=== PATIENT | female | born 1940 | race Caucasian/White ===

== ENCOUNTER → 2017-08-07 16:20 | Outpatient (CLI) | payer MEDICARE, SELFPAY | PROVIDERS: Family Provider Internal Medicine; PCP Internal Medicine; Visit Provider Nurse Practitioner Adult Health | DX: R82.99 Other abnormal findings in urine (principal) | CPT/HCPCS: 87086; 87088; 87186 ==

== ENCOUNTER → 2018-11-05 | Outpatient (CLI) | payer MEDICARE, SELFPAY ==
--- NOTE | 2018-11-05 09:58 | BD_ITS ---
STUDY: DUAL ENERGY X-RAY ABSORPTIOMETRY / DXA REASON FOR EXAM: Female, 78 years old. The patient is postmenopausal. Loss of height. TECHNIQUE: Bone Mineral Density (BMD) measurements of lumbar spine and bilateral hips were obtained. COMPARISON: Comparison is made with prior study dated September 20, 2016. FINDINGS: Lumbar Spine (L1-L4): g/cm2 (0.900) / T-score (-2.3) / Z-score (-0.5) Findings are suggestive of osteopenia with a high fracture risk. Increased thoracic kyphosis with almost complete loss of height of a mid dorsal vertebrae. Left Femur Total: g/cm2 (0.766) / T-score (-1.9) / Z-score (-0.1) Left Femoral Neck: g/cm2 (0.762) / T-score (-2.0) / Z-score (0.0) Right Femur Total: g/cm2 (0.814) / T-score (-1.5) / Z-score (0.3) Right Femoral Neck: g/cm2 (0.814) / T-score (-1.6) / Z-score (0.4) The T-Scores on the most recent prior examination were: Lumbar Spine (L1-L4): There has been worsening of bone density since the previous examination. Left Femur Total: which represents an improvement of 0.1%. Right Femur Total: which represents a worsening of 0.4%. BD/Dexa Bone Density Study IMPRESSION: The patient is considered osteopenic as outlined below according to World [place] Organization (WHO) criteria with a high fracture risk. There has been worsening of bone density since the previous examination. Reference Information: The T-score is the number of standard deviations above or below the standard which is normal for young adults at their peak bone mineral density. The World Health Organization (WHO) interprets the T-scores as follows: Above -1 Normal bone density Between -1 and -2.5 Osteopenia Equal to / or below -2.5 Osteoporosis As a practical clinical guideline, osteopenia may be graded as follows: Mild -1 through -1.5 Moderate -1.6 through -2.0 Severe -2.1 through -2.4 The Z-score is the number of standard deviations above or below age-matched controls. A Z-score of less than -1.5 would be considered abnormal. References: 1. NIH Osteoporosis and Related Bone Diseases http://www.osteo.org 2. International Society for Clinical Densitometry http://www.iscd.org 3. National Osteoporosis Foundation http://www.nof.org Electronically Signed: Erwin Russ, at 15:58 EDT , Service support ,
== END | disposition home or self-care (01) ==
PROVIDERS: Family Provider Internal Medicine; PCP Internal Medicine; Referring Provider Internal Medicine; Visit Provider Internal Medicine
DX: Z78.0 Asymptomatic menopausal state (principal)
CPT/HCPCS: 77080

== ENCOUNTER → 2020-06-28 13:50 | Outpatient (CLI) | payer MEDICARE, SELFPAY ==
--- NOTE | 2020-06-28 13:55 | ECHOD_ITS ---
Reason For Study: SYNCOPE Procedure This was a 2D Doppler, Color Flow transthoracic echocardiogram. The study was technically difficult. Exam performed in department. Left Ventricle Normal LV size. The estimated ejection fraction is 65 %. Unable to assess diastolic dysfunction. No regional wall motion abnormalities noted. Right Ventricle Normal RV size. Normal systolic function. Atria Normal left atrium. Normal right atrium. No doppler evidence for ASD. Mitral Valve There is moderate mitral annular calcification. There is no mitral valve stenosis. Trivial mitral valve insufficiency. Tricuspid Valve There is no tricuspid stenosis. Trivial tricuspid valve insufficiency. Pulmonary artery systolic pressure is 25 mmHg. Aortic Valve Trisinus/trileaflet aortic valve. Aortic sclerosis, no stenosis. There is no aortic stenosis. Mild (1+) aortic valve insufficiency. Pulmonic Valve There is no pulmonic valvular stenosis. No pulmonic valve insufficiency. Great Vessels Normal aortic root. Pericardium/Pleural No pericardial effusion. MMode/2D Measurements & Calculations LVIDd: 3.6 cm IVSd: 0.70 cm Ao root diam: 3.4 cm LVIDs: 2.1 cm LVPWd: 0.70 cm RVDd: 2.9 cm FS: 40.8 % LAV(MOD-bp): 31.4 ml LVAd ap4: 28.1 cm2 SV(MOD-sp4): 48.2 ml LAV(MOD-bp) Indexed: 18.2 ml/m2 EDV(MOD-sp4): 78.9 ml LAV(MOD-sp2): 35.0 ml EDV(sp4-el): 85.9 ml LAV(MOD-sp4): 24.2 ml LVAs ap4: 15.0 cm2 ESV(MOD-sp4): 30.7 ml ESV(sp4-el): 33.4 ml EF(MOD-sp4): 61.1 % EF(sp4-el): 61.2 % SV(sp4-el): 52.5 ml LA A4 area: 10.5 cm2 LA dimension(2D): 2.9 cm Time Measurements MV dec time: 0.32 sec Doppler Measurements & Calculations MV E max yoel: 61.6 cm/sec Lat Peak E' Yoel: 7.9 cm/sec Med Peak E' Yoel: 4.3 cm/sec MV A max yoel: 96.3 cm/sec E/E' lat: 7.8 E/E' med: 14.2 MV E/A: 0.64 Ao V2 max: 150.2 cm/sec AI max yoel: 374.7 cm/sec LV V1 max: 97.9 cm/sec Ao max P.0 mmHg AI max P.2 mmHg LV V1 max P.8 mmHg AI dec slope: 173.5 cm/sec2 AI P1/2t: 632.7 msec PA V2 max: 66.3 cm/sec TR max yoel: 217.4 cm/sec TR max P.9 mmHg Interpretation Summary The estimated ejection fraction is 65 %. Unable to assess diastolic dysfunction. Trivial mitral valve insufficiency. Mild (1+) aortic valve insufficiency. Ordering Physician: Yvette Steel Referring Physician: Yvette Steel Performed By: Carol Benjamin, INDIRA, RVT
--- NOTE | 2020-06-28 13:55 | CDU_ITS ---
Reason For Study: Near Syncope Rt. Velocities/BP Lt. Velocities/BP Prox CCA 96/18 cm/sec. Prox CCA 71/17 cm/sec. Mid CCA 81/15 cm/sec. Mid CCA 79/13 cm/sec. Dist CCA 77/17 cm/sec. Dist CCA 67/17 cm/sec. Prox ICA 53/13 cm/sec. Prox ICA 68/15 cm/sec. Mid ICA 73/17 cm/sec. Mid ICA 66/22 cm/sec. Dist ICA 95/34 cm/sec. Dist ICA 80/27 cm/sec. Rt. ICA/CCA = 1.2. Lt. ICA/CCA = 1.0. Prox ECA 55/9 cm/sec. Prox ECA 72/10 cm/sec. Rt. Vert. 49/15 cm/sec. Lt. Vert. 28/9 cm/sec. Right Extracranial There is heterogeneous, smooth atherosclerotic plaque noted in the right common carotid artery. There is intimal thickening but no significant atherosclerotic plaque noted in the right internal carotid artery. There is intimal thickening but no significant atherosclerotic plaque noted in the right external carotid artery. Antegrade flow is noted in the right vertebral artery. Left Extracranial There is heterogeneous, irregular atherosclerotic plaque noted in the left common carotid artery. There is homogeneous, smooth atherosclerotic plaque noted in the left internal carotid artery. There is heterogeneous, irregular atherosclerotic plaque noted in the left external carotid artery. Antegrade flow is noted in the left vertebral artery. Procedure Carotid Duplex [id number]. Exam performed in department. Interpretation Summary Intimal thickening right proximal internal carotid artery with less than 50% stenosis Less than 50% stenosis right external carotid Minimal irregular plaque at the proximal left internal carotid artery with less than 50% stenosis Less than 50% stenosis left external carotid Patent and antegrade vertebrals bilaterally Ordering Physician: Yvette Steel Referring Physician: Yvette Steel Performed By: Karla Saini, RDCAROLINA, RVT
== END ==
LOC: CT 13:54 → CVS 13:57
PROVIDERS: PCP Internal Medicine; Referring Provider Internal Medicine; Visit Provider Internal Medicine
DX: R55 Syncope and collapse (principal)
CPT/HCPCS: 93306; 93880

== ENCOUNTER → 2020-07-16 06:21 | Outpatient (CLI) | payer MEDICARE, SELFPAY ==
--- NOTE | 2020-07-16 07:38 | TELEMED_ITS ---
[facility] has confirmed receipt of a request for visit. This document confirms receipt of the order initiating the consult. To find the results of the consultation, please view the patient's reports for the scanned Telemed Consult.
== END ==
PROVIDERS: PCP Internal Medicine; Referring Provider Internal Medicine; Visit Provider Internal Medicine
DX: R55 Syncope and collapse (principal)
CPT/HCPCS: 95819

== ENCOUNTER 2020-08-02 11:03 | Observation (INO) | payer MEDICARE, SELFPAY ==
[2020-08-02] VITALS (7 sets, daily range): BP systolic 131–172; BP diastolic 63–92; PULSE 54–83; RESP 12–21; TEMP 36.4–36.7; O2SAT 95–98; BMI 24.1; BMI 23.3
--- NOTE | 2020-08-02 11:17 | EKG12_ITS ---
Test Reason : SYNCOPE Blood Pressure : / mmHG Vent. Rate : 057 BPM Atrial Rate : 057 BPM P-R Int : 210 ms QRS Dur : 076 ms QT Int : 420 ms P-R-T Axes : 075 025 045 degrees QTc Int : 408 ms Sinus bradycardia with 1st degree A-V block with Premature supraventricular complexes Otherwise normal ECG Confirmed by LAYNE QUICK, TYSHAWN ([id number]), visual effects editor ARMANDO DE SOUZA ([id number]) on 08/04/2020 1:27:26 PM Referred By: HALLEY Confirmed By:TYSHAWN TILLMAN MD
--- NOTE | 2020-08-02 11:18 | ED.VISSUMM ---
- ER Visit Summary Date of Service: 08/02/20 Chief Complaint: Syncope History of Present Illness: The patient is a 80 F who presents with a syncopal episode that occurred today. Patient states she was shoveling snow when she felt lightheaded and passed out. Patient states she was only out for approximately 2 to 3 minutes. Patient states she felt lightheaded prior to passing out. Patient states she has a history of syncope. Patient states her primary care physician has worked her up for syncope with no cause. Patient denies any chest pain or palpitations. Patient denies any cough. Patient denies any nausea or vomiting. Physical Examination: Vital signs are stable. Patient is afebrile. Patient is in no acute distress. Oral mucosa is pink and moist. Neck is supple. Trachea is midline. There is no JVD noted. Heart was regular rate and rhythm. Lungs are clear and equal bilaterally. Abdomen is soft. Bowel sounds are normal. There is no tenderness. There is no rebound or guarding noted. Skin is warm dry. Cranial nerves II through XII are intact. There are no focal motor or sensory deficits noted. Extremities are intact. There is no calf tenderness or edema. Test Results: CBC is within normal limits. Comprehensive metabolic profile shows a slightly elevated creatinine of 1.44 and a BUN of 34. Urinalysis shows leukocyte esterase of 500 with 2+ bacteria. There are 0-5 white blood cells. Troponin was normal. Orthostatic vital signs were obtained and were within normal limits. Emergency Department Course and Treatment: Patient was ordered a dose of Cipro here. Patient states she cannot take any antibiotics for urinary tract infections even though she only has penicillins and sulfa listed as allergies. Patient states she is on a natural antibiotic and will take that. Patient states she still feels weak. Patient attempted to ambulate but was unsteady on her feet. Case was discussed with the hospitalist. She will admit the patient to her service. Patient understood and was agreeable with the plan. All questions were answered. Disposition: Admit to hospital Impression: 1. Syncope 2. General weakness 3. Urinary tract infection This note was generated with [employer] dictation software. It may contain incorrect words, spelling, and punctuation that were not noted in review of the chart prior to signing ED Disposition - Plan for ED Patient: Disposition: Acute Care Hospital [facility] Diagnosis: Syncope, General weakness, Urinary tract infection Referrals: Yvette Steel DO [Primary Care Provider] -
[2020-08-02 11:44] LABS: Absolute Lymphocyte Count 1.16 X10^3/uL (0.83-4.51); Absolute Neutrophil Count 4.5 X10^3/uL (2.0-7.7); Basophil# 0.03 X10^3/uL; Basophil% 0.5 % (0-1); Eosinophil# 0.07 X10^3/uL; Eosinophils% 1.1 % (0-5); Hematocrit 36.7 % (37-47); Hemoglobin 12.4 g/dL (12.0-15.0); Lymphocyte # 1.16 X10^3/ul (4.0); Lymphocyte % 18.3 % (19-41); Mean Corp Hgb Conc 33.8 g/dL (32-36); Mean Corpuscular Hgb 30.9 pg (27.0-32.0); Mean Corpuscular Volume 91.5 fL (81-99); Mean Platelet Vol. 9.1 fl (6.2-12.0); Monocyte# 0.61 X10^3/uL; Monocyte% 9.6 % (0-10); NRBC Flagged by Analyzer 0 % (0-5); Neutrophil # 4.46 X10^3/uL (2.7-7.7); Neutrophil % 70.2 % (47-70); Platelet Count 186 K/mm3 (150-450); RBC Distribution Width CV 13.2 % (11.6-14.6); RBC Distribution Width SD 43.5 fl (35.1-43.9); Red Blood Count 4.01 M/mm3 (4.2-5.4); White Blood Count 6.4 K/mm3 (4.4-11.0)
[2020-08-02 12:02] LABS: ALB/GLOB Ratio 1.1 RATIO (0.9-2.4); AST(SGOT) 30 U/L (15-37); Alanine Aminotransfer ALT/SGPT 43 U/L (13-56); Albumin, Serum 3.6 g/dL (3.2-5.0); Alkaline Phosphatase 93 U/L (45-117); Anion Gap 8 (5-15); BUN 34 mg/dL (7-18); BUN/Creat Ratio 23.6 RATIO (10-20); Calcium,Total 9.6 mg/dL (8.5-10.1); Chloride 108 mmol/L (98-107); Creatinine, Serum 1.44 mg/dL (0.55-1.02); EST Glomerular Filtration Rate 37 mL/min (>60); Est Glom Filt Rate - Afr Amer 45 mL/min (>60); Estimated Creatinine Clearance 29.66 ml/min; Globulin 3.3 g/dL (2.2-4.2); Glucose 100 mg/dL (74-106); Potassium 4.9 mmol/L (3.5-5.1); Protein, Total 6.9 g/dL (6.4-8.2); Sodium Level 139 mmol/L (136-145)
[2020-08-02 13:32] LABS: Mucous, Urine 0 SEEN /hpf (<or=2+); Red Blood Cells-Urine 0 SEEN /hpf (0-5)
[2020-08-02 13:43] LABS: Color, Urine Yellow (Yellow); Glucose, Dipstick Normal (Normal); Ketone-Dipstick Negative (Negative); Leukocyte Esterase-Dipstick 500 /ul (Negative); Nitrite-Dipstick Positive (Negative); Occult Blood-Urine 10 /ul (Negative); Protein-Dipstick Negative (Negative); Specific Gravity, Urine 1.005 (1.002-1.030); Urine Bilirubin Dipstick Negative (Negative); Urine Clarity Sl. Cloudy (Clear); Urine Urobilinogen Normal (Normal)
[2020-08-02 13:49] LABS: Bacteria 2+ /hpf (None Seen); Squamous Epithelial Cells - UA 0-5 SEEN /hpf (5-10); White Blood Cells 0-5 SEEN /hpf (0-5)
--- NOTE | 2020-08-02 16:11 | MRI_ITS ---
STUDY: MRI BRAIN WITHOUT CONTRAST REASON FOR EXAM: Female, 80 years old. syncope today, UTI, weakness TECHNIQUE: Standardized multiplanar fat and water weighted pulse sequences were obtained. COMPARISON: CT of the brain 07/23/2016 FINDINGS: Moderate atrophy and periventricular white matter disease without mass effect or restricted diffusion. There is involvement of the corpus callosum raising question of chronic demyelinating disease. Clinical correlation recommended. Focal chronic ischemic changes in the right cerebellar hemisphere Normal bilateral basal ganglia. Normal thalami. There is no extra-axial fluid accumulation. Normal flow voids within the major intracranial circulation suggesting patency by spin echo criteria. Normal sella turcica, pituitary gland, infundibular stalk, optic chiasm and hypothalamus. Normal tectal plate and pineal gland. Normal midbrain, ann and medulla. Normal basal cisterns. Normal bilateral temporal bones. Normal bilateral internal auditory canals. Postsurgical changes of the orbits.. Normal visualized paranasal sinuses. Normal calvarium and skull base. Normal visualized soft tissue structures. Normal visualized upper cervical spine. MRI/Brain without Contrast IMPRESSION: Moderate atrophy and nonspecific periventricular white matter disease without evidence for acute infarct. Focal chronic ischemic changes in the right cerebral hemisphere. Electronically Signed: Hilario Weldon MD at 22:01 EST , Service support ,
--- NOTE | 2020-08-02 16:11 | MRI_ITS ---
STUDY: MRA OF THE HEAD WITHOUT CONTRAST REASON FOR EXAM: Female, 80 years old. syncope today, UTI, weakness TECHNIQUE: 3-D [id number] (TOF) imaging was performed with MIPs. The study was performed unenhanced. COMPARISON: None. FINDINGS: Normal bilateral petrous carotid arteries. Normal right cavernous carotid artery with a normal supraclinoid bifurcation. Normal left cavernous carotid artery with a normal supraclinoid bifurcation. Normal right A1 segments of the anterior cerebral artery. Normal left A1 segments of the anterior cerebral artery. Anterior communicating artery not visualized consistent with normal variant. Normal bilateral A2 segments of the anterior cerebral arteries. Normal right M1 and M2 segments of the middle cerebral arteries, with a normal M1 bifurcation. Normal left M1 and M2 segments of the middle cerebral arteries, with a normal M1 bifurcation. Posterior communicating arteries are not visualized consistent with normal variant Normal bilateral vertebral arteries. Normal basilar artery with a normal basilar bifurcation. The visualized bilateral superior cerebellar (SCA) arteries are normal. Normal bilateral P1, P2 and visualized P3 segments of the posterior cerebral arteries. There is no demonstrated aneurysm of the [place]. There is no major vessel occlusion or hemodynamically significant stenosis. There is no demonstrated abnormality of the visualized brain. MRI/MRA Head ONLY without Contrast IMPRESSION: Normal MRA of the head Electronically Signed: Hilario Weldon MD at 22:21 EST , Service support ,
--- NOTE | 2020-08-02 16:28 | PCM.HP.STD ---
<Brittney Vicente JOURNEYMAN MECHANIC - Last Filed: 08/02/20 16:53> Problem List (1) General weakness Status: Acute (2) Urinary tract infection Status: Acute (3) Hypothyroid Status: Chronic (4) Hypertension Status: Chronic (5) Syncope Status: Acute (6) Uncontrolled hypertension Status: Chronic (7) Gastroenteritis Status: Resolved History of Present Illness Date of Admission: 08/02/20 Chief Complaint: Syncope. The patient is a 80 year old F who presents to the emergency room following syncopal episode. Patient states she had a syncopal episode while shoveling snow today. Patient states her neighbor helped her into the house and she had 2 more episodes of syncope in her home. Patient states she has had syncopal episodes for many years and no cause has been determined. She states her primary care has been doing outpatient testing recently as she is sick of having these episodes. She denies injury during syncopal episodes today. Patient denies dizziness or lightheadedness prior to episodes although states she can feel when she is about to pass out. She reports her most recent episode prior to today was in March however she has had syncope recurrently over the past several years. She denies seizure history. Denies palpitations. States she has had Holter monitor placed for the past month however it fell off during her syncopal episode today. Patient states she has been having urinary frequency. She states she has a history of recurrent UTI and takes a garlic supplementation as a preventative measure. She has a past medical history of hypertension and hypothyroidism. Past Medical History Past Medical History (Chronic Problems): Chronic Problems Hypothyroid (Chronic) Hypertension (Chronic) Uncontrolled hypertension (Chronic) Allergies atorvastatin calcium [From Lipitor] Allergy (Verified 08/02/20 11:05) Chest tightness captopril Allergy (Verified 08/02/20 11:05) Chest tightness lansoprazole [From Prevacid] Allergy (Verified 08/02/20 11:05) Chest tightness Penicillins Allergy (Verified 08/02/20 11:05) Hives procaine HCl [From Novocain] Allergy (Verified 08/02/20 11:05) Other risedronate sodium [From Actonel] Allergy (Verified 08/02/20 11:05) Chest tightness Sulfa (Sulfonamide Antibiotics) Allergy (Verified 08/02/20 11:05) Hives Home Medications: Ambulatory Orders Medication Instructions Recorded Aspirin [Aspirin, Baby] 81 mg PO DAILY@0800 #30 tab.chew 07/25/16 Levothyroxine Sodium [Synthroid] 37.5 mcg PO SA 08/02/20 Levothyroxine Sodium [Synthroid] 75 mcg PO SUMOTUWETHFR 08/02/20 Metoprolol Succinate [Toprol Xl] 25 mg PO DAILY 08/02/20 Surgical History: noncontributory Psychiatric History: No pertinent psych hx 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 Paternal History Items: - - Denies paternal medical history including cardiac history. Review of Systems Constitutional: Denies: Chills, Fever, Weight Change HEENT: Denies: Head Aches, Sinus Congestion, Sinus Drainage Cardiovascular: Reports: Syncope. Denies: Chest Pain, Chest Pressure, Edema, Light Headedness Respiratory: Denies: Cough, Shortness of breath at rest, Sputum production Gastrointestinal: Denies: Abdominal Pain, Nausea, Vomiting Genitourinary: Denies: Dysuria Musculoskeletal: Denies: Joint Pain, Joint Tenderness Skin: Denies: Rash, Wounds Neurological: Denies: Numbness, Tingling, Focal weakness Psychiatric: Denies: Anxiety, Depression, Homicidal Ideations, Suicidal Ideations Hematologic/ Lymphatic: Denies: Easy Bruising, Easy Bleeding VTE Information - Inpt Only VTE Present on Admission: No VTE Mechan Device Prophylaxis: None VTE Pharm Prophylaxis ordered?: Yes Patient Problems: Active and Suspected Problems General weakness (Acute) Urinary tract infection (Acute) Syncope (Acute) - Physical Exam Vitals/I&O's: Vital Signs Temp Pulse Resp BP Pulse Ox 98.1 F 62 21 H 172/92 H 96 08/02/20 15:49 08/02/20 15:49 08/02/20 15:49 08/02/20 15:49 08/02/20 15:49 Oxygen Delivery Method Room Air Weight: 149 lb 11.102 oz Body Mass Index (BMI) 24.1 General: Alert, Oriented x3, Cooperative HEENT: Atraumatic, PERRLA, EOMI, Normocephalic Neck: Supple, No JVD, Negative Carotid Bruits Lungs: Clear to auscultation, Normal air movement Cardiovascular: Regular rate, No murmurs Abdomen: Bowel Sounds Present, Soft, Non Tender, Non-Distended Extremities: No clubbing, No cyanosis, No edema, Capillary Refill Less than 3 Seconds Skin: No rashes, No breakdown Musculoskeletal: No Tenderness to Palpation of Joints or Extremities Neurological: Cranial nerves II-XII grossly intact, Neuro grossly intact Psych/Mental Status: Normal Affect, Appropriate Laboratory Results 08/02/20 11:35: WBC 6.4, RBC 4.01 L, Hgb 12.4, Hct 36.7 L, MCV 91.5, MCH 30.9, MCHC 33.8, RDW Std Deviation 43.5, RDW Coeff of Krystian 13.2, Plt Count 186, MPV 9.1, Immature Gran % (Auto) 0.300, Neut % (Auto) 70.2 H, Lymph % (Auto) 18.3 L, Curry % (Auto) 9.6, Eos % (Auto) 1.1, Baso % (Auto) 0.5, Absolute Neuts (auto) 4.5, Absolute Lymphs (auto) 1.16, Nucleated RBC % 0 08/02/20 11:35: Sodium 139, Potassium 4.9, Chloride 108 H, Carbon Dioxide 23.0, Anion Gap 8, BUN 34 H, Creatinine 1.44 H, Estim Creat Clear Calc 29.66, Est GFR (MDRD) Af Amer 45 L, Est GFR (MDRD) Non-Af 37 L, BUN/Creatinine Ratio 23.6 H, Glucose 100, Calcium 9.6, Total Bilirubin 0.40, AST 30, ALT 43, Alkaline Phosphatase 93, Troponin I < 0.015, Total Protein 6.9, Albumin 3.6, Globulin 3.3, Albumin/Globulin Ratio 1.1 08/02/20 13:20: Urine Color Yellow, Urine Clarity Sl. Cloudy, Urine pH 7.0, Ur Specific [place] 1.005, Urine Protein Negative, Urine Glucose (UA) Normal, Urine Ketones Negative, Urine Occult Blood 10 H, Urine Nitrite Positive H, Urine Bilirubin Negative, Urine Urobilinogen Normal, Ur Leukocyte Esterase 500 H, Urine RBC 0 SEEN, Urine WBC 0-5 SEEN, Ur Squamous Epith Cells 0-5 SEEN, Urine Bacteria 2+, Urine Mucus 0 SEEN Current Medications Acetaminophen (Acetaminophen 325 Mg Tablet) 650 mg PO Q6H PRN PRN PRN Reason: Pain Score 1-10/Temp > 100.7 F Aspirin (Aspirin 81 Mg Tab.Chew) 81 mg PO DAILY@0800 [facility] Heparin Sodium (Porcine) (Heparin Injection (Vial) 5,000 Unit/Ml Vial) 5,000 unit SC Q12 [facility] Sodium Chloride () 1,000 mls @ 75 mls/hr IV .[id number] [facility] Ceftriaxone Sodium 2 gm/ (Sodium Chloride) 50 mls @ 100 mls/hr IV Q24 [facility] Levothyroxine Sodium (Levothyroxine 75 Mcg Tablet) 75 mcg PO DAILY@0600 [facility] Melatonin (Melatonin 3 Mg Tablet) 3 mg PO QHS PRN PRN PRN Reason: INSOMNIA Metoprolol Succinate (Metoprolol(Xl)Succ 25 Mg Tablet) 25 mg PO DAILY [facility] Ondansetron HCl (Ondansetron 4 Mg/2 Ml Vial) 4 mg IV Q8H PRN PRN PRN Reason: NAUSEA/VOMITING Senna/Docusate Sodium (Senna/Docusate Sodium 1 Tablet) 2 tablet PO BID PRN PRN PRN Reason: Constipation Assessment/Plan All Active Problems General weakness (Acute) Urinary tract infection (Acute) Syncope (Acute) Gastroenteritis (Resolved) 1. Recurrent syncope-patient has had extensive outpatient evaluation including echocardiogram, EEG. Echocardiogram demonstrates an EF of 65%, mild aortic valve insufficiency. EEG showed no evidence of seizures or other abnormalities. Carotid duplex with less than 50% stenosis bilaterally. She has also been wearing a Holter monitor for the past month, unclear when this was to come off. Patient will need follow-up on records of this. Monitor telemetry. Obtain MRI of brain, MRA of head and neck. Check orthostatic vitals. PT/OT. 2. Acute cystitis-IV Rocephin pending urine culture. 3. Hypertension-stable, continue metoprolol. 4. Hypothyroidism-continue Synthroid regimen. 5. Chronic kidney disease stage III-appears at baseline, trend BMP. DVT prophylaxis-Heparin subcu This patient was seen by KARLI Grayson under the supervision of Dr. Doherty. <Katia Doherty - Last Filed: 08/02/20 18:20> History of Present Illness I agree with the above and the following is a representation of my independent history and physical exam Ms. Barber is a 80 year old very independent WF with a past medical history of recurrent syncope, hypothyroidism, and hypertension who presented to the emergency department on 08/02/2020 with an episode of syncope that occurred today. The patient states she was shoveling snow at the time when she felt lightheaded and passed out. She reports that she was out for approximately 2 to 3 minutes and she stated that she felt lightheaded prior to passing out. Upon review and discussion with the patient she has a recurrent history of syncope which has been worked up extensively by her primary care physician thus far including an event monitor that she is just finishing up with, an EEG on 07/16/2020 that was normal, an echocardiogram that was done on 07/01/2020 and showed an EF of 65% and mild aortic insufficiency, and carotid Dopplers that showed less than 50% stenosis of bilateral carotid arteries and patent antegrade vertebral arteries. The emergency department physician was getting ready to discharge her home but she felt that she was too weak to go home at this time and required admission. She reported that she is just sick of having these episodes. She also complains of urinary frequency and her UA is consistent with possible UTI. The patient denies any dysuria but does report she has a history of recurrent UTIs with recent urosepsis on admission in [place]. She takes garlic as an herbal antibiotic for preventative measures and is reluctant to take antibiotics otherwise. She sees a publishing systems analyst who told her her body was not using water the way it should and put her on another supplement of which she is not clear. Past Medical History Allergies atorvastatin calcium [From Lipitor] Allergy (Verified 08/02/20 11:05) Chest tightness captopril Allergy (Verified 08/02/20 11:05) Chest tightness lansoprazole [From Prevacid] Allergy (Verified 08/02/20 11:05) Chest tightness Penicillins Allergy (Verified 08/02/20 11:05) Hives procaine HCl [From Novocain] Allergy (Verified 08/02/20 16:28) I get drunk risedronate sodium [From Actonel] Allergy (Verified 08/02/20 11:05) Chest tightness Sulfa (Sulfonamide Antibiotics) Allergy (Verified 08/02/20 11:05) Hives Review of Systems Constitutional: Reports: Weakness, Fatigue. Denies: Anorexia, Chills, Fever, Night Sweats, Malaise, Weight Change Eyes: Denies: Blurred vision, Cataracts, Conjunctivae Inflammation, Double vision, Drainage, Eyelid Inflammation, Pain, Redness, Vision Change HEENT: Denies: Difficulty Hearing, Difficulty Swallowing, Ear Pain, Eye Pain, Hard of Hearing, Head Aches, Nasal bleeding, Nasal Congestion, Post Nasal Drip, Sinus Congestion, Sinus Drainage, Sore Throat, Visual Changes Cardiovascular: Reports: Syncope - This is recurrent in nature over the past several years. Denies: Chest Pain, Claudication, Chest Pressure, Chest Tightness, Edema, Heaviness, Light Headedness, Orthopnea, Palpitations, Paroxysmal Noc. Dyspnea Respiratory: Denies: Cough, Hemoptysis, Pleuritic Pain, Shortness of Breath, Shortness of breath at rest, Shortness of breath upon exertion, Sputum production, Wheezing Gastrointestinal: Denies: Abdominal Pain, Constipation, Diarrhea, Dyspepsia, Hematemesis, Hematochezia, Nausea, Melena, Vomiting Genitourinary: Reports: Frequency. Denies: Dysuria, Hematuria, Hesitancy, Incontinence, Nocturia, Retention, Urgency Musculoskeletal: Denies: Back Pain, Joint Pain, Joint stiffness, Joint swelling, Joint Tenderness, Muscle pain, Neck Pain Skin: Denies: Dryness, Jaundice, Lesions, Pruritis, Rash, Skin Changes, Wounds Neurological: Denies: Balance problems, Blurred vision, Double vision, Slurred speech, Confusion, Difficulty swallowing, Focal weakness, Incoordination, Numbness, Tingling, Tremor, Seizures Psychiatric: Denies: Anxiety, Depression Endocrine: Denies: Change in Body Habitus, Heat/ Cold Intolerance, Polydipsia, Polyuria Hematologic/ Lymphatic: Denies: Adenopathy, Anemia, Easy Bruising, Petechiae, Purpura - Physical Exam Vitals/I&O's: Vital Signs Temp Pulse Resp BP Pulse Ox 97.8 F 60 16 156/63 H 96 08/02/20 16:49 08/02/20 16:49 08/02/20 16:49 08/02/20 16:49 08/02/20 16:49 Oxygen Delivery Method Room Air Weight: 65.453 kg Body Mass Index (BMI) 23.3 General: Alert, Oriented x3, Cooperative, No apparent distress, Well developed, Well nourished, - - Older white female who appears younger than stated age, appears comfortable sitting up in bed HEENT: Atraumatic, PERRLA, EOMI, Normocephalic, EAC Clear Oral: Moist Mucosa, No Gingival or Mucosal Lesions/ Ulcerations, - - Mallampati 2 dentition is fair Neck: Supple, No JVD, Negative Carotid Bruits, Negative Hepatojugular Reflux, No Nodes, No Nuchal Rigidity, Trachea Midline, Thyroid Normal Size and Texture Lungs: Clear to auscultation, Normal air movement, No rhonchi, No wheeze, No rales Cardiovascular: Regular rate, Regular Rhythm, Normal S1, Normal S2, No murmurs, No Ectopic Activity, No rub noted, No Gallop Abdomen: Bowel Sounds Present, Soft, Non Tender, Non-Distended Extremities: No clubbing, No cyanosis, No edema, Capillary Refill Less than 3 Seconds, No Calf Tenderness, Peripheral Pulses Normal Skin: No rashes, No breakdown Musculoskeletal: No Tenderness to Palpation of Joints or Extremities, No Muscle Wasting, Arthritic Changes Lymphatic: No Cervical, Supraclavicular, or Inguinal Adenopathy Neurological: Cranial nerves II-XII grossly intact, Neuro grossly intact, Muscle tone normal, Sensory exam intact to light touch and pain, Coordination normal Psych/Mental Status: Normal Affect, Appropriate Laboratory Results 08/02/20 11:35: WBC 6.4, RBC 4.01 L, Hgb 12.4, Hct 36.7 L, MCV 91.5, MCH 30.9, MCHC 33.8, RDW Std Deviation 43.5, RDW Coeff of Krystian 13.2, Plt Count 186, MPV 9.1, Immature Gran % (Auto) 0.300, Neut % (Auto) 70.2 H, Lymph % (Auto) 18.3 L, Curry % (Auto) 9.6, Eos % (Auto) 1.1, Baso % (Auto) 0.5, Absolute Neuts (auto) 4.5, Absolute Lymphs (auto) 1.16, Nucleated RBC % 0 08/02/20 11:35: Sodium 139, Potassium 4.9, Chloride 108 H, Carbon Dioxide 23.0, Anion Gap 8, BUN 34 H, Creatinine 1.44 H, Estim Creat Clear Calc 29.66, Est GFR (MDRD) Af Amer 45 L, Est GFR (MDRD) Non-Af 37 L, BUN/Creatinine Ratio 23.6 H, Glucose 100, Calcium 9.6, Total Bilirubin 0.40, AST 30, ALT 43, Alkaline Phosphatase 93, Troponin I < 0.015, Total Protein 6.9, Albumin 3.6, Globulin 3.3, Albumin/Globulin Ratio 1.1 08/02/20 13:20: Urine Color Yellow, Urine Clarity Sl. Cloudy, Urine pH 7.0, Ur Specific [place] 1.005, Urine Protein Negative, Urine Glucose (UA) Normal, Urine Ketones Negative, Urine Occult Blood 10 H, Urine Nitrite Positive H, Urine Bilirubin Negative, Urine Urobilinogen Normal, Ur Leukocyte Esterase 500 H, Urine RBC 0 SEEN, Urine WBC 0-5 SEEN, Ur Squamous Epith Cells 0-5 SEEN, Urine Bacteria 2+, Urine Mucus 0 SEEN Current Medications Acetaminophen (Acetaminophen 325 Mg Tablet) 650 mg PO Q6H PRN PRN PRN Reason: Pain Score 1-10/Temp > 100.7 F Aspirin (Aspirin 81 Mg Tab.Chew) 81 mg PO DAILY@0800 [facility] Heparin Sodium (Porcine) (Heparin Injection (Vial) 5,000 Unit/Ml Vial) 5,000 unit SC Q12 [facility] Sodium Chloride () 1,000 mls @ 75 mls/hr IV .[id number] [facility] Ceftriaxone Sodium 2 gm/ (Sodium Chloride) 50 mls @ 100 mls/hr IV Q24 [facility] Levothyroxine Sodium (Levothyroxine 75 Mcg Tablet) 75 mcg PO DAILY@0600 [facility] Melatonin (Melatonin 3 Mg Tablet) 3 mg PO QHS PRN PRN PRN Reason: INSOMNIA Metoprolol Succinate (Metoprolol(Xl)Succ 25 Mg Tablet) 25 mg PO DAILY [facility] Ondansetron HCl (Ondansetron 4 Mg/2 Ml Vial) 4 mg IV Q8H PRN PRN PRN Reason: NAUSEA/VOMITING Senna/Docusate Sodium (Senna/Docusate Sodium 1 Tablet) 2 tablet PO BID PRN PRN PRN Reason: Constipation Sodium Chloride (0.9% Saline Lock 10 Ml Syringe) 10 - 40 ml IV UD PRN PRN Reason: SALINE FLUSH Assessment/Plan ASSESSMENT Recurrent syncope Possible UTI CKD stage III Hypertension Hypothyroidism PLAN -Patient has had an extensive outpatient work-up including recent event monitor for 30 days, echocardiogram, EEG, and carotid duplex all of which lead to no answer for her recurrent syncope episodes -Patient may need a tilt table exam but this could be done as an outpatient -MRI and MRA are pending -Start ceftriaxone and obtain urine culture and treat with antibiotics accordingly if patient will allow -Continue home medications Inpatient E&M: [id number] Init Hosp L3
--- NOTE | 2020-08-02 16:34 | MRI_ITS ---
STUDY: MRA NECK WITHOUT CONTRAST REASON FOR EXAM: Female, 80 years old. syncope today, UTI, weakness TECHNIQUE: Source images were obtained, MIPs were performed. The study was performed unenhanced. COMPARISON: None. FINDINGS: RIGHT CAROTID ARTERIES: Normal right common carotid artery (CCA). Normal right common carotid bulb. Mild plaquing of the origin of the right internal carotid (ICA) artery without a hemodynamically significant stenosis. Normal visualized cervical portion of the right internal carotid artery. Normal origin of the right external carotid artery (ECA). LEFT CAROTID ARTERIES: Normal left common carotid artery (CCA). Normal left common carotid bulb. Normal origin of the left internal carotid (ICA) artery without a hemodynamically significant stenosis. Normal visualized cervical portion of the left internal carotid artery. Normal origin of the left external carotid artery (ECA). VERTEBRAL ARTERIES: Normal antegrade flow within the bilateral vertebral artery without a hemodynamically significant stenosis. MRI/MRA Neck without Contrast IMPRESSION: Mild atherosclerotic disease without evidence for hemodynamically significant stenosis Electronically Signed: Hilario Weldon MD at 22:23 EST , Service support ,
--- NOTE | 2020-08-02 18:45 | NURSING ---
Patient returns from MRI. Per PROCESSING TECH, patient reported increased weakness and requests RN assistance. This RN in to see patient. Patient laying in bed groaning and saying no. Patient will go in and out of following directions. Blood sugar obtained 81. Says she wants to eat. After about 5 minutes, nightshift staff in to see patient. Patient opens eyes and converses with male nurses without difficulty. NIH-0. Vitals obtained. BP 166/[id number]. RN called and spoke with Dr. Doherty, Hospitalist. Updated her on same. Continue current treatment plan. Nightshift RN remained at bedside. Patient following commands and conversing with RN. No distress noted. Assisted up in bed for dinner.
[2020-08-02] MEDS: 0.9% Normal Saline 1,000 ML 75 ML IV (19:15)
[2020-08-02 19:36] LABS: Bedside Glucose 81 mg/dL (70-110)
[2020-08-02] MEDS: MELATONIN 3 MG TABLET PO (22:19)
[2020-08-03] VITALS (10 sets, daily range): BP systolic 119–139; BP diastolic 55–81; PULSE 55–71; RESP 16–18; TEMP 36.4–37; O2SAT 95–98
[2020-08-03 04:56] LABS: Absolute Lymphocyte Count 1.76 X10^3/uL (0.83-4.51); Absolute Neutrophil Count 2.3 X10^3/uL (2.0-7.7); Basophil# 0.04 X10^3/uL; Basophil% 0.8 % (0-1); Eosinophil# 0.12 X10^3/uL; Eosinophils% 2.5 % (0-5); Hematocrit 36.1 % (37-47); Hemoglobin 12.3 g/dL (12.0-15.0); Lymphocyte # 1.76 X10^3/ul (4.0); Lymphocyte % 36.1 % (19-41); Mean Corp Hgb Conc 34.1 g/dL (32-36); Mean Corpuscular Hgb 31.5 pg (27.0-32.0); Mean Corpuscular Volume 92.3 fL (81-99); Mean Platelet Vol. 8.8 fl (6.2-12.0); Monocyte# 0.67 X10^3/uL; Monocyte% 13.7 % (0-10); NRBC Flagged by Analyzer 0 % (0-5); Neutrophil # 2.28 X10^3/uL (2.7-7.7); Neutrophil % 46.7 % (47-70); Platelet Count 171 K/mm3 (150-450); RBC Distribution Width CV 13.4 % (11.6-14.6); RBC Distribution Width SD 44.6 fl (35.1-43.9); Red Blood Count 3.91 M/mm3 (4.2-5.4); White Blood Count 4.9 K/mm3 (4.4-11.0)
[2020-08-03 05:20] LABS: Anion Gap 8 (5-15); BUN 28 mg/dL (7-18); BUN/Creat Ratio 19.3 RATIO (10-20); Calcium,Total 9.5 mg/dL (8.5-10.1); Chloride 111 mmol/L (98-107); Creatinine, Serum 1.45 mg/dL (0.55-1.02); EST Glomerular Filtration Rate 37 mL/min (>60); Est Glom Filt Rate - Afr Amer 45 mL/min (>60); Estimated Creatinine Clearance 29.45 ml/min; Glucose 97 mg/dL (74-106); Phosphorus 3.8 mg/dL (2.5-4.9); Potassium 4.6 mmol/L (3.5-5.1); Sodium Level 140 mmol/L (136-145)
[2020-08-03] MEDS: Levothyroxine 75 MCG Tablet PO (05:46)
[2020-08-03] MEDS: Metoprolol(XL)Succ 25 MG Tablet PO (09:23)
[2020-08-03] MEDS: Aspirin 81 MG TAB.CHEW PO (09:23)
[2020-08-03] MEDS: 0.9% Normal Saline 1,000 ML 75 ML IV (09:23)
--- NOTE | 2020-08-03 11:52 | PCM.DC ---
- Discharge Diagnoses Current Active Problems: Current Active and Chronic Problems Urinary tract infection (Acute) Hypothyroid (Chronic) Hypertension (Chronic) Syncope (Acute) Uncontrolled hypertension (Chronic) You will use the following diet at home:: No restrictions Discharge Activity: Return to Normal Activity Call your doctor if you observe: Shortness of breath, Dizziness, Fainting spells, Chest pain Allergies/Adverse Reactions: Allergies atorvastatin calcium [From Lipitor] Allergy (Verified 08/02/20 11:05) Chest tightness captopril Allergy (Verified 08/02/20 11:05) Chest tightness lansoprazole [From Prevacid] Allergy (Verified 08/02/20 11:05) Chest tightness Penicillins Allergy (Verified 08/02/20 11:05) Hives procaine HCl [From Novocain] Allergy (Verified 08/02/20 16:28) I get drunk risedronate sodium [From Actonel] Allergy (Verified 08/02/20 11:05) Chest tightness Sulfa (Sulfonamide Antibiotics) Allergy (Verified 08/02/20 11:05) Hives Medications to take at Discharge Aspirin [Aspirin, Baby] 81 mg PO DAILY@0800 #30 tab.chew 07/25/16 Levothyroxine Sodium [Synthroid] 37.5 mcg PO SA 08/02/20 Levothyroxine Sodium [Synthroid] 75 mcg PO SUMOTUWETHFR 08/02/20 Metoprolol Succinate [Toprol Xl] 25 mg PO DAILY 08/02/20 Cefadroxil [Duricef] 500 mg PO BID #12 cap 08/03/20 The following prescriptions were given: Cefadroxil [Duricef] 500 mg PO BID #12 cap Transmission Status: [facility] Orders to be completed after discharge: 30-Day Event Recorder [[facility] Location: None Selected Primary Care Physician: Yvette Steel DO [Primary Care Provider] - Please follow up with your Primary Care Physician in: 1 Week Test Results: Test results from this visit will be discussed in further detail at your follow-up appointment, if applicable. Proposed Discharge Date: 08/03/20
--- NOTE | 2020-08-03 12:23 | PCM.DC.SUM ---
<Brittney Vicente POULTRY FIELD SERVICE TECHNICIAN - Last Filed: 08/03/20 12:29> Discharge Date and Diagnosis - Problem List Patient Problems: Active and Suspected Problems General weakness (Acute) Urinary tract infection (Acute) Syncope (Acute) Date of Admission: 08/02/20 Date of Discharge: 08/03/20 - Primary Discharge Diagnosis Acute Problems: Active Problems 1. Recurrent syncope 2. Acute cystitis 3. Hypertension 4. Hypothyroidism 5. Chronic kidney disease stage III - Secondary Discharge Diagnosis Chronic Problems: Chronic Problems Hypothyroid (Chronic) Hypertension (Chronic) Uncontrolled hypertension (Chronic) Hospital Course and Treatment Imaging Results: Diagnostic Data Brain MRI 08/02/20 16:11 IMPRESSION: Moderate atrophy and nonspecific periventricular white matter disease without evidence for acute infarct. Focal chronic ischemic changes in the right cerebral hemisphere. Electronically Signed: Hilario Weldon MD at 22:01 EST , Service support , Head MRA 08/02/20 16:11 IMPRESSION: Normal MRA of the head Electronically Signed: Hilario Weldon MD at 22:21 EST , Service support , Neck MRA 08/02/20 16:34 IMPRESSION: Mild atherosclerotic disease without evidence for hemodynamically significant stenosis Electronically Signed: Hilario Weldon MD at 22:23 EST , Service support , Operations: None Procedures: None Summary of Care Provided: The patient is a 80 year old F admitted 08/02/2020 due to syncope. 1. Recurrent syncope-patient has had extensive outpatient evaluation including echocardiogram, EEG. Echocardiogram 07/01/2020 an EF of 65%, mild aortic valve insufficiency. EEG showed no evidence of seizures or other abnormalities. Carotid duplex with less than 50% stenosis bilaterally. She has also been wearing a Holter monitor for the past month, however she was told it was not functioning properly. Orthostatic vitals negative. MRI of brain without acute process. Neck MRA unremarkable. No concerns during PT evaluation. Plan for discharge home with 30-day event monitor, follow-up with PCP in 1 week. 2. Acute cystitis-IV Rocephin during admission. Urine culture pulmonary growing GNR greater than 100,000 colony count. Prior urine culture grew E. coli. Discharged on Duricef 500 mg twice daily to complete course. 3. Hypertension-stable, continue metoprolol. 4. Hypothyroidism-continue Synthroid regimen. 5. Chronic kidney disease stage III-appears at baseline. General: Alert, Oriented x3, Cooperative HEENT: Atraumatic, PERRLA, EOMI, Normocephalic Neck: Supple, No JVD, Negative Carotid Bruits Lungs: Clear to auscultation, Normal air movement Cardiovascular: Regular rate, No murmurs Abdomen: Bowel Sounds Present, Soft, Non Tender, Non-Distended Extremities: No clubbing, No cyanosis, No edema, Capillary Refill Less than 3 Seconds Skin: No rashes, No breakdown Musculoskeletal: No Tenderness to Palpation of Joints or Extremities Neurological: Cranial nerves II-XII grossly intact, Neuro grossly intact Psych/Mental Status: Normal Affect, Appropriate Patient seen and examined prior to discharge. Physical assessment as noted above. Patient is stable for discharge with follow up recommendations as noted above. This patient was seen by KARLI Grayson under the supervision of Dr. Powers. Patient Problems: Active and Suspected Problems General weakness (Acute) Urinary tract infection (Acute) Syncope (Acute) - Physical Exam Vitals/I&O's: Vital Signs Temp Pulse Resp BP Pulse Ox 97.5 F L 71 16 123/55 H 98 08/03/20 09:20 08/03/20 09:23 08/03/20 09:20 08/03/20 09:23 08/03/20 09:30 Oxygen Delivery Method Room Air Weight: 144 lb 4.8 oz Body Mass Index (BMI) 23.3 Orthostatic Vital Signs Start: 08/02/20 23:25 Freq: q24h Status: Active Protocol: Activity Type Activity Date Activity User E-Sign Co-Sign Detail Recorded Client Recorded Date Recorded By Document 08/03/20 04:43 MY [id number] 08/03/20 04:44 MY 08/03/20 04:43 Orthostatic Vitals Standing -Blood Pressure (90/60-120/80) 139/81 H -Extremity Use Right Arm Sitting -Blood Pressure (90/60-120/80) 138/77 H -Extremity Use Right Arm Lying -Blood Pressure (90/60-120/80) 119/65 -Extremity Use Right Arm Intake and Output for Last 24 Hours 08/01/20 08/02/20 08/03/20 23:59 23:59 23:59 Intake Total 120 / 120 1178.75 / 1178.75 Output Total 0 / 0 Balance 120 / 120 1178.75 / 1178.75 Microbiology Past 72 Hours 08/02/20 13:20 Urine, Clean Catch Urine Culture - Preliminary Gram negative elias 08/02/20 14:30 Urine, Clean Catch Urine Culture - Preliminary Gram negative elias Laboratory Results 08/02/20 13:20: Urine Color Yellow, Urine Clarity Sl. Cloudy, Urine pH 7.0, Ur Specific Hancock 1.005, Urine Protein Negative, Urine Glucose (UA) Normal, Urine Ketones Negative, Urine Occult Blood 10 H, Urine Nitrite Positive H, Urine Bilirubin Negative, Urine Urobilinogen Normal, Ur Leukocyte Esterase 500 H, Urine RBC 0 SEEN, Urine WBC 0-5 SEEN, Ur Squamous Epith Cells 0-5 SEEN, Urine Bacteria 2+, Urine Mucus 0 SEEN 08/02/20 19:03: POC Glucose 81 08/03/20 04:46: WBC 4.9, RBC 3.91 L, Hgb 12.3, Hct 36.1 L, MCV 92.3, MCH 31.5, MCHC 34.1, RDW Std Deviation 44.6 H, RDW Coeff of Krystian 13.4, Plt Count 171, MPV 8.8, Immature Gran % (Auto) 0.200, Neut % (Auto) 46.7 L, Lymph % (Auto) 36.1, [place] % (Auto) 13.7 H, Eos % (Auto) 2.5, Baso % (Auto) 0.8, Absolute Neuts (auto) 2.3, Absolute Lymphs (auto) 1.76, Nucleated RBC % 0 08/03/20 04:46: Sodium 140, Potassium 4.6, Chloride 111 H, Carbon Dioxide 21.0, Anion Gap 8, BUN 28 H, Creatinine 1.45 H, Estim Creat Clear Calc 29.45, Est GFR (MDRD) Af Amer 45 L, Est GFR (MDRD) Non-Af 37 L, BUN/Creatinine Ratio 19.3, Glucose 97, Calcium 9.5, Phosphorus 3.8, Magnesium 2.0, TSH 2.00 Current Medications Acetaminophen (Acetaminophen 325 Mg Tablet) 650 mg PO Q6H PRN PRN PRN Reason: Pain Score 1-10/Temp > 100.7 F Aspirin (Aspirin 81 Mg Tab.Chew) 81 mg PO DAILY@0800 COUNTS INCLUDE 234 BEDS AT THE [facility] Last Admin: 08/03/20 09:23 Dose: 81 mg Documented by: Heparin Sodium (Porcine) (Heparin Injection (Vial) 5,000 Unit/Ml Vial) 5,000 unit SC Q12 COUNTS INCLUDE 234 BEDS AT THE [facility] Last Admin: 08/03/20 09:33 Dose: Not Given Documented by: Sodium Chloride () 1,000 mls @ 75 mls/hr IV .[id number] COUNTS INCLUDE 234 BEDS AT THE [facility] Last Infusion: 08/03/20 10:01 Dose: 75 mls/hr Documented by: Ceftriaxone Sodium 2 gm/ (Sodium Chloride) 50 mls @ 100 mls/hr IV Q24 COUNTS INCLUDE 234 BEDS AT THE [facility] Last Infusion: 08/03/20 10:01 Dose: Infused Documented by: Levothyroxine Sodium (Levothyroxine 75 Mcg Tablet) 75 mcg PO DAILY@0600 COUNTS INCLUDE 234 BEDS AT THE [facility] Last Admin: 08/03/20 05:46 Dose: 75 mcg Documented by: Melatonin (Melatonin 3 Mg Tablet) 3 mg PO QHS PRN PRN PRN Reason: INSOMNIA Last Admin: 08/02/20 22:19 Dose: 3 mg Documented by: Metoprolol Succinate (Metoprolol(Xl)Succ 25 Mg Tablet) 25 mg PO DAILY COUNTS INCLUDE 234 BEDS AT THE [facility] Last Admin: 08/03/20 09:23 Dose: 25 mg Documented by: Ondansetron HCl (Ondansetron 4 Mg/2 Ml Vial) 4 mg IV Q8H PRN PRN PRN Reason: NAUSEA/VOMITING Senna/Docusate Sodium (Senna/Docusate Sodium 1 Tablet) 2 tablet PO BID PRN PRN PRN Reason: Constipation Sodium Chloride (0.9% Saline Lock 10 Ml Syringe) 10 - 40 ml IV UD PRN PRN Reason: SALINE FLUSH Discharge Diet: No Restrictions Discharge Activity: Return to Normal Activity Call your doctor if you observe: Shortness of breath, Dizziness, Fainting spells, Chest pain Home Medications: Medications to take at Discharge Aspirin [Aspirin, Baby] 81 mg PO DAILY@0800 #30 tab.chew 07/25/16 Levothyroxine Sodium [Synthroid] 37.5 mcg PO SA 08/02/20 Levothyroxine Sodium [Synthroid] 75 mcg PO SUMOTUWETHFR 08/02/20 Metoprolol Succinate [Toprol Xl] 25 mg PO DAILY 08/02/20 Cefadroxil [Duricef] 500 mg PO BID #12 cap 08/03/20 Following Prescriptions Were Given to Patient: Cefadroxil [Duricef] 500 mg PO BID #12 cap Transmission Status: Received by [facility] Other Amb Orders: 30-Day Event Recorder [[facility]] Location: None Selected Primary Care Physician: Yvette Steel DO [Primary Care Provider] - Please follow up with your Primary Care Physician in: 1 Week Disposition: Home Minutes spent on discharge:: 35 Patient Condition:: Stable Medical Necessity - Tobacco Use Smoking Status: Never smoker Tobacco Use: Non-smoker Meaningful Use Info Meaningful Use Diagnoses (Choose all that apply): None applicable <Mark Powers F - Last Filed: 08/03/20 15:00> Discharge Date and Diagnosis - Primary Discharge Diagnosis Acute Problems: Active Problems General weakness (Acute) Urinary tract infection (Acute) Syncope (Acute) - Secondary Discharge Diagnosis Chronic Problems: Chronic Problems Hypothyroid (Chronic) Hypertension (Chronic) Uncontrolled hypertension (Chronic) Hospital Course and Treatment Summary of Care Provided: The patient is a 80 year old F [] - Physical Exam Vitals/I&O's: Vital Signs Temp Pulse Resp BP Pulse Ox 97.5 F L 71 16 123/55 H 98 08/03/20 09:20 08/03/20 09:23 08/03/20 09:20 08/03/20 09:23 08/03/20 09:30 Oxygen Delivery Method Room Air Weight: 144 lb 4.8 oz Body Mass Index (BMI) 23.3 Orthostatic Vital Signs Start: 08/02/20 23:25 Freq: q24h Status: Active Protocol: Activity Type Activity Date Activity User E-Sign Co-Sign Detail Recorded Client Recorded Date Recorded By Document 08/03/20 04:43 MY [id number] 08/03/20 04:44 MY 08/03/20 04:43 Orthostatic Vitals Standing -Blood Pressure (90/60-120/80) 139/81 H -Extremity Use Right Arm Sitting -Blood Pressure (90/60-120/80) 138/77 H -Extremity Use Right Arm Lying -Blood Pressure (90/60-120/80) 119/65 -Extremity Use Right Arm Intake and Output for Last 24 Hours 08/01/20 08/02/20 08/03/20 23:59 23:59 23:59 Intake Total 120 / 120 1418.75 / 1418.75 Output Total 0 / 0 Balance 120 / 120 1418.75 / 1418.75 Microbiology Past 72 Hours 08/02/20 13:20 Urine, Clean Catch Urine Culture - Preliminary Gram negative elias 08/02/20 14:30 Urine, Clean Catch Urine Culture - Preliminary Gram negative elias Laboratory Results 08/02/20 19:03: POC Glucose 81 08/03/20 04:46: WBC 4.9, RBC 3.91 L, Hgb 12.3, Hct 36.1 L, MCV 92.3, MCH 31.5, MCHC 34.1, RDW Std Deviation 44.6 H, RDW Coeff of Krystian 13.4, Plt Count 171, MPV 8.8, Immature Gran % (Auto) 0.200, Neut % (Auto) 46.7 L, Lymph % (Auto) 36.1, [place] % (Auto) 13.7 H, Eos % (Auto) 2.5, Baso % (Auto) 0.8, Absolute Neuts (auto) 2.3, Absolute Lymphs (auto) 1.76, Nucleated RBC % 0 08/03/20 04:46: Sodium 140, Potassium 4.6, Chloride 111 H, Carbon Dioxide 21.0, Anion Gap 8, BUN 28 H, Creatinine 1.45 H, Estim Creat Clear Calc 29.45, Est GFR (MDRD) Af Amer 45 L, Est GFR (MDRD) Non-Af 37 L, BUN/Creatinine Ratio 19.3, Glucose 97, Calcium 9.5, Phosphorus 3.8, Magnesium 2.0, TSH 2.00 Current Medications Acetaminophen (Acetaminophen 325 Mg Tablet) 650 mg PO Q6H PRN PRN PRN Reason: Pain Score 1-10/Temp > 100.7 F Aspirin (Aspirin 81 Mg Tab.Chew) 81 mg PO DAILY@0800 COUNTS INCLUDE 234 BEDS AT THE [facility] Last Admin: 08/03/20 09:23 Dose: 81 mg Documented by: Heparin Sodium (Porcine) (Heparin Injection (Vial) 5,000 Unit/Ml Vial) 5,000 unit SC Q12 COUNTS INCLUDE 234 BEDS AT THE [facility] Last Admin: 08/03/20 09:33 Dose: Not Given Documented by: Sodium Chloride () 1,000 mls @ 75 mls/hr IV .[id number] COUNTS INCLUDE 234 BEDS AT THE [facility] Last Infusion: 08/03/20 10:01 Dose: 75 mls/hr Documented by: Ceftriaxone Sodium 2 gm/ (Sodium Chloride) 50 mls @ 100 mls/hr IV Q24 COUNTS INCLUDE 234 BEDS AT THE [facility] Last Infusion: 08/03/20 10:01 Dose: Infused Documented by: Levothyroxine Sodium (Levothyroxine 75 Mcg Tablet) 75 mcg PO DAILY@0600 COUNTS INCLUDE 234 BEDS AT THE [facility] Last Admin: 08/03/20 05:46 Dose: 75 mcg Documented by: Melatonin (Melatonin 3 Mg Tablet) 3 mg PO QHS PRN PRN PRN Reason: INSOMNIA Last Admin: 08/02/20 22:19 Dose: 3 mg Documented by: Metoprolol Succinate (Metoprolol(Xl)Succ 25 Mg Tablet) 25 mg PO DAILY COUNTS INCLUDE 234 BEDS AT THE [facility] Last Admin: 08/03/20 09:23 Dose: 25 mg Documented by: Ondansetron HCl (Ondansetron 4 Mg/2 Ml Vial) 4 mg IV Q8H PRN PRN PRN Reason: NAUSEA/VOMITING Senna/Docusate Sodium (Senna/Docusate Sodium 1 Tablet) 2 tablet PO BID PRN PRN PRN Reason: Constipation Sodium Chloride (0.9% Saline Lock 10 Ml Syringe) 10 - 40 ml IV UD PRN PRN Reason: SALINE FLUSH Addendum: Dr. Powers I personally examined the patient and reviewed the chart. I agree with the above. 80-year-old female presenting from home with recurrent syncope. She says that she faints a lot and she has been having an extensive outpatient work-up by her PCP including an echo on 07/01/2020 with a normal EF, she also had an EEG that was negative for seizures. She had a carotid duplex which was negative for any type of carotid stenosis. While here she had an MRI and an MRA of her head and neck all of which were negative for stroke. She was supposed to be on a Holter monitor however she was told that it was not functioning properly therefore on discharge we will plan to discharge her with a Holter monitor. She was able to ambulate over 150 feet with physical therapy today and therefore she is okay for discharge. She does have a UTI and it is growing a gram-negative elias therefore we will plan to discharge on an antibiotic to complete her course. Will monitor her culture results and if necessary can call in a different antibiotic based on sensitivities. We discussed with her the plan for discharge today and she expressed understanding of the risk and benefits of going home and will go home today with outpatient follow-up. OBSV E&M: [id number] Observation care discharge
--- NOTE | 2020-08-03 13:24 | CASEMGMT ---
Addendum entered by Trinidad Lambert 08/03/20 16:03: Call back from Judi at [facility] and they are unable to accept pt at this time. KathleenPedro Luis KEESHA aware and into room to see who pt's 2nd/3rd choices are for HHC at this time. Israel YANEZ CM Addendum entered by Trinidad Lambert 08/03/20 14:21: EdinKye THAO had been in room to f/u on SNF and pt states she would only go to TCU at this time and TCU has no beds available at this time. This BEAU AYALA and Chantale THAO back to room to speak with pt and pt states will not go to any further SNF at this time because of 'the virus.' Pt states she would like to go home with [facility] at this time. Order for SN, PT/OT placed in [employer] [facility]) and message left for Judi, intake at [facility], in regards to pt at this time. CM to follow. Israel YANEZ CM Original Note: Per RN, pt has concerns with going home at this time. This RN CM to room to discuss with pt at this time and pt is indecisive at this time. Pt states unsure that she can go home safely at this time. Pt states she has sons but they are not close. Pt provided with in-network SNF and HHC list at this time. Pt states that she does not feel that HHC would be enough assistance at this time after this BEAU AYALA explained HHC to pt at this time. CM to follow. Brittney MVA REACTOR OPERATOR and Orquidea YANEZ updated on all, voices understanding. Pt is A/Ox4 at this time. Israel YANEZ CM
--- NOTE | 2020-08-03 14:27 | CASEMGMT ---
SW spoke w/pt about what penitentiary she would like a referral sent, as she had expressed concern to CM about returning home. Pt has list of nursing homes in network w/[employer], with the Medicare star ratings. Pt explained to SW that the only place she will consider going is TCU. Pt states she doesn't want to go to a penitentiary because of COVID. She states she is not afraid to but doesn't want COVID. SW explained some of the other facilities do not have any COVID, SW can call and check to see for certain, as TCU may not have any beds. Pt is still not in agreement with any other facilities but TCU. If TCU cannot take pt, pt states will go home. SW asked about home health. She states they only come once per week and she can ask her neighbor to check on her daily. SW explained home health goes through insurance and would be covered, and she could have home health along with the neighbor checking on her. Pt is not sure. She states she passes out all the time and never knows when it will happen. She states it's been going on for years and nobody knows what causes it. SW asked pt about moving someplace like assisted living where she could have more of an eye on her to keep her safe. Pt states but I am so good! Until I am not. SW explained will call TCU and let her know. SW called TCU, there are no beds available. SW and CM went in together, SW let her know TCU has not beds. Pt is not in agreement to go anyplace else but home. CM spoke w/pt about home care for nursing and therapy, pt is agreeable now to this and chose [facility]. CM will follow up w/referral. FAMILIA Julien
--- NOTE | 2020-08-03 14:44 | PCS.PANDOC ---
PANDEMIC DOCUMENTATION INITIATED: Date: 08/02/2020 Time: [id number]
--- NOTE | 2020-08-03 14:47 | PHA.DC.MC ---
Pharmacy Service has performed discharge medication reconciliation and counseling for this patient. 1. CEFADROXIL 500MG PO BID X 6 DAYS The patient's discharge medication list was reviewed for discrepancies and discrepancies were resolved. Home Medications Aspirin [Aspirin, Baby] 81 mg PO DAILY@0800 #30 tab.chew 07/25/16 Levothyroxine Sodium [Synthroid] 37.5 mcg PO SA 08/02/20 Levothyroxine Sodium [Synthroid] 75 mcg PO SUMOTUWETHFR 08/02/20 Metoprolol Succinate [Toprol Xl] 25 mg PO DAILY 08/02/20 Cefadroxil [Duricef] 500 mg PO BID #12 cap 08/03/20 The patient was counseled on the following discharge medications and changes in medications for homegoing were reviewed. The Reason for Use, instructions for use, and potential side effects were reviewed for all new medications. The patient's questions regarding all of their medications were answered. The patient was able to verbally demonstrate an understanding of their discharge medications.
--- NOTE | 2020-08-03 15:33 | CASEMGMT ---
Per RN [facility] cannot take patient. SW spoke with patient and inquired her next 2 choices off the list of home health agencies she was given. Her next choice was [facility] and the next one is [facility]. KEESHA told her we will work on this and let her know as soon as we know more. KEESHA called [facility] regarding referral. KEESHA also faxed referral ([phone] [phone]). Await their response. Gisela MERCHANT MSW
--- NOTE | 2020-08-03 16:34 | CASEMGMT ---
Call back from [facility] and they states they are unable to accept pt's insurance at this time. Referral faxed to [facility] as this was pt's next choice at this time. Call to [facility] and they are already closed for the day at this time. Message left in regards to referral to call this RN LUCY cameron in the am on whether they can accept pt. Pt updated at this time, voices understanding and is still planned to be discharged home today. Pt states that if [facility] can't take her then [facility], [facility], and [facility] in that order. This RN CM to follow. SStlupe YANEZ CM
--- NOTE | 2020-08-04 09:34 | CASEMGMT ---
Addendum entered by Trinidad Lambert 08/04/20 15:17: Call to [facility] and they state they do not go to pt's area either. There were no other in-network [facility] agencies at this time. Call to pt and she is updated at this time and pt states 'I am actually doing much better than I figured.' Pt aware that she can try and get OP set up if she feels she needs it through her PCP but pt states 'Honestly, I think I am fine.' Pt states she has neighbors help, if needed. Pt voices no further questions/concerns/needs at this time. Israel YANEZ CM Addendum entered by Triniadd Lambert 08/04/20 14:21: Call back to [facility] to see if they received fax and can accept pt at this time. Per Pamela, they cannot accept pt at this time. Referral faxed to [facility] at this time as they are the only in-network [facility] left to try at this time. Call to [facility] to notify of referral and they state they do not service pt area at this time but to try [facility] as they are now affiliated with [facility]. Referral faxed to [facility] at this time. Israel YANEZ CM Addendum entered by Trinidad Lambert 08/04/20 13:43: Call to [facility] and per Sarah, they did not receive referral as their fax machine is down. Referral re-faxed to [facility] at [phone]. CM to follow. Israel YANEZ CM Addendum entered by Trinidad Lambert 08/04/20 13:42: 1300 [facility] and [facility] cannot take pt at this time. Referral faxed to [facility] at this time. Israel RN CM Addendum entered by Trinidad Lambert 08/04/20 11:42: 1117 Call from [facility] to [facility] and Kathryn states they still did not receive faxed referral at this time. New fax number obtained and referral re-faxed at this time. CM to follow. Israel YANEZ CM Original Note: This RN LUCY has not heard from [facility] to [facility] yet at this time so call placed to them and per Kathryn, they never got the fax that was sent last pm but fax confirmation was obtained. Referral re-faxed at this time with confirmation. Israel YANEZ CM
== END 2020-08-03 11:52 | disposition home or self-care (01) ==
LOC: ED 15:12 → PCU 15:25
PROVIDERS: Admitting Provider Internal Medicine; Emergency Provider Emergency Medicine; PCP Internal Medicine; Visit Provider Family Medicine
DX: R55 Syncope and collapse (principal); N30.00 Acute cystitis without hematuria; I12.9 Hypertensive chronic kidney disease with stage 1 through stage 4 chronic kidney disease, or unspecified chronic kidney disease; E03.9 Hypothyroidism, unspecified; N18.30 Chronic kidney disease, stage 3 unspecified; Z79.899 Other long term (current) drug therapy; Z79.82 Long term (current) use of aspirin; I49.1 Atrial premature depolarization; I44.0 Atrioventricular block, first degree
CPT/HCPCS: 36415; 70544; 70547; 70551; 80048; 80053; 81001; 82962; 83735; 84100; 84443; 84484; 85025; 87077; 87086; 87088; 87186; 93005; 96361; 96365; 97162; 97166; 99218; 99285; J7030; A4216; G0378; J0696

== ENCOUNTER → 2020-08-30 08:50 | Outpatient (CLI) | payer MEDICARE, SELFPAY ==
[2020-08-02 16:31] VITALS: BMI 23.3
[2020-08-30 10:07] LABS: Glucose GTT- Fasting 88 mg/dL (74-106)
[2020-08-30 11:07] LABS: Glucose GTT-30 minutes 133 mg/dL (110-170)
[2020-08-30 11:09] LABS: Glucose GTT- 1 Hour 143 mg/dL (120-170)
[2020-08-30 12:44] LABS: Glucose GTT- 2 Hour 128 mg/dL (70-120)
[2020-08-30 13:12] LABS: Glucose GTT- 3 Hour 118 mg/dL (74-106)
[2020-08-30 13:55] LABS: Glucose GTT- 4 Hour 79 mg/dL (74-106)
== END ==
PROVIDERS: PCP Internal Medicine; Visit Provider Internal Medicine
DX: R55 Syncope and collapse (principal)
CPT/HCPCS: 36415; 82951; 82952

== ENCOUNTER → 2020-09-07 08:25 | Outpatient (CLI) | payer MEDICARE, SELFPAY ==
[2020-08-02 16:31] VITALS: BMI 23.3
--- NOTE | 2020-09-07 13:57 | TILTTABLE_ITS ---
- Staff Staff: Jory Martinez - Summary Pre Test Resting HR: 54 - Alert and oriented: Warm and dry Pre Test Resting BP: 171/73 - Alert and oriented: Warm and dry Minimum Test HR: 0 - Unresponsive Maximum Test HR: 141 - Alert and responsive Minimum Test BP: 0/0 - Unresponsive Maximum Test BP: 169/81 - Alert and oriented: Warm and dry Reason for Test Termination: Syncope Physician Tilt Table Report - Patient's Physicians Primary Care Physician: Yvette Steel Architecture Manager: Marco Green Indications/Diagnosis: Syncope Procedure Comments: The patient was brought to the tilt table laboratory and laid supine on the tilt table. The patient was alert and oriented and warm and dry. The baseline heart rate was 54 bpm with a baseline blood pressure of 171/73 mmHg. The cardiac rhythm was sinus bradycardia. The patient was placed in the 70 degree upright tilt table position for 20 minutes. The patient remained alert and oriented and warm and dry. The minimal heart rate was 53 bpm with a maximal heart rate of 63 bpm. The minimal blood pressure was 123/79 mmHg with a maximal blood pressure of 169/81 mmHg. The patient remained in sinus rhythm. The patient reported hands cool and back of neck warm and face flushed . The patient did not lose consciousness. The patient was returned to the supine position. The patient was subsequently administered nitroglycerin 0.4 mg sublingual x 1. Patient returned to the 70 degree upright tilt table position where she was initially alert and oriented and warm and dry with a heart rate of 61 bpm and a blood pressure of 136/74 mmHg and notation of sinus rhythm. The patient was subsequently noted to become pale and diaphoretic and noting that I do not feel good , I am hot , and was noted to have subsequent decreased heart rate to wh ere heart rate was not recordable and subsequent decrease blood pressure to where blood pressure was not recordable. The patient was returned to the supine position. The cardiac rhythm had demonst rated marked sinus bradycardia with subsequent prolonged asystole of approximately 70 seconds during that time the patient received atropine 1 mg IV push total and BLS CPR. The patient had subsequent return of sinus rhythm/sinus tachycardia as well as return of blood pressure and subsequently being alert and responsive. The patient was noted, at conclusion of the examination, to be alert and res ponsive yet diaphoretic. The heart rate was 97 bpm with a blood pressure 116/70 mmHg. The cardiac rhythm appeared to be sinus rhythm/sinus tachycardia with PACs. The patient was subsequently transported to the [facility] emergency department for further evaluation and care. Summary: 70 degree upright tilt table study status post nitroglycerin sublingual c hallenge considered positive for reproducible vasovagal/neurocardiogenic mediated syncope with a marked cardioinhibitory response a with prolonged asystole response requiring medical intervention with IV atropine and BLS CPR to regain sinus rhythm/hemodynamics/and awake and alert state. This note was generated using a voice recognition system and there may be incorrect words, spelling or punctuation that were not noted when reviewing the office note prior to saving.
[2020-09-07 14:14] VITALS: BP 0/0; BP 169/81; BP 171/73
== END ==
PROVIDERS: PCP Internal Medicine; Referring Provider Internal Medicine; Visit Provider Internal Medicine
DX: R55 Syncope and collapse (principal)
CPT/HCPCS: 93660; J7040; A4216

== ENCOUNTER 2020-09-07 10:01 | Inpatient (IN) | payer MEDICARE, SELFPAY ==
[2020-08-02 16:31] VITALS: BMI 23.3
[2020-09-07] VITALS (9 sets, daily range): BP systolic 98–122; BP diastolic 54–91; PULSE 49–85; RESP 14–20; TEMP 36.4–36.8; O2SAT 94–98; BMI 25.1; BMI 23.3
--- NOTE | 2020-09-07 10:32 | EKG12_ITS ---
Test Reason : Blood Pressure : / mmHG Vent. Rate : 072 BPM Atrial Rate : 072 BPM P-R Int : 178 ms QRS Dur : 080 ms QT Int : 416 ms P-R-T Axes : 050 027 046 degrees QTc Int : 455 ms Normal sinus rhythm Low voltage QRS Borderline ECG Confirmed by DARIUS QUICK, CARISSA ([id number]), manufacturing controls engineer ADRIANO SURESH ([id number]) on 09/13/2020 10:19:24 A M Referred By: /BB Confirmed By:CARLOS MCCOY MD
--- NOTE | 2020-09-07 10:42 | ED.VISSUMM ---
- ER Visit Summary Date of Service: 09/07/20 Chief Complaint: Unresponsive History of Present Illness: The patient is a 80 F presenting from outpatient tilt table testing. Patient was having a tilt table test today due to syncope. She states she passes out frequently. This has been ongoing for several years. She states this test was ordered to try to find the cause of her syncope. During the test she was given nitro per protocol. Her heart rate went to the 30s and then she became unresponsive. She was given atropine. She went into asystole and CPR was initiated. She started to come around and is now responsive and talking. She complains of chest soreness after compressions. Denies other complaints. Physical Examination: Vitals are stable. Patient is afebrile. Alert no acute distress. HEENT exam is unremarkable. Neck is supple. Lungs are clear and equal bilaterally. Heart is regular rate and rhythm. Abdomen is soft nontender nondistended. Extremities are unremarkable. Skin is warm and dry. No focal neurologic deficit. Remainder of exam is unremarkable. Emergency Department Course and Treatment: EKG is sinus rhythm rate of 72 with no acute ischemic changes. Chest x-ray read by myself and radiology shows degenerative changes. No demonstrated acute cardiopulmonary process. CBC, chemistries unremarkable other than creatinine 1.38. Troponin is negative. TSH normal. Magnesium normal. D-dimer 2.44. Due to elevated D-dimer, CTA chest was obtained and shows no demonstrated pulmonary embolism or arterial dissection. Patient is complaining of chest soreness after chest compressions was given morphine, Zofran. Discussed with Dr. Green and hospitalist for admission. Disposition: Admission Impression: Status post cardiac arrest, syncope This note was generated with [employer] dictation software. It may contain incorrect words, spelling, and punctuation that were not noted in review of the chart prior to signing ED Disposition - Plan for ED Patient: Referrals: Yvette Steel DO [Primary Care Provider] -
[2020-09-07] MEDS: Aspirin 81 MG TAB.CHEW 324 MG PO (10:54)
[2020-09-07 11:00] LABS: Absolute Lymphocyte Count 1.74 X10^3/uL (0.83-4.51); Absolute Neutrophil Count 2.5 X10^3/uL (2.0-7.7); Basophil# 0.03 X10^3/uL; Basophil% 0.6 % (0-1); Eosinophil# 0.08 X10^3/uL; Eosinophils% 1.6 % (0-5); Hemoglobin 12.1 g/dL (12.0-15.0); Lymphocyte # 1.74 X10^3/ul (4.0); Lymphocyte % 35.2 % (19-41); Mean Corp Hgb Conc 32.7 g/dL (32-36); Mean Corpuscular Hgb 30.3 pg (27.0-32.0); Mean Corpuscular Volume 92.7 fL (81-99); Mean Platelet Vol. 9.3 fl (6.2-12.0); Monocyte# 0.61 X10^3/uL; Monocyte% 12.3 % (0-10); NRBC Flagged by Analyzer 0 % (0-5); Neutrophil # 2.46 X10^3/uL (2.7-7.7); Neutrophil % 49.7 % (47-70); Platelet Count 197 K/mm3 (150-450); RBC Distribution Width CV 12.9 % (11.6-14.6); RBC Distribution Width SD 43.9 fl (35.1-43.9); Red Blood Count 3.99 M/mm3 (4.2-5.4)
--- NOTE | 2020-09-07 11:09 | RAD_ITS ---
STUDY: X-RAY CHEST REASON FOR EXAM: Female, 80 years old. chest pain TECHNIQUE: Single AP portable view of the chest. COMPARISON: None. FINDINGS: The lungs are clear and expanded. There is no demonstrated pleural abnormality. Normal size heart. Normal mediastinum and irving. Normal visualized pulmonary arteries. Normal visualized aortic arch and descending thoracic aorta. There are diffuse degenerative changes of the visualized thoracic spine. There is degenerative osteoarthritis of the bilateral shoulders. There is no demonstrated abnormality of the visualized soft tissue structures of the upper abdomen. RAD/Chest 1 View (Portable) IMPRESSION: Degenerative changes, as described above. No demonstrated acute cardiopulmonary process. Electronically Signed: Smooth Rowland MD at 11:36 EST Tel , Service support ,
[2020-09-07 11:15] LABS: D-Dimer Quantitative (DVT/PE) 2.44 FEU/ug/m (0.27-0.49)
[2020-09-07 11:23] LABS: Anion Gap 4 (5-15); BUN 35 mg/dL (7-18); BUN/Creat Ratio 25.4 RATIO (10-20); Calcium,Total 9.4 mg/dL (8.5-10.1); Chloride 107 mmol/L (98-107); Creatinine, Serum 1.38 mg/dL (0.55-1.02); EST Glomerular Filtration Rate 39 mL/min (>60); Est Glom Filt Rate - Afr Amer 47 mL/min (>60); Estimated Creatinine Clearance 29.74 ml/min; Glucose 113 mg/dL (74-106); Magnesium 2.3 mg/dL (1.6-2.6); Potassium 4.9 mmol/L (3.5-5.1); Sodium Level 139 mmol/L (136-145)
--- NOTE | 2020-09-07 11:27 | CT_ITS ---
STUDY: CTA CHEST REASON FOR EXAM: Female, 80 years old. elevated d dimer RADIATION DOSAGE (If Supplied By Facility): CTDIvol = ( 8.75 ) mGy, DLP = ( 479.20 ) mGycm TECHNIQUE: The examination was performed with the intravenous administration of IV 100mL Isovue-370. Post-processing of the angiographic images was performed, with multiplanar reformation and 3D reconstruction. Individualized dose optimization techniques were used for this CT. COMPARISON: None. FINDINGS: Normal enhancement of the main pulmonary artery and right and left pulmonary arteries. Normal enhancement of the bilateral peripheral pulmonary arteries. There is no demonstrated pulmonary embolism. There is atherosclerotic calcification of the aortic arch with tortuosity. There is retroesophageal right subclavian artery. There is no demonstrated aortic dissection. Normal heart and pericardium. Normal mediastinum. Normal hilar regions. Normal visualized trachea and bronchi. The lungs are well expanded. Normal pulmonary parenchyma. Normal pleura. Normal chest wall structures. There is increased dorsal kyphosis. There are old compression fractures at T7 and T8. There is an old healed fracture of the sternum. There are old healed bilateral rib fractures. Normal visualized upper abdomen. CT/CTA Chest W/WO Contrast IMPRESSION: No demonstrated pulmonary embolism or arterial dissection. Electronically Signed: Smooth Rowland MD at 12:54 EST Tel , Service support ,
[2020-09-07] MEDS: Morphine 4 MG/ML Syringe IV (13:26)
[2020-09-07] MEDS: Ondansetron 4 MG/2 ML Vial IV (13:26)
--- NOTE | 2020-09-07 15:14 | NURSING ---
PCU KATHARINE SYNCOPE, S/P ARREST
--- NOTE | 2020-09-07 15:38 | PCM.HP.STD ---
Problem List (1) Asystole Status: Acute (2) Cardiopulmonary arrest with successful resuscitation Status: Acute Comment: Asystole during tilt table test with brief CPR (3) General weakness Status: Acute (4) Syncope Status: Chronic (5) Urinary tract infection Status: Resolved (6) Hypertension Status: Chronic Qualifiers: (7) Hypothyroid Status: Chronic Qualifiers: (8) Uncontrolled hypertension Status: Chronic History of Present Illness Date of Admission: 09/07/20 Ms Barber is a 80 year old WF with a past medical history of recurrent syncope, hypothyroidism, recurrent urinary tract infections, and hypertension who presented to the emergency department [facility] on 09/07/2020 after receiving CPR secondary to asystole at an outpatient tilt table test. She has had multiple episodes of syncope in the past. The most recent episode was early August when she was admitted for a post syncopal episode she had an extensive discussion at that time and was discharged without any documented etiology diagnosed. An outpatient tilt table test was scheduled and performed today and she was given nitroglycerin per protocol during the test her heart rate went down in the 30s and then she became unresponsive she was given atropine and then went into asystole and CPR was initiated. She repot responded and had return of spontaneous circulation for very light after the initiation of CPR and her mental status returned to baseline. She was brought to the emergency department following this event. Her only complaint is chest soreness from chest compressions. She was seen by Dr. Green in the emergency department he has discussed the case with Dr. Bejarano and the plan is to place a pacemaker tomorrow. In the emergency department she is afebrile with a heart rate from 61-72, her blood pressure stable and she satting 98% on room air. Her CBC is unimpressive. Her BMP shows normal electrolytes with chronic stable renal failure with BUN of 35 and a creatinine of 1.38 which is her baseline. Her troponin was less than 0.015. She will be admitted to PCU for monitoring. N.p.o. after midnight and they pacemaker is to be placed tomorrow. Past Medical History Past Medical History (Chronic Problems): Chronic Problems Hypothyroid (Chronic) Hypertension (Chronic) Syncope (Chronic) Uncontrolled hypertension (Chronic) Allergies atorvastatin calcium [From Lipitor] Allergy (Verified 08/02/20 11:05) Chest tightness captopril Allergy (Verified 08/02/20 11:05) Chest tightness lansoprazole [From Prevacid] Allergy (Verified 08/02/20 11:05) Chest tightness Penicillins Allergy (Verified 08/02/20 11:05) Hives procaine HCl [From Novocain] Allergy (Verified 08/02/20 16:28) I get drunk risedronate sodium [From Actonel] Allergy (Verified 08/02/20 11:05) Chest tightness Sulfa (Sulfonamide Antibiotics) Allergy (Verified 08/02/20 11:05) Hives trimethoprim Allergy (Verified 09/07/20 11:05) Chest tightness Home Medications: Ambulatory Orders Medication Instructions Recorded Aspirin [Aspirin, Baby] 81 mg PO DAILY@0800 #30 tab.chew 07/25/16 Levothyroxine Sodium [Synthroid] 37.5 mcg PO SA 08/02/20 Levothyroxine Sodium [Synthroid] 75 mcg PO MOTUWETHFR 08/02/20 Metoprolol Succinate [Toprol Xl] 25 mg PO DAILY 08/02/20 Surgical History: noncontributory Psychiatric History: No pertinent psych hx 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 Paternal History Items: - - Denies paternal medical history including cardiac history. Review of Systems Constitutional: Reports: Weakness. Denies: Anorexia, Chills, Fever, Night Sweats, Malaise, Weight Change, Fatigue Eyes: Denies: Blurred vision, Conjunctivae Inflammation, Double vision, Drainage, Eyelid Inflammation, Pain, Redness, Vision Change HEENT: Denies: Difficulty Hearing, Difficulty Swallowing, Ear Pain, Eye Pain, Head Aches, Nasal bleeding, Nasal Congestion, Post Nasal Drip, Sinus Congestion, Sinus Drainage, Sore Throat, Visual Changes Cardiovascular: Reports: Chest Pain - Secondary to chest compressions - this is all musculoskeletal pain, Syncope. Denies: Claudication, Chest Pressure, Chest Tightness, Edema, Heaviness, Light Headedness, Orthopnea, Palpitations, Paroxysmal Noc. Dyspnea Respiratory: Denies: Cough, Hemoptysis, Pleuritic Pain, Shortness of Breath, Shortness of breath at rest, Shortness of breath upon exertion, Sputum production, Wheezing Gastrointestinal: Denies: Abdominal Pain, Constipation, Diarrhea, Dyspepsia, Hematemesis, Hematochezia, Nausea, Melena, Vomiting Genitourinary: Denies: Dysuria, Frequency, Hematuria, Hesitancy, Incontinence, Nocturia, Retention, Urgency Musculoskeletal: Denies: Back Pain, Joint Pain, Joint stiffness, Joint swelling, Joint Tenderness, Muscle pain, Neck Pain Skin: Denies: Dryness, Jaundice, Lesions, Pruritis, Rash, Skin Changes, Wounds Neurological: Denies: Balance problems, Change in Speech, Slurred speech, Confusion, Difficulty swallowing, Focal weakness, Headaches, Incoordination, Numbness, Tingling, Tremor, Seizures Psychiatric: Denies: Anxiety, Depression Endocrine: Denies: Change in Body Habitus, Heat/ Cold Intolerance, Polydipsia, Polyuria Hematologic/ Lymphatic: Denies: Adenopathy, Anemia, Easy Bruising, Easy Bleeding, Petechiae, Purpura VTE Information - Inpt Only VTE Present on Admission: No VTE Mechan Device Prophylaxis: SCD's VTE Pharm Prophylaxis ordered?: Yes - Physical Exam Vitals/I&O's: Vital Signs Temp Pulse Resp BP Pulse Ox 97.6 F L 71 16 122/58 H 98 09/07/20 15:00 09/07/20 15:00 09/07/20 15:00 09/07/20 15:00 09/07/20 15:00 Oxygen Delivery Method Room Air Weight: 68.5 kg Body Mass Index (BMI) 25.1 Intake and Output for Last 24 Hours 09/05/20 09/06/20 09/07/20 23:59 23:59 23:59 Intake Total 500 / 500 Balance 500 / 500 General: Alert, Oriented x3, Cooperative, No apparent distress, Well developed, Well nourished, - - Older white female sitting up in bed eating a sandwich, appears comfortable HEENT: Atraumatic, PERRLA, EOMI, Normocephalic, EAC Clear Oral: Moist Mucosa, No Gingival or Mucosal Lesions/ Ulcerations Neck: Supple, No JVD, Negative Carotid Bruits, Negative Hepatojugular Reflux, No Nodes, No Nuchal Rigidity, Trachea Midline, Thyroid Normal Size and Texture Lungs: Clear to auscultation, Normal air movement, No rhonchi, No wheeze, No rales Cardiovascular: Regular rate, Regular Rhythm, Normal S1, Normal S2, No murmurs, No Ectopic Activity, No rub noted, No Gallop Abdomen: Bowel Sounds Present, Soft, Non Tender, Non-Distended, No hernias noted Extremities: No clubbing, No cyanosis, No edema, Capillary Refill Less than 3 Seconds, Peripheral Pulses Normal Skin: No rashes, No breakdown Musculoskeletal: Tenderness - Anterior chest wall right greater than left Lymphatic: No Cervical, Supraclavicular, or Inguinal Adenopathy Neurological: Cranial nerves II-XII grossly intact, Deep Tendon Reflexes 2+/4 and Symmetrical, Neuro grossly intact, Motor Exam 5/5 strength throughout, Muscle tone normal, Coordination normal Psych/Mental Status: Normal Affect, Appropriate Laboratory Results 09/07/20 10:50: WBC 5.0, RBC 3.99 L, Hgb 12.1, Hct 37.0, MCV 92.7, MCH 30.3, MCHC 32.7, RDW Std Deviation 43.9, RDW Coeff of Krystian 12.9, Plt Count 197, MPV 9.3, Immature Gran % (Auto) 0.600, Neut % (Auto) 49.7, Lymph % (Auto) 35.2, Woods % (Auto) 12.3 H, Eos % (Auto) 1.6, Baso % (Auto) 0.6, Absolute Neuts (auto) 2.5, Absolute Lymphs (auto) 1.74, Nucleated RBC % 0 09/07/20 10:50: Sodium 139, Potassium 4.9, Chloride 107, Carbon Dioxide 28.0, Anion Gap 4 L, BUN 35 H, Creatinine 1.38 H, Estim Creat Clear Calc 29.74, Est GFR (MDRD) Af Amer 47 L, Est GFR (MDRD) Non-Af 39 L, BUN/Creatinine Ratio 25.4 H, Glucose 113 H, Calcium 9.4, Magnesium 2.3, Troponin I < 0.015, TSH 1.70 09/07/20 10:50: D-Dimer Quant (PE/DVT) 2.44 H* Assessment/Plan All Active Problems General weakness (Acute) Asystole (Acute) Cardiopulmonary arrest with successful resuscitation (Acute) Gastroenteritis (Resolved) Urinary tract infection (Resolved) CPA with asystole during tilt table testing -Knowing tilt table testing as a work-up first syncope -Patient has already had an extensive work-up for this as an inpatient and outpatient prior to tilt table being performed -Has been seen by cardiology and the plan is for a pacemaker to be placed tomorrow morning -N.p.o. after midnight -Check a.m. coags -Continue to monitor on telemetry -Cardiology consulted and has already evaluated the patient Generalized weakness -Consult physical therapy/Occupational Therapy Musculoskeletal chest pain following CPR -As needed Tylenol and oxycodone is available Hypertension -Continue metoprolol 25 mg daily Hypothyroidism -Continue levothyroxine -TSH within normal limits DVT prophylaxis -Lovenox subcu 40 mg daily CODE STATUS -DNR CCA no intubation--> patient is aware this will be revoked for seizures Inpatient E&M: 64367 Init Hosp L3
--- NOTE | 2020-09-07 17:27 | PCM.CONS.C ---
Problem List (1) Asystole Status: Acute (2) Cardiopulmonary arrest with successful resuscitation Status: Acute Comment: Asystole during tilt table test with brief CPR (3) Syncope Status: Chronic (4) Hypertension Status: Chronic Qualifiers: Reason for Consult Date of Consultation: 09/07/20 History of Present Illness: The patient is a 80 year oldmic-fhlu-nip white female who was evaluated for a tilt table positive study with findings of syncope secondary to asystole (greater than 70 seconds in duration) with cardiopulmonary arrest requiring medical therapy with IV atropine and BLS CPR. This patient states she has a longstanding history of syncope. She states she has been evaluated noninvasively at multiple medical centers for such with no definitive cardiovascular findings. She was evaluated this day as an outpatient with a tilt table study. During her tilt table study she was noted to become bradycardic and developed asystole lasting greater than 70 seconds in duration. This prompted medical therapy with IV atropine and BLS CPR. She was noted during this time to have no blood pressure recording. Status post the aforementioned maneuvers she regained sinus rhythm/sinus tachycardia and became normotensive. She was evaluated in the emergency department. She was found to have a negative troponin I level. Her D-dimer was positive. She underwent chest x-ray and chest CT scan which was negative for great vessel disease. She states when she has not had syncopal events she feels otherwise fine. She states she has undergone noninvasive cardiovascular studies in the past at other institutions as part of her syncope evaluation. She states this has included stress test. Her studies have been unremarkable according to her. Does not believe she has ever undergone diagnostic cardiac catheterization or electrophysiology study. She notes that he has never been found to have a cardiovascular etiology for her syncope. She states she remains active. She has had no ongoing issues of classic angina pectoris nor she had any episodes of CHF or pulmonary edema. There is been no ongoing palpitations or rapid heart rates. She believes she has always had a strong heart . She does recall that with previous syncopal events that have been witnessed she has received CPR in the past. Again she states these events led to her multiple evaluations that have been nondiagnostic thus far. [] Past Medical History Allergies/Adverse Reactions: Allergies atorvastatin calcium [From Lipitor] Allergy (Verified 08/02/20 11:05) Chest tightness captopril Allergy (Verified 08/02/20 11:05) Chest tightness lansoprazole [From Prevacid] Allergy (Verified 08/02/20 11:05) Chest tightness Penicillins Allergy (Verified 08/02/20 11:05) Hives procaine HCl [From Novocain] Allergy (Verified 08/02/20 16:28) I get drunk risedronate sodium [From Actonel] Allergy (Verified 08/02/20 11:05) Chest tightness Sulfa (Sulfonamide Antibiotics) Allergy (Verified 08/02/20 11:05) Hives trimethoprim Allergy (Verified 09/07/20 11:05) Chest tightness Home Medications: Ambulatory Orders Medication Instructions Recorded Aspirin [Aspirin, Baby] 81 mg PO DAILY@0800 #30 tab.chew 07/25/16 Levothyroxine Sodium [Synthroid] 37.5 mcg PO SA 08/02/20 Levothyroxine Sodium [Synthroid] 75 mcg PO MOTUWETHFR 08/02/20 Metoprolol Succinate [Toprol Xl] 25 mg PO DAILY 08/02/20 Past Medical History (Chronic Problems): Chronic Problems Hypothyroid (Chronic) Hypertension (Chronic) Syncope (Chronic) Uncontrolled hypertension (Chronic) Surgical History: noncontributory Psychiatric History: No pertinent psych hx MUSIC COPYIST History: No pertinent MUSIC COPYIST history - *Family History Maternal History Items: - - Denies maternal medical history including cardiac history. Paternal History Items: - - Denies paternal medical history including cardiac history. Lives: Alone Smoking Status: Never smoker Tobacco Use: Non-smoker Alcohol: None Drugs: None Review of Systems - Review of Systems General: Denies: Fever, Night Sweats, Fatigue Cardiovascular: Reports: Syncope. Denies: Chest Discomfort, Shortness of Breath, Orthopnea, PND, Peripheral Edema, Palpitations, Lightheadedness, Dizziness, Near Syncope Respiratory: Denies: Cough, Sputum Production, Hemoptysis Gastrointestinal: Denies: Hematemesis, Hematochezia, Melena Genitourinary: Denies: Dysuria, Hematuria Skin: Denies: Rash Subjectve: This is a 80-year-old white female who appears resting comfortably at the moment in no acute distress. Objective: Vital Signs Temp Pulse Resp BP Pulse Ox 98.2 F 65 16 98/64 98 09/07/20 16:17 09/07/20 16:17 09/07/20 16:17 09/07/20 16:17 09/07/20 16:17 Oxygen Delivery Method Room Air Weight: 144 lb 6.4 oz Body Mass Index (BMI) 23.3 Intake and Output for Last 24 Hours 09/05/20 09/06/20 09/07/20 23:59 23:59 23:59 Intake Total 500 / 500 Balance 500 / 500 General: Awake, Alert, Oriented x 3, Cooperative, No Acute Distress HEENT: Atraumatic, Normocephalic, PERRL, EOMI, Sclera Non Icteric Neck: Supple, Good ROM, No JVD Lungs: Clear to auscultation Cardiovascular: Regular Rhythm, Normal S1, Normal S2 Vascular: No Carotid Bruits Abdomen: Bowel Sounds Present, Soft Extremities: No edema Neurological: No Focal Motor or Sensory Deficit Psych/Mental Status: Appropriate 09/07/20 10:50: WBC 5.0, RBC 3.99 L, Hgb 12.1, Hct 37.0, MCV 92.7, MCH 30.3, MCHC 32.7, Plt Count 197, MPV 9.3, Immature Gran % (Auto) 0.600, Neut % (Auto) 49.7, Lymph % (Auto) 35.2, [place] % (Auto) 12.3 H, Eos % (Auto) 1.6, Baso % (Auto) 0.6, Absolute Neuts (auto) 2.5, Nucleated RBC % 0 09/07/20 10:50: Sodium 139, Potassium 4.9, Chloride 107, Carbon Dioxide 28.0, Anion Gap 4 L, BUN 35 H, Creatinine 1.38 H, Est GFR (MDRD) Af Amer 47 L, Est GFR (MDRD) Non-Af 39 L, BUN/Creatinine Ratio 25.4 H, Glucose 113 H, Calcium 9.4, Magnesium 2.3, Troponin I < 0.015 09/07/20 10:50: D-Dimer Quant (PE/DVT) 2.44 H* Rhythm: Sinus rhythm EKG: Sinus rhythm ECHO: 06-28-2020 Interpretation Summary The estimated ejection fraction is 65 %. Unable to assess diastolic dysfunction. Trivial mitral valve insufficiency. Mild (1+) aortic valve insufficiency. CXR: IMPRESSION: Degenerative changes, as described above. No demonstrated acute cardiopulmonary process. Electronically Signed: Smooth Rowland MD at 11:[address] Scan: FINDINGS: Normal enhancement of the main pulmonary artery and right and left pulmonary arteries. Normal enhancement of the bilateral peripheral pulmonary arteries. There is no demonstrated pulmonary embolism. There is atherosclerotic calcification of the aortic arch with tortuosity. There is retroesophageal right subclavian artery. There is no demonstrated aortic dissection. Normal heart and pericardium. Normal mediastinum. Normal hilar regions. Normal visualized trachea and bronchi. The lungs are well expanded. Normal pulmonary parenchyma. Normal pleura. Normal chest wall structures. There is increased dorsal kyphosis. There are old compression fractures at T7 and T8. There is an old healed fracture of the sternum. There are old healed bilateral rib fractures. Normal visualized upper abdomen. CT/CTA Chest W/WO Contrast IMPRESSION: No demonstrated pulmonary embolism or arterial dissection. Electronically Signed: Smooth Rowland MD at 12:54 EST Cardiac event monitor: July 2020: Sinus rhythm/sinus arrhythmia/sinus bradycardia Assessment/Plan 1. Asystole The patient underwent a tilt table study this day. She had a positive tilt table study for vasovagal/neurocardiogenic mediated events with a marked cardioinhibitory response generating asystole of 70+ seconds requiring medical intervention with IV atropine and BLS CPR. At the moment she appears to be resting comfortably. She has no acute ongoing symptoms. Her evaluation thus far is included negative cardiac enzymes and a positive D-dimer which led to a CTA scan which was negative for great vessel disease. Her previous noninvasive cardiovascular studies available for review are as noted. At the present time it was felt based upon the patient's recurrent syncopal events with her tilt table studies with her marked cardioinhibitory response and her prolonged asystole event requiring medical intervention as noted above to regain sinus rhythm and hemodynamics it was felt prudent that the patient be considered for permanent pacemaker support to minimize the effects of cardioinhibitory related activity. 2. Cardiopulmonary arrest The patient did have cardiopulmonary arrest with respect to her asystole event requiring medical intervention with IV atropine and BLS CPR. Thus far she has demonstrated no other acute cardial pulmonary symptoms and/or objective findings. Her troponin I level has been negative. Her ECG demonstrated no acute ECG changes. Her previous noninvasive studies are as noted. At the present time it was felt this was related to her tilt table positive response with a marked bradycardia/prolonged asystole event. 3. Syncope She has had a lifetime of recurrent syncopal events which have been unexplained thus far. It now raises concern that her syncopal events are related to her vagal mediated activity with marked cardioinhibitory response. Thus it was felt she may benefit from permanent pacemaker support. 4. Hypertension She will need to continue medical therapy as deemed appropriate. Comment: At the present time she will be brought into the hospital for further evaluation and care. This will include permanent pacemaker placement. Following that she can continue cardiovascular evaluation and care as deemed appropriate. The patient's case has been discussed and reviewed with the patient and she was agreeable to this approach. The patient's case is also been previously discussed and reviewed with her [facility] emergency department staff, Dr. Doherty of the [facility] hospitalist group, and Dr. Bejarano of the [facility] will evaluate the patient for permanent pacemaker placement. This note was generated using a voice recognition system and there may be incorrect words, spelling or punctuation that were not noted when reviewing the office note prior to saving.
[2020-09-07 18:00] LABS: Bedside Glucose 106 mg/dL (70-110)
[2020-09-07] MEDS: 0.9% Normal Saline 1,000 ML 15 ML IV (18:06)
[2020-09-07 19:42] LABS: M R Staph aureus DNA By PCR Negative (Negative); Probe Check PASS; Specimen Processing Control PASS
[2020-09-07] MEDS: 0.9% Normal Saline 1,000 ML 70 ML IV (21:31)
[2020-09-07] MEDS: 0.9% Saline Lock 10 ML Syringe IV (22:56)
[2020-09-08] VITALS (17 sets, daily range): BP systolic 104–141; BP diastolic 58–92; PULSE 50–79; RESP 16–20; TEMP 36.6–36.8; O2SAT 93–99
[2020-09-08] MEDS: Levothyroxine 75 MCG Tablet PO (05:55)
[2020-09-08 06:03] LABS: Absolute Lymphocyte Count 1.62 X10^3/uL (0.83-4.51); Absolute Neutrophil Count 2.1 X10^3/uL (2.0-7.7); Basophil# 0.04 X10^3/uL; Basophil% 0.9 % (0-1); Eosinophil# 0.12 X10^3/uL; Eosinophils% 2.7 % (0-5); Hematocrit 34.1 % (37-47); Hemoglobin 10.8 g/dL (12.0-15.0); Lymphocyte # 1.62 X10^3/ul (4.0); Lymphocyte % 36.1 % (19-41); Mean Corp Hgb Conc 31.7 g/dL (32-36); Mean Corpuscular Hgb 29.8 pg (27.0-32.0); Mean Corpuscular Volume 94.2 fL (81-99); Monocyte% 13.4 % (0-10); NRBC Flagged by Analyzer 0 % (0-5); Neutrophil % 46.7 % (47-70); Platelet Count 168 K/mm3 (150-450); RBC Distribution Width CV 13.2 % (11.6-14.6); RBC Distribution Width SD 45.4 fl (35.1-43.9); Red Blood Count 3.62 M/mm3 (4.2-5.4); White Blood Count 4.5 K/mm3 (4.4-11.0)
[2020-09-08 06:17] LABS: Prothrombin Time (Protime)PT. 13.1 SECONDS (11.7-14.9)
[2020-09-08 06:25] LABS: Partial Thromboplast Time 30.3 Seconds (24.1-36.2)
[2020-09-08 06:39] LABS: Anion Gap 5 (5-15); BUN 35 mg/dL (7-18); BUN/Creat Ratio 26.1 RATIO (10-20); Chloride 109 mmol/L (98-107); Creatinine, Serum 1.34 mg/dL (0.55-1.02); EST Glomerular Filtration Rate 41 mL/min (>60); Est Glom Filt Rate - Afr Amer 49 mL/min (>60); Estimated Creatinine Clearance 31.87 ml/min; Glucose 91 mg/dL (74-106); Phosphorus 3.7 mg/dL (2.5-4.9); Potassium 4.8 mmol/L (3.5-5.1); Sodium Level 139 mmol/L (136-145)
--- NOTE | 2020-09-08 10:00 | PCM.PN.CARD ---
Subjectve: The patient is awake and alert. She denies any new acute issues. Objective: Vital Signs Temp Pulse Resp BP Pulse Ox 98.0 F 53 L 18 116/58 L 95 09/08/20 08:08 09/08/20 08:56 09/08/20 08:56 09/08/20 08:08 09/08/20 08:56 Oxygen Delivery Method Room Air Weight: 144 lb 6.4 oz Body Mass Index (BMI) 23.3 Intake and Output for Last 24 Hours 09/06/20 09/07/20 09/08/20 23:59 23:59 23:59 Intake Total 1110.67 / 1110.67 0 / 0 Balance 1110.67 / 1110.67 0 / 0 General: Awake, Alert, Oriented x 3, Cooperative, No Acute Distress HEENT: Atraumatic, Normocephalic, PERRL, EOMI, Sclera Non Icteric Neck: Supple, Good ROM, No JVD Lungs: Clear to auscultation Cardiovascular: Regular Rhythm, Normal S1, Normal S2 Abdomen: Bowel Sounds Present, Soft Extremities: No edema Neurological: No Focal Motor or Sensory Deficit Psych/Mental Status: Appropriate 09/07/20 10:50: WBC 5.0, RBC 3.99 L, Hgb 12.1, Hct 37.0, MCV 92.7, MCH 30.3, MCHC 32.7, Plt Count 197, MPV 9.3, Immature Gran % (Auto) 0.600, Neut % (Auto) 49.7, Lymph % (Auto) 35.2, [place] % (Auto) 12.3 H, Eos % (Auto) 1.6, Baso % (Auto) 0.6, Absolute Neuts (auto) 2.5, Nucleated RBC % 0 09/07/20 10:50: Sodium 139, Potassium 4.9, Chloride 107, Carbon Dioxide 28.0, Anion Gap 4 L, BUN 35 H, Creatinine 1.38 H, Est GFR (MDRD) Af Amer 47 L, Est GFR (MDRD) Non-Af 39 L, BUN/Creatinine Ratio 25.4 H, Glucose 113 H, Calcium 9.4, Magnesium 2.3, Troponin I < 0.015 09/07/20 10:50: D-Dimer Quant (PE/DVT) 2.44 H* 09/08/20 05:50: WBC 4.5, RBC 3.62 L, Hgb 10.8 L, Hct 34.1 L, MCV 94.2, MCH 29.8, MCHC 31.7 L, Plt Count 168, MPV 9.0, Immature Gran % (Auto) 0.200, Neut % (Auto) 46.7 L, Lymph % (Auto) 36.1, [place] % (Auto) 13.4 H, Eos % (Auto) 2.7, Baso % (Auto) 0.9, Absolute Neuts (auto) 2.1, Nucleated RBC % 0 09/08/20 05:50: Sodium 139, Potassium 4.8, Chloride 109 H, Carbon Dioxide 25.0, Anion Gap 5, BUN 35 H, Creatinine 1.34 H, Est GFR (MDRD) Af Amer 49 L, Est GFR (MDRD) Non-Af 41 L, BUN/Creatinine Ratio 26.1 H, Glucose 91, Calcium 9.0, Phosphorus 3.7, Magnesium 2.0 09/08/20 05:50: PT 13.1, INR 1.0, APTT 30.3 Rhythm: Sinus bradycardia Medical Necessity - Tobacco Use Smoking Status: Never smoker Tobacco Use: Non-smoker Assessment/Plan 1. Asystole The patient underwent a tilt table study this day. She had a positive tilt table study for vasovagal/neurocardiogenic mediated events with a marked cardioinhibitory response generating asystole of 70+ seconds requiring medical intervention with IV atropine and BLS CPR. At the moment she appears to be resting comfortably. She has no acute ongoing symptoms. Her evaluation thus far is included negative cardiac enzymes and a positive D-dimer which led to a CTA scan which was negative for great vessel disease. Her previous noninvasive cardiovascular studies available for review are as noted. He is pending further evaluation and care with permanent pacemaker placement today. 2. Cardiopulmonary arrest The patient did have cardiopulmonary arrest with respect to her asystole event requiring medical intervention with IV atropine and BLS CPR. Thus far she has demonstrated no other acute cardial pulmonary symptoms and/or objective findings. Her troponin I level has been negative. Her ECG demonstrated no acute ECG changes. Her previous noninvasive studies are as noted. At the present time it was felt this was related to her tilt table positive response with a marked bradycardia/prolonged asystole event. 3. Syncope She has had a lifetime of recurrent syncopal events which have been unexplained thus far. It now raises concern that her syncopal events are related to her vagal mediated activity with marked cardioinhibitory response. Thus it was felt she may benefit from permanent pacemaker support. 4. Hypertension She will need to continue medical therapy as deemed appropriate. Comment: The patient's case has been discussed and reviewed with the patient and she was agreeable to this approach. This note was generated using a voice recognition system and there may be incorrect words, spelling or punctuation that were not noted when reviewing the office note prior to saving.
--- NOTE | 2020-09-08 10:10 | CASEMGMT ---
BEAU AYALA Assessment: Face to Face with patient for initial transition planning/care coordination assessment. BEAU AYALA introduced self and role at [facility], pt voices understanding and consents to assessment. Pt is lying in bed. Pt is A/Ox4 and answers questions appropriately. Care providers, pharmacy, and demographics verified. Presentation: abd pain, lung pain Admitting dx: asystole with tilt table testing PCP:Damián Specialists: Pt denies having any specialists Preferred Pharmacy:[facility] in [place] [facility] Prescription Benefit: yes Living Will/HPOA: Pt reports she has a LW and her HPOA is her son Ravi Barber. Pt reports bringing to the hospital during a previous stay. BEAU AYALA made her aware it is not on file on [facility]. She will bring in at a later date. LNOK: sonsRavi and Earnest Barber Living Arrangements: Pt lives alone in a ranch home with one step to get into the home with a grab bar. Pt denies concerns at home and reports being I in ADL's. Transportation:Pt drives self and has no concerns with transportation. DME/HHC:Pt reports having a cane at home and grab bars in her bathroom and garage. Pt states she has previously had rehab for one week at [facility]. She states she was supposed to have had HHC previously but did not due to her geographic location. Pt states no concerns with going home at time of dc. Pt is retired and . She denies smoking or drinking ETOH. Pt states no further concerns/needs. CM to follow for any further dc planning/needs. Advised pt to ask for CM if any further questions/concerns/needs arise, voices understanding. Pt goal: Home Plan:Home, will follow therapies.
[2020-09-08] MEDS: 0.9% Normal Saline 1,000 ML 15 ML IV (10:58)
--- NOTE | 2020-09-08 11:47 | CASEMGMT ---
Patient has a Healthcare Power of Flight Engineer Manager and a Healthcare Living Will. She was notified by BEAU AYALA that they are not on file at [facility]. Her son Ravi is her Healthcare Power of Flight Engineer Manager. Gisela DODSON
--- NOTE | 2020-09-08 13:29 | CL.IE_ITS ---
Patient: ED HILTON Study Date: 09/08/2020 Performing: Kin Bejarano MD : 1940 Age: 80 Gender: female PROCEDURES PERFORMED [id number] PACER INSERT+DUAL LEADS INDICATIONS Syncope PROCEDURE DETAILS The patient was brought to the Catheterization Lab in the postabsorptive nonsedated state. [facility] was obtained prior to the procedure. Local anesthetic was given subcutaneously to the le ft subclavian region with Lidocaine 2%. Access was achieved and a guidewire was advanced into the lef t subclavian vein. Access was achieved and a guidewire was advanced into the left subclavian vein. In cision was made to the left upper chest. PPM ventricular lead was inserted / positioned to right vent ricular septal wall. PPM ventricular lead testing performed. PPM ventricular lead testing performed. PPM atrial lead was inserted / positioned to the right atrial appendage. PPM atrial lead testing perf ormed. The Ventricular PM lead sutured in place with 2-0 Silk. The Atrial lead sutured in place with 2-0 Silk. Device pocket was irrigated. PPM generator was attached to the lead(s) and inserted into th e pocket. PPM generator was then interrogated by the internet programmer. PPM generator was attached to the lead(s) and inserted into the pocket. The PPM generator was sutured in place with 2-0 Silk. The PPM generator was sutured in place with 2-0 Silk. Subcutaneous closure was completed with 3-0 Vicryl. Skin closure was completed with 4-0 Vicryl. Steri-strips applied to left subclavicular in cision. The patient tolerated the procedure well. Estimated Blood Loss: 4 ml's IMPLANTED / EX-PLANTED DEVICES IMPLANTED DEVICE(S): PPM Ventricular lead - National Facilities Manager: [employer], Model # 7841 , Serial # [id number] PPM Atrial lead - National Facilities Manager: [employer], Model # 7840 , Serial # [id number] PPM Generator - National Facilities Manager: [employer], Model # l111 , Serial # [id number] DEVICE PARAMETERS ATRIAL LEAD PARAMETERS: P wave (mV) - 4.9 Current (mA) - 1.7 threshold (V) - 1.2 impedence (OHMS) - 717 impedence (OHMS) - 1097 VENTRICULAR LEAD PARAMETERS: R wave (mV) - 20.5 current (mA) - .8 threshold (V) - .8 DEVICE PARAMETERS: Mode - ddd lower rate - 60 upper rate - 120 rate response off CONCLUSIONS / RECOMMENDATIONS Device Conclusions: Successful implantation of a dual chamber pacemaker Device Recommendations: Follow up with Primary Care Physician PROCEDURE MEDICATIONS Fentanyl 50 mcg IV Versed 1 mg IV Fentanyl 25 mcg IV Versed 1 mg IV Versed 1 mg IV Oxygen: 2 L/min via nasal cannula Clindamycin 900 mg IV 09/08/2020 11:49:38 Signed By Kin Bejarano MD On 09/08/2020 13:27:51 Kin Bejarano MD
--- NOTE | 2020-09-08 15:00 | PN_ITS ---
<Joss Hagan - Last Filed: 09/08/20 15:00> Patient Problems: Active and Suspected Problems General weakness (Acute) Asystole (Acute) Cardiopulmonary arrest with successful resuscitation (Acute) Asystole during tilt table test with brief CPR Subjective: Patient resting in room s/p pacemaker placement. Patient reports pain throughout her chest, around area of pacemaker. No other complaints reported. Denies, shortness of breath, fever chills, N/V/D. Objective: Clinical Impression(s) from Imaging Studies Chest X-Ray 09/07/20 11:09 IMPRESSION: Degenerative changes, as described above. No demonstrated acute cardiopulmonary process. Electronically Signed: Smooth Rowland MD at 11:36 EST Tel , Service support , Chest CTA 09/07/20 11:27 IMPRESSION: No demonstrated pulmonary embolism or arterial dissection. Electronically Signed: Smooth Rowland MD at 12:54 EST Tel , Service support , Laboratory Tests Past 24 Hrs 09/07/20 09/08/20 09/08/20 17:50 05:50 05:50 WBC 4.5 RBC 3.62 L Hgb 10.8 L Hct 34.1 L MCV 94.2 MCH 29.8 MCHC 31.7 L RDW Std Deviation 45.4 H RDW Coeff of Krystian 13.2 Plt Count 168 MPV 9.0 Immature Gran % (Auto) 0.200 Neut % (Auto) 46.7 L Lymph % (Auto) 36.1 Baxter % (Auto) 13.4 H Eos % (Auto) 2.7 Baso % (Auto) 0.9 Absolute Neuts (auto) 2.1 Absolute Lymphs (auto) 1.62 Nucleated RBC % 0 PT INR APTT Sodium 139 Potassium 4.8 Chloride 109 H Carbon Dioxide 25.0 Anion Gap 5 BUN 35 H Creatinine 1.34 H Estim Creat Clear Calc 31.87 Est GFR (MDRD) Af Amer 49 L Est GFR (MDRD) Non-Af 41 L BUN/Creatinine Ratio 26.1 H Glucose 91 Calcium 9.0 Phosphorus 3.7 Magnesium 2.0 MRSA (PCR) Negative 09/08/20 05:50 WBC RBC Hgb Hct MCV MCH MCHC RDW Std Deviation RDW Coeff of Krystian Plt Count MPV Immature Gran % (Auto) Neut % (Auto) Lymph % (Auto) Baxter % (Auto) Eos % (Auto) Baso % (Auto) Absolute Neuts (auto) Absolute Lymphs (auto) Nucleated RBC % PT 13.1 INR 1.0 APTT 30.3 Sodium Potassium Chloride Carbon Dioxide Anion Gap BUN Creatinine Estim Creat Clear Calc Est GFR (MDRD) Af Amer Est GFR (MDRD) Non-Af BUN/Creatinine Ratio Glucose Calcium Phosphorus Magnesium MRSA (PCR) Vitals/I&O's: Vital Signs Temp Pulse Resp BP Pulse Ox 97.8 F 60 16 134/92 H 94 09/08/20 14:05 09/08/20 14:44 09/08/20 14:44 09/08/20 14:44 09/08/20 14:44 Oxygen Flow Rate (L/min) 2 Oxygen Delivery Method Nasal Cannula Weight: 144 lb 6.4 oz Body Mass Index (BMI) 23.3 Intake and Output for Last 24 Hours 09/06/20 09/07/20 09/08/20 23:59 23:59 23:59 Intake Total 1110.67 / 1110.67 1140.83 / 1140.83 Balance 1110.67 / 1110.67 1140.83 / 1140.83 General: Alert, Oriented x3, Cooperative HEENT: Atraumatic, PERRLA, EOMI, Normocephalic Neck: Supple, No JVD, Negative Carotid Bruits Lungs: Clear to auscultation, Normal air movement, - - Pain in chest status post pacemaker placement Cardiovascular: Regular rate, No murmurs Abdomen: Bowel Sounds Present, Soft, Non Tender Extremities: No edema, Capillary Refill Less than 3 Seconds Skin: No rashes, No breakdown Musculoskeletal: No Tenderness to Palpation of Joints or Extremities Neurological: Cranial nerves II-XII grossly intact Psych/Mental Status: Normal Affect, Appropriate Comment: no erythema, warmth, or discharge around pacemaker placement Laboratory Results 09/07/20 17:50: MRSA (PCR) Negative 09/07/20 17:55: POC Glucose 106 09/08/20 05:50: WBC 4.5, RBC 3.62 L, Hgb 10.8 L, Hct 34.1 L, MCV 94.2, MCH 29.8, MCHC 31.7 L, RDW Std Deviation 45.4 H, RDW Coeff of Krystian 13.2, Plt Count 168, MPV 9.0, Immature Gran % (Auto) 0.200, Neut % (Auto) 46.7 L, Lymph % (Auto) 36.1, Baxter % (Auto) 13.4 H, Eos % (Auto) 2.7, Baso % (Auto) 0.9, Absolute Neuts (auto) 2.1, Absolute Lymphs (auto) 1.62, Nucleated RBC % 0 09/08/20 05:50: Sodium 139, Potassium 4.8, Chloride 109 H, Carbon Dioxide 25.0, Anion Gap 5, BUN 35 H, Creatinine 1.34 H, Estim Creat Clear Calc 31.87, Est GFR (MDRD) Af Amer 49 L, Est GFR (MDRD) Non-Af 41 L, BUN/Creatinine Ratio 26.1 H, Glucose 91, Calcium 9.0, Phosphorus 3.7, Magnesium 2.0 09/08/20 05:50: PT 13.1, INR 1.0, APTT 30.3 Current Medications Acetaminophen (Acetaminophen 500 Mg Tablet) 1,000 mg PO Q8H PRN PRN PRN Reason: Pain Score 1-10 Al Hydroxide/Mg Hydroxide (Mag Hydrox/Al Hydrox/Simeth 30 Ml Udc) 30 ml PO Q6H PRN PRN PRN Reason: Gastric Burning Albuterol Sulfate (Albuterol 2.5 Mg/3 Ml Vial.Neb.) 2.5 mg INHALATION Q2H PRN PRN PRN Reason: SOB/Wheezing Aspirin (Aspirin 81 Mg Tab.Chew) 81 mg PO DAILY@0800 [facility] Last Admin: 09/08/20 13:39 Dose: Not Given Documented by: Enoxaparin Sodium (Enoxaparin 40 Mg/0.4 Ml Syringe) 40 mg SC DAILY [facility] Last Admin: 09/08/20 13:39 Dose: Not Given Documented by: Sodium Chloride () 1,000 mls @ 15 mls/hr IV .Q48H [facility] Last Admin: 09/08/20 10:58 Dose: 15 mls/hr Documented by: Levothyroxine Sodium (Levothyroxine 75 Mcg Tablet) 37.5 mcg PO Sa@0600 [facility] Levothyroxine Sodium (Levothyroxine 75 Mcg Tablet) 75 mcg PO MoTuWeThFr@0600 [facility] Last Admin: 09/08/20 05:55 Dose: 75 mcg Documented by: Ondansetron HCl (Ondansetron 4 Mg/2 Ml Vial) 4 mg IV Q8H PRN PRN PRN Reason: NAUSEA/VOMITING Oxycodone HCl (Oxycodone 5 Mg Tablet) 5 mg PO Q4H PRN PRN PRN Reason: Pain Score 4-10 Senna/Docusate Sodium (Senna/Docusate Sodium 1 Tablet) 2 tablet PO BID PRN PRN PRN Reason: Constipation Sodium Chloride (0.9% Saline Lock 10 Ml Syringe) 10 - 40 ml IV UD PRN PRN Reason: SALINE FLUSH Last Admin: 09/07/20 22:56 Dose: 10 ml Documented by: STROKE Vital Signs/Narrative: Vital Signs Temp Pulse Resp BP BP Pulse Ox 09/08/20 14:44 60 16 134/92 H 94 09/08/20 14:29 60 20 H 135/71 H 93 09/08/20 14:05 97.8 F 60 16 134/69 H 94 09/08/20 14:04 60 18 134/69 H 95 09/08/20 13:50 97.8 F 60 18 113/81 H 95 Medical Necessity - Tobacco Use Smoking Status: Never smoker Tobacco Use: Non-smoker Assessment/Plan All Active Problems General weakness (Acute) Asystole (Acute) Cardiopulmonary arrest with successful resuscitation (Acute) Urinary tract infection (Resolved) Gastroenteritis (Resolved) Ms Barber is a 80 year old male with a past medical history of recurrent syncope, hypothyroidism, recurrent urinary tract infections, and hypertension who presented to the ED on 09/07/2020 after receiving CPR secondary to asystole at an outpatient tilt table test. Dr. Bejarano and Dr. Green saw the patient in the emergency department, and decided to do pacemaker placement today. Conducted my evaluation after pacemaker placement, patient's only complaint was chest pain secondary to placement of the pacemaker. Patient unable to quantify chest pain, but reports it as significant. Controlled pain medications withheld as patient was disoriented and difficult to arouse after procedure. 1) CPA with asystole during tilt table testing Assessment - Cardiac pacemaker placed - Negative cardiac enzymes - Elevated D-dimer, CT?A negative for PE or aortic dissection - EKG demonstrated no ischemic ischemic changes - Coags normal Plan -Remain admitted overnight -Tylenol 1000 mg every 8 as needed ordered for chest pain secondary to pacemaker placement -Continue telemetry monitoring Patient seen by Joss Hagan PA-C, under the supervision of Dr. Simon. <Davon Simon - Last Filed: 09/08/20 15:24> Vitals/I&O's: Vital Signs Temp Pulse Resp BP Pulse Ox 97.8 F 60 18 128/66 H 95 09/08/20 14:05 09/08/20 14:59 09/08/20 14:59 09/08/20 14:59 09/08/20 14:59 Oxygen Flow Rate (L/min) 2 Oxygen Delivery Method Nasal Cannula Weight: 65.499 kg Body Mass Index (BMI) 23.3 Intake and Output for Last 24 Hours 09/06/20 09/07/20 09/08/20 23:59 23:59 23:59 Intake Total 1110.67 / 1110.67 1140.83 / 1140.83 Balance 1110.67 / 1110.67 1140.83 / 1140.83 Laboratory Results 09/07/20 17:50: MRSA (PCR) Negative 09/07/20 17:55: POC Glucose 106 09/08/20 05:50: WBC 4.5, RBC 3.62 L, Hgb 10.8 L, Hct 34.1 L, MCV 94.2, MCH 29.8, MCHC 31.7 L, RDW Std Deviation 45.4 H, RDW Coeff of Krystian 13.2, Plt Count 168, MPV 9.0, Immature Gran % (Auto) 0.200, Neut % (Auto) 46.7 L, Lymph % (Auto) 36.1, Baxter % (Auto) 13.4 H, Eos % (Auto) 2.7, Baso % (Auto) 0.9, Absolute Neuts (auto) 2.1, Absolute Lymphs (auto) 1.62, Nucleated RBC % 0 09/08/20 05:50: Sodium 139, Potassium 4.8, Chloride 109 H, Carbon Dioxide 25.0, Anion Gap 5, BUN 35 H, Creatinine 1.34 H, Estim Creat Clear Calc 31.87, Est GFR (MDRD) Af Amer 49 L, Est GFR (MDRD) Non-Af 41 L, BUN/Creatinine Ratio 26.1 H, Glucose 91, Calcium 9.0, Phosphorus 3.7, Magnesium 2.0 09/08/20 05:50: PT 13.1, INR 1.0, APTT 30.3 Current Medications Acetaminophen (Acetaminophen 500 Mg Tablet) 1,000 mg PO Q8H PRN PRN PRN Reason: Pain Score 1-10 Al Hydroxide/Mg Hydroxide (Mag Hydrox/Al Hydrox/Simeth 30 Ml Udc) 30 ml PO Q6H PRN PRN PRN Reason: Gastric Burning Albuterol Sulfate (Albuterol 2.5 Mg/3 Ml Vial.Neb.) 2.5 mg INHALATION Q2H PRN PRN PRN Reason: SOB/Wheezing Aspirin (Aspirin 81 Mg Tab.Chew) 81 mg PO DAILY@0800 [facility] Last Admin: 09/08/20 13:39 Dose: Not Given Documented by: Enoxaparin Sodium (Enoxaparin 40 Mg/0.4 Ml Syringe) 40 mg SC DAILY [facility] Last Admin: 09/08/20 13:39 Dose: Not Given Documented by: Sodium Chloride () 1,000 mls @ 15 mls/hr IV .Q48H [facility] Last Admin: 09/08/20 10:58 Dose: 15 mls/hr Documented by: Levothyroxine Sodium (Levothyroxine 75 Mcg Tablet) 37.5 mcg PO Sa@0600 [facility] Levothyroxine Sodium (Levothyroxine 75 Mcg Tablet) 75 mcg PO MoTuWeThFr@0600 [facility] Last Admin: 09/08/20 05:55 Dose: 75 mcg Documented by: Ondansetron HCl (Ondansetron 4 Mg/2 Ml Vial) 4 mg IV Q8H PRN PRN PRN Reason: NAUSEA/VOMITING Oxycodone HCl (Oxycodone 5 Mg Tablet) 5 mg PO Q4H PRN PRN PRN Reason: Pain Score 4-10 Senna/Docusate Sodium (Senna/Docusate Sodium 1 Tablet) 2 tablet PO BID PRN PRN PRN Reason: Constipation Sodium Chloride (0.9% Saline Lock 10 Ml Syringe) 10 - 40 ml IV UD PRN PRN Reason: SALINE FLUSH Last Admin: 09/07/20 22:56 Dose: 10 ml Documented by: STROKE Vital Signs/Narrative: Vital Signs Temp Pulse Resp BP BP Pulse Ox 09/08/20 14:59 60 18 128/66 H 95 09/08/20 14:44 60 16 134/92 H 94 09/08/20 14:29 60 20 H 135/71 H 93 09/08/20 14:05 97.8 F 60 16 134/69 H 94 09/08/20 14:04 60 18 134/69 H 95 09/08/20 13:50 97.8 F 60 18 113/81 H 95 Assessment/Plan This patient was seen in conjunction with Joss Hagan PA-C. I have independently interviewed and examined the patient and reviewed pertinent historical, laboratory, and other data. Please refer to Joss Hagan PA-C's note for details of this patient's presentation, findings, and recommendations. I have reviewed Joss Hagan PA-C's note and concur with documented findings. In brief, a 80-year-old lady who went into cardiopulmonary arrest a cystoscopy requiring CPR and IV atropine whilst undergoing tilt table test. Patient was successfully resuscitated with ROSC and subsequently admitted to a monitored bed with consultation placed to Dr. Yip. Patient underwent pacemaker placement on 09/08/2020 The patient underwent a tilt table study this day. She had a positive tilt table study for vasovagal/neurocardiogenic mediated events with a marked cardioinhibitory response generating asystole of 70+ seconds requiring medical intervention with IV atropine and BLS CPR. Physical Examination: GENERAL: cooperative HEENT: Atraumatic; EYES; Anicteric, Normal Conjunctiva NECK; supple, normal thyroid, RESPIRATORY: Diminished to auscultation CARDIOVASCULAR: Regular S1 S2, GI: soft, normoactive bowel sounds, : No Renal angle tenderness; EXTREMITIES: No edema, no clubbing, MUSCULOSKELETAL: no muscle waisting NEURO: Awake; no lateralizing signs. SKIN: No Rash PSYCH; Flat affect Assessment: 1. Cardiopulmonary arrest (Asystole) with successful resuscitation with ACLS with ROSC 2. Status post pacemaker placement 3. Essential hypertension 4. Hypothyroidism 5. DVT prophylaxis Recommendations: 1. I have discussed the results of my overview and impressions with the patient 2. Options for management were reviewed Inpatient E&M: 41030 Subs Hosp L3
[2020-09-08] MEDS: Acetaminophen 500 MG Tablet 1000 MG PO (16:47)
[2020-09-09] VITALS (16 sets, daily range): BP systolic 129–163; BP diastolic 76–87; PULSE 61–80; RESP 12–19; TEMP 36.6–37.1; O2SAT 86–97
[2020-09-09] MEDS: Levothyroxine 75 MCG Tablet PO (05:23)
[2020-09-09] MEDS: Acetaminophen 500 MG Tablet 1000 MG PO ×2 (05:26→23:01)
--- NOTE | 2020-09-09 05:55 | RAD_ITS ---
STUDY: X-RAY CHEST REASON FOR EXAM: Female, 80 years old. Post placement of ICD/Pacemaker. TECHNIQUE: Frontal view of the chest in inspiration and expiration. Lateral view. COMPARISON: September 07, 2020. March 26, 2013. FINDINGS: Cardiac pacemaker overlies left hemithorax. Leads overlying the right atrium and right ventricle. No pneumothorax. There is now a 2.3 x 2.0 cm round density overlying the left lung apex. No focal infiltrates. Small left pleural effusion. The heart is not enlarged. Mediastinum is not widened. Focal kyphosis of the midthoracic spine unchanged since March 2013. There is no demonstrated abnormality of the visualized soft tissue structures of the upper abdomen. RAD/Chest 3 View IMPRESSION: Cardiac pacemaker in expected location. No pneumothorax. New small left pleural effusion. New 2.3 cm soft tissue density overlying left lung apex, since September 07, 2020 which may represent postoperative changes. Recommend follow-up. Electronically Signed: Cruz Villa MD at 6:49 EST , Service support ,
--- NOTE | 2020-09-09 08:24 | DCINST_ITS ---
Discharge Diet: No Restrictions, Low fat/ Low Cholesterol Discharge Activity: May Not Drive Call your doctor if your incision/area has: Continuous Slow Oozing, Sudden Increased Bleeding, Increased Pain/ Swelling, Increased Redness, Foul Smelling Discharge, Swelling at the incision site Call your doctor if you observe: Fever of 101 or Higher, Shortness of breath, Dizziness, Fainting spells, Swelling in the ankles, Chest pain, Prolonged hiccoughing, Increased palpitations (irregular heartbeat) Suture Line Care: Avoid Pulling/Pushing, Avoid Pinching/Bending Cleanse incision/area with: Do not get Incision Wet, Keep Dressing Clean & Dry Additional Dressing/Incision Instructions:: When dressing is removed, wash and dry incision. Keep covered with a light bandage if it is rubbing against your clothing. Do not cover the incision with an airtight bandage. Change the bandage daily. Do not remove steri strips. The strips will fall off on their own. Additional Instructions: Signs and Symptoms to Report to Your Doctor at Once - call your doctor's office or Doctor's Registry ([phone]) Call 911 or go to the nearest Emergency Department if you feel you need urgent care. *Infection (fever, increased redness or swelling at the incision site, drainage from the incision increased pain at the pacemaker site) *Shortness of breath *Dizziness *Fainting spells *Swelling in the ankles *Chest pain *Prolonged hiccoughing *Increased palpitaitons (irregular heartbeat) Medications: Take your pain medication as directed. Refer to your discharge instruction sheet for a list of medications you are to take. Allergies/Adverse Reactions: Allergies atorvastatin calcium [From Lipitor] Allergy (Verified 08/02/20 11:05) Chest tightness captopril Allergy (Verified 08/02/20 11:05) Chest tightness lansoprazole [From Prevacid] Allergy (Verified 08/02/20 11:05) Chest tightness Penicillins Allergy (Verified 08/02/20 11:05) Hives procaine HCl [From Novocain] Allergy (Verified 08/02/20 16:28) I get drunk risedronate sodium [From Actonel] Allergy (Verified 08/02/20 11:05) Chest tightness Sulfa (Sulfonamide Antibiotics) Allergy (Verified 08/02/20 11:05) Hives trimethoprim Allergy (Verified 09/07/20 11:05) Chest tightness Medications to take at Discharge Aspirin [Aspirin, Baby] 81 mg PO DAILY@0800 #30 tab.chew 07/25/16 Levothyroxine Sodium [Synthroid] 37.5 mcg PO SA 08/02/20 Levothyroxine Sodium [Synthroid] 75 mcg PO MOTUWETHFR 08/02/20 Metoprolol Succinate [Toprol Xl] 25 mg PO DAILY 08/02/20 Primary Care Physician: Yvette Steel DO [Primary Care Provider] - Test Results: Test results from this visit will be discussed in further detail at your follow- up appointment, if applicable. When: Pacemaker clinic September 16 at 11 AM Proposed Discharge Date: 09/09/20
--- NOTE | 2020-09-09 09:35 | NURSING ---
arrived to patients room, pt complained of feeling like she was going to pass out. Obtained BP which was 55/36. Pt became very diaphretic and less responsive. SUPERVISOR BILLPOSTING called [id number]
--- NOTE | 2020-09-09 09:40 | RAD_ITS ---
STUDY: X-RAY CHEST REASON FOR EXAM: Female, 80 years old. Shortness of breath TECHNIQUE: Single AP portable view of the chest. COMPARISON: 09/09/2020 FINDINGS: Left-sided dual-lead percutaneous pacemaker is again seen. There is hyperinflation of the lungs consistent with chronic obstructive lung disease (COPD). There is mild left basilar atelectasis. There is mild rotation to the right. Persistent, moderate left apical pneumothorax. Normal size heart. Normal mediastinum and irving. Normal visualized pulmonary arteries. There is tortuosity of the aortic arch and descending thoracic aorta. Normal visualized thoracic spine. Normal visualized ribs, clavicles, and shoulders. There is no demonstrated abnormality of the visualized soft tissue structures of the upper abdomen. RAD/Chest 1 View (Portable) IMPRESSION: Persistent, moderate left apical pneumothorax. COPD. Mild left basilar atelectasis. Electronically Signed: Cristina Ulloa MD at 10:02 EST Tel , Service support ,
--- NOTE | 2020-09-09 09:41 | EKG12_ITS ---
Test Reason : Blood Pressure : / mmHG Vent. Rate : 100 BPM Atrial Rate : 100 BPM P-R Int : 178 ms QRS Dur : 078 ms QT Int : 348 ms P-R-T Axes : 081 045 068 degrees QTc Int : 448 ms Sinus rhythm with Premature supraventricular complexes Low voltage QRS Borderline ECG When compared with ECG of 07-SEP-2020 10:43, MANUAL COMPARISON REQUIRED, DATA IS UNCONFIRMED Confirmed by LAYNE QUICK, TYSHAWN ([id number]), assistant production editor MAGNOLIA SORIANO ([id number]) on 09/17/2020 9:07:12 AM Referred By: MARY Confirmed By:TYSHAWN TILLMAN MD
[2020-09-09] MEDS: proMETHazine 25 MG/ML Syringe 12.5 MG IV (09:48)
--- NOTE | 2020-09-09 09:51 | CASEMGMT ---
Physician indicated that patient told him she cannot go home at d/c and she would like to go to [facility]. SW called Isabelle with TCU and made a referral. They will have a bed for patient. Before SW could make it to the room to let patient know this information or offer a SNF list a rapid response was called on patient. SW responded to rapid response and no family was present. SW did talk with Nurse Practitioner and she requested SW call one of the sons to let them know patient had some complications. SW called patient's son Vikas and let him know patient had some complications. SW explained the Nurse Practitioner will give him a call afterwards to fill him in on the situation. He thanked SW. SW let DIE TURNER know that SW called patient's son Earnest. KEESHA called ICU KEESHA Stokes and let her know the plan is TCU at d/c. SW also let her know SW did not have a chance to let patient know this information. SW notified Isabelle in TCU as well. Plan: d/c to [facility] when medically ready and when insurance approves. Gisela MERCHANT
[2020-09-09] MEDS: Ketorolac 30 MG/ML Syringe IV (09:53)
[2020-09-09] MEDS: Morphine 4 MG/ML Syringe IV (09:55)
[2020-09-09 10:01] LABS: Bedside Glucose 111 mg/dL (70-110)
--- NOTE | 2020-09-09 10:01 | RAD_ITS ---
STUDY: X-RAY CHEST REASON FOR EXAM: Female, 80 years old. Chest tube placement TECHNIQUE: Single AP portable view of the chest. COMPARISON: 09/09/2020, 9:41 AM FINDINGS: Left-sided dual-lead percutaneous pacemaker. There is hyperinflation of the lungs consistent with chronic obstructive lung disease (COPD). There has been interval placement of a left-sided pleural catheter , its tip is obscured by the left-sided pacemaker. Left-sided pneumothorax has decreased in size and no longer visualized. There is mild left basilar atelectasis and likely small left pleural effusion. The right lung is clear. Normal size heart. Normal mediastinum and irving. Normal visualized pulmonary arteries. There is tortuosity of the aortic arch and descending thoracic aorta. Normal visualized thoracic spine. Normal visualized ribs, clavicles. Superior subluxation of the right humeral head is in keeping with chronic rotator cuff tear. Right shoulder arthrosis. There is no demonstrated abnormality of the visualized soft tissue structures of the upper abdomen. RAD/Chest 1 View (Portable) IMPRESSION: There has been interval placement of a left-sided pleural catheter , its tip is obscured by the left-sided pacemaker. Left-sided pneumothorax is no longer visualized. There is mild left basilar atelectasis and likely small left pleural effusion. Electronically Signed: Cristina Ulloa MD at 10:19 EST Tel , Service support ,
--- NOTE | 2020-09-09 10:05 | NURSING ---
report called to [facility]
[2020-09-09] MEDS: Morphine 2 MG/ML Syringe IV (10:26)
--- NOTE | 2020-09-09 11:31 | PN_ITS ---
<Pete Vicentessica FACING GRINDER - Last Filed: 09/09/20 11:48> Patient Problems: Active and Suspected Problems General weakness (Acute) Asystole (Acute) Cardiopulmonary arrest with successful resuscitation (Acute) Asystole during tilt table test with brief CPR Pneumothorax, left (Acute) Subjective: Rapid response team called this morning due to patient minimally responsive and noted to be diaphoretic, hypoxic and hypotensive. Chest x-ray from earlier this morning demonstrates moderate left apical pneumothorax with right-sided mediastinal shift. Surgery was consulted and left chest tube placed at bedside. Repeat chest x-ray shows resolve of left-sided pneumothorax. Patient transferred to ICU. - Physical Exam Vitals/I&O's: Vital Signs Temp Pulse Resp BP Pulse Ox 98.1 F 62 16 150/80 H 86 09/09/20 04:09 09/09/20 11:00 09/09/20 04:09 09/09/20 04:09 09/09/20 08:02 Oxygen Flow Rate (L/min) 2 Oxygen Delivery Method Room Air Weight: 144 lb 6.4 oz Body Mass Index (BMI) 23.3 Intake and Output for Last 24 Hours 09/07/20 09/08/20 09/09/20 23:59 23:59 23:59 Intake Total 1110.67 / 1110.67 1530.83 / 1530.83 50 / 50 Output Total 100 / 100 400 / 400 Balance 1110.67 / 1110.67 1430.83 / 1430.83 -350 / -350 General: - - Drowsy, intermittently yelling out HEENT: Atraumatic, PERRLA, EOMI, Normocephalic Neck: Supple, No JVD, Negative Carotid Bruits Lungs: Clear to auscultation, Diminished Cardiovascular: Regular rate, No murmurs Abdomen: Bowel Sounds Present, Soft, Non Tender, Non-Distended Extremities: No clubbing, No cyanosis, No edema, Capillary Refill Less than 3 Seconds Skin: No rashes, No breakdown Musculoskeletal: No Tenderness to Palpation of Joints or Extremities Neurological: Cranial nerves II-XII grossly intact Psych/Mental Status: Normal Affect, Appropriate Laboratory Results 09/09/20 09:38: POC Glucose 111 H Current Medications Acetaminophen (Acetaminophen 500 Mg Tablet) 1,000 mg PO Q8H PRN PRN PRN Reason: Pain Score 1-10 Last Admin: 09/09/20 05:26 Dose: 1,000 mg Documented by: Al Hydroxide/Mg Hydroxide (Mag Hydrox/Al Hydrox/Simeth 30 Ml Udc) 30 ml PO Q6H PRN PRN PRN Reason: Gastric Burning Albuterol Sulfate (Albuterol 2.5 Mg/3 Ml Vial.Neb.) 2.5 mg INHALATION Q2H PRN PRN PRN Reason: SOB/Wheezing Aspirin (Aspirin 81 Mg Tab.Chew) 81 mg PO DAILY@0800 [facility] Last Admin: 09/08/20 13:39 Dose: Not Given Documented by: Enoxaparin Sodium (Enoxaparin 40 Mg/0.4 Ml Syringe) 40 mg SC DAILY [facility] Last Admin: 09/08/20 13:39 Dose: Not Given Documented by: Sodium Chloride () 1,000 mls @ 15 mls/hr IV .Q48H [facility] Last Admin: 09/08/20 10:58 Dose: 15 mls/hr Documented by: Levothyroxine Sodium (Levothyroxine 75 Mcg Tablet) 37.5 mcg PO Sa@0600 [facility] Levothyroxine Sodium (Levothyroxine 75 Mcg Tablet) 75 mcg PO MoTuWeThFr@0600 [facility] Last Admin: 09/09/20 05:23 Dose: 75 mcg Documented by: Ondansetron HCl (Ondansetron 4 Mg/2 Ml Vial) 4 mg IV Q8H PRN PRN PRN Reason: NAUSEA/VOMITING Oxycodone HCl (Oxycodone 5 Mg Tablet) 5 mg PO Q4H PRN PRN PRN Reason: Pain Score 4-10 Senna/Docusate Sodium (Senna/Docusate Sodium 1 Tablet) 2 tablet PO BID PRN PRN PRN Reason: Constipation Sodium Chloride (0.9% Saline Lock 10 Ml Syringe) 10 - 40 ml IV UD PRN PRN Reason: SALINE FLUSH Last Admin: 09/07/20 22:56 Dose: 10 ml Documented by: Medical Necessity - Tobacco Use Smoking Status: Never smoker Tobacco Use: Non-smoker Assessment/Plan All Active Problems General weakness (Acute) Asystole (Acute) Cardiopulmonary arrest with successful resuscitation (Acute) Pneumothorax, left (Acute) Urinary tract infection (Resolved) Gastroenteritis (Resolved) 1. Left tension pneumothorax-status post left chest tube placement. Repeat chest x-ray shows resolve of large left pneumothorax. Surgery and pulmonary following. 2. Cardiopulmonary arrest/asystole during tilt table test with successful resuscitation-cardiology consulted. Patient underwent pacemaker placement 09/08/2020. 3. Status post pacemaker placement 4. Hypertension-metoprolol held, blood pressure stable. 5. Hypothyroidism-continue Synthroid regimen. DVT prophylaxis-Lovenox subcu Discharge planning: Requesting SNF at discharge pending pre-cert/medically stable. This patient was seen by KARLI Grayson under the supervision of Dr. Simon. <Davon Simon - Last Filed: 09/09/20 13:51> - Physical Exam Vitals/I&O's: Vital Signs Temp Pulse Resp BP Pulse Ox 98.1 F 62 16 150/80 H 86 09/09/20 04:09 09/09/20 11:00 09/09/20 04:09 09/09/20 04:09 09/09/20 08:02 Oxygen Flow Rate (L/min) 2 Oxygen Delivery Method Room Air Weight: 65.499 kg Body Mass Index (BMI) 23.3 Intake and Output for Last 24 Hours 09/07/20 09/08/20 09/09/20 23:59 23:59 23:59 Intake Total 1110.67 / 1110.67 1530.83 / 1530.83 50 / 50 Output Total 100 / 100 400 / 400 Balance 1110.67 / 1110.67 1430.83 / 1430.83 -350 / -350 Laboratory Results 09/09/20 09:38: POC Glucose 111 H Current Medications Acetaminophen (Acetaminophen 500 Mg Tablet) 1,000 mg PO Q8H PRN PRN PRN Reason: Pain Score 1-10 Last Admin: 09/09/20 05:26 Dose: 1,000 mg Documented by: Al Hydroxide/Mg Hydroxide (Mag Hydrox/Al Hydrox/Simeth 30 Ml Udc) 30 ml PO Q6H PRN PRN PRN Reason: Gastric Burning Albuterol Sulfate (Albuterol 2.5 Mg/3 Ml Vial.Neb.) 2.5 mg INHALATION Q2H PRN PRN PRN Reason: SOB/Wheezing Aspirin (Aspirin 81 Mg Tab.Chew) 81 mg PO DAILY@0800 [facility] Last Admin: 09/08/20 13:39 Dose: Not Given Documented by: Enoxaparin Sodium (Enoxaparin 40 Mg/0.4 Ml Syringe) 40 mg SC DAILY [facility] Last Admin: 09/08/20 13:39 Dose: Not Given Documented by: Sodium Chloride () 1,000 mls @ 15 mls/hr IV .Q48H [facility] Last Admin: 09/08/20 10:58 Dose: 15 mls/hr Documented by: Levothyroxine Sodium (Levothyroxine 75 Mcg Tablet) 37.5 mcg PO Sa@0600 [facility] Levothyroxine Sodium (Levothyroxine 75 Mcg Tablet) 75 mcg PO MoTuWeThFr@0600 [facility] Last Admin: 09/09/20 05:23 Dose: 75 mcg Documented by: Ondansetron HCl (Ondansetron 4 Mg/2 Ml Vial) 4 mg IV Q8H PRN PRN PRN Reason: NAUSEA/VOMITING Oxycodone HCl (Oxycodone 5 Mg Tablet) 5 mg PO Q4H PRN PRN PRN Reason: Pain Score 4-10 Senna/Docusate Sodium (Senna/Docusate Sodium 1 Tablet) 2 tablet PO BID PRN PRN PRN Reason: Constipation Sodium Chloride (0.9% Saline Lock 10 Ml Syringe) 10 - 40 ml IV UD PRN PRN Reason: SALINE FLUSH Last Admin: 09/07/20 22:56 Dose: 10 ml Documented by: Assessment/Plan This patient was seen in conjunction with KARLI Grayson. I have independently interviewed and examined the patient and reviewed pertinent historical, laboratory, and other data. Please refer to GUILLE Grayson's note for details of this patient's presentation, findings, and recommendations. I have reviewed KARLI Grayson note and concur with documented findings. In brief, a 80-year-old lady who went into cardiopulmonary arrest a cystoscopy requiring CPR and IV atropine whilst undergoing tilt table test. Patient was successfully resuscitated with ROSC and subsequently admitted to a monitored bed with consultation placed to Dr. Yip. Patient underwent pacemaker placement on 09/08/2020 The patient underwent a tilt table study this day. She had a positive tilt table study for vasovagal/neurocardiogenic mediated events with a marked cardioinhibitory response generating asystole of 70+ seconds requiring medical intervention with IV atropine and BLS CPR. 09/09/2020; patient did develop sudden onset of difficulty breathing with significant chest discomfort as well as low blood pressure. Checks x-ray which had been performed earlier on this morning did demonstrate presence of left- sided pneumothorax. With patient rapidly deteriorating condition and rapid response was called. Surgery was consulted patient underwent therapeutic chest tube placement with stabilization of her condition subsequently transferred to the intensive care unit Physical Examination: GENERAL: Distress HEENT: Atraumatic; EYES; Anicteric, Normal Conjunctiva NECK; supple, normal thyroid, RESPIRATORY: Diminished to auscultation CARDIOVASCULAR: Regular S1 S2, GI: soft, normoactive bowel sounds, : No Renal angle tenderness; EXTREMITIES: No edema, no clubbing, MUSCULOSKELETAL: no muscle waisting NEURO: Awake; no lateralizing signs. SKIN: No Rash Assessment: 1. Cardiopulmonary arrest (Asystole) with successful resuscitation with ACLS with ROSC 2. Status post pacemaker placement 3. Left-sided pneumothorax status post chest tube placement 4. Essential hypertension 5. Hypothyroidism 6. DVT prophylaxis Recommendations: 1. I have discussed the results of my overview and impressions with the patient 2. Options for management were reviewed Inpatient E&M: 22305 [facility] Hosp L3
--- NOTE | 2020-09-09 11:34 | PCM.OPRPT ---
Problem List (1) Pneumothorax, left Status: Acute Report of Operation Date of Procedure: 09/09/20 Pre-Operative Diagnosis: Left tension pneumothorax Post-Operative Diagnosis: Same Surgery/Procedure Performed:: Placement of percutaneous left chest tube Description of Procedure: The patient had an rapid response team called to her room this morning. Patient was hypotensive and hypoxic. Chest x-ray revealed a left pneumothorax which was very large. The patient was hypotensive when I arrived. I reviewed the patient's x-ray and proceeded with emergent left chest tube placement. The patient's left chest was prepped and draped in usual sterile fashion. An area overlying a rib was injected with local anesthetic and a small jw was made with a scalpel. The 8 Nigerien pneumothorax percutaneous needle was placed through an intercostal and into the left chest cavity until air was aspirated. The catheter was under sheath into the chest and the needle was removed. Catheter was sutured to the skin and placed to suction. There was a large cordova of air. The area was bandaged and there was placed to suction. Subsequent chest x-ray showed resolution of the pneumothorax with the chest tube in good position. Grafts/Implants Used: 8 Nigerien percutaneous pneumothorax tube
--- NOTE | 2020-09-09 12:21 | CON.PCM_ITS ---
Reason for Consult Date of Consultation: 09/09/20 Reason for Consultation: Iatrogenic pneumothorax History of Present Illness: The patient is a 80-year-old female, with a history as outlined below, who initially presented for a tilt table test due to a history of syncope. As a consequence of the testing, the patient developed cardiopulmonary arrest, requiring ACLS. The patient was subsequently evaluated by cardiology, who felt that she would be appropriate for pacemaker placement. On September 08, the patient was taken and underwent successful implantation of a dual-chamber pacemaker. On the morning of September 09, a chest x-ray was obtained and did reveal a moderate sized left pneumothorax with mild mediastinal shift. On the morning of September 09, a rapid response team was called after the patient developed hypotension and became diaphoretic and less responsive. General surgery also presented to the bedside and placed a percutaneous small bore chest tube. Following placement of the 8 [place] percutaneous pneumothorax tube, the pneumothorax appeared to have resolved on follow-up chest imaging. The patient's hemodynamics also improved as a consequence of the aforementioned intervention. The patient was subsequently transferred to the medical intensive care unit for further roger gement. Past Medical History Past Medical History (Chronic Problems): Chronic Problems (Last Updated 09/09/20 @ 16:43 by Sheree Allison) High degree atrioventricular block (Chronic) Sick sinus syndrome (Chronic) Presence of permanent cardiac pacemaker (Chronic ~09/08/20) Hypothyroid (Chronic) Hypertension (Chronic) Syncope (Chronic) Uncontrolled hypertension (Chronic) Medical History: Medical History (Last Updated 09/09/20 @ 16:43 by Sheree Allison) High degree atrioventricular block (Chronic) I44.39 Sick sinus syndrome (Chronic) I49.5 Presence of permanent cardiac pacemaker (Chronic) Onset Date: ~09/08/20 Z95.0 Allergies atorvastatin calcium [From Lipitor] Allergy (Verified 08/02/20 11:05) Chest tightness captopril Allergy (Verified 08/02/20 11:05) Chest tightness lansoprazole [From Prevacid] Allergy (Verified 08/02/20 11:05) Chest tightness Penicillins Allergy (Verified 08/02/20 11:05) Hives procaine HCl [From Novocain] Allergy (Verified 08/02/20 16:28) I get drunk risedronate sodium [From Actonel] Allergy (Verified 08/02/20 11:05) Chest tightness Sulfa (Sulfonamide Antibiotics) Allergy (Verified 08/02/20 11:05) Hives trimethoprim Allergy (Verified 09/07/20 11:05) Chest tightness Home Medications: Ambulatory Orders Medication Instructions Recorded Aspirin [Aspirin, Baby] 81 mg PO DAILY@0800 #30 tab.chew 07/25/16 Levothyroxine Sodium [Synthroid] 37.5 mcg PO SA 08/02/20 Levothyroxine Sodium [Synthroid] 75 mcg PO MOTUWETHFR 08/02/20 Metoprolol Succinate [Toprol Xl] 25 mg PO DAILY 08/02/20 Surgical History: noncontributory Psychiatric History: No pertinent psych hx SINGE WINDER History: No pertinent SINGE WINDER history Lives: Alone Smoking Status: Never smoker Tobacco Use: Non-smoker Alcohol: None Drugs: None - *Family History Maternal History Items: - - Denies maternal medical history including cardiac history. Paternal History Items: - - Denies paternal medical history including cardiac history. Review of Systems Constitutional: Denies: Chills, Fever, Weight Change HEENT: Denies: Head Aches, Sinus Congestion, Sinus Drainage Cardiovascular: Reports: Chest Pain Respiratory: Reports: Pleuritic Pain, Shortness of Breath Gastrointestinal: Denies: Abdominal Pain, Nausea, Vomiting Genitourinary: Denies: Dysuria Musculoskeletal: Denies: Joint Pain, Joint Tenderness Skin: Denies: Rash, Wounds Neurological: Denies: Numbness, Tingling, Focal weakness Psychiatric: Denies: Anxiety, Depression, Homicidal Ideations, Suicidal Ideations Hematologic/ Lymphatic: Reports: Anemia Patient Problems: Active and Suspected Problems (Last Updated 09/09/20 @ 16:43 by Sheree Allison) General weakness (Acute) Asystole (Acute) Cardiopulmonary arrest with successful resuscitation (Acute) Asystole during tilt table test with brief CPR Pneumothorax, left (Acute) Objective: The patient's most recent lab work, culture data and imaging studies have all been personally reviewed. - Physical Exam Vitals/I&O's: Vital Signs Temp Pulse Resp BP Pulse Ox 98.1 F 62 16 150/80 H 86 09/09/20 04:09 09/09/20 11:00 09/09/20 04:09 09/09/20 04:09 09/09/20 08:02 Oxygen Flow Rate (L/min) 2 Oxygen Delivery Method Room Air Weight: 144 lb 6.4 oz Body Mass Index (BMI) 23.3 Intake and Output for Last 24 Hours 09/07/20 09/08/20 09/09/20 23:59 23:59 23:59 Intake Total 1110.67 / 1110.67 1530.83 / 1530.83 50 / 50 Output Total 100 / 100 400 / 400 Balance 1110.67 / 1110.67 1430.83 / 1430.83 -350 / -350 General: Alert, Cooperative, - - Moderately distressed on arrival to ICU complaining of pain. HEENT: Atraumatic, PERRLA, Normocephalic Oral: No Gingival or Mucosal Lesions/ Ulcerations Neck: Supple, No Nodes, Trachea Midline Lungs: Normal air movement, - - Small bore left-sided chest tube in situ. Cardiovascular: Regular rate, Regular Rhythm Abdomen: Bowel Sounds Present, Soft, Non Tender Extremities: No clubbing, No cyanosis, No edema Skin: No breakdown Musculoskeletal: No Tenderness to Palpation of Joints or Extremities Lymphatic: No Cervical, Supraclavicular, or Inguinal Adenopathy Neurological: Cranial nerves II-XII grossly intact, Neuro grossly intact Psych/Mental Status: Normal Affect, Appropriate Labs (Last 48 Hours) 09/07/20 09/07/20 09/08/20 17:50 17:55 05:50 WBC 4.5 RBC 3.62 L Hgb 10.8 L Hct 34.1 L MCV 94.2 MCH 29.8 MCHC 31.7 L RDW Std Deviation 45.4 H RDW Coeff of Krystian 13.2 Plt Count 168 MPV 9.0 Immature Gran % (Auto) 0.200 Neut % (Auto) 46.7 L Lymph % (Auto) 36.1 Zapata % (Auto) 13.4 H Eos % (Auto) 2.7 Baso % (Auto) 0.9 Absolute Neuts (auto) 2.1 Absolute Lymphs (auto) 1.62 Nucleated RBC % 0 PT INR APTT Sodium Potassium Chloride Carbon Dioxide Anion Gap BUN Creatinine Estim Creat Clear Calc Est GFR (MDRD) Af Amer Est GFR (MDRD) Non-Af BUN/Creatinine Ratio Glucose Calcium Phosphorus Magnesium MRSA (PCR) Negative POC Glucose 106 09/08/20 09/08/20 09/09/20 05:50 05:50 09:38 WBC RBC Hgb Hct MCV MCH MCHC RDW Std Deviation RDW Coeff of Krystian Plt Count MPV Immature Gran % (Auto) Neut % (Auto) Lymph % (Auto) Zapata % (Auto) Eos % (Auto) Baso % (Auto) Absolute Neuts (auto) Absolute Lymphs (auto) Nucleated RBC % PT 13.1 INR 1.0 APTT 30.3 Sodium 139 Potassium 4.8 Chloride 109 H Carbon Dioxide 25.0 Anion Gap 5 BUN 35 H Creatinine 1.34 H Estim Creat Clear Calc 31.87 Est GFR (MDRD) Af Amer 49 L Est GFR (MDRD) Non-Af 41 L BUN/Creatinine Ratio 26.1 H Glucose 91 Calcium 9.0 Phosphorus 3.7 Magnesium 2.0 MRSA (PCR) POC Glucose 111 H Clinical Impression(s) from Imaging Studies Chest X-Ray 09/07/20 11:09 IMPRESSION: Degenerative changes, as described above. No demonstrated acute cardiopulmonary process. Electronically Signed: Smooth Rowland MD at 11:36 EST Tel , Service support , Chest CTA 09/07/20 11:27 IMPRESSION: No demonstrated pulmonary embolism or arterial dissection. Electronically Signed: Smooth Rowland MD at 12:54 EST Tel , Service support , Chest X-Ray 09/09/20 05:55 IMPRESSION: Cardiac pacemaker in expected location. No pneumothorax. New small left pleural effusion. New 2.3 cm soft tissue density overlying left lung apex, since September 07, 2020 which may represent postoperative changes. Recommend follow-up. Electronically Signed: Cruz Villa MD at 6:49 EST , Service support , ADDENDUM: 09/09/20 0954 ADDENDUM: 09/09/20 1000 IMPRESSION: Cardiac pacemaker in expected location. No pneumothorax. New small left pleural effusion. New 2.3 cm soft tissue density overlying left lung apex, since September 07, 2020 which may represent postoperative changes. Recommend follow-up. Electronically Signed: Cruz Villa MD at 6:49 EST , Service support , ADDENDUM: 09/09/20 1000 Chest X-Ray 09/09/20 09:40 IMPRESSION: Persistent, moderate left apical pneumothorax. COPD. Mild left basilar atelectasis. Electronically Signed: Cristina Ulloa MD at 10:02 EST Tel , Service support , Chest X-Ray 09/09/20 10:01 IMPRESSION: There has been interval placement of a left-sided pleural catheter , its tip is obscured by the left-sided pacemaker. Left-sided pneumothorax is no longer visualized. There is mild left basilar atelectasis and likely small left pleural effusion. Electronically Signed: Cristina Ulloa MD at 10:19 EST Tel , Service support , Current Medications Acetaminophen (Acetaminophen 500 Mg Tablet) 1,000 mg PO Q8H PRN PRN PRN Reason: Pain Score 1-10 Last Admin: 09/09/20 05:26 Dose: 1,000 mg Documented by: Al Hydroxide/Mg Hydroxide (Mag Hydrox/Al Hydrox/Simeth 30 Ml Udc) 30 ml PO Q6H PRN PRN PRN Reason: Gastric Burning Albuterol Sulfate (Albuterol 2.5 Mg/3 Ml Vial.Neb.) 2.5 mg INHALATION Q2H PRN PRN PRN Reason: SOB/Wheezing Aspirin (Aspirin 81 Mg Tab.Chew) 81 mg PO DAILY@0800 [facility] Last Admin: 09/08/20 13:39 Dose: Not Given Documented by: Enoxaparin Sodium (Enoxaparin 40 Mg/0.4 Ml Syringe) 40 mg SC DAILY [facility] Last Admin: 09/08/20 13:39 Dose: Not Given Documented by: Sodium Chloride () 1,000 mls @ 15 mls/hr IV .Q48H [facility] Last Admin: 09/08/20 10:58 Dose: 15 mls/hr Documented by: Levothyroxine Sodium (Levothyroxine 75 Mcg Tablet) 37.5 mcg PO Sa@0600 [facility] Levothyroxine Sodium (Levothyroxine 75 Mcg Tablet) 75 mcg PO MoTuWeThFr@0600 [facility] Last Admin: 09/09/20 05:23 Dose: 75 mcg Documented by: Ondansetron HCl (Ondansetron 4 Mg/2 Ml Vial) 4 mg IV Q8H PRN PRN PRN Reason: NAUSEA/VOMITING Oxycodone HCl (Oxycodone 5 Mg Tablet) 5 mg PO Q4H PRN PRN PRN Reason: Pain Score 4-10 Senna/Docusate Sodium (Senna/Docusate Sodium 1 Tablet) 2 tablet PO BID PRN PRN PRN Reason: Constipation Sodium Chloride (0.9% Saline Lock 10 Ml Syringe) 10 - 40 ml IV UD PRN PRN Reason: SALINE FLUSH Last Admin: 09/07/20 22:56 Dose: 10 ml Documented by: Assessment/Plan All Active Problems (Last Updated 09/09/20 @ 16:43 by Sheree Allison) General weakness (Acute) Asystole (Acute) Cardiopulmonary arrest with successful resuscitation (Acute) Pneumothorax, left (Acute) Urinary tract infection (Resolved) Gastroenteritis (Resolved) RECOMMENDATIONS: 1. Continue chest tube to wall suction. 2. Continue supplemental oxygen. 3. Pain control per hospitalist orders. 4. Obtain plain film chest x-ray in the morning. IMPRESSIONS: 1. Iatrogenic pneumothorax status post percutaneous chest tube placement The patient was noted to have a left-sided pneumothorax this morning with subsequent hypotension which required percutaneous chest tube placement. This did lead to resolution of the patient's pneumothorax and improvement in her hemodynamics. For now, I would recommend that the patient be continued on supplemental oxygen and chest tube to wall suction until a repeat chest x-ray can be completed tomorrow morning. If that chest imaging study continues to demonstrate resolution of her pneumothorax, the chest tube can be placed to waterseal. 2. History of recurrent syncope/recent cardiopulmonary arrest Continue medical management per cardiology recommendations. 3. Advanced age/hypertension/hypothyroidism Complicates care, management, recovery and prognosis. Continue home medications as indicated. This note was generated with [employer] software. It may contain incorrect words, spelling, and punctuation that were not noted in checking the note before signing. Inpatient E&M: 54743 Init Hosp L3
--- NOTE | 2020-09-09 12:43 | CASEMGMT ---
Addendum entered by Divya Ro 09/09/20 13:10: Social Work Return call from pt son. Updated on discharge plan and he is agreeable for TCU. RENATO Gerard Original Note: Social Work SW met with pt in room and introduced self and role of SW. Discussed discharge plan and pt feels she is too weak to return home alone at this time. KEESHA provided pt with a list of SNF providers including quality and resource use data and consistent with the patient's preferred geographic region, medical needs and insurance network. Pt preferred provider is TCU. KEESHA informed pt that TCU does have a bed available and that insurance preauth will be needed prior to admission. With pt permission, phone call to pt lucy Rodrigues to update on discharge plan. VM left requesting return call. Plan: TCU, pending insurance authorization RENATO Gerard
[2020-09-09] MEDS: oxyCODONE 5 MG Tablet PO (14:58)
--- NOTE | 2020-09-09 15:52 | PCM.PN.CARD ---
Subjectve: The patient was evaluated earlier this day. At that time she stated she just did not feel well and had some chest discomfort. The patient had undergone post pacemaker interrogation. Her pacemaker interrogation was reported as her pacemaker functioning normally. Her post pacemaker chest x-ray was reported by radiology as no pneumothorax. However upon review of her chest x-ray there was concern of a pneumothorax. Radiology was asked to reevaluate the chest x-ray. In the interim the patient developed worsening chest discomfort as well as shortness of breath and concerns of hypotension. An TRAINING SPECIALIST was called. The patient was evaluated with concerns of a left pneumothorax with possible tension component to it. Thus assistance was requested by pulmonology/critical care medicine and general surgery with respect to evaluation and placement of a left-sided chest tube. During this evaluation and care radiology did update the patient's chest x-ray with an amendment stating that there was a left-sided pneumothorax present with concerns of a deadline shift. The patient subsequently underwent placement of a left-sided chest tube. A subsequent follow-up chest x-ray was performed which demonstrated what appeared to be resolution of her left-sided pneumothorax. The patient was subsequently transferred to the ICU for further ongoing evaluation and care. Objective: Vital Signs Temp Pulse Resp BP Pulse Ox 97.9 F 72 19 H 149/76 H 97 09/09/20 12:00 09/09/20 15:00 09/09/20 15:00 09/09/20 15:00 09/09/20 15:00 Oxygen Flow Rate (L/min) 2 Oxygen Delivery Method Nasal Cannula Weight: 144 lb 6.4 oz Body Mass Index (BMI) 23.3 Intake and Output for Last 24 Hours 09/07/20 09/08/20 09/09/20 23:59 23:59 23:59 Intake Total 1110.67 / 1110.67 1530.83 / 1530.83 250 / 250 Output Total 100 / 100 550 / 550 Balance 1110.67 / 1110.67 1430.83 / 1430.83 -300 / -300 General: Awake, Alert, Oriented x 3, Cooperative HEENT: Atraumatic, Normocephalic, PERRL, EOMI, Sclera Non Icteric Neck: No JVD Chest Wall: Left Pectoral Incision Lungs: - - Initial evaluation: Diminished left upper lobe airway sounds Cardiovascular: Regular Rhythm, Normal S1, Normal S2 Abdomen: Bowel Sounds Present, Soft Extremities: No edema Neurological: No Focal Motor or Sensory Deficit Psych/Mental Status: Anxious Rhythm: Sinus rhythm; electronic atrial paced rhythm; AV sequential paced rhythm Chest x-rays: As noted: Please see official report Medical Necessity - Tobacco Use Smoking Status: Never smoker Tobacco Use: Non-smoker Assessment/Plan 1. Asystole The patient underwent a tilt table study. She had a positive tilt table study for vasovagal/neurocardiogenic mediated events with a marked cardioinhibitory response generating asystole of 70+ seconds requiring medical intervention with IV atropine and BLS CPR. He is now status post permanent pacemaker placement. Her pacemaker was interrogated and appears to be functioning appropriately. 2. Syncope She has had a lifetime of recurrent syncopal events which have been unexplained thus far. It now raises concern that her syncopal events are related to her vagal mediated activity with marked cardioinhibitory response. Is now status post permanent pacemaker placement. 3. Pneumothorax The patient appears to have experienced a post procedure related left-sided pneumothorax. This required a left-sided chest tube placement. The patient is now in the ICU where she is being followed by multiple specialties. 4. Hypertension She will need to continue medical therapy as deemed appropriate. Comment: The patient's case has been discussed Dr. Simon, Krysta Borden, and Dr. Dewitt. This note was generated using a voice recognition system and there may be incorrect words, spelling or punctuation that were not noted when reviewing the office note prior to saving.
[2020-09-10] VITALS (26 sets, daily range): BP systolic 125–174; BP diastolic 68–116; PULSE 61–101; RESP 12–24; TEMP 36.3–36.9; O2SAT 92–98
--- NOTE | 2020-09-10 05:40 | PCM.PN.PUL ---
Patient Problems: Active and Suspected Problems (Last Updated 09/09/20 @ 16:43 by Sheree Allison) General weakness (Acute) Asystole (Acute) Cardiopulmonary arrest with successful resuscitation (Acute) Asystole during tilt table test with brief CPR Pneumothorax, left (Acute) Subjective: The patient was seen and examined at the bedside this morning. Events from the last 24 hours have been reviewed. The patient is currently afebrile, hemodynamically stable and maintaining appropriate oxygen saturations on 2 L/min via nasal cannula. This morning, the patient's chest x-ray revealed a retracted chest tube with recurrent left-sided pneumothorax. The patient does report left-sided chest pain and seems reluctant to agree for reinsertion of an alternative chest tube. Objective: The patient's most recent lab work, culture data and imaging studies have all been personally reviewed. - Physical Exam Vitals/I&O's: Vital Signs Temp Pulse Resp BP Pulse Ox 98.4 F 66 14 136/89 H 93 09/10/20 00:00 09/10/20 05:00 09/10/20 05:00 09/10/20 05:00 09/10/20 05:00 Oxygen Flow Rate (L/min) 2 Oxygen Delivery Method Nasal Cannula Weight: 144 lb 6.409 oz Body Mass Index (BMI) 23.3 Intake and Output for Last 24 Hours 09/08/20 09/09/20 09/10/20 23:59 23:59 23:59 Intake Total 1530.83 / 1530.83 450 / 525 635.25 / 635.25 Output Total 100 / 100 550 / 550 Balance 1430.83 / 1430.83 -100 / -25 635.25 / 635.25 General: Alert, Cooperative, No apparent distress HEENT: Atraumatic, Normocephalic Oral: No Gingival or Mucosal Lesions/ Ulcerations Neck: Supple, No Nodes, Trachea Midline Lungs: Diminished, - - Left-sided small bore chest tube in place. Retracted in position. Positive air leak noted in atrium. Cardiovascular: Regular rate, Regular Rhythm Abdomen: Bowel Sounds Present, Soft, Non Tender Extremities: No clubbing, No cyanosis, No edema Skin: No breakdown Musculoskeletal: No Tenderness to Palpation of Joints or Extremities Lymphatic: No Cervical, Supraclavicular, or Inguinal Adenopathy Neurological: Cranial nerves II-XII grossly intact, Neuro grossly intact Psych/Mental Status: Normal Affect, Appropriate Labs (Last 48 Hours) 09/08/20 09/08/20 09/08/20 05:50 05:50 05:50 WBC 4.5 RBC 3.62 L Hgb 10.8 L Hct 34.1 L MCV 94.2 MCH 29.8 MCHC 31.7 L RDW Std Deviation 45.4 H RDW Coeff of Krystian 13.2 Plt Count 168 MPV 9.0 Immature Gran % (Auto) 0.200 Neut % (Auto) 46.7 L Lymph % (Auto) 36.1 [place] % (Auto) 13.4 H Eos % (Auto) 2.7 Baso % (Auto) 0.9 Absolute Neuts (auto) 2.1 Absolute Lymphs (auto) 1.62 Nucleated RBC % 0 PT 13.1 INR 1.0 APTT 30.3 Sodium 139 Potassium 4.8 Chloride 109 H Carbon Dioxide 25.0 Anion Gap 5 BUN 35 H Creatinine 1.34 H Estim Creat Clear Calc 31.87 Est GFR (MDRD) Af Amer 49 L Est GFR (MDRD) Non-Af 41 L BUN/Creatinine Ratio 26.1 H Glucose 91 Calcium 9.0 Phosphorus 3.7 Magnesium 2.0 POC Glucose 09/09/20 09:38 WBC RBC Hgb Hct MCV MCH MCHC RDW Std Deviation RDW Coeff of Krystian Plt Count MPV Immature Gran % (Auto) Neut % (Auto) Lymph % (Auto) [place] % (Auto) Eos % (Auto) Baso % (Auto) Absolute Neuts (auto) Absolute Lymphs (auto) Nucleated RBC % PT INR APTT Sodium Potassium Chloride Carbon Dioxide Anion Gap BUN Creatinine Estim Creat Clear Calc Est GFR (MDRD) Af Amer Est GFR (MDRD) Non-Af BUN/Creatinine Ratio Glucose Calcium Phosphorus Magnesium POC Glucose 111 H Clinical Impression(s) from Imaging Studies Chest X-Ray 09/07/20 11:09 IMPRESSION: Degenerative changes, as described above. No demonstrated acute cardiopulmonary process. Electronically Signed: Smooth Rowland MD at 11:36 EST Tel , Service support , Chest CTA 09/07/20 11:27 IMPRESSION: No demonstrated pulmonary embolism or arterial dissection. Electronically Signed: Smooth Rowland MD at 12:54 EST Tel , Service support , Chest X-Ray 09/09/20 05:55 IMPRESSION: Cardiac pacemaker in expected location. No pneumothorax. New small left pleural effusion. New 2.3 cm soft tissue density overlying left lung apex, since September 07, 2020 which may represent postoperative changes. Recommend follow-up. Electronically Signed: Cruz Villa MD at 6:49 EST , Service support , ADDENDUM: 09/09/20 0954 ADDENDUM: 09/09/20 1000 IMPRESSION: Cardiac pacemaker in expected location. No pneumothorax. New small left pleural effusion. New 2.3 cm soft tissue density overlying left lung apex, since September 07, 2020 which may represent postoperative changes. Recommend follow-up. Electronically Signed: Cruz Villa MD at 6:49 EST , Service support , ADDENDUM: 09/09/20 1000 Chest X-Ray 09/09/20 09:40 IMPRESSION: Persistent, moderate left apical pneumothorax. COPD. Mild left basilar atelectasis. Electronically Signed: Cristina Ulloa MD at 10:02 EST Tel , Service support , Chest X-Ray 09/09/20 10:01 IMPRESSION: There has been interval placement of a left-sided pleural catheter , its tip is obscured by the left-sided pacemaker. Left-sided pneumothorax is no longer visualized. There is mild left basilar atelectasis and likely small left pleural effusion. Electronically Signed: Cristina Ulloa MD at 10:19 EST Tel , Service support , Current Medications Acetaminophen (Acetaminophen 500 Mg Tablet) 1,000 mg PO Q8H PRN PRN PRN Reason: Pain Score 1-10 Last Admin: 09/09/20 23:01 Dose: 1,000 mg Documented by: Al Hydroxide/Mg Hydroxide (Mag Hydrox/Al Hydrox/Simeth 30 Ml Udc) 30 ml PO Q6H PRN PRN PRN Reason: Gastric Burning Albuterol Sulfate (Albuterol 2.5 Mg/3 Ml Vial.Neb.) 2.5 mg INHALATION Q2H PRN PRN PRN Reason: SOB/Wheezing Aspirin (Aspirin 81 Mg Tab.Chew) 81 mg PO DAILY@0800 [facility] Last Admin: 09/09/20 12:00 Dose: Not Given Documented by: Enoxaparin Sodium (Enoxaparin 40 Mg/0.4 Ml Syringe) 40 mg SC DAILY [facility] Last Admin: 09/09/20 12:00 Dose: Not Given Documented by: Sodium Chloride () 1,000 mls @ 15 mls/hr IV .Q48H [facility] Last Infusion: 09/10/20 00:19 Dose: 0 mls/hr Documented by: Levothyroxine Sodium (Levothyroxine 75 Mcg Tablet) 37.5 mcg PO Sa@0600 [facility] Levothyroxine Sodium (Levothyroxine 75 Mcg Tablet) 75 mcg PO MoTuWeThFr@0600 [facility] Last Admin: 09/09/20 05:23 Dose: 75 mcg Documented by: Ondansetron HCl (Ondansetron 4 Mg/2 Ml Vial) 4 mg IV Q8H PRN PRN PRN Reason: NAUSEA/VOMITING Oxycodone HCl (Oxycodone 5 Mg Tablet) 5 mg PO Q4H PRN PRN PRN Reason: Pain Score 4-10 Last Admin: 09/09/20 14:58 Dose: 5 mg Documented by: Senna/Docusate Sodium (Senna/Docusate Sodium 1 Tablet) 2 tablet PO BID PRN PRN PRN Reason: Constipation Sodium Chloride (0.9% Saline Lock 10 Ml Syringe) 10 - 40 ml IV UD PRN PRN Reason: SALINE FLUSH Last Admin: 09/07/20 22:56 Dose: 10 ml Documented by: Sodium Chloride (0.9% Saline Lock 10 Ml Syringe) 10 - 40 ml IV UD PRN PRN Reason: SALINE FLUSH Medical Necessity - Tobacco Use Smoking Status: Never smoker Tobacco Use: Non-smoker Assessment/Plan All Active Problems (Last Updated 09/09/20 @ 16:43 by Sheree Allison) General weakness (Acute) Asystole (Acute) Cardiopulmonary arrest with successful resuscitation (Acute) Pneumothorax, left (Acute) Urinary tract infection (Resolved) Gastroenteritis (Resolved) RECOMMENDATIONS: 1. Chest tube advancement per general surgery. Obtain repeat chest x-ray. 2. Continue patient to wall suction throughout the day. 3. Continue supplemental oxygen. 4. Continue pain control regimen. 5. Obtain repeat chest x-ray in the morning. IMPRESSIONS: 1. Iatrogenic pneumothorax status post percutaneous chest tube placement The patient was noted to have a left-sided pneumothorax with subsequent hypotension which required percutaneous chest tube placement. This did lead to resolution of the patient's pneumothorax and improvement in her hemodynamics. Repeat chest x-ray from this morning revealed interval increase in the size of the pneumothorax, for which the patient's chest tube was repositioned. She will be continued on wall suction throughout the course of today with plans to repeat a chest x-ray tomorrow morning. If her pneumothorax is resolved on tomorrow's chest x-ray, she will be placed to waterseal. 2. History of recurrent syncope/recent cardiopulmonary arrest Continue medical management per cardiology recommendations. 3. Advanced age/hypertension/hypothyroidism Complicates care, management, recovery and prognosis. Continue home medications as indicated. This note was generated with Simperiumation software. It may contain incorrect words, spelling, and punctuation that were not noted in checking the note before signing. Inpatient E&M: 19861 [facility] L[facility]
--- NOTE | 2020-09-10 06:00 | RAD_ITS ---
HISTORY: Pneumothorax ADDITIONAL HISTORY: None provided. EXAMINATION/TECHNIQUE: XR Chest 1 View AP/PA Number of images including paperwork: 1 COMPARISON: 09/10/2019 FINDINGS: LUNGS AND PLEURA: Mild bibasilar opacities suggestive of atelectasis. Increase in left pneumothorax measuring 2 cm at the apex. CARDIAC SILHOUETTE: Stable. MEDIASTINUM AND ZACHARY: Stable. UPPER ABDOMEN: Unremarkable. SKELETON AND SOFT TISSUES: No acute skeletal findings. Degenerative changes. OTHER DEVICES AND HARDWARE: Pacemaker and left-sided generator. Left chest tube has been partially retracted. RAD/Chest 1 View (Portable) IMPRESSION: Increase in left pneumothorax. Left chest tube has been partially retracted into the chest wall. Bibasilar opacities suggestive of atelectasis. at 0639 Reported and signed by: Mary Pedraza MD Electronically Signed: Mary Pedraza MD at 6:39 EST Tel , Service support ,
--- NOTE | 2020-09-10 06:58 | RAD_ITS ---
HISTORY: chest tube placement ADDITIONAL HISTORY: None provided. EXAMINATION/TECHNIQUE: XR Chest 1 View AP/PA Number of images including paperwork: 1 COMPARISON: 09/10/2020 FINDINGS: LUNGS AND PLEURA: Mild decrease in left pneumothorax measuring about 1.7 cm at the apex, previously 2 cm. Mild improvement in basilar aeration. No dense consolidation. CARDIAC SILHOUETTE: Stable. MEDIASTINUM AND ZACHARY: Stable. UPPER ABDOMEN: Unremarkable. SKELETON AND SOFT TISSUES: No acute skeletal findings. Degenerative changes. OTHER DEVICES AND HARDWARE: Left chest tube appears to extend slightly farther into the hemithorax compared to the most recent prior. Pacemaker with left-sided generator. RAD/Chest 1 View (Portable) IMPRESSION: Mild decrease in left pneumothorax. at 0747 Reported and signed by: Mary Pedraza MD Electronically Signed: Mary Pedraza MD at 7:47 EST Tel , Service support ,
--- NOTE | 2020-09-10 07:38 | PN_ITS ---
Patient Problems: Active and Suspected Problems (Last Updated 09/09/20 @ 16:43 by Sheree Allison) General weakness (Acute) Asystole (Acute) Cardiopulmonary arrest with successful resuscitation (Acute) Asystole during tilt table test with brief CPR Pneumothorax, left (Acute) Reason for Visit: Status post pacemaker placement Left-sided pneumothorax Subjective: In brief, a 80-year-old lady who went into cardiopulmonary arrest a cystoscopy requiring CPR and IV atropine whilst undergoing tilt table test. Patient was successfully resuscitated with ROSC and subsequently admitted to a monitored bed with consultation placed to Dr. Bejarano. Patient underwent pacemaker placement on 09/08/2020 Patient hospital stay complicated by pneumothorax for which patient underwent emergent chest tube placement and subsequently transferred to the intensive. Chest x-ray obtained this a.m. did demonstrate increase in the left pneumothorax. Patient has been seen by Dr. Chaparro with general surgery with plans for placement of of a bigger size chest tube. Patient is however reluctant to proceed Objective: GENERAL: Distress HEENT: Atraumatic; EYES; Anicteric, Normal Conjunctiva NECK; supple, normal thyroid, RESPIRATORY: Diminished to auscultation, with chest tube on the left side CARDIOVASCULAR: Regular S1 S2, GI: soft, normoactive bowel sounds, : No Renal angle tenderness; EXTREMITIES: No edema, no clubbing, MUSCULOSKELETAL: no muscle waisting NEURO: Awake; no lateralizing signs. SKIN: No Rash Vitals/I&O's: Vital Signs Temp Pulse Resp BP Pulse Ox 98.4 F 70 15 174/85 H 96 09/10/20 00:00 09/10/20 07:00 09/10/20 06:00 09/10/20 06:00 09/10/20 06:00 Oxygen Flow Rate (L/min) 2 Oxygen Delivery Method Nasal Cannula Weight: 65.499 kg Body Mass Index (BMI) 23.3 Intake and Output for Last 24 Hours 09/08/20 09/09/20 09/10/20 23:59 23:59 23:59 Intake Total 1530.83 / 1530.83 450 / 525 635.25 / 635.25 Output Total 100 / 100 550 / 550 0 / 0 Balance 1430.83 / 1430.83 -100 / -25 635.25 / 635.25 Laboratory Results 09/09/20 09:38: POC Glucose 111 H Current Medications Acetaminophen (Acetaminophen 500 Mg Tablet) 1,000 mg PO Q8H PRN PRN PRN Reason: Pain Score 1-10 Last Admin: 09/09/20 23:01 Dose: 1,000 mg Documented by: Al Hydroxide/Mg Hydroxide (Mag Hydrox/Al Hydrox/Simeth 30 Ml Udc) 30 ml PO Q6H PRN PRN PRN Reason: Gastric Burning Albuterol Sulfate (Albuterol 2.5 Mg/3 Ml Vial.Neb.) 2.5 mg INHALATION Q2H PRN PRN PRN Reason: SOB/Wheezing Aspirin (Aspirin 81 Mg Tab.Chew) 81 mg PO DAILY@0800 [facility] Last Admin: 09/09/20 12:00 Dose: Not Given Documented by: Enoxaparin Sodium (Enoxaparin 40 Mg/0.4 Ml Syringe) 40 mg SC DAILY [facility] Last Admin: 09/09/20 12:00 Dose: Not Given Documented by: Sodium Chloride () 1,000 mls @ 15 mls/hr IV .Q48H [facility] Last Infusion: 09/10/20 00:19 Dose: 0 mls/hr Documented by: Levothyroxine Sodium (Levothyroxine 75 Mcg Tablet) 37.5 mcg PO Sa@0600 [facility] Levothyroxine Sodium (Levothyroxine 75 Mcg Tablet) 75 mcg PO MoTuWeThFr@0600 [facility] Last Admin: 09/10/20 06:27 Dose: Not Given Documented by: Ondansetron HCl (Ondansetron 4 Mg/2 Ml Vial) 4 mg IV Q8H PRN PRN PRN Reason: NAUSEA/VOMITING Oxycodone HCl (Oxycodone 5 Mg Tablet) 5 mg PO Q4H PRN PRN PRN Reason: Pain Score 4-10 Last Admin: 09/09/20 14:58 Dose: 5 mg Documented by: Senna/Docusate Sodium (Senna/Docusate Sodium 1 Tablet) 2 tablet PO BID PRN PRN PRN Reason: Constipation Sodium Chloride (0.9% Saline Lock 10 Ml Syringe) 10 - 40 ml IV UD PRN PRN Reason: SALINE FLUSH Last Admin: 09/07/20 22:56 Dose: 10 ml Documented by: Sodium Chloride (0.9% Saline Lock 10 Ml Syringe) 10 - 40 ml IV UD PRN PRN Reason: SALINE FLUSH STROKE Vital Signs/Narrative: Vital Signs Pulse Resp BP Pulse Ox 09/10/20 07:00 70 09/10/20 06:00 68 15 174/85 H 96 09/10/20 05:00 66 14 136/89 H 93 09/10/20 04:00 69 15 165/72 H 98 Medical Necessity - Tobacco Use Smoking Status: Never smoker Tobacco Use: Non-smoker Assessment/Plan All Active Problems (Last Updated 09/09/20 @ 16:43 by Sheree Allison) General weakness (Acute) Asystole (Acute) Cardiopulmonary arrest with successful resuscitation (Acute) Pneumothorax, left (Acute) Urinary tract infection (Resolved) Gastroenteritis (Resolved) In brief, a 80-year-old lady who went into cardiopulmonary arrest a cystoscopy requiring CPR and IV atropine whilst undergoing tilt table test. Patient was successfully resuscitated with ROSC and subsequently admitted to a monitored bed with consultation placed to Dr. Bejarano. Patient underwent pacemaker placement on 09/08/2020. Patient hospital stay complicated by pneumothorax for which patient underwent emergent chest tube placement and subsequently transferred to the intensive care 1. Left-sided pneumothorax status post chest tube placement - Chest x-ray obtained this a.m. did demonstrate increase in the left pneumothorax. Patient has been seen by Dr. Chaparro with general surgery with plans for placement of of a bigger size chest tube. Patient is however reluctant to proceed 3. Cardiopulmonary arrest (Asystole) - successful resuscitation with ACLS with ROSC 2. Status post pacemaker placement -On 09/08/2020 4. Hypertension - Blood pressure controlled, home medications continued with dose adjustment as needed 5. Hypothyroidism - Patient is on levothyroxine home dose continued 6. DVT prophylaxis -SCD Inpatient E&M: 72915 [facility] L3
[2020-09-10] MEDS: fentaNYL 100 MCG/2 ML Ampul 50 MCG IV (07:39)
[2020-09-10] MEDS: 0.9% Saline Lock 10 ML Syringe IV (07:42)
--- NOTE | 2020-09-10 08:27 | PCM.PN.SRG ---
Patient Problems: Active and Suspected Problems (Last Updated 09/09/20 @ 16:43 by Sheree Allison) General weakness (Acute) Asystole (Acute) Cardiopulmonary arrest with successful resuscitation (Acute) Asystole during tilt table test with brief CPR Pneumothorax, left (Acute) Subjective: Patient was complaining of pain overnight. - Physical Exam Vitals/I&O's: Vital Signs Temp Pulse Resp BP Pulse Ox 98.4 F 70 15 174/85 H 96 09/10/20 00:00 09/10/20 07:00 09/10/20 06:00 09/10/20 06:00 09/10/20 06:00 Oxygen Flow Rate (L/min) 2 Oxygen Delivery Method Nasal Cannula Weight: 144 lb 6.409 oz Body Mass Index (BMI) 23.3 Intake and Output for Last 24 Hours 09/08/20 09/09/20 09/10/20 23:59 23:59 23:59 Intake Total 1530.83 / 1530.83 450 / 525 635.25 / 635.25 Output Total 100 / 100 550 / 550 0 / 0 Balance 1430.83 / 1430.83 -100 / -25 635.25 / 635.25 General: Alert, Oriented x3 Neck: No JVD Lungs: Normal air movement Cardiovascular: Regular rate, Regular Rhythm Abdomen: Soft, Non Tender, Non-Distended Laboratory Results 09/09/20 09:38: POC Glucose 111 H Current Medications Acetaminophen (Acetaminophen 500 Mg Tablet) 1,000 mg PO Q8H PRN PRN PRN Reason: Pain Score 1-10 Last Admin: 09/09/20 23:01 Dose: 1,000 mg Documented by: Al Hydroxide/Mg Hydroxide (Mag Hydrox/Al Hydrox/Simeth 30 Ml Udc) 30 ml PO Q6H PRN PRN PRN Reason: Gastric Burning Albuterol Sulfate (Albuterol 2.5 Mg/3 Ml Vial.Neb.) 2.5 mg INHALATION Q2H PRN PRN PRN Reason: SOB/Wheezing Aspirin (Aspirin 81 Mg Tab.Chew) 81 mg PO DAILY@0800 [facility] Last Admin: 09/09/20 12:00 Dose: Not Given Documented by: Enoxaparin Sodium (Enoxaparin 40 Mg/0.4 Ml Syringe) 40 mg SC DAILY [facility] Last Admin: 09/09/20 12:00 Dose: Not Given Documented by: Sodium Chloride () 1,000 mls @ 15 mls/hr IV .Q48H [facility] Last Infusion: 09/10/20 00:19 Dose: 0 mls/hr Documented by: Levothyroxine Sodium (Levothyroxine 75 Mcg Tablet) 37.5 mcg PO Sa@0600 [facility] Levothyroxine Sodium (Levothyroxine 75 Mcg Tablet) 75 mcg PO MoTuWeThFr@0600 [facility] Last Admin: 09/10/20 06:27 Dose: Not Given Documented by: Ondansetron HCl (Ondansetron 4 Mg/2 Ml Vial) 4 mg IV Q8H PRN PRN PRN Reason: NAUSEA/VOMITING Oxycodone HCl (Oxycodone 5 Mg Tablet) 5 mg PO Q4H PRN PRN PRN Reason: Pain Score 4-10 Last Admin: 09/09/20 14:58 Dose: 5 mg Documented by: Senna/Docusate Sodium (Senna/Docusate Sodium 1 Tablet) 2 tablet PO BID PRN PRN PRN Reason: Constipation Sodium Chloride (0.9% Saline Lock 10 Ml Syringe) 10 - 40 ml IV UD PRN PRN Reason: SALINE FLUSH Last Admin: 09/10/20 07:42 Dose: 10 ml Documented by: Sodium Chloride (0.9% Saline Lock 10 Ml Syringe) 10 - 40 ml IV UD PRN PRN Reason: SALINE FLUSH Medical Necessity - Tobacco Use Smoking Status: Never smoker Tobacco Use: Non-smoker Assessment/Plan All Active Problems (Last Updated 09/09/20 @ 16:43 by Sheree Allison) General weakness (Acute) Asystole (Acute) Cardiopulmonary arrest with successful resuscitation (Acute) Pneumothorax, left (Acute) Urinary tract infection (Resolved) Gastroenteritis (Resolved) 80-year-old female with left pneumothorax 1. The patient had a chest x-ray this morning which showed that the chest tube had retracted slightly and she reaccumulated a left apical pneumothorax. I went to the bedside and I pressed on the subcutaneous tissue in this area and readvanced the catheter into the chest and repeat a chest x-ray. There was a large cordova of air when I did this and the pneumothorax had decreased but not resolved. I have asked the patient to position herself on her right side and I will repeat a chest x-ray in 2 hours. The patient also still has a slight air leak. I informed the patient if the air leak continues and the pneumothorax is not fully resolved and the chest x-ray I would recommend upsizing the tube to 28 Trin[place]adian chest tube. The patient is very reluctant and does not want to do this at this time but I explained to her that I do not have many other options except for placing a another percutaneous tube which may not have the same effect as placing one larger tube. At this time the patient wants to pursue the plan of repeating a chest x-ray. I discussed with her the risks of increasing the chest tube such as bleeding infection or injury to underlying lung tissue. The patient understands that if this is [place] necessary it has to be done and she would consent for it at that time. I did discuss with her having the jewel cupping machine operator to provide some sedation. Greg Chaparro MD Pager: [facility] [address] [place] [address] [address] [place] [address] Office:
--- NOTE | 2020-09-10 10:00 | RAD_ITS ---
STUDY: X-RAY CHEST REASON FOR EXAM: Female, 80 years old. Pneumothorax following TECHNIQUE: Single AP portable view of the chest. COMPARISON: 09/10/2020 FINDINGS: Left sided dual lead percutaneous pacemaker. Left-sided chest tube is stable in position. There is hyperinflation of the lungs consistent with chronic obstructive lung disease (COPD). Previously seen left apical pneumothorax is no longer definitely visualized. There may be trace left pleural effusion and/or pleural thickening. Normal size heart. Normal mediastinum and irving. Normal visualized pulmonary arteries. Normal visualized aortic arch and descending thoracic aorta. Normal visualized thoracic spine. Normal visualized ribs, clavicles, and shoulders. There is no demonstrated abnormality of the visualized soft tissue structures of the upper abdomen. RAD/Chest 1 View (Portable) IMPRESSION: Previously seen left apical pneumothorax is no longer definitely visualized. There may be trace left pleural effusion and/or pleural thickening. COPD. The lungs are clear. Electronically Signed: Cristina Ulloa MD at 10:46 EST Tel , Service support ,
[2020-09-10] MEDS: oxyCODONE 5 MG Tablet PO ×3 (10:18→22:52)
--- NOTE | 2020-09-10 12:29 | CASEMGMT ---
Social Work SW spoke with Isabelle in TCU. Precert will need obtained, however it has not been started at this time due to medical issues. Bed remains available in TCU, but they will reassess pt on Sunday. Plan: TCU, will reassess pt on Sunday RENATO Gerard
--- NOTE | 2020-09-10 13:27 | PN.CARD_ITS ---
Subjectve: Patient seen and evaluated. Events of yesterday noted. Objective: Vital Signs Temp Pulse Resp BP Pulse Ox 97.8 F 85 18 151/79 H 96 09/10/20 12:00 09/10/20 12:00 09/10/20 12:00 09/10/20 12:00 09/10/20 12:00 Oxygen Flow Rate (L/min) 2 Oxygen Delivery Method Nasal Cannula Weight: 144 lb 6.409 oz Body Mass Index (BMI) 23.3 Intake and Output for Last 24 Hours 09/08/20 09/09/20 09/10/20 23:59 23:59 23:59 Intake Total 1530.83 / 1530.83 450 / 525 735.25 / 735.25 Output Total 100 / 100 550 / 550 400 / 400 Balance 1430.83 / 1430.83 -100 / -25 335.25 / 335.25 General: Awake, Alert, Oriented x 3 HEENT: PERRL, EOMI, Sclera Non Icteric Neck: Supple, Good ROM, No Lymph Node Enlargement Lungs: Clear to auscultation Cardiovascular: Regular Rhythm, Normal S1, Normal S2, No Murmurs, No Rubs, No Gallops Vascular: No Carotid Bruits, Normal Femoral Pulses, Normal Radial Pulses, Normal Dorsalis Pedal Pulse, Normal Posterior Tibial Pulses Abdomen: Bowel Sounds Present, Soft, Non Tender, No HSM, No Organomegaly Extremities: No Cyanosis, No Clubbing, No edema Neurological: No Focal Motor or Sensory Deficit Rhythm: EKG: ECHO: Stress Test: Cardiac Cath: PCI: CT Surgery: Holter monitor: EPS: PPM: CXR: Chest CT Scan: Medical Necessity - Tobacco Use Smoking Status: Never smoker Tobacco Use: Non-smoker Assessment/Plan 1. Asystole status post permanent pacemaker implantation. The patient underwent a tilt table study. She had a positive tilt table study for vasovagal/neurocardiogenic mediated events with a marked cardioinhibitory response generating asystole of 70+ seconds requiring medical intervention with IV atropine and BLS CPR. She underwent placement of a permanent pacemaker. Unf ortunately this was complicated by a pneumothorax. The pacemaker itself is functioning properly. She had a left-sided chest tube placed which she removed. . Pneumothorax The patient appears to have experienced a post procedure related left-sided pneumothorax. This required a left-sided chest tube placement. She had pulled this out but it was readjusted. To the extent of the pneumothorax appears to be minimal at this time. After discussing with the surgeons the appropriate pathway would be to continue to observe her and repeat an x-ray at the appropriate time. Depending on those findings further recommendations will be made. Thank you for allowing me to participate in the care of your patient. Please don't hesitate to call if any issues arise.
[2020-09-10] MEDS: Senna/Docusate Sodium 1 Tablet 2 TABLET PO (17:42)
[2020-09-10] MEDS: Ondansetron 4 MG/2 ML Vial IV (23:26)
[2020-09-11] VITALS (19 sets, daily range): BP systolic 95–149; BP diastolic 57–90; PULSE 74–97; RESP 15–22; TEMP 36.1–36.6; O2SAT 92–96
[2020-09-11] MEDS: oxyCODONE 5 MG Tablet PO ×3 (04:08→15:42)
[2020-09-11] MEDS: Levothyroxine 75 MCG Tablet 37.5 MCG PO (04:08)
--- NOTE | 2020-09-11 05:37 | PN_ITS ---
Patient Problems: Active and Suspected Problems (Last Updated 09/09/20 @ 16:43 by Sheree Allison) General weakness (Acute) Asystole (Acute) Cardiopulmonary arrest with successful resuscitation (Acute) Asystole during tilt table test with brief CPR Pneumothorax, left (Acute) Subjective: The patient was seen and examined at the bedside this morning. Events from the last 24 hours have been reviewed. The patient is currently afebrile, hemodynamically stable and maintaining appropriate oxygen saturations on 2 L/min via nasal cannula. Repeat chest x-ray from this morning revealed interval increase in the size of the patient's left apical pneumothorax. The patient does still have an air leak in the atrium with deep breathing exercises. Therefore, following my discussion with surgery, the plan is to proceed with large bore chest tube placement. Objective: The patient's most recent lab work, culture data and imaging studies have all been personally reviewed. - Physical Exam Vitals/I&O's: Vital Signs Temp Pulse Resp BP Pulse Ox 97.2 F L 80 15 119/90 H 95 09/11/20 04:00 09/11/20 05:00 09/11/20 05:00 09/11/20 05:00 09/11/20 05:00 Oxygen Flow Rate (L/min) 2 Oxygen Delivery Method Nasal Cannula Weight: 144 lb 6.409 oz Body Mass Index (BMI) 23.3 Intake and Output for Last 24 Hours 09/09/20 09/10/20 09/11/20 23:59 23:59 23:59 Intake Total 450 / 525 935.25 / 1035.25 100 / 100 Output Total 550 / 550 600 / 900 300 / 300 Balance -100 / -25 335.25 / 135.25 -200 / -200 General: Alert, Cooperative HEENT: Atraumatic, Normocephalic Oral: No Gingival or Mucosal Lesions/ Ulcerations Neck: Supple, No Nodes, Trachea Midline Lungs: Normal air movement, - - Small bore chest tube remains in place with bubbling noted in the atrium. Cardiovascular: Regular rate, Regular Rhythm Abdomen: Bowel Sounds Present, Soft, Non Tender Extremities: No clubbing, No cyanosis, No edema Skin: No breakdown Musculoskeletal: No Tenderness to Palpation of Joints or Extremities Lymphatic: No Cervical, Supraclavicular, or Inguinal Adenopathy Neurological: Cranial nerves II-XII grossly intact, Neuro grossly intact Psych/Mental Status: Normal Affect, Appropriate Labs (Last 48 Hours) 09/09/20 09:38 POC Glucose 111 H Clinical Impression(s) from Imaging Studies Chest X-Ray 09/07/20 11:09 IMPRESSION: Degenerative changes, as described above. No demonstrated acute cardiopulmonary process. Electronically Signed: Smooth Rowland MD at 11:36 EST Tel , Service support , Chest CTA 09/07/20 11:27 IMPRESSION: No demonstrated pulmonary embolism or arterial dissection. Electronically Signed: Smooth Rowland MD at 12:54 EST Tel , Service support , Chest X-Ray 09/09/20 05:55 IMPRESSION: Cardiac pacemaker in expected location. No pneumothorax. New small left pleural effusion. New 2.3 cm soft tissue density overlying left lung apex, since September 07, 2020 which may represent postoperative changes. Recommend follow-up. Electronically Signed: Cruz Villa MD at 6:49 EST , Service support , ADDENDUM: 09/09/20 0954 ADDENDUM: 09/09/20 1000 IMPRESSION: Cardiac pacemaker in expected location. No pneumothorax. New small left pleural effusion. New 2.3 cm soft tissue density overlying left lung apex, since September 07, 2020 which may represent postoperative changes. Recommend follow-up. Electronically Signed: Cruz Villa MD at 6:49 EST , Service support , ADDENDUM: 09/09/20 1000 Chest X-Ray 09/09/20 09:40 IMPRESSION: Persistent, moderate left apical pneumothorax. COPD. Mild left basilar atelectasis. Electronically Signed: Cristina Ulloa MD at 10:02 EST Tel , Service support , Chest X-Ray 09/09/20 10:01 IMPRESSION: There has been interval placement of a left-sided pleural catheter , its tip is obscured by the left-sided pacemaker. Left-sided pneumothorax is no longer visualized. There is mild left basilar atelectasis and likely small left pleural effusion. Electronically Signed: Cristina Ulloa MD at 10:19 EST Tel , Service support , Chest X-Ray 09/10/20 06:00 IMPRESSION: Increase in left pneumothorax. Left chest tube has been partially retracted into the chest wall. Bibasilar opacities suggestive of atelectasis. at 0639 Reported and signed by: Mary Pedraza MD Electronically Signed: Mary Pedraza MD at 6:39 EST Tel , Service support , Chest X-Ray 09/10/20 06:58 IMPRESSION: Mild decrease in left pneumothorax. at 0747 Reported and signed by: Mary Pedraza MD Electronically Signed: Mary Pedraza MD at 7:47 EST Tel , Service support , Chest X-Ray 09/10/20 10:00 IMPRESSION: Previously seen left apical pneumothorax is no longer definitely visualized. There may be trace left pleural effusion and/or pleural thickening. COPD. The lungs are clear. Electronically Signed: Cristina Ulloa MD at 10:46 EST Tel , Service support , Chest X-Ray 09/11/20 05:55 IMPRESSION: Mild increase in left pneumothorax. at 0442 Reported and signed by: Mary Pedraza MD Electronically Signed: Mary Pedraza MD at 4:42 EST Tel , Service support , Current Medications Acetaminophen (Acetaminophen 500 Mg Tablet) 1,000 mg PO Q8H PRN PRN PRN Reason: Pain Score 1-10 Last Admin: 09/09/20 23:01 Dose: 1,000 mg Documented by: Al Hydroxide/Mg Hydroxide (Mag Hydrox/Al Hydrox/Simeth 30 Ml Udc) 30 ml PO Q6H PRN PRN PRN Reason: Gastric Burning Albuterol Sulfate (Albuterol 2.5 Mg/3 Ml Vial.Neb.) 2.5 mg INHALATION Q2H PRN PRN PRN Reason: SOB/Wheezing Aspirin (Aspirin 81 Mg Tab.Chew) 81 mg PO DAILY@0800 [facility] Last Admin: 09/10/20 10:43 Dose: Not Given Documented by: Enoxaparin Sodium (Enoxaparin 40 Mg/0.4 Ml Syringe) 40 mg SC DAILY [facility] Last Admin: 09/10/20 10:44 Dose: Not Given Documented by: Sodium Chloride () 1,000 mls @ 15 mls/hr IV .Q48H [facility] Last Infusion: 09/10/20 00:19 Dose: 0 mls/hr Documented by: Levothyroxine Sodium (Levothyroxine 75 Mcg Tablet) 37.5 mcg PO Sa@0600 [facility] Last Admin: 09/11/20 04:08 Dose: 37.5 mcg Documented by: Levothyroxine Sodium (Levothyroxine 75 Mcg Tablet) 75 mcg PO MoTuWeThFr@0600 [facility] Last Admin: 09/10/20 06:27 Dose: Not Given Documented by: Ondansetron HCl (Ondansetron 4 Mg/2 Ml Vial) 4 mg IV Q8H PRN PRN PRN Reason: NAUSEA/VOMITING Last Admin: 09/10/20 23:26 Dose: 4 mg Documented by: Oxycodone HCl (Oxycodone 5 Mg Tablet) 5 mg PO Q4H PRN PRN PRN Reason: Pain Score 4-10 Last Admin: 09/11/20 04:08 Dose: 5 mg Documented by: Senna/Docusate Sodium (Senna/Docusate Sodium 1 Tablet) 2 tablet PO BID PRN PRN PRN Reason: Constipation Last Admin: 09/10/20 17:42 Dose: 2 tablet Documented by: Sodium Chloride (0.9% Saline Lock 10 Ml Syringe) 10 - 40 ml IV UD PRN PRN Reason: SALINE FLUSH Last Admin: 09/10/20 07:42 Dose: 10 ml Documented by: Sodium Chloride (0.9% Saline Lock 10 Ml Syringe) 10 - 40 ml IV UD PRN PRN Reason: SALINE FLUSH Medical Necessity - Tobacco Use Smoking Status: Never smoker Tobacco Use: Non-smoker Assessment/Plan All Active Problems (Last Updated 09/09/20 @ 16:43 by Sheree Allison) General weakness (Acute) Asystole (Acute) Cardiopulmonary arrest with successful resuscitation (Acute) Pneumothorax, left (Acute) Urinary tract infection (Resolved) Gastroenteritis (Resolved) RECOMMENDATIONS: 1. Proceed with large bore chest tube placement. 2. Chest x-ray post tube thoracotomy. 3. Maintain patient on wall suction today. 4. Continue supplemental oxygen via nasal cannula. 5. Repeat chest x-ray in the morning. 6. Continue current pain control regimen. IMPRESSIONS: 1. Iatrogenic pneumothorax status post percutaneous chest tube placement The patient was noted to have a left-sided pneumothorax with subsequent hypotension which required percutaneous chest tube placement. This did lead to resolution of the patient's pneumothorax and improvement in her hemodynamics. However, the patient went on to develop a recurrent pneumothorax despite small bore chest tube placement, which necessitated tube thoracotomy with 28 Sami chest tube placement on the morning of September 11. Plan to continue the patient on wall suction throughout today and repeat chest x-ray in the morning. Continue supplemental oxygen and current pain control regimen. If her pneumothorax is resolved on tomorrow's chest x-ray, she will be placed to waterseal. 2. History of recurrent syncope/recent cardiopulmonary arrest Continue medical management per cardiology recommendations. 3. Advanced age/hypertension/hypothyroidism Complicates care, management, recovery and prognosis. Continue home medications as indicated. This note was generated with Dragon dictation software. It may contain incorrect words, spelling, and punctuation that were not noted in checking the note before signing. Procedural sedation for chest tube placement was provided as a separate, billable procedure. Inpatient E&M: 08799 [facility] L[facility]
--- NOTE | 2020-09-11 05:55 | RAD_ITS ---
HISTORY: left chest tube ADDITIONAL HISTORY: None provided. EXAMINATION/TECHNIQUE: XR Chest 1 View AP/PA Number of images including paperwork: 1 COMPARISON: 09/10/2020 FINDINGS: LUNGS AND PLEURA: Small left apical pneumothorax has recurred measuring approximately 1 cm. No dense consolidation. CARDIAC SILHOUETTE: Stable. MEDIASTINUM AND ZACHARY: Stable. UPPER ABDOMEN: Unremarkable. SKELETON AND SOFT TISSUES: No acute skeletal findings. Degenerative changes. OTHER DEVICES AND HARDWARE: Left chest tube appear similar. Pacemaker with left-sided generator. RAD/Chest 1 View (Portable) IMPRESSION: Mild increase in left pneumothorax. at 0442 Reported and signed by: Mary Pedraza MD Electronically Signed: Mary Pedraza MD at 4:42 EST Tel , Service support ,
[2020-09-11] MEDS: Propofol 200 MG/20 ML Vial 90 MG IV BOLUS (06:55)
[2020-09-11] MEDS: fentaNYL 100 MCG/2 ML Ampul 50 MCG IV ×2 (07:00→07:18)
--- NOTE | 2020-09-11 07:16 | RAD_ITS ---
STUDY: X-RAY CHEST REASON FOR EXAM: Female, 80 years old. Large bore chest tube placement TECHNIQUE: Single AP portable view of the chest. COMPARISON: 09/11/2020 at 03 55 FINDINGS: Interval replacement of left-sided thoracostomy tube with a tiny apical pneumothorax. Left subclavian dual-lead pacemaker which is unchanged. Poor inspiration with some bibasilar atelectasis. There is no demonstrated pleural abnormality. There is moderate cardiac enlargement. Normal mediastinum and irving. Normal visualized pulmonary arteries. There is atherosclerotic tortuosity of the aortic arch and descending thoracic aorta. Normal visualized thoracic spine. Normal visualized ribs, clavicles, and shoulders. There is no demonstrated abnormality of the visualized soft tissue structures of the upper abdomen. RAD/Chest 1 View (Portable) IMPRESSION: Interval replacement of the left-sided thoracostomy tube with a tiny apical pneumothorax. Electronically Signed: Ajit Potts MD at 12:20 EST Tel , Service support ,
--- NOTE | 2020-09-11 07:18 | PN.SURG_ITS ---
Patient Problems: Active and Suspected Problems (Last Updated 09/09/20 @ 16:43 by Sheree Allison) General weakness (Acute) Asystole (Acute) Cardiopulmonary arrest with successful resuscitation (Acute) Asystole during tilt table test with brief CPR Pneumothorax, left (Acute) Subjective: Chest x-ray did show a larger left-sided pneumothorax called by Dr. Dewitt to place a larger chest tube. Patient signed consent - Physical Exam Vitals/I&O's: Vital Signs Temp Pulse Resp BP Pulse Ox 97.2 F L 80 15 119/90 H 95 09/11/20 04:00 09/11/20 05:00 09/11/20 05:00 09/11/20 05:00 09/11/20 07:15 Oxygen Flow Rate (L/min) 2 Oxygen Delivery Method Nasal Cannula Weight: 144 lb 6.409 oz Body Mass Index (BMI) 23.3 Intake and Output for Last 24 Hours 09/09/20 09/10/20 09/11/20 23:59 23:59 23:59 Intake Total 450 / 525 935.25 / 1035.25 160 / 160 Output Total 550 / 550 600 / 900 500 / 500 Balance -100 / -25 335.25 / 135.25 -340 / -340 General: Alert, Oriented x3, Cooperative, No apparent distress Lungs: Normal air movement, - - Patient had an occasional air leak from the percutaneous tube. Cardiovascular: Regular rate Abdomen: Soft Current Medications Acetaminophen (Acetaminophen 500 Mg Tablet) 1,000 mg PO Q8H PRN PRN PRN Reason: Pain Score 1-10 Last Admin: 09/09/20 23:01 Dose: 1,000 mg Documented by: Al Hydroxide/Mg Hydroxide (Mag Hydrox/Al Hydrox/Simeth 30 Ml Udc) 30 ml PO Q6H PRN PRN PRN Reason: Gastric Burning Albuterol Sulfate (Albuterol 2.5 Mg/3 Ml Vial.Neb.) 2.5 mg INHALATION Q2H PRN PRN PRN Reason: SOB/Wheezing Aspirin (Aspirin 81 Mg Tab.Chew) 81 mg PO DAILY@0800 [facility] Last Admin: 09/10/20 10:43 Dose: Not Given Documented by: Enoxaparin Sodium (Enoxaparin 40 Mg/0.4 Ml Syringe) 40 mg SC DAILY [facility] Last Admin: 09/10/20 10:44 Dose: Not Given Documented by: Sodium Chloride () 1,000 mls @ 15 mls/hr IV .Q48H [facility] Last Infusion: 09/10/20 00:19 Dose: 0 mls/hr Documented by: Levothyroxine Sodium (Levothyroxine 75 Mcg Tablet) 37.5 mcg PO Sa@0600 [facility] Last Admin: 09/11/20 04:08 Dose: 37.5 mcg Documented by: Levothyroxine Sodium (Levothyroxine 75 Mcg Tablet) 75 mcg PO MoTuWeThFr@0600 [facility] Last Admin: 09/10/20 06:27 Dose: Not Given Documented by: Ondansetron HCl (Ondansetron 4 Mg/2 Ml Vial) 4 mg IV Q8H PRN PRN PRN Reason: NAUSEA/VOMITING Last Admin: 09/10/20 23:26 Dose: 4 mg Documented by: Oxycodone HCl (Oxycodone 5 Mg Tablet) 5 mg PO Q4H PRN PRN PRN Reason: Pain Score 4-10 Last Admin: 09/11/20 04:08 Dose: 5 mg Documented by: Senna/Docusate Sodium (Senna/Docusate Sodium 1 Tablet) 2 tablet PO BID PRN PRN PRN Reason: Constipation Last Admin: 09/10/20 17:42 Dose: 2 tablet Documented by: Sodium Chloride (0.9% Saline Lock 10 Ml Syringe) 10 - 40 ml IV UD PRN PRN Reason: SALINE FLUSH Last Admin: 09/10/20 07:42 Dose: 10 ml Documented by: Sodium Chloride (0.9% Saline Lock 10 Ml Syringe) 10 - 40 ml IV UD PRN PRN Reason: SALINE FLUSH Medical Necessity - Tobacco Use Smoking Status: Never smoker Tobacco Use: Non-smoker Assessment/Plan All Active Problems (Last Updated 09/09/20 @ 16:43 by Sheree Allison) General weakness (Acute) Asystole (Acute) Cardiopulmonary arrest with successful resuscitation (Acute) Pneumothorax, left (Acute) Urinary tract infection (Resolved) Gastroenteritis (Resolved) 80-year-old female with a left pneumothorax status post left percutaneous chest tube with continued pneumothorax 1. We will plan to place a larger 28 [place]ian chest tube. She was agreeable as long as she received sedation with Dr. Dewitt assist with. Smita Lamb M.D. Pager: [phone] [facility] [address] [place] [address], Outpatient [address], [address] [place] [address] Office: [phone] Inpatient E&M: 15140 Subs Hosp L2
--- NOTE | 2020-09-11 07:18 | PCM.OP.PRO ---
Procedure Report Date of Procedure: 09/11/20 CONSCIOUS SEDATION REPORT DATE OF SERVICE: September 11, 2020 BRIEF HISTORY OF PRESENT ILLNESS: The patient is a 80-year-old female, currently admitted to the hospital, who initially presented with syncope and underwent pacemaker placement. She subsequently developed an iatrogenic pneumothorax. Small bore chest tube was initially placed. However, the patient's pneumothorax recurred. Therefore, the small bore chest tube was removed and the patient underwent tube thoracotomy with a 28 Greenlandic chest tube inserted by surgery. PHYSICAL EXAMINATION: VITAL SIGNS: Reviewed and were acceptable. GENERAL: The patient is a female, in no apparent distress, speaking in full sentences. HEENT: Normocephalic, atraumatic. Mucous membranes are moist and pink. Good mouth opening noted. Trachea is midline. Good neck mobility. CHEST: Regular rate and rhythm. No murmurs, rubs or gallops were noted. LUNGS: Clear to auscultation bilaterally without appreciable wheezes, rales or rhonchi. ABDOMEN: Soft, nontender, nondistended. Positive bowel sounds. EXTREMITIES: There is no clubbing, cyanosis or edema. ASA Class: II DESCRIPTION OF PROCEDURE: After confirmation of informed consent, the patient's anesthesia plan was reviewed in detail. Propofol was chosen. Risks and benefits were reviewed and the patient agreed to proceed. At 0644, the patient was given her first bolus of propofol. In total, throughout the entire procedure, the patient required a total of 90 mg of propofol and 50 mcg of fentanyl to achieve and maintain an appropriate level of sedation and pain control. The patient did undergo successful 28 Greenlandic chest tube placement by Dr. Clinton at the bedside. The patient was monitored until of 0710, at which time she reached her baseline mental status and function. The patient tolerated the procedure well. COMPLICATIONS: None ESTIMATED BLOOD LOSS: None RECOMMENDATIONS: Okay to recover in usual fashion. [id number]: Other Procedure See Report - [id number]
--- NOTE | 2020-09-11 07:20 | PCM.OPRPT ---
Report of Operation Date of Procedure: 09/11/20 Pre-Operative Diagnosis: recurrent Left pneumothorax Post-Operative Diagnosis: Same Surgery/Procedure Performed:: Insertion of 28 Wallisian left-sided chest tube Type of Anesthesia:: IV Sedation Anesthesiologist: Dr. Dewitt - [employer] Estimated Blood Loss (mL): minimal Description of Procedure: Patient had IV sedation with propofol per Dr. Dewitt. The left chest was prepped draped in usual sterile fashion. The percutaneous chest tube was unsecured from the chest wall but left in place. Local anesthesia 1% lidocaine was used total of 20 cc. Incision was made with 15 blade scalpel the anterior axillary line at the inframammary fold. Straight leg injury used to dissect above the rib and anterior pleural space. No cordova of air was obtained. 28 Wallisian chest tube was placed directed posteriorly. This was at 12 at the skin. It was connected to the Pleur-evac and did have additional bubbles. This was sutured in place with 0 silk suture and Vaseline gauze was also placed along with drain sponges and secured with tape. Patient tolerated procedure well. Chest x-ray ordered Addendum: Repeat chest x-ray shows improvement of the left pneumothorax small apical still present, chest tube in good position. Continue -20 of suction - Complications none
--- NOTE | 2020-09-11 07:45 | NURSING ---
0645- Dr. Clinton and Dr. Dewitt are at bedside preparing to exchange chest tube. 0655- Propofol 90mcg is given 0700- Fentanyl 50mcg is given. Chest tube is successfully in and dressing is place. Awaiting chest x-ray to confirm placement. 0718- Fentanyl 50mcg is given. Pt is resting comfortably at this time. Vital signs are WNL.
--- NOTE | 2020-09-11 07:46 | PN_ITS ---
Patient Problems: Active and Suspected Problems (Last Updated 09/09/20 @ 16:43 by Sheree Allison) General weakness (Acute) Asystole (Acute) Cardiopulmonary arrest with successful resuscitation (Acute) Asystole during tilt table test with brief CPR Pneumothorax, left (Acute) Reason for Visit: Status post pacemaker placement Left-sided pneumothorax Subjective: In brief, a 80-year-old lady who went into cardiopulmonary arrest a cystoscopy requiring CPR and IV atropine whilst undergoing tilt table test. Patient was successfully resuscitated with ROSC and subsequently admitted to a monitored bed with consultation placed to Dr. Bejarano. Patient underwent pacemaker placement on 09/08/2020 Patient hospital stay complicated by pneumothorax for which patient underwent emergent chest tube placement and subsequently transferred to the intensive. Chest x-ray obtained this a.m. did demonstrate increase in the left pneumothorax. Patient has been seen by Dr. Chaparro with general surgery with plans for placement of of a bigger size chest tube. Patient is however reluctant to proceed 09/11/2020; patient underwent Insertion of 28 Russian left-sided chest tube by Dr. Lamb on account of recurrent left sided pneumothorax Objective: GENERAL: Distress HEENT: Atraumatic; EYES; Anicteric, Normal Conjunctiva NECK; supple, normal thyroid, RESPIRATORY: Diminished to auscultation, with chest tube on the left side CARDIOVASCULAR: Regular S1 S2, GI: soft, normoactive bowel sounds, : No Renal angle tenderness; EXTREMITIES: No edema, no clubbing, MUSCULOSKELETAL: no muscle waisting NEURO: Awake; no lateralizing signs. SKIN: No Rash Vitals/I&O's: Vital Signs Temp Pulse Resp BP Pulse Ox 97.2 F L 91 16 109/67 95 09/11/20 04:00 09/11/20 07:34 09/11/20 07:00 09/11/20 07:00 09/11/20 07:15 Oxygen Flow Rate (L/min) 2 Oxygen Delivery Method Nasal Cannula Weight: 65.499 kg Body Mass Index (BMI) 23.3 Intake and Output for Last 24 Hours 09/09/20 09/10/20 09/11/20 23:59 23:59 23:59 Intake Total 450 / 525 935.25 / 1035.25 160 / 160 Output Total 550 / 550 600 / 900 500 / 500 Balance -100 / -25 335.25 / 135.25 -340 / -340 Current Medications Acetaminophen (Acetaminophen 500 Mg Tablet) 1,000 mg PO Q8H PRN PRN PRN Reason: Pain Score 1-10 Last Admin: 09/09/20 23:01 Dose: 1,000 mg Documented by: Al Hydroxide/Mg Hydroxide (Mag Hydrox/Al Hydrox/Simeth 30 Ml Udc) 30 ml PO Q6H PRN PRN PRN Reason: Gastric Burning Albuterol Sulfate (Albuterol 2.5 Mg/3 Ml Vial.Neb.) 2.5 mg INHALATION Q2H PRN PRN PRN Reason: SOB/Wheezing Aspirin (Aspirin 81 Mg Tab.Chew) 81 mg PO DAILY@0800 [facility] Last Admin: 09/10/20 10:43 Dose: Not Given Documented by: Enoxaparin Sodium (Enoxaparin 40 Mg/0.4 Ml Syringe) 40 mg SC DAILY [facility] Last Admin: 09/10/20 10:44 Dose: Not Given Documented by: Sodium Chloride () 1,000 mls @ 15 mls/hr IV .Q48H [facility] Last Infusion: 09/10/20 00:19 Dose: 0 mls/hr Documented by: Levothyroxine Sodium (Levothyroxine 75 Mcg Tablet) 37.5 mcg PO Sa@0600 [facility] Last Admin: 09/11/20 04:08 Dose: 37.5 mcg Documented by: Levothyroxine Sodium (Levothyroxine 75 Mcg Tablet) 75 mcg PO MoTuWeThFr@0600 [facility] Last Admin: 09/10/20 06:27 Dose: Not Given Documented by: Ondansetron HCl (Ondansetron 4 Mg/2 Ml Vial) 4 mg IV Q8H PRN PRN PRN Reason: NAUSEA/VOMITING Last Admin: 09/10/20 23:26 Dose: 4 mg Documented by: Oxycodone HCl (Oxycodone 5 Mg Tablet) 5 mg PO Q4H PRN PRN PRN Reason: Pain Score 4-10 Last Admin: 09/11/20 04:08 Dose: 5 mg Documented by: Senna/Docusate Sodium (Senna/Docusate Sodium 1 Tablet) 2 tablet PO BID PRN PRN PRN Reason: Constipation Last Admin: 09/10/20 17:42 Dose: 2 tablet Documented by: Sodium Chloride (0.9% Saline Lock 10 Ml Syringe) 10 - 40 ml IV UD PRN PRN Reason: SALINE FLUSH Last Admin: 09/10/20 07:42 Dose: 10 ml Documented by: Sodium Chloride (0.9% Saline Lock 10 Ml Syringe) 10 - 40 ml IV UD PRN PRN Reason: SALINE FLUSH STROKE Vital Signs/Narrative: Vital Signs Temp Pulse Resp BP Pulse Ox 09/11/20 07:34 91 09/11/20 07:15 95 09/11/20 07:00 78 16 109/67 92 09/11/20 06:00 82 18 122/61 H 96 09/11/20 05:00 80 15 119/90 H 95 09/11/20 04:00 97.2 F L 78 18 149/78 H 96 Medical Necessity - Tobacco Use Smoking Status: Never smoker Tobacco Use: Non-smoker Assessment/Plan All Active Problems (Last Updated 09/09/20 @ 16:43 by Sheree Allison) General weakness (Acute) Asystole (Acute) Cardiopulmonary arrest with successful resuscitation (Acute) Pneumothorax, left (Acute) Urinary tract infection (Resolved) Gastroenteritis (Resolved) In brief, a 80-year-old lady who went into cardiopulmonary arrest a cystoscopy requiring CPR and IV atropine whilst undergoing tilt table test. Patient was successfully resuscitated with ROSC and subsequently admitted to a monitored bed with consultation placed to Dr. Bejarano. Patient underwent pacemaker placement on 09/08/2020. Patient hospital stay complicated by pneumothorax for which patient underwent emergent chest tube placement and subsequently transferred to the intensive care 1. Left-sided pneumothorax status post chest tube placement - Chest x-ray obtained this a.m. did demonstrate increase in the left pneumothorax. Patient has been seen by Dr. Chaparro with general surgery with plans for placement of of a bigger size chest tube. Patient is however reluctant to proceed - 09/11/2020; patient underwent Insertion of 28 Russian left-sided chest tube by Dr. Lamb on account of recurrent left sided pneumothorax 3. Cardiopulmonary arrest (Asystole) - successful resuscitation with ACLS with ROSC 2. Status post pacemaker placement -On 09/08/2020 4. Hypertension - Blood pressure controlled, home medications continued with dose adjustment as needed 5. Hypothyroidism - Patient is on levothyroxine home dose continued 6. DVT prophylaxis -SCD Inpatient E&M: [id number] [place] [address]
[2020-09-11] MEDS: Aspirin 81 MG TAB.CHEW PO (08:33)
[2020-09-11] MEDS: Senna/Docusate Sodium 1 Tablet 2 TABLET PO (08:33)
[2020-09-11] MEDS: Magnesium Hydroxide 30 ML UDC PO (13:19)
[2020-09-11] MEDS: Acetaminophen 500 MG Tablet 1000 MG PO (13:19)
[2020-09-11] MEDS: Ondansetron 4 MG/2 ML Vial IV ×2 (13:31→22:52)
[2020-09-11] MEDS: 0.9% Saline Lock 10 ML Syringe IV ×2 (13:31→22:52)
--- NOTE | 2020-09-11 15:17 | PN.CARD_ITS ---
Subjectve: Patient complains of constipation and pain at the pacemaker and chest tube insertion site. Chest x-ray this morning revealed pneumothorax to have inc reased in size and the chest tube was changed to a larger one. Objective: Vital Signs Temp Pulse Resp BP Pulse Ox 97.3 F L 85 19 H 114/71 92 09/11/20 15:00 09/11/20 15:00 09/11/20 15:00 09/11/20 15:00 09/11/20 15:00 Oxygen Flow Rate (L/min) 1 Oxygen Delivery Method Nasal Cannula Weight: 144 lb 6.409 oz Body Mass Index (BMI) 23.3 Intake and Output for Last 24 Hours 09/09/20 09/10/20 09/11/20 23:59 23:59 23:59 Intake Total 450 / 525 935.25 / 1035.25 310 / 310 Output Total 550 / 550 600 / 900 685 / 685 Balance -100 / -25 335.25 / 135.25 -375 / -375 General: Awake, Alert, Oriented x 3 Neck: Supple Cardiovascular: Regular Rhythm Rhythm: EKG: ECHO: Stress Test: Cardiac Cath: PCI: CT Surgery: Holter monitor: EPS: PPM: CXR: Chest CT Scan: Medical Necessity - Tobacco Use Smoking Status: Never smoker Tobacco Use: Non-smoker Assessment/Plan 1. Asystole: Status post pacemaker placement. 2. Pneumothorax: Chest tube was changed to a larger one. Follow-up chest x-ray shows improvement in the pneumothorax.
[2020-09-11] MEDS: Acetaminophen 325 MG Tablet 650 MG PO ×2 (22:29→22:30)
[2020-09-12] VITALS (15 sets, daily range): BP systolic 105–135; BP diastolic 63–80; PULSE 72–90; RESP 15–18; TEMP 36.3–36.9; O2SAT 94–96
--- NOTE | 2020-09-12 00:10 | NURSING ---
SSE DONE AT THIS TIME PER NEW ORDER & PT'S REQUEST FOR C/O CONSTIPATION X 1 WEEK. NO RESULTS NOTED.
[2020-09-12] MEDS: Senna/Docusate Sodium 1 Tablet 2 TABLET PO ×3 (03:17→22:00)
[2020-09-12] MEDS: oxyCODONE 5 MG Tablet PO ×4 (03:21→16:50)
--- NOTE | 2020-09-12 06:49 | PN_ITS ---
Patient Problems: Active and Suspected Problems (Last Updated 09/09/20 @ 16:43 by Sheree Allison) General weakness (Acute) Asystole (Acute) Cardiopulmonary arrest with successful resuscitation (Acute) Asystole during tilt table test with brief CPR Pneumothorax, left (Acute) Subjective: Patient did okay overnight. Patient reports significant abdominal discomfort that she attributes to constipation. Patient states her last bowel movement was Sunday despite having an enema and daily MiraLAX. Patient does have some shortness of breath and mild chest discomfort, but believes her pain regimen is appropriate. - Physical Exam Vitals/I&O's: Vital Signs Temp Pulse Resp BP Pulse Ox 36.1 C L 89 15 140/69 H 94 09/11/20 20:52 09/12/20 06:29 09/12/20 01:52 09/11/20 20:52 09/11/20 20:52 Oxygen Flow Rate (L/min) 2 Oxygen Delivery Method Nasal Cannula Weight: 65.499 kg Body Mass Index (BMI) 23.3 Intake and Output for Last 24 Hours 09/10/20 09/11/20 09/13/20 23:59 23:59 00:59 Intake Total 935.25 / 1035.25 510 / 510 Output Total 600 / 900 685 / 685 Balance 335.25 / 135.25 -175 / -175 General: Alert, Oriented x3, Cooperative, - - Appears uncomfortable in the bed HEENT: Atraumatic, PERRLA, EOMI, Normocephalic, - - No scleral icterus or injection noted Oral: Moist Mucosa, No Gingival or Mucosal Lesions/ Ulcerations Neck: Supple, No JVD, No Nodes, Trachea Midline Lungs: No rhonchi, No wheeze, No rales, Diminished, - - Mild air leak noted on chest tube Cardiovascular: Regular rate, Regular Rhythm, Normal S1, Normal S2, No murmurs, No rub noted, No Gallop, - - Pacemaker site is clean, dry and intact Abdomen: Bowel Sounds Present, Soft, Distended - Slightly, Tender - To deep palpation Extremities: No clubbing, No cyanosis, No edema Skin: No rashes, No breakdown Musculoskeletal: No Tenderness to Palpation of Joints or Extremities Lymphatic: No Cervical, Supraclavicular, or Inguinal Adenopathy Neurological: Cranial nerves II-XII grossly intact, Neuro grossly intact, Motor Exam 5/5 strength throughout Psych/Mental Status: Anxious, Restless Current Medications Acetaminophen (Acetaminophen 500 Mg Tablet) 1,000 mg PO Q8H PRN PRN PRN Reason: Pain Score 1-10 Last Admin: 09/11/20 13:19 Dose: 1,000 mg Documented by: Albuterol Sulfate (Albuterol 2.5 Mg/3 Ml Vial.Neb.) 2.5 mg INHALATION Q2H PRN PRN PRN Reason: SOB/Wheezing Aspirin (Aspirin 81 Mg Tab.Chew) 81 mg PO DAILY@0800 [facility] Last Admin: 09/11/20 08:33 Dose: 81 mg Documented by: Enoxaparin Sodium (Enoxaparin 40 Mg/0.4 Ml Syringe) 40 mg SC DAILY [facility] Last Admin: 09/11/20 09:50 Dose: Not Given Documented by: Sodium Chloride () 1,000 mls @ 15 mls/hr IV .Q48H [facility] Last Admin: 09/11/20 16:19 Dose: Not Given Documented by: Levothyroxine Sodium (Levothyroxine 75 Mcg Tablet) 37.5 mcg PO Sa@0600 [facility] Last Admin: 09/11/20 04:08 Dose: 37.5 mcg Documented by: Levothyroxine Sodium (Levothyroxine 75 Mcg Tablet) 75 mcg PO MoTuWeThFr@0600 [facility] Last Admin: 09/10/20 06:27 Dose: Not Given Documented by: Magnesium Citrate (Magnesium Citrate 300 Ml) 150 ml PO X1 ONE Stop: 09/12/20 06:50 Ondansetron HCl (Ondansetron 4 Mg/2 Ml Vial) 4 mg IV Q8H PRN PRN PRN Reason: NAUSEA/VOMITING Last Admin: 09/11/20 22:52 Dose: 4 mg Documented by: Oxycodone HCl (Oxycodone 5 Mg Tablet) 5 mg PO Q4H PRN PRN PRN Reason: Pain Score 4-10 Last Admin: 09/12/20 03:21 Dose: 5 mg Documented by: Polyethylene Glycol (Polyethylene Glycol 3350 17 Gm Packet) 17 gm PO DAILY [facility] Senna/Docusate Sodium (Senna/Docusate Sodium 1 Tablet) 2 tablet PO BID [facility] Last Admin: 09/12/20 03:17 Dose: 2 tablet Documented by: Sodium Chloride (0.9% Saline Lock 10 Ml Syringe) 10 - 40 ml IV UD PRN PRN Reason: SALINE FLUSH Last Admin: 09/11/20 13:31 Dose: 10 ml Documented by: Sodium Chloride (0.9% Saline Lock 10 Ml Syringe) 10 - 40 ml IV UD PRN PRN Reason: SALINE FLUSH Last Admin: 09/11/20 22:52 Dose: 10 ml Documented by: Clinical Impression(s) from Imaging Studies Chest X-Ray 09/11/20 07:16 IMPRESSION: Interval replacement of the left-sided thoracostomy tube with a tiny apical pneumothorax. Electronically Signed: Ajit Potts MD at 12:20 EST Tel , Service support , Medical Necessity - Tobacco Use Smoking Status: Never smoker Tobacco Use: Non-smoker Assessment/Plan All Active Problems (Last Updated 09/09/20 @ 16:43 by Sheree Allison) General weakness (Acute) Asystole (Acute) Cardiopulmonary arrest with successful resuscitation (Acute) Pneumothorax, left (Acute) Urinary tract infection (Resolved) Gastroenteritis (Resolved) RECOMMENDATIONS: 1. Continue large bore chest tube on suction. 2. Await morning labs 3. Add mag citrate x1 4. Continue supplemental oxygen via nasal cannula. 5. Repeat chest x-ray in the morning. 6. Continue current pain control regimen. IMPRESSIONS: 1. Iatrogenic pneumothorax status post percutaneous chest tube placement The patient was noted to have a left-sided pneumothorax with subsequent hypotension which required percutaneous chest tube placement. This did lead to resolution of the patient's pneumothorax and improvement in her hemodynamics. However, the patient went on to develop a recurrent pneumothorax despite small bore chest tube placement, which necessitated tube thoracotomy with 28 Lithuanian chest tube placement on the morning of September 11. Patient continues to have a mild air leak noted on my evaluation of the chest tube. Surgery is following. 2. History of recurrent syncope/recent cardiopulmonary arrest Continue medical management per cardiology recommendations. 3. Advanced age/hypertension/hypothyroidism/constipation Complicates care, management, recovery and prognosis. Continue home medications as indicated. Patient has been resistant to MiraLAX therapy. We will add mag citrate to help with bowel movement. Patient is on opiates, complicating constipation. Inpatient E&M: 93085 [facility] H[facility] L2
[2020-09-12 07:07] LABS: Hematocrit 36.2 % (37-47); Hemoglobin 11.8 g/dL (12.0-15.0); Mean Corp Hgb Conc 32.6 g/dL (32-36); Mean Corpuscular Hgb 30.7 pg (27.0-32.0); Mean Corpuscular Volume 94.3 fL (81-99); Platelet Count 167 K/mm3 (150-450); RBC Distribution Width CV 13.1 % (11.6-14.6); RBC Distribution Width SD 45.1 fl (35.1-43.9); Red Blood Count 3.84 M/mm3 (4.2-5.4); White Blood Count 12.6 K/mm3 (4.4-11.0)
[2020-09-12 07:28] LABS: Anion Gap 5 (5-15); BUN 35 mg/dL (7-18); BUN/Creat Ratio 26.7 RATIO (10-20); Calcium,Total 9.6 mg/dL (8.5-10.1); Chloride 102 mmol/L (98-107); Creatinine, Serum 1.31 mg/dL (0.55-1.02); EST Glomerular Filtration Rate 42 mL/min (>60); Est Glom Filt Rate - Afr Amer 50 mL/min (>60); Glucose 132 mg/dL (74-106); Potassium 4.9 mmol/L (3.5-5.1); Sodium Level 135 mmol/L (136-145)
[2020-09-12] MEDS: Magnesium Citrate 300 ML 150 ML PO (07:33)
[2020-09-12] MEDS: Ondansetron 4 MG/2 ML Vial IV (07:55)
[2020-09-12] MEDS: 0.9% Saline Lock 10 ML Syringe IV ×2 (07:55→10:20)
--- NOTE | 2020-09-12 08:47 | RAD_ITS ---
STUDY: X-RAY CHEST REASON FOR EXAM: Female, 80 years old. chest tube TECHNIQUE: Single AP portable view of the chest. COMPARISON: 09/11/2020 FINDINGS: Left-sided thoracostomy tube with a tiny apical pneumothorax which is unchanged. Left subclavian dual-lead pacemaker which is unchanged. Poor inspiration with some bibasilar atelectasis. There is no demonstrated pleural abnormality. There is moderate cardiac enlargement. Normal mediastinum and irving. Normal visualized pulmonary arteries. There is atherosclerotic tortuosity of the aortic arch and descending thoracic aorta. Normal visualized thoracic spine. Normal visualized ribs, clavicles, and shoulders. There is no demonstrated abnormality of the visualized soft tissue structures of the upper abdomen. RAD/Chest 1 View (Portable) IMPRESSION: No change from 09/11/2020. Electronically Signed: Ajit Potts MD at 9:32 EDT Tel , Service support ,
--- NOTE | 2020-09-12 09:52 | PN.SURG_ITS ---
Patient Problems: Active and Suspected Problems (Last Updated 09/09/20 @ 16:43 by Sheree Allison) General weakness (Acute) Asystole (Acute) Cardiopulmonary arrest with successful resuscitation (Acute) Asystole during tilt table test with brief CPR Pneumothorax, left (Acute) Subjective: Patient's chest x-ray does show a tiny pneumothorax on the left. no obvious airleak; however, Pt didn't want to cough-- - Physical Exam Vitals/I&O's: Vital Signs Temp Pulse Resp BP Pulse Ox 98.4 F 90 15 135/70 H 96 09/12/20 07:00 09/12/20 07:00 09/12/20 07:00 09/12/20 07:00 09/12/20 07:28 Oxygen Flow Rate (L/min) 2 Oxygen Delivery Method Room Air Weight: 144 lb 6.409 oz Body Mass Index (BMI) 23.3 Intake and Output for Last 24 Hours 09/10/20 09/11/20 09/13/20 23:59 23:59 00:59 Intake Total 935.25 / 1035.25 510 / 560 125 / 125 Output Total 600 / 900 685 / 785 200 / 200 Balance 335.25 / 135.25 -175 / -225 -75 / -75 General: Alert, Oriented x3 Lungs: Normal air movement Cardiovascular: Regular rate Abdomen: Soft Laboratory Results 09/12/20 06:56: WBC 12.6 H, RBC 3.84 L, Hgb 11.8 L, Hct 36.2 L, MCV 94.3, MCH 30.7, MCHC 32.6, RDW Std Deviation 45.1 H, RDW Coeff of Krystian 13.1, Plt Count 167, MPV 9.0 09/12/20 06:56: Sodium 135 L, Potassium 4.9, Chloride 102, Carbon Dioxide 28.0, Anion Gap 5, BUN 35 H, Creatinine 1.31 H, Estim Creat Clear Calc 32.60, Est GFR (MDRD) Af Amer 50 L, Est GFR (MDRD) Non-Af 42 L, BUN/Creatinine Ratio 26.7 H, Glucose 132 H, Calcium 9.6, Magnesium 2.0 Current Medications Acetaminophen (Acetaminophen 500 Mg Tablet) 1,000 mg PO Q8H PRN PRN PRN Reason: Pain Score 1-10 Last Admin: 09/11/20 13:19 Dose: 1,000 mg Documented by: Albuterol Sulfate (Albuterol 2.5 Mg/3 Ml Vial.Neb.) 2.5 mg INHALATION Q2H PRN PRN PRN Reason: SOB/Wheezing Aspirin (Aspirin 81 Mg Tab.Chew) 81 mg PO DAILY@0800 [facility] Last Admin: 09/11/20 08:33 Dose: 81 mg Documented by: Enoxaparin Sodium (Enoxaparin 40 Mg/0.4 Ml Syringe) 40 mg SC DAILY [facility] Last Admin: 09/11/20 09:50 Dose: Not Given Documented by: Sodium Chloride () 1,000 mls @ 15 mls/hr IV .Q48H [facility] Last Admin: 09/11/20 16:19 Dose: Not Given Documented by: Levothyroxine Sodium (Levothyroxine 75 Mcg Tablet) 37.5 mcg PO Sa@0600 [facility] Last Admin: 09/11/20 04:08 Dose: 37.5 mcg Documented by: Levothyroxine Sodium (Levothyroxine 75 Mcg Tablet) 75 mcg PO MoTuWeThFr@0600 [facility] Last Admin: 09/10/20 06:27 Dose: Not Given Documented by: Ondansetron HCl (Ondansetron 4 Mg/2 Ml Vial) 4 mg IV Q8H PRN PRN PRN Reason: NAUSEA/VOMITING Last Admin: 09/12/20 07:55 Dose: 4 mg Documented by: Oxycodone HCl (Oxycodone 5 Mg Tablet) 5 mg PO Q4H PRN PRN PRN Reason: Pain Score 4-10 Last Admin: 09/12/20 07:32 Dose: 5 mg Documented by: Polyethylene Glycol (Polyethylene Glycol 3350 17 Gm Packet) 17 gm PO DAILY [facility] Senna/Docusate Sodium (Senna/Docusate Sodium 1 Tablet) 2 tablet PO BID [facility] Last Admin: 09/12/20 03:17 Dose: 2 tablet Documented by: Sodium Chloride (0.9% Saline Lock 10 Ml Syringe) 10 - 40 ml IV UD PRN PRN Reason: SALINE FLUSH Last Admin: 09/12/20 07:55 Dose: 10 ml Documented by: Sodium Chloride (0.9% Saline Lock 10 Ml Syringe) 10 - 40 ml IV UD PRN PRN Reason: SALINE FLUSH Last Admin: 09/11/20 22:52 Dose: 10 ml Documented by: Medical Necessity - Tobacco Use Smoking Status: Never smoker Tobacco Use: Non-smoker Assessment/Plan All Active Problems (Last Updated 09/09/20 @ 16:43 by Sheree Allison) General weakness (Acute) Asystole (Acute) Cardiopulmonary arrest with successful resuscitation (Acute) Pneumothorax, left (Acute) Urinary tract infection (Resolved) Gastroenteritis (Resolved) 80-year-old female with a left pneumothorax status post left percutaneous chest tube with continued pneumothorax 1. Chest x-ray shows a tiny left pneumothorax. There is still small air leak as well- changed suction to -30 & -40 and got additional bubbles--placed back to -20 suction. Will check CXR in AM Smita Lamb M.D. Pager: [phone] [facility] [address] [place] [address], Outpatient [facility], [address] [place] [address] Office: [phone] Inpatient E&M: 77997 Subs Hosp L2
[2020-09-12] MEDS: Polyethylene Glycol 3350 17 GM PACKET PO (10:09)
[2020-09-12] MEDS: Aspirin 81 MG TAB.CHEW PO (10:10)
[2020-09-12] MEDS: Morphine 2 MG/ML Syringe 1 MG IV (10:19)
--- NOTE | 2020-09-12 11:38 | PCM.PROGNOTE ---
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 Denies shortness of breath. Yelling out intermittently due to pain related to chest tube. Appears restless. She denies other symptoms or complaints. - Physical Exam Vitals/I&O's: Vital Signs Temp Pulse Resp BP Pulse Ox 98.4 F 86 15 135/70 H 96 09/12/20 07:00 09/12/20 10:59 09/12/20 07:00 09/12/20 07:00 09/12/20 07:28 Oxygen Flow Rate (L/min) 2 Oxygen Delivery Method Room Air Weight: 144 lb 6.409 oz Body Mass Index (BMI) 23.3 Intake and Output for Last 24 Hours 09/10/20 09/11/20 09/13/20 23:59 23:59 00:59 Intake Total 935.25 / 1035.25 510 / 560 125 / 125 Output Total 600 / 900 685 / 785 200 / 200 Balance 335.25 / 135.25 -175 / -225 -75 / -75 General: Oriented x3, No apparent distress HEENT: Atraumatic, PERRLA, EOMI, Normocephalic Neck: Supple, No JVD, Negative Carotid Bruits Lungs: Clear to auscultation, Diminished Cardiovascular: Regular rate, No murmurs Abdomen: Bowel Sounds Present, Soft, Non Tender, Non-Distended Extremities: No clubbing, No cyanosis, No edema, Capillary Refill Less than 3 Seconds Skin: No rashes, No breakdown Musculoskeletal: No Tenderness to Palpation of Joints or Extremities Neurological: Cranial nerves II-XII grossly intact, Neuro grossly intact Psych/Mental Status: Anxious Laboratory Results 09/12/20 06:56: WBC 12.6 H, RBC 3.84 L, Hgb 11.8 L, Hct 36.2 L, MCV 94.3, MCH 30.7, MCHC 32.6, RDW Std Deviation 45.1 H, RDW Coeff of Krystian 13.1, Plt Count 167, MPV 9.0 09/12/20 06:56: Sodium 135 L, Potassium 4.9, Chloride 102, Carbon Dioxide 28.0, Anion Gap 5, BUN 35 H, Creatinine 1.31 H, Estim Creat Clear Calc 32.60, Est GFR (MDRD) Af Amer 50 L, Est GFR (MDRD) Non-Af 42 L, BUN/Creatinine Ratio 26.7 H, Glucose 132 H, Calcium 9.6, Magnesium 2.0 Current Medications Acetaminophen (Acetaminophen 500 Mg Tablet) 1,000 mg PO Q8H PRN PRN PRN Reason: Pain Score 1-10 Last Admin: 09/11/20 13:19 Dose: 1,000 mg Documented by: Albuterol Sulfate (Albuterol 2.5 Mg/3 Ml Vial.Neb.) 2.5 mg INHALATION Q2H PRN PRN PRN Reason: SOB/Wheezing Aspirin (Aspirin 81 Mg Tab.Chew) 81 mg PO DAILY@0800 [facility] Last Admin: 09/12/20 10:10 Dose: 81 mg Documented by: Enoxaparin Sodium (Enoxaparin 40 Mg/0.4 Ml Syringe) 40 mg SC DAILY [facility] Last Admin: 09/12/20 10:09 Dose: Not Given Documented by: Sodium Chloride () 1,000 mls @ 15 mls/hr IV .Q48H [facility] Last Admin: 09/11/20 16:19 Dose: Not Given Documented by: Levothyroxine Sodium (Levothyroxine 75 Mcg Tablet) 37.5 mcg PO Sa@0600 [facility] Last Admin: 09/11/20 04:08 Dose: 37.5 mcg Documented by: Levothyroxine Sodium (Levothyroxine 75 Mcg Tablet) 75 mcg PO MoTuWeThFr@0600 [facility] Last Admin: 09/10/20 06:27 Dose: Not Given Documented by: Ondansetron HCl (Ondansetron 4 Mg/2 Ml Vial) 4 mg IV Q8H PRN PRN PRN Reason: NAUSEA/VOMITING Last Admin: 09/12/20 07:55 Dose: 4 mg Documented by: Oxycodone HCl (Oxycodone 5 Mg Tablet) 5 - 10 mg PO Q4H PRN PRN PRN Reason: Pain Score 4-10 Polyethylene Glycol (Polyethylene Glycol 3350 17 Gm Packet) 17 gm PO DAILY [facility] Last Admin: 09/12/20 10:09 Dose: 17 gm Documented by: Senna/Docusate Sodium (Senna/Docusate Sodium 1 Tablet) 2 tablet PO BID [facility] Last Admin: 09/12/20 10:09 Dose: 2 tablet Documented by: Sodium Chloride (0.9% Saline Lock 10 Ml Syringe) 10 - 40 ml IV UD PRN PRN Reason: SALINE FLUSH Last Admin: 09/12/20 10:20 Dose: 10 ml Documented by: Sodium Chloride (0.9% Saline Lock 10 Ml Syringe) 10 - 40 ml IV UD PRN PRN Reason: SALINE FLUSH Last Admin: 09/11/20 22:52 Dose: 10 ml Documented by: Medical Necessity - Tobacco Use Smoking Status: Never smoker Tobacco Use: Non-smoker Assessment/Plan All Active Problems (Last Updated 09/09/20 @ 16:43 by Sheree Allison) General weakness (Acute) Asystole (Acute) Cardiopulmonary arrest with successful resuscitation (Acute) Pneumothorax, left (Acute) Urinary tract infection (Resolved) Gastroenteritis (Resolved) 1. Left tension pneumothorax-status post left chest tube placement. Surgery and pulmonary following. Larger chest tube placed 09/11/2020 due to recurrent left pneumothorax. Repeat chest x-ray in a.m. 2. Cardiopulmonary arrest/asystole during tilt table test with successful resuscitation-cardiology consulted. Patient underwent pacemaker placement 09/08/2020. 3. Status post pacemaker placement 4. Hypertension-metoprolol held, blood pressure stable. 5. Hypothyroidism-continue Synthroid regimen. DVT prophylaxis-Lovenox subcu Discharge planning: Requesting SNF at discharge pending pre-cert/medically stable. This patient was seen by KARLI Grayson under the supervision of Dr. Simon. <Davon Simon - Last Filed: 09/12/20 11:48> - Physical Exam Vitals/I&O's: Vital Signs Temp Pulse Resp BP Pulse Ox 98.4 F 86 15 135/70 H 96 09/12/20 07:00 09/12/20 10:59 09/12/20 07:00 09/12/20 07:00 09/12/20 07:28 Oxygen Flow Rate (L/min) 2 Oxygen Delivery Method Room Air Weight: 65.499 kg Body Mass Index (BMI) 23.3 Intake and Output for Last 24 Hours 09/10/20 09/11/20 09/13/20 23:59 23:59 00:59 Intake Total 935.25 / 1035.25 510 / 560 125 / 125 Output Total 600 / 900 685 / 785 200 / 200 Balance 335.25 / 135.25 -175 / -225 -75 / -75 Laboratory Results 09/12/20 06:56: WBC 12.6 H, RBC 3.84 L, Hgb 11.8 L, Hct 36.2 L, MCV 94.3, MCH 30.7, MCHC 32.6, RDW Std Deviation 45.1 H, RDW Coeff of Krystian 13.1, Plt Count 167, MPV 9.0 09/12/20 06:56: Sodium 135 L, Potassium 4.9, Chloride 102, Carbon Dioxide 28.0, Anion Gap 5, BUN 35 H, Creatinine 1.31 H, Estim Creat Clear Calc 32.60, Est GFR (MDRD) Af Amer 50 L, Est GFR (MDRD) Non-Af 42 L, BUN/Creatinine Ratio 26.7 H, Glucose 132 H, Calcium 9.6, Magnesium 2.0 Current Medications Acetaminophen (Acetaminophen 500 Mg Tablet) 1,000 mg PO Q8H PRN PRN PRN Reason: Pain Score 1-10 Last Admin: 09/11/20 13:19 Dose: 1,000 mg Documented by: Albuterol Sulfate (Albuterol 2.5 Mg/3 Ml Vial.Neb.) 2.5 mg INHALATION Q2H PRN PRN PRN Reason: SOB/Wheezing Aspirin (Aspirin 81 Mg Tab.Chew) 81 mg PO DAILY@0800 [facility] Last Admin: 09/12/20 10:10 Dose: 81 mg Documented by: Enoxaparin Sodium (Enoxaparin 40 Mg/0.4 Ml Syringe) 40 mg SC DAILY [facility] Last Admin: 09/12/20 10:09 Dose: Not Given Documented by: Sodium Chloride () 1,000 mls @ 15 mls/hr IV .Q48H [facility] Last Admin: 09/11/20 16:19 Dose: Not Given Documented by: Levothyroxine Sodium (Levothyroxine 75 Mcg Tablet) 37.5 mcg PO Sa@0600 [facility] Last Admin: 09/11/20 04:08 Dose: 37.5 mcg Documented by: Levothyroxine Sodium (Levothyroxine 75 Mcg Tablet) 75 mcg PO MoTuWeThFr@0600 [facility] Last Admin: 09/10/20 06:27 Dose: Not Given Documented by: Ondansetron HCl (Ondansetron 4 Mg/2 Ml Vial) 4 mg IV Q8H PRN PRN PRN Reason: NAUSEA/VOMITING Last Admin: 09/12/20 07:55 Dose: 4 mg Documented by: Oxycodone HCl (Oxycodone 5 Mg Tablet) 5 - 10 mg PO Q4H PRN PRN PRN Reason: Pain Score 4-10 Polyethylene Glycol (Polyethylene Glycol 3350 17 Gm Packet) 17 gm PO DAILY [facility] Last Admin: 09/12/20 10:09 Dose: 17 gm Documented by: Senna/Docusate Sodium (Senna/Docusate Sodium 1 Tablet) 2 tablet PO BID [facility] Last Admin: 09/12/20 10:09 Dose: 2 tablet Documented by: Sodium Chloride (0.9% Saline Lock 10 Ml Syringe) 10 - 40 ml IV UD PRN PRN Reason: SALINE FLUSH Last Admin: 09/12/20 10:20 Dose: 10 ml Documented by: Sodium Chloride (0.9% Saline Lock 10 Ml Syringe) 10 - 40 ml IV UD PRN PRN Reason: SALINE FLUSH Last Admin: 09/11/20 22:52 Dose: 10 ml Documented by: Assessment/Plan This patient was seen in conjunction with KARLI Grayson. I have independently interviewed and examined the patient and reviewed pertinent historical, laboratory, and other data. Please refer to KARLI Grayson's note for details of this patient's presentation, findings, and recommendations. I have reviewed KARLI Grayson note and concur with documented findings. In brief, a 80-year-old lady who went into cardiopulmonary arrest a cystoscopy requiring CPR and IV atropine whilst undergoing tilt table test. Patient was successfully resuscitated with ROSC and subsequently admitted to a monitored bed with consultation placed to Dr. Yip. Patient underwent pacemaker placement on 09/08/2020 The patient underwent a tilt table study this day. She had a positive tilt table study for vasovagal/neurocardiogenic mediated events with a marked cardioinhibitory response generating asystole of 70+ seconds requiring medical intervention with IV atropine and BLS CPR. 09/09/2020; patient did develop sudden onset of difficulty breathing with significant chest discomfort as well as low blood pressure. Checks x-ray which had been performed earlier on this morning did demonstrate presence of left-sided pneumothorax. With patient rapidly deteriorating condition and rapid response was called. Surgery was consulted patient underwent therapeutic chest tube placement with stabilization of her condition subsequently transferred to the intensive care unit 09/11/2020; patient underwent Insertion of 28 Swedish left-sided chest tube by Dr. Lamb on account of recurrent left sided pneumothorax 09/12/2020. Imaging studies obtained this a.m. demonstrated Interval replacement of the left-sided thoracostomy tube with a tiny apical pneumothorax. Still complains of significant left-sided chest discomfort Physical Examination: GENERAL: Distress HEENT: Atraumatic; EYES; Anicteric, Normal Conjunctiva NECK; supple, normal thyroid, RESPIRATORY: Diminished to auscultation, with chest tube on the left side CARDIOVASCULAR: Regular S1 S2, GI: soft, normoactive bowel sounds, : No Renal angle tenderness; EXTREMITIES: No edema, no clubbing, MUSCULOSKELETAL: no muscle waisting NEURO: Awake; no lateralizing signs. SKIN: No Rash Assessment: 1. Cardiopulmonary arrest (Asystole) with successful resuscitation with ACLS with ROSC 2. Status post pacemaker placement 3. Left-sided pneumothorax status post chest tube placement 4. Essential hypertension 5. Hypothyroidism 6. DVT prophylaxis Recommendations: 1. I have discussed the results of my overview and impressions with the patient 2. Options for management were reviewed Inpatient E&M: [id number] [facility] Hosp L2
[2020-09-12] MEDS: Acetaminophen 500 MG Tablet 1000 MG PO ×2 (11:47→22:08)
--- NOTE | 2020-09-12 15:58 | PCM.PN.CARD ---
Subjectve: Patient complains of abdominal distention and generalized pain. She continues to have small air leak through her thoracostomy tube and the plan is to repeat a chest x-ray tomorrow. Objective: Vital Signs Temp Pulse Resp BP Pulse Ox 98.4 F 88 16 119/71 94 09/12/20 11:30 09/12/20 11:30 09/12/20 11:30 09/12/20 11:30 09/12/20 11:30 Oxygen Flow Rate (L/min) 3 Oxygen Delivery Method Nasal Cannula Weight: 144 lb 6.409 oz Body Mass Index (BMI) 23.3 Intake and Output for Last 24 Hours 09/10/20 09/11/20 09/13/20 23:59 23:59 00:59 Intake Total 935.25 / 1035.25 510 / 560 525 / 525 Output Total 600 / 900 685 / 785 405 / 405 Balance 335.25 / 135.25 -175 / -225 120 / 120 General: Awake, Alert, Oriented x 3 HEENT: Atraumatic Oral: Moist Mucosa Abdomen: Distended 09/12/20 06:56: WBC 12.6 H, RBC 3.84 L, Hgb 11.8 L, Hct 36.2 L, MCV 94.3, MCH 30.7, MCHC 32.6, Plt Count 167, MPV 9.0 09/12/20 06:56: Sodium 135 L, Potassium 4.9, Chloride 102, Carbon Dioxide 28.0, Anion Gap 5, BUN 35 H, Creatinine 1.31 H, Est GFR (MDRD) Af Amer 50 L, Est GFR (MDRD) Non-Af 42 L, BUN/Creatinine Ratio 26.7 H, Glucose 132 H, Calcium 9.6, Magnesium 2.0 Rhythm: EKG: ECHO: Stress Test: Cardiac Cath: PCI: CT Surgery: Holter monitor: EPS: PPM: CXR: Chest CT Scan: Medical Necessity - Tobacco Use Smoking Status: Never smoker Tobacco Use: Non-smoker Assessment/Plan 1. Asystole: Status post pacemaker placement. 2. Pneumothorax: Patient apparently continues to have a small air leak. This will be reassessed tomorrow. 3. Abdominal distention: Patient is constipated and has not apparently had a bowel movement since Sunday. This is being treated by the hospitalist service.
[2020-09-13] VITALS (12 sets, daily range): BP systolic 83–123; BP diastolic 46–75; PULSE 81–100; RESP 16–20; TEMP 36.5–37.2; O2SAT 90–96
[2020-09-13] MEDS: Levothyroxine 75 MCG Tablet PO (05:50)
--- NOTE | 2020-09-13 05:55 | RAD_ITS ---
STUDY: X-RAY CHEST REASON FOR EXAM: Female, 80 years old. pneumothorax TECHNIQUE: Single AP portable view of the chest. COMPARISON: 09/12/2020 FINDINGS: Left-sided thoracostomy tube with no change in the small apical pneumothorax. Left subclavian dual-lead pacemaker which is unchanged. Poor inspiration with some bibasilar atelectasis. There is no demonstrated pleural abnormality. There is moderate cardiac enlargement. Normal mediastinum and irving. Normal visualized pulmonary arteries. There is atherosclerotic tortuosity of the aortic arch and descending thoracic aorta. Normal visualized thoracic spine. Normal visualized ribs, clavicles, and shoulders. There is no demonstrated abnormality of the visualized soft tissue structures of the upper abdomen. RAD/Chest 1 View (Portable) IMPRESSION: No change from 09/12/2020. Electronically Signed: Ajit Potts MD at 8:40 EDT Tel , Service support ,
[2020-09-13 06:23] LABS: Hematocrit 36.1 % (37-47); Hemoglobin 11.7 g/dL (12.0-15.0); Mean Corp Hgb Conc 32.4 g/dL (32-36); Mean Corpuscular Hgb 30.2 pg (27.0-32.0); Mean Platelet Vol. 9.1 fl (6.2-12.0); Platelet Count 192 K/mm3 (150-450); RBC Distribution Width CV 13.1 % (11.6-14.6); RBC Distribution Width SD 44.5 fl (35.1-43.9); Red Blood Count 3.88 M/mm3 (4.2-5.4); White Blood Count 9.5 K/mm3 (4.4-11.0)
[2020-09-13 06:46] LABS: Anion Gap 5 (5-15); BUN 28 mg/dL (7-18); BUN/Creat Ratio 23.7 RATIO (10-20); Calcium,Total 9.7 mg/dL (8.5-10.1); Chloride 99 mmol/L (98-107); Creatinine, Serum 1.18 mg/dL (0.55-1.02); EST Glomerular Filtration Rate 47 mL/min (>60); Est Glom Filt Rate - Afr Amer 57 mL/min (>60); Estimated Creatinine Clearance 36.19 ml/min; Glucose 119 mg/dL (74-106); Potassium 4.9 mmol/L (3.5-5.1); Sodium Level 132 mmol/L (136-145)
--- NOTE | 2020-09-13 07:09 | PCM.PN.PUL ---
Patient Problems: Active and Suspected Problems (Last Updated 09/09/20 @ 16:43 by Sheree Allison) General weakness (Acute) Asystole (Acute) Cardiopulmonary arrest with successful resuscitation (Acute) Asystole during tilt table test with brief CPR Pneumothorax, left (Acute) Subjective: Patient did okay overnight. Patient did use mag citrate, but did not have a bowel movement. Patient continues to report abdominal discomfort and is now having some nausea. No emesis has been reported. Patient states her pain is controlled, but she does feel somewhat short of breath. - Physical Exam Vitals/I&O's: Vital Signs Temp Pulse Resp BP Pulse Ox 36.8 C 81 16 123/75 H 95 09/13/20 03:00 09/13/20 03:00 09/13/20 03:00 09/13/20 03:00 09/13/20 03:00 Oxygen Flow Rate (L/min) 2 Oxygen Delivery Method Nasal Cannula Weight: 65.499 kg Body Mass Index (BMI) 23.3 Intake and Output for Last 24 Hours 09/11/20 09/12/20 09/13/20 22:59 23:59 23:59 Intake Total 0 / 0 Output Total 400 / 400 Balance -400 / -400 General: Alert, Oriented x3, Cooperative, - - Mild distress. No conversational dyspnea. HEENT: Atraumatic, PERRLA, EOMI, Normocephalic, - - No scleral icterus or injection noted Oral: Moist Mucosa, No Gingival or Mucosal Lesions/ Ulcerations Neck: Supple, No JVD, No Nodes, Trachea Midline Lungs: No rhonchi, No wheeze, No rales, Diminished - Left greater than right, - - Positive leak noted in chest tube Cardiovascular: Regular rate, Regular Rhythm, Normal S1, Normal S2, No murmurs, No rub noted, No Gallop, - - Pacemaker site is clean, dry and intact Abdomen: Bowel Sounds Present, Soft, Hypoactive Bowel Sounds, Tender - Only to deep palpation Extremities: No clubbing, No cyanosis, No edema Skin: No rashes, No breakdown, Incision Musculoskeletal: No Tenderness to Palpation of Joints or Extremities Lymphatic: No Cervical, Supraclavicular, or Inguinal Adenopathy Neurological: Cranial nerves II-XII grossly intact, Neuro grossly intact, Motor Exam 5/5 strength throughout Psych/Mental Status: Alert and oriented to time, place, person, mood and affect Laboratory Results 09/12/20 06:56: Sodium 135 L, Potassium 4.9, Chloride 102, Carbon Dioxide 28.0, Anion Gap 5, BUN 35 H, Creatinine 1.31 H, Estim Creat Clear Calc 32.60, Est GFR (MDRD) Af Amer 50 L, Est GFR (MDRD) Non-Af 42 L, BUN/Creatinine Ratio 26.7 H, Glucose 132 H, Calcium 9.6, Magnesium 2.0 09/13/20 06:18: WBC 9.5, RBC 3.88 L, Hgb 11.7 L, Hct 36.1 L, MCV 93.0, MCH 30.2, MCHC 32.4, RDW Std Deviation 44.5 H, RDW Coeff of Krystian 13.1, Plt Count 192, MPV 9.1 09/13/20 06:18: Sodium 132 L, Potassium 4.9, Chloride 99, Carbon Dioxide 28.0, Anion Gap 5, BUN 28 H, Creatinine 1.18 H, Estim Creat Clear Calc 36.19, Est GFR (MDRD) Af Amer 57 L, Est GFR (MDRD) Non-Af 47 L, BUN/Creatinine Ratio 23.7 H, Glucose 119 H, Calcium 9.7 Current Medications Acetaminophen (Acetaminophen 500 Mg Tablet) 1,000 mg PO Q8H PRN PRN PRN Reason: Pain Score 1-10 Last Admin: 09/12/20 22:08 Dose: 1,000 mg Documented by: Albuterol Sulfate (Albuterol 2.5 Mg/3 Ml Vial.Neb.) 2.5 mg INHALATION Q2H PRN PRN PRN Reason: SOB/Wheezing Aspirin (Aspirin 81 Mg Tab.Chew) 81 mg PO DAILY@0800 [facility] Last Admin: 09/12/20 10:10 Dose: 81 mg Documented by: Enoxaparin Sodium (Enoxaparin 40 Mg/0.4 Ml Syringe) 40 mg SC DAILY [facility] Last Admin: 09/12/20 10:09 Dose: Not Given Documented by: Sodium Chloride () 1,000 mls @ 15 mls/hr IV .Q48H [facility] Last Admin: 09/11/20 16:19 Dose: Not Given Documented by: Levothyroxine Sodium (Levothyroxine 75 Mcg Tablet) 37.5 mcg PO Sa@0600 [facility] Last Admin: 09/11/20 04:08 Dose: 37.5 mcg Documented by: Levothyroxine Sodium (Levothyroxine 75 Mcg Tablet) 75 mcg PO MoTuWeThFr@0600 [facility] Last Admin: 09/13/20 05:50 Dose: 75 mcg Documented by: Magnesium Citrate (Magnesium Citrate 300 Ml) 300 ml PO X1 ONE Stop: 09/13/20 07:00 Ondansetron HCl (Ondansetron 4 Mg/2 Ml Vial) 4 mg IV Q8H PRN PRN PRN Reason: NAUSEA/VOMITING Last Admin: 09/12/20 07:55 Dose: 4 mg Documented by: Oxycodone HCl (Oxycodone 5 Mg Tablet) 5 - 10 mg PO Q4H PRN PRN PRN Reason: Pain Score 4-10 Last Admin: 09/12/20 16:50 Dose: 10 mg Documented by: Polyethylene Glycol (Polyethylene Glycol 3350 17 Gm Packet) 17 gm PO DAILY [facility] Last Admin: 09/12/20 10:09 Dose: 17 gm Documented by: Senna/Docusate Sodium (Senna/Docusate Sodium 1 Tablet) 2 tablet PO BID [facility] Last Admin: 09/12/20 22:00 Dose: 2 tablet Documented by: Sodium Chloride (0.9% Saline Lock 10 Ml Syringe) 10 - 40 ml IV UD PRN PRN Reason: SALINE FLUSH Last Admin: 09/12/20 10:20 Dose: 10 ml Documented by: Sodium Chloride (0.9% Saline Lock 10 Ml Syringe) 10 - 40 ml IV UD PRN PRN Reason: SALINE FLUSH Last Admin: 09/11/20 22:52 Dose: 10 ml Documented by: Clinical Impression(s) from Imaging Studies Chest X-Ray 09/12/20 08:47 IMPRESSION: No change from 09/11/2020. Electronically Signed: Ajit Potts MD at 9:32 EDT Tel , Service support , Medical Necessity - Tobacco Use Smoking Status: Never smoker Tobacco Use: Non-smoker Assessment/Plan All Active Problems (Last Updated 09/09/20 @ 16:43 by Sheree Allison) General weakness (Acute) Asystole (Acute) Cardiopulmonary arrest with successful resuscitation (Acute) Pneumothorax, left (Acute) Urinary tract infection (Resolved) Gastroenteritis (Resolved) RECOMMENDATIONS: 1. Continue large bore chest tube on suction. 2. Continue mag citrate 3. Increase activity as tolerated 4. Continue supplemental oxygen via nasal cannula. 5. Repeat chest x-ray in the morning. 6. Continue current pain control regimen. 7. Possible need for transfer to tertiary center given persistent leak IMPRESSIONS: 1. Iatrogenic pneumothorax status post percutaneous chest tube placement The patient was noted to have a left-sided pneumothorax with subsequent hypotension which required percutaneous chest tube placement. This did lead to resolution of the patient's pneumothorax and improvement in her hemodynamics. However, the patient went on to develop a recurrent pneumothorax despite small bore chest tube placement, which necessitated tube thoracotomy with 28 [place] chest tube placement on the morning of September 11. Patient continues to have a mild air leak noted on my evaluation of the chest tube. Surgery is following. If leak persists, patient may require transfer to tertiary center. Patient does have a mild pneumothorax continuing on chest x-ray. 2. History of recurrent syncope/recent cardiopulmonary arrest Continue medical management per cardiology recommendations. 3. Advanced age/hypertension/hypothyroidism/constipation Complicates care, management, recovery and prognosis. Continue home medications as indicated. Patient has been resistant to MiraLAX therapy. We will add mag citrate to help with bowel movement. Patient is on opiates, complicating constipation. Inpatient E&M: [id number] [facility] Hosp L2
[2020-09-13] MEDS: Magnesium Citrate 300 ML PO (09:06)
[2020-09-13] MEDS: Polyethylene Glycol 3350 17 GM PACKET PO (09:06)
[2020-09-13] MEDS: Acetaminophen 500 MG Tablet 1000 MG PO ×2 (09:06→23:03)
[2020-09-13] MEDS: Senna/Docusate Sodium 1 Tablet 2 TABLET PO ×2 (09:07→23:05)
[2020-09-13] MEDS: Aspirin 81 MG TAB.CHEW PO (09:08)
--- NOTE | 2020-09-13 09:45 | NURSING ---
Dr Chaparro in room at this time. Physician switched chest tube to water seal at this time. This RN to monitor for bubbling, will do repeat CXR in 4 hours.
--- NOTE | 2020-09-13 09:54 | PN.SURG_ITS ---
Patient Problems: Active and Suspected Problems (Last Updated 09/09/20 @ 16:43 by Sheree Allison) General weakness (Acute) Asystole (Acute) Cardiopulmonary arrest with successful resuscitation (Acute) Asystole during tilt table test with brief CPR Pneumothorax, left (Acute) Subjective: Patient still complaining of chest pain as well as abdominal pain as well as pain at the chest tube site as well as feeling like she needs to go the bathroom - Physical Exam Vitals/I&O's: Vital Signs Temp Pulse Resp BP Pulse Ox 98.4 F 86 20 H 112/71 94 09/13/20 09:00 09/13/20 09:00 09/13/20 09:00 09/13/20 09:00 09/13/20 09:00 Oxygen Flow Rate (L/min) 2 Oxygen Delivery Method Nasal Cannula Weight: 144 lb 6.409 oz Body Mass Index (BMI) 23.3 Intake and Output for Last 24 Hours 09/11/20 09/12/20 09/13/20 22:59 23:59 23:59 Intake Total 0 / 0 Output Total 400 / 400 Balance -400 / -400 General: Alert, Oriented x3 Cardiovascular: Regular rate, Regular Rhythm Abdomen: Soft, Non Tender Laboratory Results 09/13/20 06:18: WBC 9.5, RBC 3.88 L, Hgb 11.7 L, Hct 36.1 L, MCV 93.0, MCH 30.2, MCHC 32.4, RDW Std Deviation 44.5 H, RDW Coeff of Krystian 13.1, Plt Count 192, MPV 9.1 09/13/20 06:18: Sodium 132 L, Potassium 4.9, Chloride 99, Carbon Dioxide 28.0, Anion Gap 5, BUN 28 H, Creatinine 1.18 H, Estim Creat Clear Calc 36.19, Est GFR (MDRD) Af Amer 57 L, Est GFR (MDRD) Non-Af 47 L, BUN/Creatinine Ratio 23.7 H, Glucose 119 H, Calcium 9.7 Current Medications Acetaminophen (Acetaminophen 500 Mg Tablet) 1,000 mg PO Q8H PRN PRN PRN Reason: Pain Score 1-10 Last Admin: 09/13/20 09:06 Dose: 1,000 mg Documented by: Albuterol Sulfate (Albuterol 2.5 Mg/3 Ml Vial.Neb.) 2.5 mg INHALATION Q2H PRN PRN PRN Reason: SOB/Wheezing Aspirin (Aspirin 81 Mg Tab.Chew) 81 mg PO DAILY@0800 [facility] Last Admin: 09/13/20 09:08 Dose: 81 mg Documented by: Enoxaparin Sodium (Enoxaparin 40 Mg/0.4 Ml Syringe) 40 mg SC DAILY [facility] Last Admin: 09/13/20 09:12 Dose: Not Given Documented by: Sodium Chloride () 1,000 mls @ 15 mls/hr IV .Q48H [facility] Last Admin: 09/11/20 16:19 Dose: Not Given Documented by: Levothyroxine Sodium (Levothyroxine 75 Mcg Tablet) 37.5 mcg PO Sa@0600 [facility] Last Admin: 09/11/20 04:08 Dose: 37.5 mcg Documented by: Levothyroxine Sodium (Levothyroxine 75 Mcg Tablet) 75 mcg PO MoTuWeThFr@0600 [facility] Last Admin: 09/13/20 05:50 Dose: 75 mcg Documented by: Ondansetron HCl (Ondansetron 4 Mg/2 Ml Vial) 4 mg IV Q8H PRN PRN PRN Reason: NAUSEA/VOMITING Last Admin: 09/12/20 07:55 Dose: 4 mg Documented by: Oxycodone HCl (Oxycodone 5 Mg Tablet) 5 - 10 mg PO Q4H PRN PRN PRN Reason: Pain Score 4-10 Last Admin: 09/12/20 16:50 Dose: 10 mg Documented by: Polyethylene Glycol (Polyethylene Glycol 3350 17 Gm Packet) 17 gm PO DAILY [facility] Last Admin: 09/13/20 09:06 Dose: 17 gm Documented by: Senna/Docusate Sodium (Senna/Docusate Sodium 1 Tablet) 2 tablet PO BID [facility] Last Admin: 09/13/20 09:07 Dose: 2 tablet Documented by: Sodium Chloride (0.9% Saline Lock 10 Ml Syringe) 10 - 40 ml IV UD PRN PRN Reason: SALINE FLUSH Last Admin: 09/12/20 10:20 Dose: 10 ml Documented by: Sodium Chloride (0.9% Saline Lock 10 Ml Syringe) 10 - 40 ml IV UD PRN PRN Reason: SALINE FLUSH Last Admin: 09/11/20 22:52 Dose: 10 ml Documented by: Medical Necessity - Tobacco Use Smoking Status: Never smoker Tobacco Use: Non-smoker Assessment/Plan All Active Problems (Last Updated 09/09/20 @ 16:43 by Sheree Allison) General weakness (Acute) Asystole (Acute) Cardiopulmonary arrest with successful resuscitation (Acute) Pneumothorax, left (Acute) Urinary tract infection (Resolved) Gastroenteritis (Resolved) 80-year-old female with left pneumothorax 1. The patient reports that she is still having pain everywhere. She cannot localize the pain to one specific location. Her chest x-ray is stable from yesterday with a small apical pneumothorax. Dr. Lui said he was able to identify nearly but I was unable to note any air leak. I try to have a cough to completely breath but she said she was unable to do either. I sat by her bedside for 5 minutes watching the tube and did not see any air leak. I placed her chest tube to waterseal and I will repeat an x-ray in about 3 to 4 hours. If the x-ray shows increasing pneumothorax I will place it back to suction and continue suction for 24 more hours. If the repeat x-ray looks stable on waterseal and there is still no airleak I would consider removing the chest tube later today. Greg Chaparro MD Pager: [facility] [address] [place] [address], [address] [place] [address] Office:
--- NOTE | 2020-09-13 12:08 | PN_ITS ---
<Brittney Vicente [employer] - Last Filed: 09/13/20 12:12> Patient Problems: Active and Suspected Problems (Last Updated 09/09/20 @ 16:43 by Sheree Allison) General weakness (Acute) Asystole (Acute) Cardiopulmonary arrest with successful resuscitation (Acute) Asystole during tilt table test with brief CPR Pneumothorax, left (Acute) Subjective: Patient seen and examined. Reports feeling full and reports abdominal discomfort. Also reports pain everywhere. Intermittently yelling out in pain. Denies shortness of breath however states she feels like she cannot take a full breath. Patient states she wants to however discussed options with patient and she is not sure she wants hospice at this time. - Physical Exam Vitals/I&O's: Vital Signs Temp Pulse Resp BP Pulse Ox 98.4 F 86 20 H 112/71 94 09/13/20 09:00 09/13/20 09:00 09/13/20 09:00 09/13/20 09:00 09/13/20 09:00 Oxygen Flow Rate (L/min) 2 Oxygen Delivery Method Nasal Cannula Weight: 144 lb 6.409 oz Body Mass Index (BMI) 23.3 Intake and Output for Last 24 Hours 09/11/20 09/12/20 09/13/20 22:59 23:59 23:59 Intake Total 0 / 0 Output Total 400 / 400 Balance -400 / -400 General: Alert, Oriented x3, Cooperative HEENT: Atraumatic, PERRLA, EOMI, Normocephalic Neck: Supple, No JVD, Negative Carotid Bruits Lungs: Clear to auscultation, Diminished Cardiovascular: Regular rate, No murmurs Abdomen: Bowel Sounds Present, Soft, Distended Extremities: No clubbing, No cyanosis, No edema, Capillary Refill Less than 3 Seconds Skin: No rashes, No breakdown Musculoskeletal: No Tenderness to Palpation of Joints or Extremities Neurological: Cranial nerves II-XII grossly intact, Neuro grossly intact Psych/Mental Status: Anxious Laboratory Results 09/13/20 06:18: WBC 9.5, RBC 3.88 L, Hgb 11.7 L, Hct 36.1 L, MCV 93.0, MCH 30.2, MCHC 32.4, RDW Std Deviation 44.5 H, RDW Coeff of Krystian 13.1, Plt Count 192, MPV 9.1 09/13/20 06:18: Sodium 132 L, Potassium 4.9, Chloride 99, Carbon Dioxide 28.0, Anion Gap 5, BUN 28 H, Creatinine 1.18 H, Estim Creat Clear Calc 36.19, Est GFR (MDRD) Af Amer 57 L, Est GFR (MDRD) Non-Af 47 L, BUN/Creatinine Ratio 23.7 H, Glucose 119 H, Calcium 9.7 Current Medications Acetaminophen (Acetaminophen 500 Mg Tablet) 1,000 mg PO Q8H PRN PRN PRN Reason: Pain Score 1-10 Last Admin: 09/13/20 09:06 Dose: 1,000 mg Documented by: Albuterol Sulfate (Albuterol 2.5 Mg/3 Ml Vial.Neb.) 2.5 mg INHALATION Q2H PRN PRN PRN Reason: SOB/Wheezing Aspirin (Aspirin 81 Mg Tab.Chew) 81 mg PO DAILY@0800 [facility] Last Admin: 09/13/20 09:08 Dose: 81 mg Documented by: Enoxaparin Sodium (Enoxaparin 40 Mg/0.4 Ml Syringe) 40 mg SC DAILY [facility] Last Admin: 09/13/20 09:12 Dose: Not Given Documented by: Sodium Chloride () 1,000 mls @ 15 mls/hr IV .Q48H [facility] Last Admin: 09/11/20 16:19 Dose: Not Given Documented by: Levothyroxine Sodium (Levothyroxine 75 Mcg Tablet) 37.5 mcg PO Sa@0600 [facility] Last Admin: 09/11/20 04:08 Dose: 37.5 mcg Documented by: Levothyroxine Sodium (Levothyroxine 75 Mcg Tablet) 75 mcg PO MoTuWeThFr@0600 [facility] Last Admin: 09/13/20 05:50 Dose: 75 mcg Documented by: Ondansetron HCl (Ondansetron 4 Mg/2 Ml Vial) 4 mg IV Q8H PRN PRN PRN Reason: NAUSEA/VOMITING Last Admin: 09/12/20 07:55 Dose: 4 mg Documented by: Oxycodone HCl (Oxycodone 5 Mg Tablet) 5 - 10 mg PO Q4H PRN PRN PRN Reason: Pain Score 4-10 Last Admin: 09/12/20 16:50 Dose: 10 mg Documented by: Polyethylene Glycol (Polyethylene Glycol 3350 17 Gm Packet) 17 gm PO DAILY [facility] Last Admin: 09/13/20 09:06 Dose: 17 gm Documented by: Senna/Docusate Sodium (Senna/Docusate Sodium 1 Tablet) 2 tablet PO BID [facility] Last Admin: 09/13/20 09:07 Dose: 2 tablet Documented by: Sodium Chloride (0.9% Saline Lock 10 Ml Syringe) 10 - 40 ml IV UD PRN PRN Reason: SALINE FLUSH Last Admin: 09/12/20 10:20 Dose: 10 ml Documented by: Sodium Chloride (0.9% Saline Lock 10 Ml Syringe) 10 - 40 ml IV UD PRN PRN Reason: SALINE FLUSH Last Admin: 09/11/20 22:52 Dose: 10 ml Documented by: Medical Necessity - Tobacco Use Smoking Status: Never smoker Tobacco Use: Non-smoker Assessment/Plan All Active Problems (Last Updated 09/09/20 @ 16:43 by Sheree Allison) General weakness (Acute) Asystole (Acute) Cardiopulmonary arrest with successful resuscitation (Acute) Pneumothorax, left (Acute) Urinary tract infection (Resolved) Gastroenteritis (Resolved) 1. Left tension pneumothorax-status post left chest tube placement. Surgery and pulmonary following. Larger chest tube placed 09/11/2020 due to recurrent left pneumothorax. Placed to waterseal this a.m. Repeat chest x-ray this afternoon. Chest x-ray stable following waterseal trial, possible chest tube removal later today. 2. Cardiopulmonary arrest/asystole during tilt table test with successful resuscitation-cardiology consulted. Patient underwent pacemaker placement 09/08/2020. 3. Status post pacemaker placement 4. Hypertension-metoprolol held, blood pressure stable. 5. Hypothyroidism-continue Synthroid regimen. 6. Abdominal distention/pain-KUB pending. Patient received mag citrate this morning. DVT prophylaxis-Lovenox subcu Discharge planning: Requesting SNF at discharge pending pre-cert/medically stable. This patient was seen by KARLI Grayson under the supervision of Dr. Azul. <Wallace Azul - Last Filed: 09/13/20 16:55> - Physical Exam Vitals/I&O's: Vital Signs Temp Pulse Resp BP Pulse Ox 36.7 C 91 20 H 123/69 H 95 09/13/20 16:50 09/13/20 16:50 09/13/20 16:50 09/13/20 16:50 09/13/20 16:50 Oxygen Flow Rate (L/min) 1.5 Oxygen Delivery Method Nasal Cannula Weight: 65.499 kg Body Mass Index (BMI) 23.3 Intake and Output for Last 24 Hours 09/11/20 09/12/20 09/13/20 22:59 23:59 23:59 Intake Total 360 / 360 Output Total 400 / 400 Balance -40 / -40 General: Alert, Cooperative HEENT: Atraumatic, Normocephalic Neck: Supple, Negative Carotid Bruits Lungs: Clear to auscultation, Diminished Cardiovascular: Regular rate, No murmurs Abdomen: Bowel Sounds Present, Soft Extremities: No clubbing, No cyanosis, No edema, Capillary Refill Less than 3 Seconds Skin: No rashes, No breakdown Laboratory Results 09/13/20 06:18: WBC 9.5, RBC 3.88 L, Hgb 11.7 L, Hct 36.1 L, MCV 93.0, MCH 30.2, MCHC 32.4, RDW Std Deviation 44.5 H, RDW Coeff of Krystian 13.1, Plt Count 192, MPV 9.1 09/13/20 06:18: Sodium 132 L, Potassium 4.9, Chloride 99, Carbon Dioxide 28.0, Anion Gap 5, BUN 28 H, Creatinine 1.18 H, Estim Creat Clear Calc 36.19, Est GFR (MDRD) Af Amer 57 L, Est GFR (MDRD) Non-Af 47 L, BUN/Creatinine Ratio 23.7 H, Glucose 119 H, Calcium 9.7 Current Medications Acetaminophen (Acetaminophen 500 Mg Tablet) 1,000 mg PO Q8H PRN PRN PRN Reason: Pain Score 1-10 Last Admin: 09/13/20 09:06 Dose: 1,000 mg Documented by: Albuterol Sulfate (Albuterol 2.5 Mg/3 Ml Vial.Neb.) 2.5 mg INHALATION Q2H PRN PRN PRN Reason: SOB/Wheezing Aspirin (Aspirin 81 Mg Tab.Chew) 81 mg PO DAILY@0800 [facility] Last Admin: 09/13/20 09:08 Dose: 81 mg Documented by: Enoxaparin Sodium (Enoxaparin 40 Mg/0.4 Ml Syringe) 40 mg SC DAILY [facility] Last Admin: 09/13/20 09:12 Dose: Not Given Documented by: Levothyroxine Sodium (Levothyroxine 75 Mcg Tablet) 37.5 mcg PO Sa@0600 [facility] Last Admin: 09/11/20 04:08 Dose: 37.5 mcg Documented by: Levothyroxine Sodium (Levothyroxine 75 Mcg Tablet) 75 mcg PO MoTuWeThFr@0600 [facility] Last Admin: 09/13/20 05:50 Dose: 75 mcg Documented by: Ondansetron HCl (Ondansetron 4 Mg/2 Ml Vial) 4 mg IV Q8H PRN PRN PRN Reason: NAUSEA/VOMITING Last Admin: 09/12/20 07:55 Dose: 4 mg Documented by: Oxycodone HCl (Oxycodone 5 Mg Tablet) 5 - 10 mg PO Q4H PRN PRN PRN Reason: Pain Score 4-10 Last Admin: 09/12/20 16:50 Dose: 10 mg Documented by: Polyethylene Glycol (Polyethylene Glycol 3350 17 Gm Packet) 17 gm PO DAILY [facility] Last Admin: 09/13/20 09:06 Dose: 17 gm Documented by: Senna/Docusate Sodium (Senna/Docusate Sodium 1 Tablet) 2 tablet PO BID [facility] Last Admin: 09/13/20 09:07 Dose: 2 tablet Documented by: Sodium Chloride (0.9% Saline Lock 10 Ml Syringe) 10 - 40 ml IV UD PRN PRN Reason: SALINE FLUSH Last Admin: 09/12/20 10:20 Dose: 10 ml Documented by: Sodium Chloride (0.9% Saline Lock 10 Ml Syringe) 10 - 40 ml IV UD PRN PRN Reason: SALINE FLUSH Last Admin: 09/11/20 22:52 Dose: 10 ml Documented by: Assessment/Plan Patient seen and examined independently. Data reviewed. I agree with the above note by the nurse practitioner. 1. Left tension PTX s/p Chest tube placed to waterseal 2. CPA/asystole s/p pacer on 09/08 Inpatient E&M: [id number] [facility] L[facility]
--- NOTE | 2020-09-13 13:20 | RAD_ITS ---
STUDY: X-RAY CHEST REASON FOR EXAM: Female, 80 years old. water seal TECHNIQUE: Single AP portable view of the chest. COMPARISON: 09/13/2020 at 0507 FINDINGS: Left-sided thoracostomy tube with no pneumothorax. Left subclavian dual-lead pacemaker which is unchanged. Poor inspiration with some bibasilar atelectasis. There is no demonstrated pleural abnormality. There is moderate cardiac enlargement. Normal mediastinum and irving. Normal visualized pulmonary arteries. There is atherosclerotic tortuosity of the aortic arch and descending thoracic aorta. Normal visualized thoracic spine. Normal visualized ribs, clavicles, and shoulders. There is no demonstrated abnormality of the visualized soft tissue structures of the upper abdomen. RAD/Chest 1 View (Portable) IMPRESSION: Left-sided thoracostomy tube with no pneumothorax. Electronically Signed: Ajit oPtts MD at 13:34 EDT Tel , Service support ,
--- NOTE | 2020-09-13 13:20 | RAD_ITS ---
STUDY: X-RAY - ABDOMEN/PELVIS REASON FOR EXAM: Female, 80 years old. abdominal pain TECHNIQUE: Single AP view of the abdomen / pelvis. COMPARISON: None. FINDINGS: Normal visualized lung bases. Gas in multiple loops of small bowel in a nonspecific bowel gas pattern. The visualized liver, spleen and kidneys are grossly normal in size and morphology. Normal soft tissue structures. Normal visualized osseous structures. RAD/Abdomen Single View (Portable) IMPRESSION: Nonspecific bowel gas pattern. Electronically Signed: Ajit Potts MD at 13:34 EDT Tel , Service support ,
--- NOTE | 2020-09-13 15:57 | NURSING ---
Dr Chaparro at bedside and removed chest tube at this time. Occlusive dsg applied by Dr Chaparro.
--- NOTE | 2020-09-13 16:22 | CASEMGMT ---
SW spoke w/RN, pt would like to speak w/hospice. RN spoke w/[employer] HEAD Brittney Vicente who is in agreement with the referral. SW called hospice, made referral, they will be here tomorrow to meet w/pt at 9:30am. SW let pt know, pt agreeable to meet w/hospice in the morning. FAMILIA Julien
--- NOTE | 2020-09-13 16:54 | PN_ITS ---
Progress Note The patient had chest tube [facility] to [facility] this morning. She had a chest x-ray 4 hours later which showed no pneumothorax. I remove the chest tube at 4 PM without incident. I will order a repeat chest x-ray for 8 PM to ensure no reaccumulation of pneumothorax after removal of tube. Greg Chaparro MD Pager: [facility] [address] [place] [address], [address] [place] [address] Office: STROKE Vital Signs/Narrative: Vital Signs Temp Pulse Resp BP Pulse Ox 09/13/20 16:50 98.0 F 91 20 H 123/69 H 95 09/13/20 15:00 97.7 F L 88 20 H 123/69 H 94
--- NOTE | 2020-09-13 16:54 | PCM.PN.BLA ---
Progress Note The [facility] She had a chest x-ray 4 hours later which showed no pneumothorax. I remove the chest tube at 4 PM without incident. I will order a repeat chest x-ray for 8 PM to ensure no reaccumulation of pneumothorax after removal of tube. Greg Chaparro MD Pager: [facility] [address] [place] [address], [address] [place] [address] Office: STROKE Vital Signs/Narrative: Vital Signs Temp Pulse Resp BP Pulse Ox 09/13/20 16:50 98.0 F 91 20 H 123/69 H 95 09/13/20 15:00 97.7 F L 88 20 H 123/69 H 94
--- NOTE | 2020-09-13 17:52 | RAD_ITS ---
STUDY: X-RAY CHEST REASON FOR EXAM: Female, 80 years old. chest tube removal TECHNIQUE: Single AP portable view of the chest. COMPARISON: 09/13/2020 at 1312 FINDINGS: Interval removal left-sided thoracostomy tube with no pneumothorax. Left subclavian dual-lead pacemaker which is unchanged. Poor inspiration with some bibasilar atelectasis. There is no demonstrated pleural abnormality. There is moderate cardiac enlargement. Normal mediastinum and irving. Normal visualized pulmonary arteries. There is atherosclerotic tortuosity of the aortic arch and descending thoracic aorta. Normal visualized thoracic spine. Normal visualized ribs, clavicles, and shoulders. There is no demonstrated abnormality of the visualized soft tissue structures of the upper abdomen. RAD/Chest 1 View (Portable) IMPRESSION: Interval removal left-sided thoracostomy tube with no pneumothorax. Electronically Signed: Ajit Potts MD at 18:23 EDT Tel , Service support ,
--- NOTE | 2020-09-13 18:13 | EKG12_ITS ---
Test Reason : CONVERTED TO A-FIB Blood Pressure : / mmHG Vent. Rate : 105 BPM Atrial Rate : 105 BPM P-R Int : 174 ms QRS Dur : 080 ms QT Int : 324 ms P-R-T Axes : 041 019 050 degrees QTc Int : 428 ms Sinus tachycardia with Premature atrial complexes Otherwise normal ECG No previous ECGs available Confirmed by LAYNE QUICK, TYSHAWN ([id number]), greeting card editor ADRIANO SURESH ([id number]) on 09/15/2020 10:26:41 AM Referred By: TYSHAWN TILLMAN Confirmed By:TYSHAWN TILLMAN MD
--- NOTE | 2020-09-13 18:24 | EKG12_ITS ---
Test Reason : CHEST PAIN Blood Pressure : / mmHG Vent. Rate : 090 BPM Atrial Rate : 090 BPM P-R Int : 182 ms QRS Dur : 082 ms QT Int : 354 ms P-R-T Axes : 048 012 010 degrees QTc Int : 433 ms Sinus rhythm with Premature atrial complexes Otherwise normal ECG When compared with ECG of 09-SEP-2020 09:41, MANUAL COMPARISON REQUIRED, DATA IS UNCONFIRMED Confirmed by LAYNE QUICK, TYSHAWN ([id number]), marketing editor ADRIANO SURESH ([id number]) on 09/16/2020 1:07:46 PM Referred By: ANNA Confirmed By:TYSHAWN TILLMAN MD
[2020-09-13] MEDS: 0.9% Normal Saline 1,000 ML 75 ML IV (18:29)
[2020-09-13] MEDS: Mag Hydrox/Al Hydrox/Simeth 30 ML UDC PO (18:53)
[2020-09-14] VITALS (9 sets, daily range): BP systolic 106–133; BP diastolic 62–76; PULSE 74–88; RESP 16–20; TEMP 36.4–36.9; O2SAT 94–96
[2020-09-14] MEDS: Levothyroxine 75 MCG Tablet PO (05:00)
[2020-09-14] MEDS: 0.9% Normal Saline 1,000 ML 75 ML IV ×2 (05:01→16:41)
[2020-09-14 06:58] LABS: Hematocrit 32.8 % (37-47); Hemoglobin 10.8 g/dL (12.0-15.0); Mean Corp Hgb Conc 32.9 g/dL (32-36); Mean Corpuscular Hgb 30.7 pg (27.0-32.0); Mean Corpuscular Volume 93.2 fL (81-99); Platelet Count 194 K/mm3 (150-450); RBC Distribution Width CV 13.2 % (11.6-14.6); RBC Distribution Width SD 44.8 fl (35.1-43.9); Red Blood Count 3.52 M/mm3 (4.2-5.4); White Blood Count 7.7 K/mm3 (4.4-11.0)
[2020-09-14 07:29] LABS: Anion Gap 5 (5-15); BUN 28 mg/dL (7-18); BUN/Creat Ratio 24.1 RATIO (10-20); Chloride 104 mmol/L (98-107); Creatinine, Serum 1.16 mg/dL (0.55-1.02); EST Glomerular Filtration Rate 48 mL/min (>60); Est Glom Filt Rate - Afr Amer 58 mL/min (>60); Estimated Creatinine Clearance 36.81 ml/min; Glucose 91 mg/dL (74-106); Potassium 4.4 mmol/L (3.5-5.1); Sodium Level 136 mmol/L (136-145)
--- NOTE | 2020-09-14 07:53 | PCM.PN.SRG ---
Patient Problems: Active and Suspected Problems (Last Updated 09/09/20 @ 16:43 by Sheree Allison) General weakness (Acute) Asystole (Acute) Cardiopulmonary arrest with successful resuscitation (Acute) Asystole during tilt table test with brief CPR Pneumothorax, left (Acute) Subjective: Patient continues to complaining of chest pain and shortness of breath - Physical Exam Vitals/I&O's: Vital Signs Temp Pulse Resp BP Pulse Ox 97.9 F 75 16 131/62 H 96 09/14/20 05:00 09/14/20 05:00 09/14/20 05:00 09/14/20 05:00 09/14/20 07:10 Oxygen Flow Rate (L/min) 2 Oxygen Delivery Method Nasal Cannula Weight: 144 lb 6.409 oz Body Mass Index (BMI) 23.3 Intake and Output for Last 24 Hours 09/12/20 09/13/20 09/14/20 23:59 23:59 23:59 Intake Total 1040 / 1040 910 / 910 Output Total 400 / 400 Balance 640 / 640 910 / 910 General: Alert, Oriented x3 Lungs: Short of Breath Cardiovascular: Regular rate, Regular Rhythm Abdomen: Soft, Non Tender, Non-Distended Laboratory Results 09/13/20 18:31: Troponin I < 0.015 09/14/20 06:30: WBC 7.7, RBC 3.52 L, Hgb 10.8 L, Hct 32.8 L, MCV 93.2, MCH 30.7, MCHC 32.9, RDW Std Deviation 44.8 H, RDW Coeff of Krystian 13.2, Plt Count 194, MPV 9.0 09/14/20 06:30: Sodium 136, Potassium 4.4, Chloride 104, Carbon Dioxide 27.0, Anion Gap 5, BUN 28 H, Creatinine 1.16 H, Estim Creat Clear Calc 36.81, Est GFR (MDRD) Af Amer 58 L, Est GFR (MDRD) Non-Af 48 L, BUN/Creatinine Ratio 24.1 H, Glucose 91, Calcium 9.0 Current Medications Acetaminophen (Acetaminophen 500 Mg Tablet) 1,000 mg PO Q8H PRN PRN PRN Reason: Pain Score 1-10 Last Admin: 09/13/20 23:03 Dose: 1,000 mg Documented by: Albuterol Sulfate (Albuterol 2.5 Mg/3 Ml Vial.Neb.) 2.5 mg INHALATION Q2H PRN PRN PRN Reason: SOB/Wheezing Aspirin (Aspirin 81 Mg Tab.Chew) 81 mg PO DAILY@0800 [facility] Last Admin: 09/13/20 09:08 Dose: 81 mg Documented by: Enoxaparin Sodium (Enoxaparin 40 Mg/0.4 Ml Syringe) 40 mg SC DAILY [facility] Last Admin: 09/13/20 09:12 Dose: Not Given Documented by: Sodium Chloride () 1,000 mls @ 75 mls/hr IV .[id number] [facility] Last Admin: 09/14/20 05:01 Dose: 75 mls/hr Documented by: Levothyroxine Sodium (Levothyroxine 75 Mcg Tablet) 37.5 mcg PO Sa@0600 [facility] Last Admin: 09/11/20 04:08 Dose: 37.5 mcg Documented by: Levothyroxine Sodium (Levothyroxine 75 Mcg Tablet) 75 mcg PO MoTuWeThFr@0600 [facility] Last Admin: 09/14/20 05:00 Dose: 75 mcg Documented by: Ondansetron HCl (Ondansetron 4 Mg/2 Ml Vial) 4 mg IV Q8H PRN PRN PRN Reason: NAUSEA/VOMITING Last Admin: 09/12/20 07:55 Dose: 4 mg Documented by: Oxycodone HCl (Oxycodone 5 Mg Tablet) 5 - 10 mg PO Q4H PRN PRN PRN Reason: Pain Score 4-10 Last Admin: 09/12/20 16:50 Dose: 10 mg Documented by: Polyethylene Glycol (Polyethylene Glycol 3350 17 Gm Packet) 17 gm PO DAILY [facility] Last Admin: 09/13/20 09:06 Dose: 17 gm Documented by: Senna/Docusate Sodium (Senna/Docusate Sodium 1 Tablet) 2 tablet PO BID [facility] Last Admin: 09/13/20 23:05 Dose: 2 tablet Documented by: Sodium Chloride (0.9% Saline Lock 10 Ml Syringe) 10 - 40 ml IV UD PRN PRN Reason: SALINE FLUSH Last Admin: 09/12/20 10:20 Dose: 10 ml Documented by: Sodium Chloride (0.9% Saline Lock 10 Ml Syringe) 10 - 40 ml IV UD PRN PRN Reason: SALINE FLUSH Last Admin: 09/11/20 22:52 Dose: 10 ml Documented by: Medical Necessity - Tobacco Use Smoking Status: Never smoker Tobacco Use: Non-smoker Assessment/Plan All Active Problems (Last Updated 09/09/20 @ 16:43 by Sheree Allison) General weakness (Acute) Asystole (Acute) Cardiopulmonary arrest with successful resuscitation (Acute) Pneumothorax, left (Acute) Urinary tract infection (Resolved) Gastroenteritis (Resolved) 80-year-old female with pneumothorax 1. Patient was put to [facility] yesterday morning and after 4 hours a chest x-ray was obtained which showed no pneumothorax. Patient's chest tube was removed and 2 hours later she was having continued shortness of breath and hypotension. Repeat chest x-ray showed that there was no pneumothorax. Patient still complaining of chest pain or shortness of breath but I do not believe the patient has recurrent pneumothorax as she has had 2 x-rays not on suction showing no pneumothorax. Continue supportive care. The patient may have rib fractures from resuscitation and the pain may be causing her to not take deep breaths. She is at high risk of developing pneumonia. Greg Chaparro MD Pager: [facility] [address] [place] [address], [address] [place] [address] Office:
[2020-09-14] MEDS: Polyethylene Glycol 3350 17 GM PACKET PO (08:18)
[2020-09-14] MEDS: Acetaminophen 500 MG Tablet 1000 MG PO ×2 (08:18→16:41)
[2020-09-14] MEDS: Aspirin 81 MG TAB.CHEW PO (08:18)
[2020-09-14] MEDS: Senna/Docusate Sodium 1 Tablet 2 TABLET PO ×2 (08:21→21:07)
--- NOTE | 2020-09-14 08:49 | PN.CARD_ITS ---
Subjectve: Patient seen and evaluated. Appears to be doing better. Chest tube out. Still has multiple complaints of chest pain and shortness of breath. Objective: Vital Signs Temp Pulse Resp BP Pulse Ox 97.9 F 83 16 131/62 H 96 09/14/20 05:00 09/14/20 07:00 09/14/20 05:00 09/14/20 05:00 09/14/20 07:10 Oxygen Flow Rate (L/min) 2 Oxygen Delivery Method Nasal Cannula Weight: 144 lb 6.409 oz Body Mass Index (BMI) 23.3 Intake and Output for Last 24 Hours 09/12/20 09/13/20 09/14/20 23:59 23:59 23:59 Intake Total 1040 / 1040 910 / 910 Output Total 400 / 400 Balance 640 / 640 910 / 910 General: Awake, Alert, Oriented x 3 HEENT: PERRL, EOMI, Sclera Non Icteric Neck: Supple, Good ROM, No Lymph Node Enlargement Lungs: Clear to auscultation Cardiovascular: Regular Rhythm, Normal S1, Normal S2, No Murmurs, No Rubs, No Gallops 09/13/20 18:31: Troponin I < 0.015 09/14/20 06:30: WBC 7.7, RBC 3.52 L, Hgb 10.8 L, Hct 32.8 L, MCV 93.2, MCH 30.7, MCHC 32.9, Plt Count 194, MPV 9.0 09/14/20 06:30: Sodium 136, Potassium 4.4, Chloride 104, Carbon Dioxide 27.0, Anion Gap 5, BUN 28 H, Creatinine 1.16 H, Est GFR (MDRD) Af Amer 58 L, Est GFR (MDRD) Non-Af 48 L, BUN/Creatinine Ratio 24.1 H, Glucose 91, Calcium 9.0 Rhythm: EKG: ECHO: Stress Test: Cardiac Cath: PCI: CT Surgery: Holter monitor: EPS: PPM: CXR: Chest CT Scan: Medical Necessity - Tobacco Use Smoking Status: Never smoker Tobacco Use: Non-smoker Assessment/Plan 1. Asystole status post permanent pacemaker implantation. The patient underwent a tilt table study. She had a positive tilt table study for vasovagal/neurocardiogenic mediated events with a marked cardioinhibitory response generating asystole of 70+ seconds requiring medical intervention with IV atropine and BLS CPR. She underwent placement of a permanent pacemaker. Unfortunately this was complicated by a pneumothorax. The pacemaker itself is functioning properly. She had a left-sided chest tube placed which she removed. Pacemaker is functioning well. . Pneumothorax The patient appears to have experienced a post procedure related left-sided pneumothorax. This required a left-sided chest tube placement. The chest tube has been removed. X-rays demonstrate no residual pneumothorax. Patient still continues to complain of chest discomfort some of which may be due to the pro cedure as well as CPR. We will continue supportive management. * Would recommend incentive spirometry as patient may be at risk of dependence atelectasis and infection. * Continue supportive care. * * Appreciate input and work of surgeon, holder pile driving, and hospitalist. Thank you for allowing me to participate in the care of your patient. Please don't hesitate to call if any issues arise.
--- NOTE | 2020-09-14 09:36 | PN_ITS ---
Patient Problems: Active and Suspected Problems (Last Updated 09/09/20 @ 16:43 by Sheree Allison) General weakness (Acute) Asystole (Acute) Cardiopulmonary arrest with successful resuscitation (Acute) Asystole during tilt table test with brief CPR Pneumothorax, left (Acute) Subjective: Patient did well overnight. Patient did have chest tube removed yesterday along with having a bowel movement. Patient feels her breathing is much improved compared to yesterday. Pain is well controlled. Patient is not reporting any significant cough. No nausea or vomiting has been reported. Patient is still requiring supplemental oxygen to maintain saturations. - Physical Exam Vitals/I&O's: Vital Signs Temp Pulse Resp BP Pulse Ox 36.6 C 83 16 131/62 H 96 09/14/20 05:00 09/14/20 07:00 09/14/20 05:00 09/14/20 05:00 09/14/20 07:10 Oxygen Flow Rate (L/min) 2 Oxygen Delivery Method Nasal Cannula Weight: 65.499 kg Body Mass Index (BMI) 23.3 Intake and Output for Last 24 Hours 09/12/20 09/13/20 09/14/20 23:59 23:59 23:59 Intake Total 1040 / 1040 910 / 910 Output Total 400 / 400 Balance 640 / 640 910 / 910 General: Alert, Oriented x3, Cooperative, No apparent distress, - - No conversational dyspnea. HEENT: Atraumatic, PERRLA, EOMI, Normocephalic, - - No scleral icterus or injection noted Oral: Moist Mucosa, No Gingival or Mucosal Lesions/ Ulcerations Neck: Supple, No JVD, No Nodes, Trachea Midline Lungs: No rhonchi, No wheeze, Diminished, Rales - Left base Cardiovascular: Regular rate, Regular Rhythm, Normal S1, Normal S2, No rub noted, No Gallop Abdomen: Bowel Sounds Present, Soft, Non Tender, Non-Distended Extremities: No clubbing, No cyanosis, No edema, Capillary Refill Less than 3 Seconds Skin: - - No change compared to previous. Dressing from chest tube is clean, dry and intact Musculoskeletal: No Tenderness to Palpation of Joints or Extremities Lymphatic: No Cervical, Supraclavicular, or Inguinal Adenopathy Neurological: Cranial nerves II-XII grossly intact, Neuro grossly intact, Motor Exam 5/5 strength throughout Psych/Mental Status: Anxious Laboratory Results 09/13/20 18:31: Troponin I < 0.015 09/14/20 06:30: WBC 7.7, RBC 3.52 L, Hgb 10.8 L, Hct 32.8 L, MCV 93.2, MCH 30.7, MCHC 32.9, RDW Std Deviation 44.8 H, RDW Coeff of Krystian 13.2, Plt Count 194, MPV 9.0 09/14/20 06:30: Sodium 136, Potassium 4.4, Chloride 104, Carbon Dioxide 27.0, Anion Gap 5, BUN 28 H, Creatinine 1.16 H, Estim Creat Clear Calc 36.81, Est GFR (MDRD) Af Amer 58 L, Est GFR (MDRD) Non-Af 48 L, BUN/Creatinine Ratio 24.1 H, Glucose 91, Calcium 9.0 Current Medications Acetaminophen (Acetaminophen 500 Mg Tablet) 1,000 mg PO Q8H PRN PRN PRN Reason: Pain Score 1-10 Last Admin: 09/14/20 08:18 Dose: 1,000 mg Documented by: Albuterol Sulfate (Albuterol 2.5 Mg/3 Ml Vial.Neb.) 2.5 mg INHALATION Q2H PRN PRN PRN Reason: SOB/Wheezing Aspirin (Aspirin 81 Mg Tab.Chew) 81 mg PO DAILY@0800 [facility] Last Admin: 09/14/20 08:18 Dose: 81 mg Documented by: Enoxaparin Sodium (Enoxaparin 40 Mg/0.4 Ml Syringe) 40 mg SC DAILY [facility] Last Admin: 09/14/20 08:21 Dose: Not Given Documented by: Sodium Chloride () 1,000 mls @ 75 mls/hr IV .[id number] [facility] Last Admin: 09/14/20 05:01 Dose: 75 mls/hr Documented by: Levothyroxine Sodium (Levothyroxine 75 Mcg Tablet) 37.5 mcg PO Sa@0600 [facility] Last Admin: 09/11/20 04:08 Dose: 37.5 mcg Documented by: Levothyroxine Sodium (Levothyroxine 75 Mcg Tablet) 75 mcg PO MoTuWeThFr@0600 [facility] Last Admin: 09/14/20 05:00 Dose: 75 mcg Documented by: Ondansetron HCl (Ondansetron 4 Mg/2 Ml Vial) 4 mg IV Q8H PRN PRN PRN Reason: NAUSEA/VOMITING Last Admin: 09/12/20 07:55 Dose: 4 mg Documented by: Oxycodone HCl (Oxycodone 5 Mg Tablet) 5 - 10 mg PO Q4H PRN PRN PRN Reason: Pain Score 4-10 Last Admin: 09/12/20 16:50 Dose: 10 mg Documented by: Polyethylene Glycol (Polyethylene Glycol 3350 17 Gm Packet) 17 gm PO DAILY [facility] Last Admin: 09/14/20 08:18 Dose: 17 gm Documented by: Senna/Docusate Sodium (Senna/Docusate Sodium 1 Tablet) 2 tablet PO BID [facility] Last Admin: 09/14/20 08:21 Dose: 2 tablet Documented by: Sodium Chloride (0.9% Saline Lock 10 Ml Syringe) 10 - 40 ml IV UD PRN PRN Reason: SALINE FLUSH Last Admin: 09/12/20 10:20 Dose: 10 ml Documented by: Sodium Chloride (0.9% Saline Lock 10 Ml Syringe) 10 - 40 ml IV UD PRN PRN Reason: SALINE FLUSH Last Admin: 09/11/20 22:52 Dose: 10 ml Documented by: Clinical Impression(s) from Imaging Studies Chest X-Ray 09/13/20 13:20 IMPRESSION: Left-sided thoracostomy tube with no pneumothorax. Electronically Signed: Ajit Potts MD at 13:34 EDT Tel , Service support , KUB X-Ray 09/13/20 13:20 IMPRESSION: Nonspecific bowel gas pattern. Electronically Signed: Ajit Potts MD at 13:34 EDT Tel , Service support , Chest X-Ray 09/13/20 17:52 IMPRESSION: Interval removal left-sided thoracostomy tube with no pneumothorax. Electronically Signed: Ajit Potts MD at 18:23 EDT Tel , Service support , Medical Necessity - Tobacco Use Smoking Status: Never smoker Tobacco Use: Non-smoker Assessment/Plan All Active Problems (Last Updated 09/09/20 @ 16:43 by Sheree Allison) General weakness (Acute) Asystole (Acute) Cardiopulmonary arrest with successful resuscitation (Acute) Pneumothorax, left (Acute) Urinary tract infection (Resolved) Gastroenteritis (Resolved) RECOMMENDATIONS: 1. Increase activity as tolerated. Encourage incentive spirometer for atelectasis 2. Continue bowel regimen while on narcotic therapy 3. No PFT for at least 6 months 4. Walking oximetry prior to discharge 5. Aggressive pain control IMPRESSIONS: 1. Iatrogenic pneumothorax status post percutaneous chest tube placement The patient was noted to have a left-sided pneumothorax with subsequent hypotension which required percutaneous chest tube placement. This did lead to resolution of the patient's pneumothorax and improvement in her hemodynamics. However, the patient went on to develop a recurrent pneumothorax despite small bore chest tube placement, which necessitated tube thoracotomy with 28 [place] chest tube placement on the morning of September 11. Chest tube was removed on 09/13/2020. Chest x-ray shows no residual pneumothorax. Patient does have some findings consistent with atelectasis and would benefit from incentive spirometer. Forced exhalation such as a PFT should not be completed for at least 6 months to prevent reaccumulation. 2. History of recurrent syncope/recent cardiopulmonary arrest Continue medical management per cardiology recommendations. 3. Advanced age/hypertension/hypothyroidism/constipation Complicates care, management, recovery and prognosis. Continue home med ications as indicated. Patient has been resistant to MiraLAX therapy. Patient was responsive to mag citrate. Bowel regimen should be continued as long as patient is on opiates. Patient is on opiates, complicating constipation. Inpatient E&M: 41662 [facility] L2
--- NOTE | 2020-09-14 10:18 | CASEMGMT ---
Kelly from Hospice came in and spoke with patient. She also had one of patient's son's on the line. After the discussion patient is not sure what she wants to do. RN and Kelly both feel patient thought Hospice was her only option. Kelly went over all of her options and said she can go to TCU and if she feels she isn't getting better and Hospice is appropriate it can be re-visited. KEESHA will check back with patient to make sure she is still okay with TCU. KEESHA did call Isabelle and ask her to please start pre-cert. Gisela MERCHANT CRIMINAL JUDGE
--- NOTE | 2020-09-14 11:32 | CASEMGMT ---
SW received a call from Kelly with Hospice. She said that she spoke with Dr Webster at Hospice and he does not feel she is Hospice appropriate. Proceeding with TCU for rehab. Plan: d/c to [facility] TCU pending insurance approval. Gisela MERCHANT MSW
[2020-09-14] MEDS: oxyCODONE 5 MG Tablet PO ×2 (13:52→21:05)
--- NOTE | 2020-09-14 13:59 | PN_ITS ---
Patient Problems: Active and Suspected Problems (Last Updated 09/09/20 @ 16:43 by Sheree Allison) General weakness (Acute) Asystole (Acute) Cardiopulmonary arrest with successful resuscitation (Acute) Asystole during tilt table test with brief CPR Pneumothorax, left (Acute) Subjective: Feels sick. Denies N/V. Chest tube removed. Vitals/I&O's: Vital Signs Temp Pulse Resp BP Pulse Ox 36.7 C 88 16 106/68 94 09/14/20 11:00 09/14/20 11:00 09/14/20 11:00 09/14/20 11:00 09/14/20 11:00 Oxygen Flow Rate (L/min) 2 Oxygen Delivery Method Nasal Cannula Weight: 65.499 kg Body Mass Index (BMI) 23.3 Intake and Output for Last 24 Hours 09/12/20 09/13/20 09/14/20 23:59 23:59 23:59 Intake Total 1040 / 1040 1270 / 1270 Output Total 400 / 400 200 / 200 Balance 640 / 640 1070 / 1070 General: Alert, No apparent distress, - - hunched over in chair HEENT: Atraumatic, Normocephalic Oral: Moist Mucosa, No Gingival or Mucosal Lesions/ Ulcerations Neck: No Nodes, Thyroid Normal Size and Texture Lungs: Clear to auscultation, Diminished Cardiovascular: Regular rate, Regular Rhythm, Normal S1, Normal S2, No murmurs Abdomen: Bowel Sounds Present, Soft, Non Tender, Non-Distended, No Hepato- splenomegaly Extremities: No edema, No Calf Tenderness Psych/Mental Status: Normal Affect, Appropriate Laboratory Results 09/13/20 18:31: Troponin I < 0.015 09/14/20 06:30: WBC 7.7, RBC 3.52 L, Hgb 10.8 L, Hct 32.8 L, MCV 93.2, MCH 30.7, MCHC 32.9, RDW Std Deviation 44.8 H, RDW Coeff of Krystian 13.2, Plt Count 194, MPV 9.0 09/14/20 06:30: Sodium 136, Potassium 4.4, Chloride 104, Carbon Dioxide 27.0, Anion Gap 5, BUN 28 H, Creatinine 1.16 H, Estim Creat Clear Calc 36.81, Est GFR (MDRD) Af Amer 58 L, Est GFR (MDRD) Non-Af 48 L, BUN/Creatinine Ratio 24.1 H, Glucose 91, Calcium 9.0 Current Medications Acetaminophen (Acetaminophen 500 Mg Tablet) 1,000 mg PO Q8H PRN PRN PRN Reason: Pain Score 1-10 Last Admin: 09/14/20 08:18 Dose: 1,000 mg Documented by: Albuterol Sulfate (Albuterol 2.5 Mg/3 Ml Vial.Neb.) 2.5 mg INHALATION Q2H PRN PRN PRN Reason: SOB/Wheezing Aspirin (Aspirin 81 Mg Tab.Chew) 81 mg PO DAILY@0800 [facility] Last Admin: 09/14/20 08:18 Dose: 81 mg Documented by: Enoxaparin Sodium (Enoxaparin 40 Mg/0.4 Ml Syringe) 40 mg SC DAILY [facility] Last Admin: 09/14/20 08:21 Dose: Not Given Documented by: Sodium Chloride () 1,000 mls @ 75 mls/hr IV .[id number] [facility] Last Admin: 09/14/20 05:01 Dose: 75 mls/hr Documented by: Levothyroxine Sodium (Levothyroxine 75 Mcg Tablet) 37.5 mcg PO Sa@0600 [facility] Last Admin: 09/11/20 04:08 Dose: 37.5 mcg Documented by: Levothyroxine Sodium (Levothyroxine 75 Mcg Tablet) 75 mcg PO MoTuWeThFr@0600 [facility] Last Admin: 09/14/20 05:00 Dose: 75 mcg Documented by: Ondansetron HCl (Ondansetron 4 Mg/2 Ml Vial) 4 mg IV Q8H PRN PRN PRN Reason: NAUSEA/VOMITING Last Admin: 09/12/20 07:55 Dose: 4 mg Documented by: Oxycodone HCl (Oxycodone 5 Mg Tablet) 5 - 10 mg PO Q4H PRN PRN PRN Reason: Pain Score 4-10 Last Admin: 09/14/20 13:52 Dose: 5 mg Documented by: Polyethylene Glycol (Polyethylene Glycol 3350 17 Gm Packet) 17 gm PO DAILY [facility] Last Admin: 09/14/20 08:18 Dose: 17 gm Documented by: Senna/Docusate Sodium (Senna/Docusate Sodium 1 Tablet) 2 tablet PO BID [facility] Last Admin: 09/14/20 08:21 Dose: 2 tablet Documented by: Sodium Chloride (0.9% Saline Lock 10 Ml Syringe) 10 - 40 ml IV UD PRN PRN Reason: SALINE FLUSH Last Admin: 09/12/20 10:20 Dose: 10 ml Documented by: Sodium Chloride (0.9% Saline Lock 10 Ml Syringe) 10 - 40 ml IV UD PRN PRN Reason: SALINE FLUSH Last Admin: 09/11/20 22:52 Dose: 10 ml Documented by: STROKE Vital Signs/Narrative: Vital Signs Temp Pulse Resp BP Pulse Ox 09/14/20 11:00 36.7 C 88 16 106/68 94 Medical Necessity - Tobacco Use Smoking Status: Never smoker Tobacco Use: Non-smoker Assessment/Plan All Active Problems (Last Updated 09/09/20 @ 16:43 by Sheree Allison) General weakness (Acute) Asystole (Acute) Cardiopulmonary arrest with successful resuscitation (Acute) Pneumothorax, left (Acute) Urinary tract infection (Resolved) Gastroenteritis (Resolved) 1. Left tension PTX resolved likely 2/2 CPR s/p Chest tube, removed on 09/14 2. CPA/asystole successfully resuscitated 09/07 s/p pacer on 09/08 3. Debility PT recommends additional therapy CM looking into placement in TCU, currently awaiting on insurance approval 4. HTN, HLP, hypothyroid continue home meds 5. VTE prophylaxis: LMWH 6. Disposition: pt met with hospice and felt not to be a candidate (I agree). Plan for SNF. Pt very dejected. Reassurance provided and advised of anticipated protracted recovery. Inpatient E&M: 10813 [facility] H[facility] L2
[2020-09-15] VITALS (7 sets, daily range): BP systolic 120–147; BP diastolic 69–81; PULSE 82–107; RESP 18–20; TEMP 36.4–36.8; O2SAT 93–95
[2020-09-15] MEDS: oxyCODONE 5 MG Tablet PO ×4 (02:43→16:17)
[2020-09-15] MEDS: Levothyroxine 75 MCG Tablet PO (05:31)
[2020-09-15] MEDS: 0.9% Normal Saline 1,000 ML 75 ML IV (05:34)
--- NOTE | 2020-09-15 07:44 | PN.SURG_ITS ---
Patient Problems: Active and Suspected Problems (Last Updated 09/09/20 @ 16:43 by Sheree Allison) General weakness (Acute) Asystole (Acute) Cardiopulmonary arrest with successful resuscitation (Acute) Asystole during tilt table test with brief CPR Pneumothorax, left (Acute) Subjective: Patient reports an improvement in abdominal pain but she is still having left chest pain. - Physical Exam Vitals/I&O's: Vital Signs Temp Pulse Resp BP Pulse Ox 97.9 F 95 18 120/69 95 09/15/20 03:10 09/15/20 07:01 09/15/20 03:10 09/15/20 03:10 09/15/20 03:10 Oxygen Flow Rate (L/min) 2 Oxygen Delivery Method Nasal Cannula Weight: 144 lb 6.409 oz Body Mass Index (BMI) 23.3 Intake and Output for Last 24 Hours 09/13/20 09/14/20 09/15/20 23:59 23:59 23:59 Intake Total 1040 / 1040 2385 / 2385 966.25 / 966.25 Output Total 400 / 400 200 / 200 75 / 75 Balance 640 / 640 2185 / 2185 891.25 / 891.25 General: Alert, Oriented x3 Cardiovascular: Regular rate, Regular Rhythm Abdomen: Soft, Non Tender, Non-Distended Current Medications Acetaminophen (Acetaminophen 500 Mg Tablet) 1,000 mg PO Q8H PRN PRN PRN Reason: Pain Score 1-10 Last Admin: 09/14/20 16:41 Dose: 1,000 mg Documented by: Albuterol Sulfate (Albuterol 2.5 Mg/3 Ml Vial.Neb.) 2.5 mg INHALATION Q2H PRN PRN PRN Reason: SOB/Wheezing Aspirin (Aspirin 81 Mg Tab.Chew) 81 mg PO DAILY@0800 [facility] Last Admin: 09/14/20 08:18 Dose: 81 mg Documented by: Enoxaparin Sodium (Enoxaparin 40 Mg/0.4 Ml Syringe) 40 mg SC DAILY [facility] Last Admin: 09/14/20 08:21 Dose: Not Given Documented by: Sodium Chloride () 1,000 mls @ 75 mls/hr IV .[id number] [facility] Last Admin: 09/15/20 05:34 Dose: 75 mls/hr Documented by: Levothyroxine Sodium (Levothyroxine 75 Mcg Tablet) 37.5 mcg PO Sa@0600 [facility] Last Admin: 09/11/20 04:08 Dose: 37.5 mcg Documented by: Levothyroxine Sodium (Levothyroxine 75 Mcg Tablet) 75 mcg PO MoTuWeThFr@0600 [facility] Last Admin: 09/15/20 05:31 Dose: 75 mcg Documented by: Ondansetron HCl (Ondansetron 4 Mg/2 Ml Vial) 4 mg IV Q8H PRN PRN PRN Reason: NAUSEA/VOMITING Last Admin: 09/12/20 07:55 Dose: 4 mg Documented by: Oxycodone HCl (Oxycodone 5 Mg Tablet) 5 - 10 mg PO Q4H PRN PRN PRN Reason: Pain Score 4-10 Last Admin: 09/15/20 02:43 Dose: 5 mg Documented by: Polyethylene Glycol (Polyethylene Glycol 3350 17 Gm Packet) 17 gm PO DAILY [facility] Last Admin: 09/14/20 08:18 Dose: 17 gm Documented by: Senna/Docusate Sodium (Senna/Docusate Sodium 1 Tablet) 2 tablet PO BID [facility] Last Admin: 09/14/20 21:07 Dose: 2 tablet Documented by: Sodium Chloride (0.9% Saline Lock 10 Ml Syringe) 10 - 40 ml IV UD PRN PRN Reason: SALINE FLUSH Last Admin: 09/12/20 10:20 Dose: 10 ml Documented by: Sodium Chloride (0.9% Saline Lock 10 Ml Syringe) 10 - 40 ml IV UD PRN PRN Reason: SALINE FLUSH Last Admin: 09/11/20 22:52 Dose: 10 ml Documented by: Medical Necessity - Tobacco Use Smoking Status: Never smoker Tobacco Use: Non-smoker Assessment/Plan All Active Problems (Last Updated 09/09/20 @ 16:43 by Sheree Allison) General weakness (Acute) Asystole (Acute) Cardiopulmonary arrest with successful resuscitation (Acute) Pneumothorax, left (Acute) Urinary tract infection (Resolved) Gastroenteritis (Resolved) 80-year-old female left pneumothorax 1. The patient is still saturating very well on 2 L of nasal cannula. She is still complaining of left chest pain but I believe this will slowly dissipate. They are working to get her to a rehab facility. The patient does not have any sutures at her chest tube site and the dressing can be changed as needed. Follow-up with me as needed. Greg Chaparro MD Pager: [facility] [address] [place] [address], [address] [place] [address] Office:
[2020-09-15] MEDS: Aspirin 81 MG TAB.CHEW PO (07:57)
[2020-09-15] MEDS: Senna/Docusate Sodium 1 Tablet 2 TABLET PO (08:00)
[2020-09-15] MEDS: Polyethylene Glycol 3350 17 GM PACKET PO (08:02)
--- NOTE | 2020-09-15 08:55 | RAD_ITS ---
STUDY: X-RAY CHEST REASON FOR EXAM: Female, 80 years old. Chest pain TECHNIQUE: Single AP portable view of the chest. COMPARISON: Comparison is made with prior study of 09/13/2020. FINDINGS: EKG electrodes are seen. Stable small bilateral pleural effusions with bibasilar atelectasis and/or infiltrates more prominent at the right lung base. There is no evidence of pneumothorax. The left-sided dual-chamber pacemaker is seen. Normal size heart. Normal mediastinum and irving. Normal visualized pulmonary arteries. There is atherosclerotic tortuosity of the aortic arch and descending thoracic aorta. Normal visualized thoracic spine. Normal visualized ribs, clavicles, and shoulders. There is no demonstrated abnormality of the visualized soft tissue structures of the upper abdomen. RAD/Chest 1 View (Portable) IMPRESSION: No evidence of pneumothorax. Residual bibasilar atelectasis and/or infiltrates worse on the right side with small bilateral pleural effusions. Electronically Signed: Erwin Russ MD at 14:47 EDT , Service support ,
--- NOTE | 2020-09-15 08:56 | PN.CARD_ITS ---
Subjectve: Patient seen and evaluated. Still complaining of chest pain. Appears to be constant. Objective: Vital Signs Temp Pulse Resp BP Pulse Ox 98.2 F 94 20 H 147/81 H 94 09/15/20 08:07 09/15/20 08:07 09/15/20 08:07 09/15/20 08:07 09/15/20 08:07 Oxygen Flow Rate (L/min) 3 Oxygen Delivery Method Nasal Cannula Weight: 144 lb 6.409 oz Body Mass Index (BMI) 23.3 Intake and Output for Last 24 Hours 09/13/20 09/14/20 09/15/20 23:59 23:59 23:59 Intake Total 1040 / 1040 2385 / 2385 1171.25 / 1171.25 Output Total 400 / 400 200 / 200 75 / 75 Balance 640 / 640 2185 / 2185 1096.25 / 1096.25 General: Awake, Alert, Oriented x 3 HEENT: PERRL, EOMI, Sclera Non Icteric Neck: Supple, Good ROM, No Lymph Node Enlargement Lungs: Clear to auscultation Cardiovascular: Regular Rhythm, Normal S1, Normal S2, No Murmurs, No Rubs, No Gallops Rhythm: EKG: ECHO: Stress Test: Cardiac Cath: PCI: CT Surgery: Holter monitor: EPS: PPM: CXR: Chest CT Scan: Medical Necessity - Tobacco Use Smoking Status: Never smoker Tobacco Use: Non-smoker Assessment/Plan 1. Asystole status post permanent pacemaker implantation. The patient underwent a tilt table study. She had a positive tilt table study for vasovagal/neurocardiogenic mediated events with a marked cardioinhibitory response generating asystole of 70+ seconds requiring medical intervention with IV atropine and BLS CPR. She underwent placement of a permanent pacemaker. Unfortunately this was complicated by a pneumothorax. The pacemaker itself is functioning properly. She had a left-sided chest tube placed which was removed. Pacemaker is functioning well. . Pneumothorax The patient appears to have experienced a post procedure related left-sided pneumothorax. This required a left-sided chest tube placement. The chest tube has been removed. X-rays demonstrate no residual pneumothorax. Patient still continues to complain of chest discomfort some of which may be due to the procedure as well as CPR. We will continue supportive management. * Would recommend incentive spirometry as patient may be at risk of dependence atelectasis and infection. * Continue supportive care. * She continues to complain of chest discomfort. Will obtain an x-ray today for confirmation of no other progression or pathology. * Appreciate input and work of surgeon, senior art director, and hospitalist. Thank you for allowing me to participate in the care of your patient. Please don't hesitate to call if any issues arise.
--- NOTE | 2020-09-15 09:01 | PN_ITS ---
Patient Problems: Active and Suspected Problems (Last Updated 09/09/20 @ 16:43 by Sheree Allison) General weakness (Acute) Asystole (Acute) Cardiopulmonary arrest with successful resuscitation (Acute) Asystole during tilt table test with brief CPR Pneumothorax, left (Acute) Subjective: Patient did okay overnight. Patient states that she feels significant left- sided chest pain leading to shortness of breath. Patient is not reporting any productive cough. Patient has been using incentive spirometer. Patient is not reporting any abdominal pain - Physical Exam Vitals/I&O's: Vital Signs Temp Pulse Resp BP Pulse Ox 36.8 C 94 20 H 147/81 H 94 09/15/20 08:07 09/15/20 08:07 09/15/20 08:07 09/15/20 08:07 09/15/20 08:07 Oxygen Flow Rate (L/min) 3 Oxygen Delivery Method Nasal Cannula Weight: 65.499 kg Body Mass Index (BMI) 23.3 Intake and Output for Last 24 Hours 09/13/20 09/14/20 09/15/20 23:59 23:59 23:59 Intake Total 1040 / 1040 2385 / 2385 1171.25 / 1171.25 Output Total 400 / 400 200 / 200 75 / 75 Balance 640 / 640 2185 / 2185 1096.25 / 1096.25 General: Alert, Oriented x3, Cooperative, - - Moderate distress. HEENT: Atraumatic, PERRLA, EOMI, Normocephalic, - - No scleral icterus or injection noted Oral: Moist Mucosa, No Gingival or Mucosal Lesions/ Ulcerations Neck: Supple, No JVD, No Nodes, Trachea Midline Lungs: No rhonchi, No wheeze, No rales, Diminished - Symmetrically Cardiovascular: Regular rate, Regular Rhythm, Normal S1, Normal S2, No rub noted, No Gallop Abdomen: Bowel Sounds Present, Soft, Non Tender, Non-Distended Extremities: No clubbing, No cyanosis, No edema Skin: - - No change compared to previous. Dressing is clean, dry and intact Musculoskeletal: No Tenderness to Palpation of Joints or Extremities Lymphatic: No Cervical, Supraclavicular, or Inguinal Adenopathy Neurological: Cranial nerves II-XII grossly intact, Neuro grossly intact, Motor Exam 5/5 strength throughout Psych/Mental Status: Alert and oriented to time, place, person, mood and affect Current Medications Acetaminophen (Acetaminophen 500 Mg Tablet) 1,000 mg PO Q8H PRN PRN PRN Reason: Pain Score 1-10 Last Admin: 09/14/20 16:41 Dose: 1,000 mg Documented by: Albuterol Sulfate (Albuterol 2.5 Mg/3 Ml Vial.Neb.) 2.5 mg INHALATION Q2H PRN PRN PRN Reason: SOB/Wheezing Aspirin (Aspirin 81 Mg Tab.Chew) 81 mg PO DAILY@0800 [facility] Last Admin: 09/15/20 07:57 Dose: 81 mg Documented by: Enoxaparin Sodium (Enoxaparin 40 Mg/0.4 Ml Syringe) 40 mg SC DAILY [facility] Last Admin: 09/15/20 08:04 Dose: Not Given Documented by: Sodium Chloride () 1,000 mls @ 75 mls/hr IV .[id number] [facility] Last Infusion: 09/15/20 08:18 Dose: 0 mls/hr Documented by: Levothyroxine Sodium (Levothyroxine 75 Mcg Tablet) 37.5 mcg PO Sa@0600 [facility] Last Admin: 09/11/20 04:08 Dose: 37.5 mcg Documented by: Levothyroxine Sodium (Levothyroxine 75 Mcg Tablet) 75 mcg PO MoTuWeThFr@0600 [facility] Last Admin: 09/15/20 05:31 Dose: 75 mcg Documented by: Ondansetron HCl (Ondansetron 4 Mg/2 Ml Vial) 4 mg IV Q8H PRN PRN PRN Reason: NAUSEA/VOMITING Last Admin: 09/12/20 07:55 Dose: 4 mg Documented by: Oxycodone HCl (Oxycodone 5 Mg Tablet) 5 - 10 mg PO Q4H PRN PRN PRN Reason: Pain Score 4-10 Last Admin: 09/15/20 07:56 Dose: 10 mg Documented by: Polyethylene Glycol (Polyethylene Glycol 3350 17 Gm Packet) 17 gm PO DAILY [facility] Last Admin: 09/15/20 08:02 Dose: 17 gm Documented by: Senna/Docusate Sodium (Senna/Docusate Sodium 1 Tablet) 2 tablet PO BID [facility] Last Admin: 09/15/20 08:00 Dose: 2 tablet Documented by: Sodium Chloride (0.9% Saline Lock 10 Ml Syringe) 10 - 40 ml IV UD PRN PRN Reason: SALINE FLUSH Last Admin: 09/12/20 10:20 Dose: 10 ml Documented by: Sodium Chloride (0.9% Saline Lock 10 Ml Syringe) 10 - 40 ml IV UD PRN PRN Reason: SALINE FLUSH Last Admin: 09/11/20 22:52 Dose: 10 ml Documented by: Medical Necessity - Tobacco Use Smoking Status: Never smoker Tobacco Use: Non-smoker Assessment/Plan All Active Problems (Last Updated 09/09/20 @ 16:43 by Sheree Allison) General weakness (Acute) Asystole (Acute) Cardiopulmonary arrest with successful resuscitation (Acute) Pneumothorax, left (Acute) Urinary tract infection (Resolved) Gastroenteritis (Resolved) RECOMMENDATIONS: 1. Increase activity as tolerated. Encourage incentive spirometer for atelectasis 2. Continue bowel regimen while on narcotic therapy 3. No PFT for at least 6 months 4. Walking oximetry prior to discharge 5. Aggressive pain control. Patient may benefit from NSAID for pleurisy IMPRESSIONS: 1. Iatrogenic pneumothorax status post percutaneous chest tube placement The patient was noted to have a left-sided pneumothorax with subsequent hypotension which required percutaneous chest tube placement. This did lead to resolution of the patient's pneumothorax and improvement in her hemodynamics. However, the patient went on to develop a recurrent pneumothorax despite small bore chest tube placement, which necessitated tube thoracotomy with 28 [place] chest tube placement on the morning of September 11. Chest tube was removed on 09/13/2020. Chest x-ray immediately after shows no residual pneumothorax. Patient does have some findings consistent with atelectasis and would benefit from incentive spirometer. Forced exhalation such as a PFT should not be completed for at least 6 months to prevent reaccumulation. Increase activity to help with pulmonary recruitment and pleurisy. 2. History of recurrent syncope/recent cardiopulmonary arrest Continue medical management per cardiology recommendations. 3. Advanced age/hypertension/hypothyroidism/constipation Complicates care, management, recovery and prognosis. Continue home medications as indicated. Patient has been resistant to MiraLAX therapy. Patient was responsive to mag citrate. Bowel regimen should be continued as long as patient is on opiates. Patient is on opiates, complicating constipation. Inpatient E&M: [id number] [facility] L2
--- NOTE | 2020-09-15 13:44 | CASEMGMT ---
KEESHA spoke with Isabelle with TCU. Patient's insurance is asking for updated clinicals as patient refused therapy Sunday. KEESHA spoke with patient and let her know that she cannot refuse therapy if she wants to go to TCU as her insurance will not approve her. KEESHA explained insurance wants to know that she will participate in therapy since they will be paying for it. She verbalized understanding. Gisela MERCHANT MSW
--- NOTE | 2020-09-15 14:30 | PCM.PN.HOSP ---
Patient Problems: Active and Suspected Problems (Last Updated 09/09/20 @ 16:43 by Sheree Allison) General weakness (Acute) Asystole (Acute) Cardiopulmonary arrest with successful resuscitation (Acute) Asystole during tilt table test with brief CPR Pneumothorax, left (Acute) Subjective: Still with chest pain Vitals/I&O's: Vital Signs Temp Pulse Resp BP Pulse Ox 36.8 C 94 20 H 147/81 H 94 09/15/20 08:07 09/15/20 08:07 09/15/20 08:07 09/15/20 08:07 09/15/20 08:07 Oxygen Flow Rate (L/min) 3 Oxygen Delivery Method Nasal Cannula Weight: 65.499 kg Body Mass Index (BMI) 23.3 Intake and Output for Last 24 Hours 09/13/20 09/14/20 09/15/20 23:59 23:59 23:59 Intake Total 1040 / 1040 2385 / 2385 1571.25 / 1571.25 Output Total 400 / 400 200 / 200 75 / 75 Balance 640 / 640 2185 / 2185 1496.25 / 1496.25 General: Alert, No apparent distress HEENT: Atraumatic, Normocephalic Oral: Moist Mucosa, No Gingival or Mucosal Lesions/ Ulcerations Neck: No Nodes, Thyroid Normal Size and Texture Lungs: No rhonchi, No wheeze, Diminished Cardiovascular: Regular rate, Regular Rhythm, Normal S1, Normal S2 Abdomen: Bowel Sounds Present, Soft, Non Tender, Non-Distended Extremities: No edema, No Calf Tenderness Skin: No rashes, No breakdown Psych/Mental Status: Normal Affect, Appropriate Microbiology Past 72 Hours 09/15/20 09:45 Mucosa - Nose SARS-CoV-2 Antigen (Rapid) - Final Current Medications Acetaminophen (Acetaminophen 500 Mg Tablet) 1,000 mg PO Q8H PRN PRN PRN Reason: Pain Score 1-10 Last Admin: 09/14/20 16:41 Dose: 1,000 mg Documented by: Albuterol Sulfate (Albuterol 2.5 Mg/3 Ml Vial.Neb.) 2.5 mg INHALATION Q2H PRN PRN PRN Reason: SOB/Wheezing Aspirin (Aspirin 81 Mg Tab.Chew) 81 mg PO DAILY@0800 [facility] Last Admin: 09/15/20 07:57 Dose: 81 mg Documented by: Enoxaparin Sodium (Enoxaparin 40 Mg/0.4 Ml Syringe) 40 mg SC DAILY [facility] Last Admin: 09/15/20 08:04 Dose: Not Given Documented by: Levothyroxine Sodium (Levothyroxine 75 Mcg Tablet) 37.5 mcg PO Sa@0600 [facility] Last Admin: 09/11/20 04:08 Dose: 37.5 mcg Documented by: Levothyroxine Sodium (Levothyroxine 75 Mcg Tablet) 75 mcg PO MoTuWeThFr@0600 [facility] Last Admin: 09/15/20 05:31 Dose: 75 mcg Documented by: Ondansetron HCl (Ondansetron 4 Mg/2 Ml Vial) 4 mg IV Q8H PRN PRN PRN Reason: NAUSEA/VOMITING Last Admin: 09/12/20 07:55 Dose: 4 mg Documented by: Oxycodone HCl (Oxycodone 5 Mg Tablet) 5 - 10 mg PO Q4H PRN PRN PRN Reason: Pain Score 4-10 Last Admin: 09/15/20 12:25 Dose: 10 mg Documented by: Polyethylene Glycol (Polyethylene Glycol 3350 17 Gm Packet) 17 gm PO DAILY [facility] Last Admin: 09/15/20 08:02 Dose: 17 gm Documented by: Senna/Docusate Sodium (Senna/Docusate Sodium 1 Tablet) 2 tablet PO BID [facility] Last Admin: 09/15/20 08:00 Dose: 2 tablet Documented by: Sodium Chloride (0.9% Saline Lock 10 Ml Syringe) 10 - 40 ml IV UD PRN PRN Reason: SALINE FLUSH Last Admin: 09/12/20 10:20 Dose: 10 ml Documented by: Sodium Chloride (0.9% Saline Lock 10 Ml Syringe) 10 - 40 ml IV UD PRN PRN Reason: SALINE FLUSH Last Admin: 09/11/20 22:52 Dose: 10 ml Documented by: Medical Necessity - Tobacco Use Smoking Status: Never smoker Tobacco Use: Non-smoker Assessment/Plan All Active Problems (Last Updated 09/09/20 @ 16:43 by Sheree Allison) General weakness (Acute) Asystole (Acute) Cardiopulmonary arrest with successful resuscitation (Acute) Pneumothorax, left (Acute) Urinary tract infection (Resolved) Gastroenteritis (Resolved) 1. Left tension PTX resolved likely 2/2 CPR s/p Chest tube, removed on 09/14 2. CPA/asystole successfully resuscitated 09/07 s/p pacer on 09/08 3. Debility PT recommends additional therapy CM looking into placement in TCU, currently awaiting on insurance approval 4. HTN, HLP, hypothyroid continue home meds 5. VTE prophylaxis: LMWH 6. Disposition: pt met with hospice and felt not to be a candidate (I agree). Plan for SNF. Pt very dejected. Reassurance provided and advised of anticipated protracted recovery. Inpatient E&M: [id number] [facility] Hosp L2
--- NOTE | 2020-09-15 15:25 | CASEMGMT ---
KEESHA received a call from Isabelle and patient was denied by Dr Ruelas with [employer]. Physician can do a peer to peer. SW spoke with physician and he will do the peer to peer. KEESHA called and arranged call. Gisela MERCHANT MSW
[2020-09-15] MEDS: Furosemide 20 MG/2 ML VIAL IV (15:50)
--- NOTE | 2020-09-15 16:28 | NURSING ---
Isabelle called to notify us that Sunil is approved for TCU.
--- NOTE | 2020-09-15 16:32 | CASEMGMT ---
KEESHA spoke with Dr Azul and patient was approved. SW emailed Isabelle to see if patient can come over tonight and she can. RN notified patient's son and patient. Plan: d/c to [facility] TCU under skilled level of care.
--- NOTE | 2020-09-15 16:49 | PCM.TXEXTCAR ---
- Diet 09/08/20 13:38 Diet: Cardiac - Heart Healthy Is pt able to select menu?: Yes - Routine Orders/Code Status O2 Liters per Minute: 3 O2 Frequency: Continuous Keep PO Greater than or Equal to (%): 91 Routine Lab Work: CBC, BMP Code Status: DNRCC-A - no intubation - Wound(s) Right Chest Wall Wound Type: Surgical Incision Left chest Wound Type: Surgical Incision left mid axillary Wound Type: post chest tube removal - Therapies Physical Therapy: Eval and Treat Occupational Therapy: Eval and Treat - Allergies/Procedures Done in Hospital Allergies/Adverse Reactions: Allergies atorvastatin calcium [From Lipitor] Allergy (Verified 08/02/20 11:05) Chest tightness captopril Allergy (Verified 08/02/20 11:05) Chest tightness lansoprazole [From Prevacid] Allergy (Verified 08/02/20 11:05) Chest tightness Penicillins Allergy (Verified 08/02/20 11:05) Hives procaine HCl [From Novocain] Allergy (Verified 08/02/20 16:28) I get drunk risedronate sodium [From Actonel] Allergy (Verified 08/02/20 11:05) Chest tightness Sulfa (Sulfonamide Antibiotics) Allergy (Verified 08/02/20 11:05) Hives trimethoprim Allergy (Verified 09/07/20 11:05) Chest tightness Procedures: - - pacemaker. chest tube. - Type of Care/Length of Stay Estimated LOS: Convalescent Care Less Than 30 days Type of Care Needed: Skilled Rehab Potential: Fair Prognosis: Fair - Additional Orders/Day of Discharge Additional Orders: Incentive spirometer 10 times every hour while awake. Day of Discharge: 09/15/20 - Dietary and Speech Recommendations Dietitian Recommendations/Changes: continue cardiac diet as ordered. Ensure w/ medpass if pt becomes agreeable. - Follow Up Care Primary Care Physician: Yvette Steel DO [Primary Care Provider] - Within 2 Weeks When: Pacemaker clinic September 16 at 11 AM
--- NOTE | 2020-09-15 16:54 | DS.PCM_ITS ---
Discharge Date and Diagnosis - Problem List Patient Problems: Active and Suspected Problems (Last Updated 09/09/20 @ 16:43 by Sheree Allison) General weakness (Acute) Asystole (Acute) Cardiopulmonary arrest with successful resuscitation (Acute) Asystole during tilt table test with brief CPR Pneumothorax, left (Acute) Date of Admission: 09/07/20 Date of Discharge: 09/15/20 - Primary Discharge Diagnosis Acute Problems: Active Problems (Last Updated 09/09/20 @ 16:43 by Sheree Allison) General weakness (Acute) Asystole (Acute) Cardiopulmonary arrest with successful resuscitation (Acute) Asystole during tilt table test with brief CPR Pneumothorax, left (Acute) - Secondary Discharge Diagnosis Chronic Problems: Chronic Problems (Last Updated 09/09/20 @ 16:43 by Sheree Allison) High degree atrioventricular block (Chronic) Sick sinus syndrome (Chronic) Presence of permanent cardiac pacemaker (Chronic ~09/08/20) Hypothyroid (Chronic) Hypertension (Chronic) Syncope (Chronic) Uncontrolled hypertension (Chronic) Hospital Course and Treatment Imaging Results: 09/15/20 08:55 CXR [Chest 1 View (Portable)] [RAD] Urgent Clinical Impression(s) from Imaging Studies Chest X-Ray 09/07/20 11:09 IMPRESSION: Degenerative changes, as described above. No demonstrated acute cardiopulmonary process. Electronically Signed: Smooth Rowland MD at 11:36 EST Tel , Service support , Chest CTA 09/07/20 11:27 IMPRESSION: No demonstrated pulmonary embolism or arterial dissection. Electronically Signed: Smooth Rowland MD at 12:54 EST Tel , Service support , Chest X-Ray 09/09/20 05:55 IMPRESSION: Cardiac pacemaker in expected location. No pneumothorax. New small left pleural effusion. New 2.3 cm soft tissue density overlying left lung apex, since September 07, 2020 which may represent postoperative changes. Recommend follow-up. Electronically Signed: Cruz Villa MD at 6:49 EST , Service support , ADDENDUM: 09/09/20 0954 ADDENDUM: 09/09/20 1000 IMPRESSION: Cardiac pacemaker in expected location. No pneumothorax. New small left pleural effusion. New 2.3 cm soft tissue density overlying left lung apex, since September 07, 2020 which may represent postoperative changes. Recommend follow-up. Electronically Signed: Cruz Villa MD at 6:49 EST , Service support , ADDENDUM: 09/09/20 1000 Chest X-Ray 09/09/20 09:40 IMPRESSION: Persistent, moderate left apical pneumothorax. COPD. Mild left basilar atelectasis. Electronically Signed: Cristina Ulloa MD at 10:02 EST Tel , Service support , Chest X-Ray 09/09/20 10:01 IMPRESSION: There has been interval placement of a left-sided pleural catheter , its tip is obscured by the left-sided pacemaker. Left-sided pneumothorax is no longer visualized. There is mild left basilar atelectasis and likely small left pleural effusion. Electronically Signed: Cristina Ulloa MD at 10:19 EST Tel , Service support , Chest X-Ray 09/10/20 06:00 IMPRESSION: Increase in left pneumothorax. Left chest tube has been partially retracted into the chest wall. Bibasilar opacities suggestive of atelectasis. at 0639 Reported and signed by: Mary Pedraza MD Electronically Signed: Mary Pedraza MD at 6:39 EST Tel , Service support , Chest X-Ray 09/10/20 06:58 IMPRESSION: Mild decrease in left pneumothorax. at 0747 Reported and signed by: Mary Pedraza MD Electronically Signed: Mary Pedraza MD at 7:47 EST Tel , Service support , Chest X-Ray 09/10/20 10:00 IMPRESSION: Previously seen left apical pneumothorax is no longer definitely visualized. There may be trace left pleural effusion and/or pleural thickening. COPD. The lungs are clear. Electronically Signed: Cristina Ulloa MD at 10:46 EST Tel , Service support , Chest X-Ray 09/11/20 05:55 IMPRESSION: Mild increase in left pneumothorax. at 0442 Reported and signed by: Mary Pedraza MD Electronically Signed: Mary Pedraza MD at 4:42 EST Tel , Service support , Chest X-Ray 09/11/20 07:16 IMPRESSION: Interval replacement of the left-sided thoracostomy tube with a tiny apical pneumothorax. Electronically Signed: Ajit Potts MD at 12:20 EST Tel , Service support , Chest X-Ray 09/12/20 08:47 IMPRESSION: No change from 09/11/2020. Electronically Signed: Ajit Potts MD at 9:32 EDT Tel , Service support , Chest X-Ray 09/13/20 05:55 IMPRESSION: No change from 09/12/2020. Electronically Signed: Ajit Potts MD at 8:40 EDT Tel , Service support , Chest X-Ray 09/13/20 13:20 IMPRESSION: Left-sided thoracostomy tube with no pneumothorax. Electronically Signed: Ajit Potts MD at 13:34 EDT Tel , Service support , KUB X-Ray 09/13/20 13:20 IMPRESSION: Nonspecific bowel gas pattern. Electronically Signed: Ajit Potts MD at 13:34 EDT Tel , Service support , Chest X-Ray 09/13/20 17:52 IMPRESSION: Interval removal left-sided thoracostomy tube with no pneumothorax. Electronically Signed: Ajit Potts MD at 18:23 EDT Tel , Service support , Chest X-Ray 09/15/20 08:55 IMPRESSION: No evidence of pneumothorax. Residual bibasilar atelectasis and/or infiltrates worse on the right side with small bilateral pleural effusions. Electronically Signed: Erwin Russ MD at 14:47 EDT , Service support , Carlee, cardiology Hu Dewitt: Krysta Storey: general surgery Operations: None Procedures: - - pacemaker. chest tube Summary of Care Provided: The patient is a 80 year old F had a history of recurrent syncope. On 07 September was having a tilt table test and then had asystole. Patient did receive CPR. Patient did have successful resuscitation. Patient had a finger placed on the . On the , a rapid response team was called patient was hypotensive and hypoxic. Patient was found to have a left-sided pneumothorax which was large. Patient had emergent chest tube placement performed by Dr. Chaparro patient had repeat imaging that showed increase in the left pneumothorax after the chest tube had been placed. On a 28 [place] chest tube was placed by Dr. Lamb. Eventually chest tube was placed to waterseal and showed no reaccumulation and was removed on the . Follow-up chest x-ray on showed no pneumothorax. It is suspected the patient had the pneumothorax due to the cardiopulmonary resuscitation. Pulmonary does not recommend any forced expiration, such as pulmonary function test for least 6 months given the pneumothorax. Patient had chest pain likely due to the cardiopulmonary resuscitation as well as chest tube and has been reluctant to participate in therapy however did participate in therapy today. Patient will be discharged to the TCU in stable condition. Patient still is on oxygen 3L/min continuous. Patient advised to utilize incentive spirometer while awake. For the asystole, patient is taken off her metoprolol and has a permanent pacemaker. Patient has a pacemaker check on the . [] Patient Problems: Active and Suspected Problems (Last Updated 09/09/20 @ 16:43 by Sheree Allison) General weakness (Acute) Asystole (Acute) Cardiopulmonary arrest with successful resuscitation (Acute) Asystole during tilt table test with brief CPR Pneumothorax, left (Acute) - Physical Exam Vitals/I&O's: Vital Signs Temp Pulse Resp BP Pulse Ox 36.4 C L 85 18 122/80 H 94 09/15/20 15:09 09/15/20 15:09 09/15/20 15:09 09/15/20 15:09 09/15/20 15:09 Oxygen Flow Rate (L/min) 3 Oxygen Delivery Method Nasal Cannula Weight: 65.499 kg Body Mass Index (BMI) 23.3 Intake and Output for Last 24 Hours 09/13/20 09/14/20 09/15/20 23:59 23:59 23:59 Intake Total 1040 / 1040 2385 / 2385 1571.25 / 1571.25 Output Total 400 / 400 200 / 200 75 / 75 Balance 640 / 640 2185 / 2185 1496.25 / 1496.25 Microbiology Past 72 Hours 09/15/20 09:45 Mucosa - Nose SARS-CoV-2 Antigen (Rapid) - Final Current Medications Acetaminophen (Acetaminophen 500 Mg Tablet) 1,000 mg PO Q8H PRN PRN PRN Reason: Pain Score 1-10 Last Admin: 09/14/20 16:41 Dose: 1,000 mg Documented by: Albuterol Sulfate (Albuterol 2.5 Mg/3 Ml Vial.Neb.) 2.5 mg INHALATION Q2H PRN PRN PRN Reason: SOB/Wheezing Aspirin (Aspirin 81 Mg Tab.Chew) 81 mg PO DAILY@0800 [facility] Last Admin: 09/15/20 07:57 Dose: 81 mg Documented by: Enoxaparin Sodium (Enoxaparin 40 Mg/0.4 Ml Syringe) 40 mg SC DAILY [facility] Last Admin: 09/15/20 08:04 Dose: Not Given Documented by: Levothyroxine Sodium (Levothyroxine 75 Mcg Tablet) 37.5 mcg PO Sa@0600 [facility] Last Admin: 09/11/20 04:08 Dose: 37.5 mcg Documented by: Levothyroxine Sodium (Levothyroxine 75 Mcg Tablet) 75 mcg PO MoTuWeThFr@0600 [facility] Last Admin: 09/15/20 05:31 Dose: 75 mcg Documented by: Ondansetron HCl (Ondansetron 4 Mg/2 Ml Vial) 4 mg IV Q8H PRN PRN PRN Reason: NAUSEA/VOMITING Last Admin: 09/12/20 07:55 Dose: 4 mg Documented by: Oxycodone HCl (Oxycodone 5 Mg Tablet) 5 - 10 mg PO Q4H PRN PRN PRN Reason: Pain Score 4-10 Last Admin: 09/15/20 16:17 Dose: 10 mg Documented by: Polyethylene Glycol (Polyethylene Glycol 3350 17 Gm Packet) 17 gm PO DAILY [facility] Last Admin: 09/15/20 08:02 Dose: 17 gm Documented by: Senna/Docusate Sodium (Senna/Docusate Sodium 1 Tablet) 2 tablet PO BID [facility] Last Admin: 09/15/20 08:00 Dose: 2 tablet Documented by: Sodium Chloride (0.9% Saline Lock 10 Ml Syringe) 10 - 40 ml IV UD PRN PRN Reason: SALINE FLUSH Last Admin: 09/12/20 10:20 Dose: 10 ml Documented by: Sodium Chloride (0.9% Saline Lock 10 Ml Syringe) 10 - 40 ml IV UD PRN PRN Reason: SALINE FLUSH Last Admin: 09/11/20 22:52 Dose: 10 ml Documented by: Discharge Diet: No Restrictions, Low fat/ Low Cholesterol Discharge Activity: May Not Drive Call your doctor if your incision/area has: Continuous Slow Oozing, Sudden Increased Bleeding, Increased Pain/ Swelling, Increased Redness, Foul Smelling Discharge, Swelling at the incision site Call your doctor if you observe: Fever of 101 or Higher, Shortness of breath, Dizziness, Fainting spells, Swelling in the ankles, Chest pain, Prolonged hiccoughing, Increased palpitations (irregular heartbeat) Suture Line Care: Avoid Pulling/Pushing, Avoid Pinching/Bending Cleanse incision/area with: Do not get Incision Wet, Keep Dressing Clean & Dry Additional Dressing/Incision Instructions:: When dressing is removed, wash and dry incision. Keep covered with a light bandage if it is rubbing against your clothing. Do not cover the incision with an airtight bandage. Change the bandage daily. Do not remove steri strips. The strips will fall off on their own. Home Medications: Medications to take at Discharge Aspirin [Aspirin, Baby] 81 mg PO DAILY@0800 #30 tab.chew 07/25/16 Levothyroxine Sodium [Synthroid] 37.5 mcg PO SA 08/02/20 Levothyroxine Sodium [Synthroid] 75 mcg PO MOTUWETHFR 08/02/20 Oxycodone [Oxyir] 5 mg PO Q6H PRN 3 Days #12 tablet 09/15/20 Polyethylene Glycol 3350 [Miralax] 17 gm PO DAILY packet 09/15/20 Following Prescriptions Were Given to Patient: Oxycodone [Oxyir] 5 mg PO Q6H PRN 3 Days #12 tablet PRN Reason: Pain Score 4-10 Prescription Printed Primary Care Physician: Yvette Steel DO [Primary Care Provider] - Within 2 Weeks When: Pacemaker clinic September 16 at 11 AM Additional Instructions: Signs and Symptoms to Report to Your Doctor at Once - call your doctor's office or Doctor's Registry ([phone]) Call 911 or go to the nearest Emergency Department if you feel you need urgent care. *Infection (fever, increased redness or swelling at the incision site, drainage from the incision increased pain at the pacemaker site) *Shortness of breath *Dizziness *Fainting spells *Swelling in the ankles *Chest pain *Prolonged hiccoughing *Increased palpitaitons (irregular heartbeat) Medications: Take your pain medication as directed. Refer to your discharge instruction sheet for a list of medications you are to take. Disposition: [facility] facility Minutes spent on discharge:: 35 Patient Condition:: Fair Medical Necessity - Tobacco Use Smoking Status: Never smoker Tobacco Use: Non-smoker Meaningful Use Info Meaningful Use Diagnoses (Choose all that apply): None applicable Inpatient E&M: 32263 Disch Hosp
== END 2020-09-15 18:45 | disposition skilled nursing facility (03) | DRG 243 ==
LOC: ED 11:27 → PCU 15:40 → ICU 09-09 10:02 → PCU 09-11 16:18
PROVIDERS: Internal Medicine; Internal Medicine Cardiovascular Disease; Nurse Practitioner Family; Admitting Provider Internal Medicine; Emergency Provider Emergency Medicine; PCP Internal Medicine
DX: I46.9 Cardiac arrest, cause unspecified (principal); J95.811 Postprocedural pneumothorax; E03.9 Hypothyroidism, unspecified; I10 Essential (primary) hypertension; R55 Syncope and collapse; R53.1 Weakness; Z66 Do not resuscitate; K59.00 Constipation, unspecified; R53.81 Other malaise; E78.5 Hyperlipidemia, unspecified; Z79.899 Other long term (current) drug therapy
CPT/HCPCS: 33208; 36415; 71045; 71047; 71275; 74018; 80048; 82962; 83735; 84100; 84443; 84484; 85025; 85027; 85379; 85610; 85730; 87426; 87641; 93005; 93660; 97163; 97167; 97530; 97535; 99152; 99153; 99251; 99284; J7030; J7040; J7050; Q9967; A4216; C1894; G0463; J1940; J2405

== ENCOUNTER 2020-09-15 18:52 | Inpatient (IN) | payer MEDICARE, SELFPAY ==
[2020-09-07 16:00] VITALS: BMI 23.3
[2020-09-15 19:02] VITALS: BP 142/92; PULSE 78; PULSE 84; RESP 16; RESP 20; TEMP 36.5; O2SAT 94; O2SAT 96; BMI 25.0
[2020-09-15 20:39] VITALS: O2SAT 94
[2020-09-15] MEDS: Acetaminophen 500 MG Tablet 1000 MG PO (20:51)
--- NOTE | 2020-09-15 21:09 | HP.PCM_ITS ---
Problem List (1) Debility Status: Acute (2) Unresponsive Status: Acute (3) Bradycardia Status: Acute (4) Cardiopulmonary arrest with successful resuscitation Status: Acute Comment: Asystole during tilt table test with brief CPR (5) Pneumothorax, left Status: Acute (6) Hypothyroid Status: Chronic Qualifiers: (7) Hypertension Status: Chronic Qualifiers: (8) Syncope Status: Chronic History of Present Illness Date of Admission: 09/15/20 Chief Complaint: Here for rehabilitation, strengthening, prior to discharge home alone. 09/07/2020 The patient is a 80 year old Female with below past medical history presented to [facility] Emergency Department with unresponsiveness. 09/07/2020 CTA chest negative pulmonary embolism, negative arterial dissection. . Having outpatient tilt tablet test for syncope. She passes out frequently. During test, nitroglycerin given per protocol, heart rate 30's, unresponsive. Atropine given, asystole, CPR started, patient regained consciousness. Morphine, Zofran given for chest soreness from CPR. 09/07/2020 Admit to Hospital. Pacemaker implantation in AM for bradycardia. PT/OT for debility. Tylenol/oxycodone for CPR chest soreness. 09/08/2020 Pacemaker implantation. 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 Diagnosed with large left pneumothorax. General surgery placed emergent chest tube, imaging showed worsening left pneumothorax afterwards. 09/11/2020 General surgery placed 28 [place] chest tube. 09/14/2020 Pneumothorax improved. Chest tube removed. 09/15/2020 Chest X-ray showed pneumothorax resolved. Pneumothorax thought secondary to CPR. Oxygen 3 liters per nasal cannula for hypoxia. No forced expiration recommended for 6 months. 09/15/2020 Admit to TCU with debility, here for rehabilitation, strengthening, prior to discharge home alone. Past Medical History Past Medical History (Chronic Problems): Chronic Problems (Last Updated 09/09/20 @ 16:43 by Sheree Allison) High degree atrioventricular block (Chronic) Sick sinus syndrome (Chronic) Presence of permanent cardiac pacemaker (Chronic ~09/08/20) Hypothyroid (Chronic) Hypertension (Chronic) Syncope (Chronic) Uncontrolled hypertension (Chronic) Medical History: Medical History (Last Updated 09/09/20 @ 16:43 by Sheree Allison) High degree atrioventricular block (Chronic) I44.39 Sick sinus syndrome (Chronic) I49.5 Presence of permanent cardiac pacemaker (Chronic) Onset Date: ~09/08/20 Z95.0 Allergies atorvastatin calcium [From Lipitor] Allergy (Verified 08/02/20 11:05) Chest tightness captopril Allergy (Verified 08/02/20 11:05) Chest tightness lansoprazole [From Prevacid] Allergy (Verified 08/02/20 11:05) Chest tightness Penicillins Allergy (Verified 08/02/20 11:05) Hives procaine HCl [From Novocain] Allergy (Verified 08/02/20 16:28) I get drunk risedronate sodium [From Actonel] Allergy (Verified 08/02/20 11:05) Chest tightness Sulfa (Sulfonamide Antibiotics) Allergy (Verified 08/02/20 11:05) Hives trimethoprim Allergy (Verified 09/07/20 11:05) Chest tightness Home Medications: Ambulatory Orders Medication Instructions Recorded Levothyroxine Sodium [Synthroid] 37.5 mcg PO SA 08/02/20 Levothyroxine Sodium [Synthroid] 75 mcg PO MOTUWETHFR 08/02/20 Aspirin [Aspirin, Baby] 81 mg PO DAILY@0800 09/15/20 Oxycodone [Oxyir] 5 mg PO Q6H PRN 3 Days #12 tablet 09/15/20 Polyethylene Glycol 3350 [Miralax] 17 gm PO DAILY 09/15/20 Surgical History: noncontributory Psychiatric History: 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 Paternal History Items: - - Denies paternal medical history including cardiac history. Review of Systems Constitutional: Denies: Chills, Fever, Weight Change HEENT: Denies: Head Aches, Sinus Congestion, Sinus Drainage Cardiovascular: Denies: Chest Pain, Palpitations Respiratory: Denies: Cough, Shortness of breath at rest, Sputum production Gastrointestinal: Denies: Abdominal Pain, Nausea, Vomiting Genitourinary: Denies: Dysuria Musculoskeletal: Denies: Joint Pain, Joint Tenderness Skin: Denies: Rash, Wounds Neurological: Denies: Numbness, Tingling, Focal weakness Psychiatric: Denies: Anxiety, Depression, Homicidal Ideations, Suicidal Ideations Hematologic/ Lymphatic: Denies: Easy Bruising, Easy Bleeding VTE Information - Inpt Only VTE Present on Admission: No VTE Mechan Device Prophylaxis: Knee High FRANCISCO Hose VTE Pharm Prophylaxis ordered?: No Reason prophylaxis not ordered:: Treatment Not Indicated Patient Problems: Active and Suspected Problems (Last Updated 09/09/20 @ 16:43 by Sheree Allison) Debility (Acute) Unresponsive (Acute) Bradycardia (Acute) Cardiopulmonary arrest with successful resuscitation (Acute) Asystole during tilt table test with brief CPR Pneumothorax, left (Acute) - Physical Exam Vitals/I&O's: Vital Signs Pulse Ox 94 09/15/20 20:39 Oxygen Flow Rate (L/min) 3 Oxygen Delivery Method Nasal Cannula Weight: 70.307 kg Body Mass Index (BMI) 25.0 General: Alert, Oriented x3, Cooperative HEENT: Atraumatic, PERRLA, EOMI, Normocephalic Neck: Supple, No JVD, Negative Carotid Bruits Lungs: Clear to auscultation, Normal air movement Cardiovascular: Regular rate, No murmurs Abdomen: Bowel Sounds Present, Soft, Non Tender Extremities: No edema, Capillary Refill Less than 3 Seconds Skin: No rashes, No breakdown Musculoskeletal: No Tenderness to Palpation of Joints or Extremities Neurological: Cranial nerves II-XII grossly intact Psych/Mental Status: Normal Affect, Appropriate Current Medications Acetaminophen (Acetaminophen 500 Mg Tablet) 1,000 mg PO Q6H PRN PRN Reason: Pain Score 1-10 Last Admin: 09/15/20 20:51 Dose: 1,000 mg Documented by: Aspirin (Aspirin 81 Mg Tab.Chew) 81 mg PO DAILY@0800 [facility] Levothyroxine Sodium (Levothyroxine 75 Mcg Tablet) 37.5 mcg PO Sa@0600 [facility] Levothyroxine Sodium (Levothyroxine 75 Mcg Tablet) 75 mcg PO MoTuWeThFr@0600 [facility] Oxycodone HCl (Oxycodone 5 Mg Tablet) 5 mg PO Q6H PRN PRN Reason: Pain Score 4-10 Polyethylene Glycol (Polyethylene Glycol 3350 17 Gm Packet) 17 gm PO DAILY [facility] Senna/Docusate Sodium (Senna/Docusate Sodium 1 Tablet) 2 tablet PO BID [facility] Tuberculin PPD (Tuberculin,Purif.Prot.Deriv. 50 Tu/Ml Vial) 5 tu ID X1 ONE Stop: 09/16/20 10:01 Tuberculin PPD (Tuberculin,Purif.Prot.Deriv. 50 Tu/Ml Vial) 5 tu ID [id number] ONE Stop: 09/23/20 10:01 Assessment/Plan All Active Problems (Last Updated 09/09/20 @ 16:43 by Sheree Allison) Debility (Acute) Unresponsive (Acute) Bradycardia (Acute) General weakness (Acute) Asystole (Acute) Cardiopulmonary arrest with successful resuscitation (Acute) Pneumothorax, left (Acute) Gastroenteritis (Resolved) Urinary tract infection (Resolved) 80 year old female with below past medical history hospitalized for cardiac arrest with successful resuscitation, underwent pacemaker implantation, complicated by left pneumothorax requiring chest tube, admitted to TCU with debility, here for rehabilitation, strengthening, prior to discharge home alone. * Debility - PT/OT. * Pain - Tylenol 1000MG Q6H PRN pain (1-3), Oxycodone 5MG Q4H PRN pain (4-10). * Bowel - Miralax 17GM daily, Senna/colace 2 tablets BID. * Adult immunization - Administer Prevnar 13, Pneumovax 23, Fluzone, COVID19 vaccine as appropriate. * DVT prophylaxis - Hold, on aspirin. * CV prophylaxis - Aspirin 81MG daily. * Hypothyroidism - Levothyroxine 75MCG 6 days/week, 37.5CMG 1 day/week. * Bradycardia - s/p pacemaker implantation. * Pneumothorax, left - resolved with chest tube.
[2020-09-16 05:46] LABS: Absolute Lymphocyte Count 0.89 X10^3/uL (0.83-4.51); Absolute Neutrophil Count 4.1 X10^3/uL (2.0-7.7); Basophil# 0.03 X10^3/uL; Basophil% 0.5 % (0-1); Eosinophil# 0.31 X10^3/uL; Hematocrit 31.2 % (37-47); Hemoglobin 9.9 g/dL (12.0-15.0); Lymphocyte # 0.89 X10^3/ul (4.0); Lymphocyte % 14.4 % (19-41); Mean Corp Hgb Conc 31.7 g/dL (32-36); Mean Corpuscular Hgb 30.1 pg (27.0-32.0); Mean Corpuscular Volume 94.8 fL (81-99); Mean Platelet Vol. 8.5 fl (6.2-12.0); Monocyte# 0.79 X10^3/uL; Monocyte% 12.8 % (0-10); NRBC Flagged by Analyzer 0 % (0-5); Neutrophil % 66.7 % (47-70); Platelet Count 267 K/mm3 (150-450); RBC Distribution Width CV 13.1 % (11.6-14.6); RBC Distribution Width SD 45.4 fl (35.1-43.9); Red Blood Count 3.29 M/mm3 (4.2-5.4); White Blood Count 6.2 K/mm3 (4.4-11.0)
[2020-09-16] MEDS: Polyethylene Glycol 3350 17 GM PACKET PO (06:08)
[2020-09-16] MEDS: Senna/Docusate Sodium 1 Tablet 2 TABLET PO ×2 (06:08→16:47)
[2020-09-16] MEDS: Levothyroxine 75 MCG Tablet PO (06:11)
[2020-09-16 06:12] LABS: Anion Gap 4 (5-15); BUN 27 mg/dL (7-18); BUN/Creat Ratio 26.2 RATIO (10-20); Calcium,Total 9.3 mg/dL (8.5-10.1); Chloride 103 mmol/L (98-107); Creatinine, Serum 1.03 mg/dL (0.55-1.02); EST Glomerular Filtration Rate 55 mL/min (>60); Est Glom Filt Rate - Afr Amer 66 mL/min (>60); Estimated Creatinine Clearance 41.46 ml/min; Glucose 98 mg/dL (74-106); Potassium 4.1 mmol/L (3.5-5.1); Sodium Level 135 mmol/L (136-145)
[2020-09-16 06:14] VITALS: BP 148/78; PULSE 79; RESP 16; TEMP 36.1; O2SAT 94
[2020-09-16] MEDS: oxyCODONE 5 MG Tablet PO ×3 (06:16→21:33)
[2020-09-16 07:27] VITALS: O2SAT 94
[2020-09-16] MEDS: Aspirin 81 MG TAB.CHEW PO (08:12)
[2020-09-16] MEDS: Acetaminophen 500 MG Tablet 1000 MG PO ×3 (08:21→21:33)
[2020-09-16] MEDS: Tuberculin,Purif.prot.deriv. 50 TU/ML Vial 5 ML ID (11:44)
[2020-09-16 14:30] VITALS: BP 148/71; PULSE 76; RESP 18; TEMP 36.1; O2SAT 96
--- NOTE | 2020-09-16 15:11 | PHA.CONS_ITS ---
<Karla Rosas M - Last Filed: 09/16/20 15:11> Progress Note - Pharmacy Subjective: TCU ADMISSION Objective: Allergies atorvastatin calcium [From Lipitor] Allergy (Verified 08/02/20 11:05) Chest tightness captopril Allergy (Verified 08/02/20 11:05) Chest tightness lansoprazole [From Prevacid] Allergy (Verified 08/02/20 11:05) Chest tightness Penicillins Allergy (Verified 08/02/20 11:05) Hives procaine HCl [From Novocain] Allergy (Verified 08/02/20 16:28) I get drunk risedronate sodium [From Actonel] Allergy (Verified 08/02/20 11:05) Chest tightness Sulfa (Sulfonamide Antibiotics) Allergy (Verified 08/02/20 11:05) Hives trimethoprim Allergy (Verified 09/07/20 11:05) Chest tightness Current Medications Generic Name Dose Route Start Last Admin Trade Name Freq PRN Reason Stop Dose Admin Acetaminophen 1,000 mg 09/15/20 20:40 09/16/20 14:24 Acetaminophen 500 Mg Tablet PO 1,000 mg Q6H PRN Administration Pain Score 1-3 Aspirin 81 mg 09/16/20 08:00 09/16/20 08:12 Aspirin 81 Mg Tab.Chew PO 81 mg DAILY@0800 [facility] Administration Calamine/Phenol 1 applic 09/16/20 18:00 Menthol/Lanolin/Calamine/Znox 113 Gm Tube TOPICAL BID [facility] Protocol Levothyroxine Sodium 37.5 mcg 09/18/20 06:00 Levothyroxine 75 Mcg Tablet PO Sa@0600 [facility] Levothyroxine Sodium 75 mcg 09/16/20 06:00 09/16/20 06:11 Levothyroxine 75 Mcg Tablet PO 75 mcg MoTuWeThFr@0600 [facility] Administration Nutritional Formula (Lactose Free) 120 ml 09/16/20 07:45 09/16/20 10:58 Ensure Enlive 120 Ml Liquid PO Not Given TIDCM [facility] Oxycodone HCl 5 mg 09/15/20 21:22 09/16/20 12:49 Oxycodone 5 Mg Tablet PO 5 mg Q4H PRN PRN Administration Pain Score 4-10 Polyethylene Glycol 17 gm 09/16/20 06:00 09/16/20 06:08 Polyethylene Glycol 3350 17 Gm Packet PO 17 gm DAILY [facility] Administration Senna/Docusate Sodium 2 tablet 09/16/20 06:00 09/16/20 06:08 Senna/Docusate Sodium 1 Tablet PO 2 tablet BID [facility] Administration Sodium Chloride 10 - 40 ml 09/15/20 21:18 0.9% Saline Lock 10 Ml Syringe IV UD PRN SALINE FLUSH Tuberculin PPD 5 tu 09/23/20 10:00 Tuberculin,Purif.Prot.Deriv. 50 Tu/Ml Vial ID 09/23/20 10:01 X1 ONE Problem List (Last Updated 09/09/20 @ 16:43 by Sheree Allison) Debility (Acute) Unresponsive (Acute) Bradycardia (Acute) Cardiopulmonary arrest with successful resuscitation (Acute) Pneumothorax, left (Acute) Hypothyroid (Chronic) Hypertension (Chronic) Syncope (Chronic) Vital Signs Temp Pulse Resp BP Pulse Ox 96.9 F L 76 18 148/71 H 96 09/16/20 14:30 09/16/20 14:30 09/16/20 14:30 09/16/20 14:30 09/16/20 14:30 Oxygen Flow Rate (L/min) 2 Oxygen Delivery Method Nasal Cannula Weight: 70.307 kg Body Mass Index (BMI) 25.0 Sodium 135 mmol/L (136-145) L 09/16/20 05:25 Potassium 4.1 mmol/L (3.5-5.1) 09/16/20 05:25 Chloride 103 mmol/L (98-107) 09/16/20 05:25 Carbon Dioxide 28.0 mmol/L (21.0-32.0) 09/16/20 05:25 Anion Gap 4 (5-15) L 09/16/20 05:25 BUN 27 mg/dL (7-18) H 09/16/20 05:25 Creatinine 1.03 mg/dL (0.55-1.02) H 09/16/20 05:25 Est GFR (MDRD) Af Amer 66 mL/min (>60) 09/16/20 05:25 Est GFR (MDRD) Non-Af 55 mL/min (>60) L 09/16/20 05:25 BUN/Creatinine Ratio 26.2 RATIO (10-20) H 09/16/20 05:25 Glucose 98 mg/dL (74-106) 09/16/20 05:25 Assessment/Plan: 1. Pain: Tylenol 1000mg PO Q6h PRN Pain 1-3, Oxycodone 5mg PO Q4h PRN Pain 4-10. Please continue to monitor for S/S increased/decreased pain, PRN medication usage. 2. Hypothyroid: Synthroid 37.5mg PO Sunday, 75mcg PO daily All other days. Please continue to monitor thyroid function as clinically indicated, monitor for S/S hypothyroidism. 3. CV Prophylaxis: Aspirin 81mg PO daily. Please continue to monitor for S/S bleeding/bruising. Psychotropic Medications: None Unnecessary Medications: None Bowel Regimen: Miralax 17g PO Daily, Senna/Docusate 2 tab PO BID. Please continue to monitor for increased/decreased constipation and/or diarrhea. Date of Note:: 09/16/20 - Provider Comments Provider responsibility: Provider responsible to enter orders to implement recommendations <Luis Alfredo Spivey Chi - Last Filed: 09/16/20 17:43> Progress Note - Pharmacy Subjective: [] Objective: Allergies atorvastatin calcium [From Lipitor] Allergy (Verified 08/02/20 11:05) Chest tightness captopril Allergy (Verified 08/02/20 11:05) Chest tightness lansoprazole [From Prevacid] Allergy (Verified 08/02/20 11:05) Chest tightness Penicillins Allergy (Verified 08/02/20 11:05) Hives procaine HCl [From Novocain] Allergy (Verified 08/02/20 16:28) I get drunk risedronate sodium [From Actonel] Allergy (Verified 08/02/20 11:05) Chest tightness Sulfa (Sulfonamide Antibiotics) Allergy (Verified 08/02/20 11:05) Hives trimethoprim Allergy (Verified 09/07/20 11:05) Chest tightness Current Medications Generic Name Dose Route Start Last Admin Trade Name Freq PRN Reason Stop Dose Admin Acetaminophen 1,000 mg 09/15/20 20:40 09/16/20 14:24 Acetaminophen 500 Mg Tablet PO 1,000 mg Q6H PRN Administration Pain Score 1-3 Aspirin 81 mg 09/16/20 08:00 09/16/20 08:12 Aspirin 81 Mg Tab.Chew PO 81 mg DAILY@0800 [facility] Administration Calamine/Phenol 1 applic 09/16/20 18:00 09/16/20 16:50 Menthol/Lanolin/Calamine/Znox 113 Gm Tube TOPICAL 1 applic BID [facility] Administration Protocol Levothyroxine Sodium 37.5 mcg 09/18/20 06:00 Levothyroxine 75 Mcg Tablet PO Sa@0600 [facility] Levothyroxine Sodium 75 mcg 09/16/20 06:00 09/16/20 06:11 Levothyroxine 75 Mcg Tablet PO 75 mcg MoTuWeThFr@0600 [facility] Administration Nutritional Formula (Lactose Free) 120 ml 09/16/20 07:45 09/16/20 10:58 Ensure Enlive 120 Ml Liquid PO Not Given TIDCM [facility] Oxycodone HCl 5 mg 09/15/20 21:22 09/16/20 12:49 Oxycodone 5 Mg Tablet PO 5 mg Q4H PRN PRN Administration Pain Score 4-10 Polyethylene Glycol 17 gm 09/16/20 06:00 09/16/20 06:08 Polyethylene Glycol 3350 17 Gm Packet PO 17 gm DAILY [facility] Administration Senna/Docusate Sodium 2 tablet 09/16/20 06:00 09/16/20 16:47 Senna/Docusate Sodium 1 Tablet PO 2 tablet BID [facility] Administration Sodium Chloride 10 - 40 ml 09/15/20 21:18 0.9% Saline Lock 10 Ml Syringe IV UD PRN SALINE FLUSH Tuberculin PPD 5 tu 09/23/20 10:00 Tuberculin,Purif.Prot.Deriv. 50 Tu/Ml Vial ID 09/23/20 10:01 X1 ONE Problem List (Last Updated 09/09/20 @ 16:43 by Sheree Allison) Debility (Acute) Unresponsive (Acute) Bradycardia (Acute) Cardiopulmonary arrest with successful resuscitation (Acute) Pneumothorax, left (Acute) Hypothyroid (Chronic) Hypertension (Chronic) Syncope (Chronic) Vital Signs Temp Pulse Resp BP Pulse Ox 96.9 F L 76 18 148/71 H 96 09/16/20 14:30 09/16/20 14:30 09/16/20 14:30 09/16/20 14:30 09/16/20 14:30 Oxygen Flow Rate (L/min) 2 Oxygen Delivery Method Nasal Cannula Weight: 70.307 kg Body Mass Index (BMI) 25.0 Sodium 135 mmol/L (136-145) L 09/16/20 05:25 Potassium 4.1 mmol/L (3.5-5.1) 09/16/20 05:25 Chloride 103 mmol/L (98-107) 09/16/20 05:25 Carbon Dioxide 28.0 mmol/L (21.0-32.0) 09/16/20 05:25 Anion Gap 4 (5-15) L 09/16/20 05:25 BUN 27 mg/dL (7-18) H 09/16/20 05:25 Creatinine 1.03 mg/dL (0.55-1.02) H 09/16/20 05:25 Est GFR (MDRD) Af Amer 66 mL/min (>60) 09/16/20 05:25 Est GFR (MDRD) Non-Af 55 mL/min (>60) L 09/16/20 05:25 BUN/Creatinine Ratio 26.2 RATIO (10-20) H 09/16/20 05:25 Glucose 98 mg/dL (74-106) 09/16/20 05:25 Assessment/Plan: Psychotropic Medications: Unnecessary Medications: Bowel Regimen: - Provider Comments Provider responsibility: Provider responsible to enter orders to implement recommendations Provider Comments to Recommendations by Pharmacy: Agree
--- NOTE | 2020-09-16 15:27 | CHAPLAIN ---
Type of Pastoral Visit _x__ Initial Visit ___ Follow-up Visit ___ On-call Visit ___ General Patient Visit ___ Spiritual Assessment ___ Family Conference ___ Bereavement ___ Rapid Response ___ Code Blue ___ Other (describe below) Pastoral Care Referral From _x__ Patient ___ Family ___ Nurse ___ Physician ___ Boot Lace Cutter Machine ___ Electric Meter Setter ___ Other (describe below) Sacrament/Intervention _x__ Active listening ___ Anointing ___ Quaker ___ Bereavement ___ Communion ___ Brenna exploration ___ ___ Life review _x__ Prayer ___ Reconciliation ___ Sacrament of Sick _x__ Supportive presence ___ Wedding ___ Other (describe below) Pastoral Comments came to room to meet patient and therapist recommended they take a break so pt and farm advisor could talk and have prayer; pt welcoming and talkative; prayer given and visit remained limited due to therapy session to resume; pt would welcome future visits; afterward therapist indicated that she really needed you to come along today, that was great timing;
--- NOTE | 2020-09-16 16:00 | CASEMGMT ---
Social Work Met with patient for initial assessment. Discussed code status. Pt confirmed DNR-CCA, no intubation. MOLST form reviewed, communication to , placed in chart. Explained [employer] insurance with NRD 09/20 and continued stay is not guaranteed. The goal is for pt to return home alone. SW to continue to follow. Tia Vang, WALL ATTENDANT MANAGER OF SECURITY
[2020-09-16] MEDS: Menthol/Lanolin/Calamine/Znox 113 GM Tube 1 APPLIC TOPICAL (16:50)
[2020-09-17] MEDS: oxyCODONE 5 MG Tablet PO ×3 (01:52→16:40)
[2020-09-17] MEDS: Senna/Docusate Sodium 1 Tablet 2 TABLET PO (05:52)
[2020-09-17] MEDS: Menthol/Lanolin/Calamine/Znox 113 GM Tube 1 APPLIC TOPICAL ×2 (05:52→16:37)
[2020-09-17] MEDS: Levothyroxine 75 MCG Tablet PO (05:53)
[2020-09-17] MEDS: Acetaminophen 500 MG Tablet 1000 MG PO ×3 (05:53→20:21)
[2020-09-17 05:54] VITALS: BP 132/74; PULSE 79; RESP 18; TEMP 36.5; O2SAT 94
[2020-09-17] MEDS: Aspirin 81 MG TAB.CHEW PO (08:07)
[2020-09-17 10:31] VITALS: PULSE 80
[2020-09-17 12:53] VITALS: BP 131/71; PULSE 70; RESP 16; TEMP 35.9; O2SAT 94
[2020-09-17] MEDS: 0.9% Saline Lock 10 ML Syringe IV (13:12)
[2020-09-17 14:53] VITALS: O2SAT 97
[2020-09-17 20:15] VITALS: BP 122/69; PULSE 85; RESP 18; TEMP 36.6; O2SAT 97
[2020-09-18] MEDS: oxyCODONE 5 MG Tablet PO ×4 (03:10→21:48)
[2020-09-18] MEDS: Acetaminophen 500 MG Tablet 1000 MG PO ×3 (05:05→21:49)
[2020-09-18] MEDS: Senna/Docusate Sodium 1 Tablet 2 TABLET PO ×2 (05:05→18:02)
[2020-09-18] MEDS: Levothyroxine 75 MCG Tablet 37.5 MCG PO (05:05)
[2020-09-18] MEDS: Menthol/Lanolin/Calamine/Znox 113 GM Tube 1 APPLIC TOPICAL ×2 (05:06→18:03)
[2020-09-18 07:45] VITALS: O2SAT 95
[2020-09-18] MEDS: Aspirin 81 MG TAB.CHEW PO (08:24)
[2020-09-18 10:00] VITALS: PULSE 84
[2020-09-18] MEDS: 0.9% Saline Lock 10 ML Syringe IV ×2 (13:38→21:51)
[2020-09-18 14:09] VITALS: BP 141/78; PULSE 77; RESP 20; TEMP 36.1; O2SAT 96
[2020-09-19] MEDS: oxyCODONE 5 MG Tablet PO ×4 (02:09→18:59)
--- NOTE | 2020-09-19 02:15 | NURSING ---
Assisted pt back to bed from bathroom. Reports pain but is experiencing difficulty rating pain repeatedly stating I don't know. Explained severity of pain scale and pt rates pain to old chest tube site to lt lateral chest at 5/10. Refer to MAR for further documentation. Top 2 side rails up. Call light w/ in reach. Instructed to call staff for assistance.
[2020-09-19 02:30] VITALS: BP 143/85; PULSE 75; RESP 20; TEMP 36.4; O2SAT 95
[2020-09-19] MEDS: Senna/Docusate Sodium 1 Tablet 2 TABLET PO ×2 (06:20→17:50)
[2020-09-19] MEDS: Polyethylene Glycol 3350 17 GM PACKET PO (06:20)
[2020-09-19] MEDS: Acetaminophen 500 MG Tablet 1000 MG PO ×3 (06:21→21:46)
[2020-09-19] MEDS: Menthol/Lanolin/Calamine/Znox 113 GM Tube 1 APPLIC TOPICAL ×2 (06:22→17:53)
[2020-09-19] MEDS: Aspirin 81 MG TAB.CHEW PO (08:16)
[2020-09-19 15:26] VITALS: BP 134/84; PULSE 81; RESP 15; TEMP 36.6; O2SAT 94
[2020-09-19] MEDS: 0.9% Saline Lock 10 ML Syringe IV (17:51)
--- NOTE | 2020-09-19 21:45 | NURSING ---
Instructed to use incentive x10 every hour while awake to prevent pneumonia and/or recurrence of pneumothorax. Instructed to splint lt lateral chest when coughing to decrease discomfort. Pt requests this nurse place IS on bed to remind her to complete exercises as ordered.
[2020-09-20] MEDS: oxyCODONE 5 MG Tablet PO ×4 (02:45→21:02)
[2020-09-20 05:59] VITALS: BP 149/76; PULSE 78; RESP 20; TEMP 36.8; O2SAT 96
[2020-09-20] MEDS: Acetaminophen 500 MG Tablet 1000 MG PO ×3 (06:03→21:02)
[2020-09-20] MEDS: Menthol/Lanolin/Calamine/Znox 113 GM Tube 1 APPLIC TOPICAL ×2 (06:04→13:01)
[2020-09-20] MEDS: Senna/Docusate Sodium 1 Tablet 2 TABLET PO (06:05)
[2020-09-20] MEDS: Levothyroxine 75 MCG Tablet PO (06:05)
[2020-09-20 07:15] VITALS: O2SAT 95
[2020-09-20] MEDS: Aspirin 81 MG TAB.CHEW PO (08:18)
[2020-09-20] MEDS: 0.9% Saline Lock 10 ML Syringe IV ×2 (12:59→21:02)
[2020-09-20 13:58] VITALS: BP 113/71; PULSE 83; RESP 16; TEMP 36.5; O2SAT 96
--- NOTE | 2020-09-20 15:57 | CASEMGMT ---
Social Work Met with patient in room. This pediatric social worker communicating that continued stay has been denied by insurance with last cover day being 09/22/2020 and discharge date being 09/23/3020. Patient voiced understanding to rights of an appeal and signed Notice of Medicare Non-Coverage. Patient lives at home alone. Patient unsure of discharge plan and is asking for this pediatric social worker to call patient Ravi ayala to coordinate on discharge plan. Patient also requests for this pediatric social worker to communicate patient rights to an appeal and see what he thinks. Patient unsure if patient is would like to initiate an appeal or not. Active support and listening provided. Tentative discharge date set for 09/23/2020 Telephone call to patient Ravi ayala, no answer. voicemail left. Therapy updated and recommending 22/01 care for patient in the community or nursing facility. Will continue to follow. Esau DODSON, FAMILIA
--- NOTE | 2020-09-20 16:19 | CASEMGMT ---
Social Work Telephone call from patient son, Vikas. Plan is to initiate an appeal. Contact information for [facility] provided. Esau Mario ACCOUNTS RECEIVABLE SUPERVISOR, FAMILIA
--- NOTE | 2020-09-20 19:54 | DCINST_ITS ---
- Discharge Diagnoses Current Active Problems: Current Active and Chronic Problems (Last Updated 09/09/20 @ 16:43 by Sheree Allison) Debility (Acute) Unresponsive (Acute) Bradycardia (Acute) Cardiopulmonary arrest with successful resuscitation (Acute) Asystole during tilt table test with brief CPR Pneumothorax, left (Acute) Hypothyroid (Chronic) Hypertension (Chronic) Syncope (Chronic) You will use the following diet at home:: No restrictions, Regular Your food should be the consistency of: Regular Your liquids should be the consistency of: Regular/Thin Discharge Activity: Return to Normal Activity, May Shower, Use Walker Weight Bearing Status: Weight bearing as tolerated Call your doctor if you observe: Fever of 101 or Higher, Inability to urinate, Inability to have a bowel movement, Shortness of breath, Chest pain, Uncontrolled pain Allergies/Adverse Reactions: Allergies atorvastatin calcium [From Lipitor] Allergy (Verified 08/02/20 11:05) Chest tightness captopril Allergy (Verified 08/02/20 11:05) Chest tightness lansoprazole [From Prevacid] Allergy (Verified 08/02/20 11:05) Chest tightness Penicillins Allergy (Verified 08/02/20 11:05) Hives procaine HCl [From Novocain] Allergy (Verified 08/02/20 16:28) I get drunk risedronate sodium [From Actonel] Allergy (Verified 08/02/20 11:05) Chest tightness Sulfa (Sulfonamide Antibiotics) Allergy (Verified 08/02/20 11:05) Hives trimethoprim Allergy (Verified 09/07/20 11:05) Chest tightness Medications to take at Discharge Levothyroxine Sodium [Synthroid] 37.5 mcg PO SA 08/02/20 Levothyroxine Sodium [Synthroid] 75 mcg PO MOTUWETHFR 08/02/20 Aspirin [Aspirin, Baby] 81 mg PO DAILY@0800 09/15/20 Acetaminophen [Tylenol] 1,000 mg PO TID tablet 09/20/20 Menthol/Lanolin/Calamine/Znox [Calmoseptine Ointment] 1 applic TOPICAL BID tube 09/20/20 Oxycodone [Oxyir] 5 mg PO Q6H PRN 7 Days #28 tablet 09/20/20 Polyethylene Glycol 3350 [Miralax] 17 gm PO DAILY #30 packet 09/20/20 Senna/Docusate Sodium [Senokot-S] 2 tablet PO BID #120 tablet 09/20/20 The following prescriptions were given: Polyethylene Glycol 3350 [Miralax] 17 gm PO DAILY #30 packet Transmission Status: Pending to [facility] Oxycodone [Oxyir] 5 mg PO Q6H PRN 7 Days #28 tablet PRN Reason: Pain Score 4-10 Transmission Status: [facility] Senna/Docusate Sodium [Senokot-S] 2 tablet PO BID #120 tablet Transmission Status: Pending to [facility] Primary Care Physician: Yvette Steel DO [Primary Care Provider] - Please follow up with your Primary Care Physician in: 1 week. Test Results: Test results from this visit will be discussed in further detail at your follow- up appointment, if applicable. Please Follow Up With: sonal Proposed Discharge Date: 09/23/20
--- NOTE | 2020-09-20 19:55 | DS.PCM_ITS ---
Discharge Date and Diagnosis - Problem List Patient Problems: Active and Suspected Problems (Last Updated 09/09/20 @ 16:43 by Sheree Allison) Debility (Acute) Unresponsive (Acute) Bradycardia (Acute) Cardiopulmonary arrest with successful resuscitation (Acute) Asystole during tilt table test with brief CPR Pneumothorax, left (Acute) Date of Admission: 09/15/20 Date of Discharge: 09/23/20 - Primary Discharge Diagnosis Acute Problems: Active Problems (Last Updated 09/09/20 @ 16:43 by Sheree Allison) Debility (Acute) Unresponsive (Acute) Bradycardia (Acute) Cardiopulmonary arrest with successful resuscitation (Acute) Asystole during tilt table test with brief CPR Pneumothorax, left (Acute) - Secondary Discharge Diagnosis Chronic Problems: Chronic Problems (Last Updated 09/09/20 @ 16:43 by Sheree Allison) High degree atrioventricular block (Chronic) Sick sinus syndrome (Chronic) Presence of permanent cardiac pacemaker (Chronic ~09/08/20) Hypothyroid (Chronic) Hypertension (Chronic) Syncope (Chronic) Uncontrolled hypertension (Chronic) Hospital Course and Treatment Imaging Results: 09/15/20 19:44 Diet: Cardiac - Heart Healthy Food consistency:: Regular Liquid Consistency:: Regular/Thin Type of Dietary Supplement:: Ensure Pudding Diet Comments: Ensure pudding w/ meals. Operations: None Procedures: None Summary of Care Provided: The patient is a 80 year old Female with below past medical history hospitalized for cardiac arrest with successful resuscitation, underwent pacemaker implantation, complicated by left pneumothorax requiring chest tube, admitted to TCU with debility, here for rehabilitation, strengthening, prior to discharge home alone. Discharge home alone, Home Health Care PT/OT/CABLE SYSTEMS INSTALLER. Patient Problems: Active and Suspected Problems (Last Updated 09/09/20 @ 16:43 by Sheree Allison) Debility (Acute) Unresponsive (Acute) Bradycardia (Acute) Cardiopulmonary arrest with successful resuscitation (Acute) Asystole during tilt table test with brief CPR Pneumothorax, left (Acute) - Physical Exam Vitals/I&O's: Vital Signs Temp Pulse Resp BP Pulse Ox 97.7 F L 83 16 113/71 96 09/20/20 13:58 09/20/20 13:58 09/20/20 13:58 09/20/20 13:58 09/20/20 13:58 Oxygen Flow Rate (L/min) 3 Oxygen Delivery Method Nasal Cannula Weight: 70.307 kg Body Mass Index (BMI) 25.0 Intake and Output for Last 24 Hours 09/18/20 09/19/20 09/20/20 23:59 23:59 23:59 Intake Total 600 / 600 360 / 360 480 / 480 Balance 600 / 600 360 / 360 480 / 480 Current Medications Acetaminophen (Acetaminophen 500 Mg Tablet) 1,000 mg PO TID [facility] Last Admin: 09/20/20 13:59 Dose: 1,000 mg Documented by: Aspirin (Aspirin 81 Mg Tab.Chew) 81 mg PO DAILY@0800 [facility] Last Admin: 09/20/20 08:18 Dose: 81 mg Documented by: Calamine/Phenol (Menthol/Lanolin/Calamine/Znox 113 Gm Tube) 1 applic TOPICAL BID [facility]; Protocol Last Admin: 09/20/20 13:01 Dose: 1 applic Documented by: Levothyroxine Sodium (Levothyroxine 75 Mcg Tablet) 37.5 mcg PO Sa@0600 [facility] Last Admin: 09/18/20 05:05 Dose: 37.5 mcg Documented by: Levothyroxine Sodium (Levothyroxine 75 Mcg Tablet) 75 mcg PO MoTuWeThFr@0600 [facility] Last Admin: 09/20/20 06:05 Dose: 75 mcg Documented by: Nutritional Formula (Lactose Free) (Ensure Enlive 120 Ml Liquid) 120 ml PO TIDCM [facility] Last Admin: 09/20/20 17:43 Dose: Not Given Documented by: Oxycodone HCl (Oxycodone 5 Mg Tablet) 5 mg PO Q4H PRN PRN PRN Reason: Pain Score 4-10 Last Admin: 09/20/20 13:58 Dose: 5 mg Documented by: Polyethylene Glycol (Polyethylene Glycol 3350 17 Gm Packet) 17 gm PO DAILY [facility] Last Admin: 09/20/20 06:05 Dose: Not Given Documented by: Senna/Docusate Sodium (Senna/Docusate Sodium 1 Tablet) 2 tablet PO BID [facility] Last Admin: 09/20/20 13:01 Dose: Not Given Documented by: Sodium Chloride (0.9% Saline Lock 10 Ml Syringe) 10 - 40 ml IV UD PRN PRN Reason: SALINE FLUSH Last Admin: 09/20/20 12:59 Dose: 10 ml Documented by: Tuberculin PPD (Tuberculin,Purif.Prot.Deriv. 50 Tu/Ml Vial) 5 tu ID [id number] ONE Stop: 09/23/20 10:01 Discharge Diet: No Restrictions Discharge Activity: Return to Normal Activity, May Shower, Use Walker Weight Bearing Status: Weight bearing as tolerated Call your doctor if you observe: Fever of 101 or Higher, Inability to urinate, Inability to have a bowel movement, Shortness of breath, Chest pain, Uncontrolled pain Home Medications: Medications to take at Discharge Levothyroxine Sodium [Synthroid] 37.5 mcg PO SA 08/02/20 Levothyroxine Sodium [Synthroid] 75 mcg PO MOTUWETHFR 08/02/20 Aspirin [Aspirin, Baby] 81 mg PO DAILY@0800 09/15/20 Acetaminophen [Tylenol] 1,000 mg PO TID tablet 09/20/20 Menthol/Lanolin/Calamine/Znox [Calmoseptine Ointment] 1 applic TOPICAL BID tube 09/20/20 Oxycodone [Oxyir] 5 mg PO Q6H PRN 7 Days #28 tablet 09/20/20 Polyethylene Glycol 3350 [Miralax] 17 gm PO DAILY #30 packet 09/20/20 Senna/Docusate Sodium [Senokot-S] 2 tablet PO BID #120 tablet 09/20/20 Following Prescriptions Were Given to Patient: Polyethylene Glycol 3350 [Miralax] 17 gm PO DAILY #30 packet Transmission Status: Pending to [facility] Oxycodone [Oxyir] 5 mg PO Q6H PRN 7 Days #28 tablet PRN Reason: Pain Score 4-10 Transmission Status: Sent to [facility] Senna/Docusate Sodium [Senokot-S] 2 tablet PO BID #120 tablet Transmission Status: Pending to [facility] Primary Care Physician: Yvette Steel DO [Primary Care Provider] - Please follow up with your Primary Care Physician in: 1 week. Please Follow Up With: sonal Disposition: Home with Home Health Minutes spent on discharge:: 35 Patient Condition:: Stable Medical Necessity - Tobacco Use Smoking Status: Never smoker Tobacco Use: Non-smoker Meaningful Use Info Meaningful Use Diagnoses (Choose all that apply): None applicable
[2020-09-21] MEDS: oxyCODONE 5 MG Tablet PO ×4 (03:23→20:02)
[2020-09-21 05:00] VITALS: BP 145/84; PULSE 78; RESP 18; TEMP 36.7; O2SAT 95
[2020-09-21] MEDS: Acetaminophen 500 MG Tablet 1000 MG PO ×3 (05:16→20:07)
[2020-09-21] MEDS: Levothyroxine 75 MCG Tablet PO (05:16)
[2020-09-21] MEDS: Senna/Docusate Sodium 1 Tablet 2 TABLET PO ×2 (05:16→16:43)
[2020-09-21] MEDS: Menthol/Lanolin/Calamine/Znox 113 GM Tube 1 APPLIC TOPICAL ×2 (05:17→16:42)
[2020-09-21 06:41] VITALS: O2SAT 94
[2020-09-21] MEDS: Aspirin 81 MG TAB.CHEW PO (07:53)
--- NOTE | 2020-09-21 10:02 | CASEMGMT ---
Social Work Telephone call from [facility], appeal has been initiated. Requested clinical information faxed. Proposed discharge date: 09/23/2020 pending appeal. Esau DODSON, RAFATS
--- NOTE | 2020-09-21 11:40 | CASEMGMT ---
Social Work Brief interview for mental status (BIMS) and resident mood interview (PHQ-9) completed on this day. BIMS score . PHQ-9 score 10/26. Esau DODSON, RAFATS
[2020-09-21] MEDS: 0.9% Saline Lock 10 ML Syringe IV (13:08)
--- NOTE | 2020-09-21 13:33 | CASEMGMT ---
Social Work Met with patient in room to discuss discharge plan in the event that continued denial is not overturned. Patient plans to return to home alone. Patient reports to have neighbors and friends that are able to assist. Patient sons plan to check in on patient as possible. Therapy recommending for patient to continue with physical and occupational therapy within the home as well as use a front wheeled walker. Patient is also new to oxygen. Nursing staff to establish if patient requires home oxygen. Patient does not have preference of [employer] [facility] [employer], [employer] to be utilized. Patient is requesting for home health services to be set up through [facility]. Patient sonRavi is able to provide transportation to home for patient. Active support and listening provided. Telephone call to [facility], Intake. Referral made. Clinical information as well as order for home health services faxed to [facility]. Will continue to follow for DME needs and establishment. Proposed discharge date: 09/23/2020 pending appeal. Esau DODSON, FAMILIA
[2020-09-21 13:35] VITALS: BP 142/82; PULSE 86; RESP 16; TEMP 36.4; O2SAT 94
--- NOTE | 2020-09-21 15:19 | CASEMGMT ---
Social Work Telephone call received from patient son, Vikas. Vikas reports to have received phone call from [facility] and denial was NOT overturned. Last cover day continues to be 09/22/2020 with anticipated discharge or patient financial responsibility to begin on 09/23/3020. Vikas inquired about private pay cost for patient to continue with stay on the TCU, this pediatric social worker able to provide private pay cost and educated Vikas that 21 days would need to be paid up front. Vikas voiced understanding to all information. This pediatric social worker to updated patient on above. Plan of care meeting to be held tomorrow when Vikas and patient will decide on whether or not to continue with discharge on 09/23/2020. Met with patient in room. This pediatric social worker updated patient on above information. Proposed discharge date: 09/23/2020 Will continue to follow. Esua DODSON, FAMILIA
[2020-09-21 17:38] VITALS: O2SAT 94
[2020-09-22] MEDS: oxyCODONE 5 MG Tablet PO ×4 (02:48→20:03)
[2020-09-22 02:49] VITALS: BP 116/79; PULSE 78; RESP 20; TEMP 36.1
[2020-09-22 03:09] VITALS: O2SAT 92
[2020-09-22] MEDS: Levothyroxine 75 MCG Tablet PO (05:44)
[2020-09-22] MEDS: Menthol/Lanolin/Calamine/Znox 113 GM Tube 1 APPLIC TOPICAL ×2 (05:44→16:50)
[2020-09-22] MEDS: Acetaminophen 500 MG Tablet 1000 MG PO ×3 (05:45→21:11)
[2020-09-22 07:37] VITALS: O2SAT 94
[2020-09-22] MEDS: Aspirin 81 MG TAB.CHEW PO (08:00)
--- NOTE | 2020-09-22 08:25 | OT ---
Oxygen test completed with pt. Completed walking test with pt ambulating and completing varied sitting/standing activities on room air. O2 sats decreased to 86%. Required 2 L of O2 to recover to 94%.
--- NOTE | 2020-09-22 11:48 | CASEMGMT ---
Social Work Plan of care meeting held in patient room. Patient son present via conference call, Vikas. Patient is not wanting to continue with stay via private pay and plans to discharge to home on 09/23/2020. Patient to have home health services through [facility] for physical and occupational therapy as well as fpc. Home oxygen test completed with patient and patient requires home O2. Patient also will need walker at time of discharge. Patient choosing [facility] for [place] oxygen set up and walker. Vikas to pick patient up tomorrow at 10am. Patient and Vikas aware of recommendation for patient to have 24/7 care in the home. Patient has supportive neighbors. Neighbors and family to check in on patient. Telephone call to [facility], confirmed that patient has been approved. Updated order faxed to include nursing as well as discharge instructions. Telephone call to [facility]. Order for walker and oxygen faxed. Justin to deliver oxygen tank this evening. Proposed discharge date: 09/23/2020 PLAN: Discharge to home alone with home health services and needed DME. Esau DODSON, FAMILIA
--- NOTE | 2020-09-22 12:04 | CHAPLAIN ---
Type of Pastoral Visit ___ Initial Visit _x__ Follow-up Visit ___ On-call Visit ___ General Patient Visit ___ Spiritual Assessment ___ Family Conference ___ Bereavement ___ Rapid Response ___ Code Blue ___ Other (describe below) Pastoral Care Referral From _x__ Patient ___ Family ___ Nurse ___ Physician ___ Candy Maker ___ District Branch Manager ___ Other (describe below) Sacrament/Intervention _x__ Active listening ___ Anointing ___ Mormon ___ Bereavement ___ Communion _x__ Brenna exploration ___ _x__ Life review _x__ Prayer ___ Reconciliation ___ Sacrament of Sick _x__ Supportive presence ___ Wedding ___ Other (describe below) Pastoral Comments
[2020-09-22] MEDS: Senna/Docusate Sodium 1 Tablet 2 TABLET PO (13:48)
[2020-09-22 13:49] VITALS: BP 128/69; PULSE 84; RESP 17; TEMP 36.2; O2SAT 94
[2020-09-23] MEDS: Polyethylene Glycol 3350 17 GM PACKET PO (00:56)
[2020-09-23] MEDS: oxyCODONE 5 MG Tablet PO ×3 (00:56→09:56)
[2020-09-23 05:00] VITALS: BP 156/81; PULSE 77; RESP 18; TEMP 37.1; O2SAT 93
[2020-09-23] MEDS: Menthol/Lanolin/Calamine/Znox 113 GM Tube 1 APPLIC TOPICAL (05:36)
[2020-09-23] MEDS: Levothyroxine 75 MCG Tablet PO (05:36)
[2020-09-23] MEDS: Acetaminophen 500 MG Tablet 1000 MG PO (05:37)
[2020-09-23 05:51] LABS: Absolute Lymphocyte Count 1.47 X10^3/uL (0.83-4.51); Absolute Neutrophil Count 4.4 X10^3/uL (2.0-7.7); Basophil# 0.05 X10^3/uL; Basophil% 0.7 % (0-1); Eosinophil# 0.32 X10^3/uL; Eosinophils% 4.5 % (0-5); Hematocrit 35.3 % (37-47); Hemoglobin 11.4 g/dL (12.0-15.0); Lymphocyte # 1.47 X10^3/ul (4.0); Lymphocyte % 20.9 % (19-41); Mean Corp Hgb Conc 32.3 g/dL (32-36); Mean Corpuscular Volume 92.9 fL (81-99); Mean Platelet Vol. 7.8 fl (6.2-12.0); Monocyte# 0.73 X10^3/uL; Monocyte% 10.4 % (0-10); NRBC Flagged by Analyzer 0 % (0-5); Neutrophil # 4.36 X10^3/uL (2.7-7.7); Neutrophil % 61.8 % (47-70); Platelet Count 451 K/mm3 (150-450); RBC Distribution Width SD 44.5 fl (35.1-43.9); White Blood Count 7.1 K/mm3 (4.4-11.0)
[2020-09-23 06:38] LABS: Anion Gap 6 (5-15); BUN 21 mg/dL (7-18); BUN/Creat Ratio 20.8 RATIO (10-20); Calcium,Total 9.9 mg/dL (8.5-10.1); Chloride 103 mmol/L (98-107); Creatinine, Serum 1.01 mg/dL (0.55-1.02); EST Glomerular Filtration Rate 56 mL/min (>60); Est Glom Filt Rate - Afr Amer 68 mL/min (>60); Estimated Creatinine Clearance 42.28 ml/min; Glucose 96 mg/dL (74-106); Potassium 4.6 mmol/L (3.5-5.1); Sodium Level 137 mmol/L (136-145)
[2020-09-23 07:41] VITALS: O2SAT 93
[2020-09-23] MEDS: Aspirin 81 MG TAB.CHEW PO (08:04)
[2020-09-23 09:58] VITALS: O2SAT 86; O2SAT 94
[2020-09-23 10:36] VITALS: BP 140/78; PULSE 87; RESP 18; TEMP 36; O2SAT 94
--- NOTE | 2020-09-28 09:27 | MDS.RN ---
Information for the mds was obtained from review of the clinical record, interview of resident, staff, and direct observation of resident's care.
== END 2020-09-23 10:30 | disposition home health service (06) | DRG 950 ==
PROVIDERS: Admitting Provider Family Medicine Geriatric Medicine; PCP Internal Medicine; Visit Provider Family Medicine Geriatric Medicine
DX: Z48.812 Encounter for surgical aftercare following surgery on the circulatory system (principal); E03.9 Hypothyroidism, unspecified; Z86.74 Personal history of sudden cardiac arrest; I10 Essential (primary) hypertension; Z95.0 Presence of cardiac pacemaker; Z79.899 Other long term (current) drug therapy; I44.30 Unspecified atrioventricular block
CPT/HCPCS: 36415; 80048; 85025; 87635; 97110; 97116; 97161; 97166; 97530; 97535; 97802; A4216; U0002

== ENCOUNTER 2022-09-06 10:01 | Emergency (ER) | payer MEDICARE, SELFPAY ==
[2022-09-06 10:02] VITALS: BP 176/106; PULSE 81; RESP 20; TEMP 36.4; O2SAT 94; BMI 24.8
--- NOTE | 2022-09-06 11:13 | EDS_ITS ---
HPI History of Present Illness Chief Complaint: General Illness Detail of Chief Complaint: Patient presents from the EEG lab because of agitation Informant: patient and other (Nurse received report. Report will be documented in the HPI narrative) Limited: other (Patient reports she is nervous and agitated and does not want to be here) Onset/Context/Timing Onset: Today Context: Sudden Onset Timing: Continuous Quality: Per HPI narrative Location: EEG lab and emergency room Current Severity: Mild Maximum Severity: Moderate Worsened by: Nothing Relieved by: Nothing Associated Symptoms Associated Symptoms: Patient denies everything and would like to go home. 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 She had a positive tabletop test. Review of cardiology report also indicates she had a high degree intraventricular block and sick sinus syndrome. Patient has had persistent/recurrent single episodes. Interrogation of the pacemaker revealed no malfunction of the pacemaker or dysrhythmia. Patient was scheduled for an outpatient EEG. The EEG was performed. It has not been read. When patient was asked to sit up and get dressed she became agitated with tremors and stating she wanted out of here. As I entered the room patient states she is nervous. She states she wants to go home. She does not know why she is here. When she was told she had no response. Patient denies headache, visual, ocular auditory symptoms. Patient denies ringing or ears or decreased hearing. Patient denies trouble with speech or swallowing or change in voice. Patient denies cardiac or respiratory symptoms. Patient denies GI symptoms. Patient denies paresthesia, anesthesia or motor weakness in the upper or lower extremities. Patient denies vertiginous symptoms. Patient denies urologic symptoms. Prior similar symptoms: No Recent Illness/Hospitalization: No [facility] Medical History Asystole Cardiopulmonary arrest with successful resuscitation COVID-19 Essential hypertension High degree atrioventricular block Hypothyroid Presence of permanent cardiac pacemaker (~09/08/20) Sick sinus syndrome Home Medications levothyroxine 75 mcg tablet 37.5 mcg PO SA thyroid 08/02/20 [History Last Taken 09/11/20] levothyroxine 75 mcg tablet 75 mcg PO MOTUWETHFR thyroid 08/02/20 [History Last Taken 09/15/20] metoprolol succinate 25 mg tablet,extended release 24 hr (Toprol XL) 25 mg PO DAILY 10/25/20 [History Last Taken Unknown] acetaminophen 500 mg tablet 1,000 mg PO TID PRN 08/10/21 [History Last Taken Unknown] aspirin 325 mg tablet 325 mg PO Q OTHER DAY 02/17/22 [History Last Taken Unknown] multivitamin 1 tab PO DAILY 02/17/22 [History Last Taken Unknown] amlodipine 5 mg tablet 5 mg PO DAILY #30 tabs 08/28/22 [Rx Last Taken Unknown] Allergy/AdvReac Type Severity Reaction Status Date / Time pentoxifylline Allergy Mild unknown Verified 02/17/22 09:42 atorvastatin calcium Allergy Chest Verified 02/17/22 09:42 [From Lipitor] tightness captopril Allergy Chest Verified 02/17/22 09:42 tightness lansoprazole [From Prevacid] Allergy Chest Verified 02/17/22 09:42 tightness Penicillins Allergy Hives Verified 02/17/22 09:42 procaine HCl [From Novocain] Allergy I get Verified 02/17/22 09:42 drunk risedronate sodium Allergy Chest Verified 02/17/22 09:42 [From Actonel] tightness Sulfa (Sulfonamide Allergy Hives Verified 02/17/22 09:42 Antibiotics) trimethoprim Allergy Chest Verified 02/17/22 09:42 tightness trazodone AdvReac Unknown Unknown Verified 02/17/22 09:42 Social History (Updated 09/06/22 @ 11:[address] Neo Heaton MD) household members: none Smoking Status: Never smoker alcohol intake: never substance use type: does not use caffeine: No ROS ROS ED Constitutional Constitutional ED: Denies chills, fever(s), subjective, sweats, weight loss or other Eyes Eyes: Denies blurry vision, change in vision, diplopia or other ENT ENT ED: Denies ear pain, rhinorrhea, sore throat or other Respiratory/Chest Respiratory/Chest: Denies cough, dyspnea, dyspnea on exertion, sputum or other Gastrointestinal Gastrointestinal: Denies abdominal pain, constipation, diarrhea, melena, nausea, vomiting or other Genitourinary Genitourinary ED: Denies dysuria, hematuria, LMP (females 10-50), urinary frequency or other Musculoskeletal Musculoskeletal: Denies arthralgias, back pain, myalgias or neck pain Integumentary Denies abscess, Abrasions or rash Neurologic Neurologic: Denies headache(s), paresthesias or weakness Psychiatric Psychiatric: Reports anxiety; Denies depression Endocrine Endocrinology: Denies cold intolerance, heat intolerance, polydipsia, polyphagia or polyuria Hematologic/Lymphatic Hematologic/Lymphatic: Reports systems reviewed and no addt'l complaints, except as documented Allergic/Immunologic Allergic/Immunologic ED: Denies mouth swelling, tongue swelling or urticaria EXAM Physical Exam Const Vital Signs: 09/06/22 10:02 09/06/22 10:18 Temperature 97.5 F L Temperature Source Temporal Pulse Rate 81 Respiratory Rate 20 H Respiratory Effort Normal Non-Labored Respiratory Pattern Normal Blood Pressure 176/106 H Blood Pressure Mean 129 Pulse Ox 94 Oxygen Delivery Method Room Air Positive well nourished and well developed; Negative for unkempt Constitutional Narrative: Patient appears anxious. She is fidgety. She states she cannot sit still. General Appearance ED: well developed; Negative for unkempt, cyanotic, diaphoretic or pallor HEENT Reports moist mucous membranes HEENT Narrative: Head is atraumatic normocephalic. Ears normal. TMs normal. Nares patent. There is no discharge. Posterior pharynx is normal. Uvula is midline. There is no deviation of tongue with protrusion. Eyes PERRL and EOMs intact bilaterally General Eye ED: Negative for pale conjunctiva or scleral icterus Neck no lymphadenopathy, supple and no JVD Neck Narrative: Trachea is midline. There is no carotid bruits noted. Chest Wall inspection of chest normal and palpation of chest normal Resp normal respiratory effort and clear to auscultation bilaterally Cardio regular rate, regular rhythm, S1 normal heart sound, S2 normal heart sound and no murmurs GI normal to inspection, nondistended, normoactive bowel sounds, non-tender, non- distended and no masses; Negative for hepatosplenomegaly Back/Spine no CVA tenderness Cervical Spine: Negative for cervical spine tenderness Thoracic Spine / Upper Back: Negative for thoracic spinal tenderness Lumbar Spine / Lower Back: Negative for lumbar spinal tenderness Extremity normal to inspection General Extremety ED: Negative for edema or tenderness General Extremity: Negative for edema Neuro oriented x3, CN's II-XII intact bilaterally and no sensory deficits noted Sensorium / Orientation: alert Motor Exam: strength 5/5 throughout Psych mental status grossly normal Appearance: Negative for unkempt Attitude: agitated Mood & Affect: anxious; Negative for depressed or tearful Skin no rashes or lesions noted, no wounds and skin turgor normal General Skin Exam: elasticity normal; Negative for jaundice or pallor MDM MDM MDM Narrative Medical decision making narrative: Review of prior records does not indicate similar behavior. Will obtain CBC to assess for white count and differential t and will obtain basic metabolic panel to assess electrolytes, renal function and glucose. This may represent anxiety versus metabolic or infectious cause. Urine was not obtained since she has no urologic symptoms and had no tenderness over the bladder or right or left flank. Lab Data Attestation: I reviewed the patient's lab results. Lab results narrative: CBC is unremarkable. Basic metabolic panel was not elevated creatinine 1.18. This is in the range of normal for patient. GFR is 47. Labs: Laboratory Results - last 24 hr 09/06/22 09/06/22 11:20 11:20 WBC 5.3 RBC 4.13 L Hgb 12.6 Hct 37.3 MCV 90.3 MCH 30.5 MCHC 33.8 RDW Std Deviation 44.9 H RDW Coeff of Krystian 13.6 Plt Count 214 MPV 8.7 Immature Gran % (Auto) 0.200 Neut % (Auto) 50.4 Lymph % (Auto) 31.6 Cuming % (Auto) 13.2 H Eos % (Auto) 3.8 Baso % (Auto) 0.8 Absolute Neuts (auto) 2.7 Absolute Lymphs (auto) 1.67 Nucleated RBC % 0 Sodium 139 Potassium 4.1 Chloride 108 H Carbon Dioxide 27.0 Anion Gap 4 L BUN 23 H Creatinine 1.18 H Estim Creat Clear Calc 33.65 Est GFR (MDRD) Af Amer 57 L Est GFR (MDRD) Non-Af 47 L BUN/Creatinine Ratio 19.5 Glucose 92 Calcium 10.1 Rhythm Strip Rhythm Strip: Sinus Rhythm Rate: 78 Ectopy: None Treatment and Re-Evaluation :: Patient was informed of her test. She is no longer fidgety or agitated. She would like to go home. She was discharged to home. Patient did have an elevated blood pressure when she arrived. Blood pressure has improved. Discharge Plan Triage Chief Complaint: General Illness ED Provider: Neo Heaton Dx/Rx/DC Orders Clinical Impression: Acute alteration in mental status, Presence of permanent cardiac pacemaker, Essential hypertension, Chronic renal insufficiency Prescriptions: No Action metoprolol succinate [Toprol XL] 25 mg tablet extended release 24 hr 25 mg PO DAILY acetaminophen 500 mg tablet 1,000 mg PO TID PRN aspirin 325 mg tablet 325 mg PO Q OTHER DAY multivitamin Tablet 1 tab PO DAILY levothyroxine 75 MCG tablet 75 mcg PO MOTUWETHFR levothyroxine 75 MCG tablet 37.5 mcg PO SA amlodipine 5 mg tablet 5 mg PO DAILY Qty: 30 11RF Primary Care Provider: Yvette Steel Referrals: Yvette Steel DO [Primary Care Provider] - 3-5 Days if not improving Disposition Disposition: Home, Self Care
[2022-09-06 11:27] LABS: Absolute Lymphocyte Count 1.67 X10^3/uL (0.83-4.51); Absolute Neutrophil Count 2.7 X10^3/uL (2.0-7.7); Basophil# 0.04 X10^3/uL; Basophil% 0.8 % (0-1); Eosinophils% 3.8 % (0-5); Hematocrit 37.3 % (37-47); Hemoglobin 12.6 g/dL (12.0-15.0); Lymphocyte # 1.67 X10^3/ul (0.83-4.51); Lymphocyte % 31.6 % (19-41); Mean Corp Hgb Conc 33.8 g/dL (32-36); Mean Corpuscular Hgb 30.5 pg (27.0-32.0); Mean Corpuscular Volume 90.3 fL (81-99); Mean Platelet Vol. 8.7 fl (6.2-12.0); Monocyte% 13.2 % (0-10); NRBC Flagged by Analyzer 0 % (0-5); Neutrophil # 2.67 X10^3/uL (2.7-7.7); Neutrophil % 50.4 % (47-70); Platelet Count 214 K/mm3 (150-450); RBC Distribution Width CV 13.6 % (11.6-14.6); RBC Distribution Width SD 44.9 fl (35.1-43.9); Red Blood Count 4.13 M/mm3 (4.2-5.4); White Blood Count 5.3 K/mm3 (4.4-11.0)
[2022-09-06 11:41] LABS: Anion Gap 4 (5-15); BUN 23 mg/dL (7-18); BUN/Creat Ratio 19.5 RATIO (10-20); Calcium,Total 10.1 mg/dL (8.5-10.1); Chloride 108 mmol/L (98-107); Creatinine, Serum 1.18 mg/dL (0.55-1.02); EST Glomerular Filtration Rate 47 mL/min (>60); Est Glom Filt Rate - Afr Amer 57 mL/min (>60); Estimated Creatinine Clearance 33.65 ml/min; Glucose 92 mg/dL (74-106); Potassium 4.1 mmol/L (3.5-5.1); Sodium Level 139 mmol/L (136-145)
[2022-09-06 11:54] VITALS: PULSE 62; RESP 16; O2SAT 98
== END 2022-09-06 11:55 | disposition home or self-care (01) ==
PROVIDERS: Emergency Provider Emergency Medicine; PCP Internal Medicine; Visit Provider Emergency Medicine
DX: R41.82 Altered mental status, unspecified (principal); N18.9 Chronic kidney disease, unspecified; Z95.0 Presence of cardiac pacemaker; I12.9 Hypertensive chronic kidney disease with stage 1 through stage 4 chronic kidney disease, or unspecified chronic kidney disease; F41.9 Anxiety disorder, unspecified; R55 Syncope and collapse
CPT/HCPCS: 80048; 85025; 95819; 99284; A4216

== ENCOUNTER → 2022-09-06 | Outpatient (CLI) | payer MEDICARE, SELFPAY ==
--- NOTE | 2022-09-06 10:37 | CPS ---
Post EEG, after pt was disconnected pt was asked to button her blouse. Pt stated she couldn't, she was to tired. Pt was informed she was not given any medication during test that would have made her so tired. Pt was asked again if she could try to button blouse. Pt became more lethargic. Pt was taken over to ER. On way over to ER pt kept moaning that she just didn't feel good. Pt was restless on bed during transfer.
== END | disposition home or self-care (01) ==
LOC: PSN 08:03
PROVIDERS: PCP Internal Medicine; Referring Provider Internal Medicine; Visit Provider Internal Medicine
DX: R55 Syncope and collapse (principal)
CPT/HCPCS: 95819

== ENCOUNTER → 2022-09-20 | Outpatient (CLI) | payer MEDICARE, SELFPAY ==
--- NOTE | 2022-09-20 10:07 | BD_ITS ---
STUDY: DUAL ENERGY X-RAY ABSORPTIOMETRY / DXA REASON FOR EXAM: Female, 82 years old. [id number] TECHNIQUE: Bone Mineral Density (BMD) measurements of lumbar spine and bilateral hips were obtained. COMPARISON: Comparison is made with prior study dated November 05, 2018. FINDINGS: Lumbar Spine (L1-L4): g/cm2 (0.854) / T-score (-1.8) / Z-score (1.0) Findings are suggestive of osteopenia with a moderate fracture risk. Left Femur Total: g/cm2 (0.732) / T-score (-1.7) / Z-score (0.4) Left Femoral Neck: g/cm2 (0.625) / T-score (-2.0) / Z-score (0.3) Right Femur Total: g/cm2 (0.758) / T-score (-1.5) / Z-score (0.6) Right Femoral Neck: g/cm2 (0.632) / T-score (-2.0) / Z-score (0.4) The T-Scores on the most recent prior examination were: Lumbar Spine (L1-L4): There has been improvement of bone density since the previous examination. Left Femur Total: which represents an improvement of 3.5%. Right Femur Total: which represents an improvement of 0.6%. BD/Dexa Bone Density Study IMPRESSION: The patient is considered osteopenic as outlined below according to World [place] Organization (WHO) criteria with a moderate fracture risk. There has been improvement of bone density since the previous examination. Reference Information: The T-score is the number of standard deviations above or below the standard which is normal for young adults at their peak bone mineral density. The World Health Organization (WHO) interprets the T-scores as follows: Above -1 Normal bone density Between -1 and -2.5 Osteopenia Equal to / or below -2.5 Osteoporosis As a practical clinical guideline, osteopenia may be graded as follows: Mild -1 through -1.5 Moderate -1.6 through -2.0 Severe -2.1 through -2.4 The Z-score is the number of standard deviations above or below age-matched controls. A Z-score of less than -1.5 would be considered abnormal. References: 1. NIH Osteoporosis and Related Bone Diseases www osteo.org 2. International Society for Clinical Densitometry www iscd.org 3. National Osteoporosis Foundation www nof.org Electronically Signed: Erwin Russ MD at 15:04 EDT ,
== END | disposition home or self-care (01) ==
LOC: OPBD 09:59
PROVIDERS: PCP Internal Medicine; Referring Provider Internal Medicine; Visit Provider Internal Medicine
DX: Z78.0 Asymptomatic menopausal state (principal)
CPT/HCPCS: 77080

== ENCOUNTER → 2023-09-24 | Outpatient (CLI) | payer SELFPAY | END | disposition home or self-care (01) | PROVIDERS: PCP Internal Medicine; Referring Provider Internal Medicine; Visit Provider Internal Medicine | DX: E78.00 Pure hypercholesterolemia, unspecified (principal) ==

== ENCOUNTER → 2024-10-01 | Outpatient (CLI) | payer MEDICARE, SELFPAY ==
--- NOTE | 2024-10-01 15:59 | BD_ITS ---
PROCEDURE: DEXA BONE DENSITY STUDY 10/01/2024 REASON FOR EXAM: F, age 84 y/o . Postmenopausal. TECHNIQUE: DXA scan of the lumbar spine and left hip, using make and model. REFERENCE LINKS: ISCD Adult Positions COMPARISON: Comparison is made with prior study dated March 23, 2023. FINDINGS: BMD and T-SCORES Lumbar spine: 0.863 g/cm2, T-Score -1.7 L1 through L4 Change from prior: Improvement of 1% since prior study. Left femoral neck: 0.579 g/cm2, T-Score -2.4 Femoral neck comparison data not recommended for monitoring change. Left total hip: 0.675 g/cm2, T-Score -2.2 Change from prior: Worsening of 7.7% Right femoral neck: 0.624 g/cm2, T-Score -2.0 Femoral neck comparison data not recommended for monitoring change. Right total hip: 0.719 g/cm2, T-Score -1.8 Change from prior: Loss of 5.2% Fracture Risk Calculation: FRAX (10-year Fracture Risk) Score: FRAX scores should never be reported in a patient with osteoporosis on DEXA or for any patient that is on bone medication. The patient doesmeet the pharmacological treatment recommendations for prevention of osteoporosis BD/Dexa Bone Density Study IMPRESSION: OSTEOPENIA. Recommend follow-up as clinically warranted. Reading Location: [place] [id number]
== END | disposition home or self-care (01) ==
LOC: OPBD 15:57
PROVIDERS: PCP Internal Medicine; Referring Provider Internal Medicine; Visit Provider Internal Medicine
DX: M85.89 Other specified disorders of bone density and structure, multiple sites (principal)
CPT/HCPCS: 77080

== ENCOUNTER → 2024-12-17 | Outpatient (CLI) | payer MEDICARE, SELFPAY ==
--- NOTE | 2024-12-17 10:30 | RAD_ITS ---
PROCEDURE: CHEST PA AND LATERAL 12/17/2024 REASON FOR EXAM: PAIN AT PACEMAKER SITE TECHNIQUE: CHEST PA AND LATERAL COMPARISON: Chest radiograph September 15, 2020 FINDINGS: Hardware: Left-sided dual-chamber pacer, appears similarly positioned as on the prior exam Heart: Normal size Mediastinum: Normal contours Lungs: No acute process. No airspace consolidation or interstitial thickening. Previously seen pleural effusions appear resolved Bones: No aggressive process identified. RAD/Chest PA and Lateral IMPRESSION: No acute process identified. The dual-chamber pacer appears similarly position ed compared to September 15, 2020 Reading [facility]
== END | disposition home or self-care (01) ==
LOC: RAD 10:23
PROVIDERS: PCP Internal Medicine; Referring Provider Internal Medicine Cardiovascular Disease; Visit Provider Internal Medicine Cardiovascular Disease
DX: R52 Pain, unspecified (principal); Z95.0 Presence of cardiac pacemaker
CPT/HCPCS: 71046